=== PATIENT | female | born 1940 | race Caucasian/White ===

== ENCOUNTER 2017-06-27 10:41 | Emergency (ER) | payer MEDICARE, OTHER ==
[~2017-06-27] VITALS: Ht 160 cm; Wt 72.6 kg
[~2017-06-27 10:41] MED LIST: CATAPRES0.1 MG PO; CLONIDINE HCL0.1 MG PO; CLONIDINE HCL0.2 MG PO; HUMALOG100 UNIT/3 SQ; LEVAQUIN500 MG PO; LEVEMIR100 UNIT/1 SQ; LEVOTHYROXINE88 MCG PO; LOSARTAN POTASS25 MG; LOSARTAN-HCTZ1 EAC1 PO; NOVOLOG100 UNITS1 SQ; PANTOPRAZOLE SO40 MG PO; TRAMADOL HCL50 MG PO; Z CALAN PO; Z.0.AMBIEN10 MG PO; Z.0.ATENOLOL50 MG PO; Z.0.GLUCOPHAGE1000 M PO; Z.0.LEVOTHROID50 MCG PO; Z.0.SIMVASTATIN40 MG PO; [UNRECOGNIZED DRUG - OTHER] PO
[2017-06-27] MEDS ORDERED: MECLIZINE HCL 12.5 MG TAB PO ONE (11:45)
[2017-06-27 12:38] LABS: BILIRUBIN,URINE NEGATIVE (NEGATIVE); KETONES,URINE NEGATIVE (NEGATIVE); LEUKOCYTE ESTERASE ,URINE 2+ (NEGATIVE); NITRITE,URINE NEGATIVE (NEGATIVE); URINE UROBILINOGEN 0.2 mg/dL (0.2 - 1)
--- NOTE | 2017-06-27 12:44 | Diagnostic Imaging Report ---
History:Shortness of breath Comparison studies:CT head 07/31/2015 Technique: Axial images were obtained from the skull base to the vertex. Coronal and sagittal images reconstructed from the axial data. Intravenous contrast: None Findings: Scalp/skull: No abnormalities. Extra-axial spaces: No masses. No fluid collections. Brain sulci: Mildly prominent. Ventricles: Mild compensatory dilatation. No hydrocephalus. Parenchyma: Few hypodensities in the supratentorial white matter are small vessel ischemic changes. No masses, hemorrhage, acute or chronic cortical vascular insults. Sellar/suprasellar region: No abnormalities. Craniocervical junction: Patent foramen magnum. No Chiari one malformation. Incidental findings: Atherosclerotic calcifications in the carotid siphons and vertebral arteries . Impression: No acute abnormalities. Stable examination. Chronic findings: 1. Mild generalized volume loss. 2. Mild supratentorial white matter small vessel ischemic changes. Signed by: DR Easton Mcfarland M.D. on 06/27/2017 12:41 PM
[2017-06-27 12:47] LABS: CLARITY,URINE TURBID (CLEAR); COLOR,URINE YELLOW (YELLOW); PROTEIN,URINE DIPSTICK 2+ (NEGATIVE)
--- NOTE | 2017-06-27 13:05 | Diagnostic Imaging Report ---
PROCEDURE: CHEST SINGLE (PORTABLE) COMPARISON: Chest x-ray 07/31/15 . INDICATIONS: SOB, DIZZINESS FINDINGS: Single frontal image obtained at 1018 hrs. LUNGS: Well-inflated. Scarring in the left upper lobe is stable. No mass or infiltrate. PLEURA: No effusions or pneumothorax. Mild eventration of the right diaphragm is stable. HEART \T\ MEDIASTINUM: The heart is normal in size. Aorta is ectatic and stable in morphology. No hilar lymphadenopathy. BONES \T\ SOFT TISSUES: Surgical clips in the left axilla are stable. No focal osseous lesions. CONCLUSION: Stable chest. No active disease. Dictated by: Terry Al M.D. on 06/27/2017 at 13:13 Electronically approved by: Terry Al M.D. on 06/27/2017 at 13:13
[2017-06-27 13:15] LABS: BACTERIA,URINE MODERATE /HPF; EPITHELIAL CELLS,URINE MODERATE /LPF; RENAL EPITHELIAL CELLS,URINE FEW; TRANSITIONAL EPI CELLS,URINE MODERATE
[2017-06-27 13:30] LABS: BASOPHILS % 0.4 % (0.0-1.0); EOSINOPHILS # (AUTO) 0.1 (0.0-0.4); EOSINOPHILS % 0.9 % (0.0-6.0); HEMATOCRIT 41.2 % (34.2-44.1); HEMOGLOBIN 13.9 g/dL (12.0-16.0); LYMPHOCYTES # (AUTO) 1.2 (1.0-3.2); LYMPHOCYTES % 11.4 % (18.0-39.1); MEAN CORPUSCULAR HEMOGLOBIN 29.1 pg (28-32); MEAN CORPUSCULAR HGB CONC 33.7 g/dL (31-35); MEAN CORPUSCULAR VOLUME 86.2 fL (81-99); MONOCYTES # (AUTO) 1.1 (0.2-0.8); MONOCYTES % 10.4 % (4.4-11.3); NEUTROPHILS % 76.5 % (38.7-80.0); PLATELET COUNT 274 x10e3/uL (140-360); RED BLOOD COUNT 4.78 x10e6/uL (3.6-5.1); RED CELL DISTRIBUTION WIDTH 13.6 % (11.7-14.4)
[2017-06-27 13:50] LABS: ALBUMIN 3.7 g/dL (3.5-5.0); ANION GAP 16.3 mmol/L (8-16); CALCIUM 9.8 mg/dL (8.4-10.2); CREATININE, SERUM 1.43 mg/dL (0.57-1.11); POTASSIUM 4.3 mmol/L (3.5-5.1)
[2017-06-27 13:57] LABS: CREATINE KINASE MB 3.7 ng/mL (0.00-5.00); TROPONIN I 0.02 ng/mL (0-0.300)
[2017-06-27 15:52] VITALS: BP 166/88
== END 2017-06-27 16:15 | disposition home or self-care (01) ==
LOC: ER 10:41
DX: R42 Dizziness and giddiness (principal); N39.0 Urinary tract infection, site not specified; I10 Essential (primary) hypertension; E11.9 Type 2 diabetes mellitus without complications
CPT/HCPCS: 36415; 70450; 71010; 80053; 81001; 82550; 82553; 84484; 85025; 87086; 93005; 99284

== ENCOUNTER → 2017-08-28 | Outpatient (CLI) | payer MEDICARE, OTHER ==
--- NOTE | 2017-08-30 13:24 | Diagnostic Imaging Report ---
History: Back pain and bilateral leg pain Comparison studies: MRI of the lumbar spine 05/01/2015 Technique: Sagittal, coronal and axial T2 , sagittal T1 and IR, axial spin density oblique. Intravenous contrast: None Findings: Number of lumbar vertebral bodies:5 Alignment: Grade 2 anterolisthesis of L4 over L5 of approximately 0.9 cm. Pars defect at L4 is suspected.No scoliosis. Soft tissues: No T2 hyperintense inflammatory changes. Paraspinal muscles: Fatty infiltration of the paraspinal musculature more significant at the lower lumbar spine and sacrum were severe atrophy is noted. Lower thoracic cord:Normal in signal and morphology. The tip of the conus is at L1-L2. Cauda equina: No masses. No arachnoiditis. Surgical changes: posterior fusion with transpedicular screws and interlocking rods at L5-S1. Vertebrae: Normal in height and signal intensity. No compression fractures, infection or neoplasm. Degenerative changes: L1-L2: Disc degeneration with loss of T2 signal. Patent canal and foramina. L2-L3: Disc degeneration with loss of T2 signal. Mild facet hypertrophy with patent canal and foramina. L3-L4: Disc degeneration with loss of T2 signal. Asymmetric right disc bulge, mild right and moderate left facet hypertrophy results in mild canal stenosis and mild right foraminal narrowing. L4-L5: Disc degeneration with obliterated intervertebral space, endplate irregularities and Modic type I changes. Uncoverage of the superior disc, mild disc bulge and severe bilateral facet hypertrophy results in severe canal stenosis and severe bilateral foraminal narrowing. Grade 2 anterolisthesis contributes to stenosis. L5-S1: Disc degeneration with loss of T2 signal and Modic type II changes. Moderate bilateral facet hypertrophy with patent canal, mild right and moderate left foraminal narrowing. Stable. Additional findings: Mild degenerative changes of the SI joints. No kidney is seen at the right renal fossa. IMPRESSION: Severe canal stenosis and severe bilateral foraminal narrowing at L4-L5 secondary to grade 2 anterolisthesis, diffuse disc bulge and severe posterior element hypertrophy. These changes has progressed since previous examination. Disc degeneration more significant at the lower lumbar spine with Modic type I changes and endplate irregularities at L4-L5. Other degenerative changes as described above Signed by: DR Easton Mcfarland M.D. on 08/30/2017 1:21 PM
== END ==
LOC: MRI 09:49
PROVIDERS: ATTEND Student in an Organized Health Care Education/Training Program
DX: M48.061 Spinal stenosis, lumbar region without neurogenic claudication (principal); M51.36 Other intervertebral disc degeneration, lumbar region
CPT/HCPCS: 72148

== ENCOUNTER → 2017-09-16 | Day surgery (SDC) | payer MEDICARE, OTHER ==
[2017-09-10 13:41] LABS: BASOPHILS # (AUTO) 0.1 (0.0-0.1); BASOPHILS % 0.5 % (0.0-1.0); EOSINOPHILS # (AUTO) 0.2 (0.0-0.4); EOSINOPHILS % 1.5 % (0.0-6.0); LYMPHOCYTES # (AUTO) 1.6 (1.0-3.2); LYMPHOCYTES % 16.2 % (18.0-39.1); MEAN CORPUSCULAR HGB CONC 33.3 g/dL (31-35); MEAN CORPUSCULAR VOLUME 87.1 fL (81-99); MONOCYTES # (AUTO) 1.5 (0.2-0.8); MONOCYTES % 14.6 % (4.4-11.3); NEUTROPHILS # (AUTO) 6.7 (2.1-6.9); NEUTROPHILS % 66.6 % (38.7-80.0); PLATELET COUNT 284 x10e3/uL (140-360); RED BLOOD COUNT 4.82 x10e6/uL (3.6-5.1); RED CELL DISTRIBUTION WIDTH 13.3 % (11.7-14.4)
[~2017-09-16] MED LIST changes: +BUPIVACAINE HCL 0.5% INJ 30 ML VIAL INJ ONE; +CEFAZOLIN SOD 1 GM VIAL ONE; +DEXAMETHASONE SOD PHOS INJ 4 MG/ML VIAL ONE; +FENTANYL CITRATE/PF 100MCG/2 ML INJ ONE; +LIDOCAINE HCL 2% LOCAL INJ 5 ML SDV VIAL INJ ONE; +MELOXICAM7.5 MG PO; +MIDAZOLAM HCL 2 MG/2 ML VIAL ONE; +MUPIROCIN 2% OINT 22 GM TUBE ONE; +ONDANSETRON HCL INJ 2 MG/ML VIAL ONE; +PROPOFOL IV EMULSION 10 MG/ML 20 ML VIAL ONE; +SEVOFLURANE INHAL SOLN 250 ML PEN BTL ONE
--- OUTSIDE RECORDS SUMMARY | 2017-09-16 06:23 | XMS REPORT ---
Author Author [facility] Address Unknown Phone Unavailable Care Team Providers Care Applications Engineer Name Role Phone BA RICKS Unavailable Unavailable MIKE JUAREZ Unavailable Unavailable Problems This patient has no known problems. Allergies, Adverse Reactions, Alerts This patient has no known allergies or adverse reactions. Medications This patient has no known medications. Results Test Description Test Time Test Comments Text Results Atomic Results Result Comments MRI SPINE LUMBAR WO [place] [address] Patient Name: REESE BEVERLY MR #: [id number] : 1940 Age/Sex: 76/F Req #: [id number] Adm Physician: Ordered by: BA RICKS M.D. Report #: [id number] Location: MRI Room/Bed: ____ Procedure: [id number] MRI/MRI SPINE LUMBAR WO Exam Date: Exam Time: REPORT STATUS: Signed History: Back pain and bilateral leg pain Comparison studies: MRI of the lumbar spine 05/01/2015 Technique: Sagittal, coronal and axial T2 , sagittal T1 and IR, axial spin density oblique. Intravenous contrast: None Findings: Number of lumbar vertebral bodies:5 Alignment: Grade 2 anterolisthesis of L4 over L5 of approximately 0.9 cm. Pars defect at L4 is suspected.No scoliosis. Soft tissues: No T2 hyperintense inflammatory changes. Paraspinal muscles: Fatty infiltration of the paraspinal musculature more significant at the lower lumbar spine and sacrum were severe atrophy is noted. Lower thoracic cord: Normal in signal and morphology. The tip of the conus is at L1-L2. Cauda equina: No masses. No arachnoiditis. Surgical changes: posterior fusion with transpedicular screws and interlocking rods at L5-S1. Vertebrae: Normal in height and signal intensity. No compression fractures, infection or neoplasm. Degenerative changes: L1-L2: Disc degeneration with loss of T2 signal. Patent canal and foramina. L2-L3: Disc degeneration with loss of T2 signal. Mild facet hypertrophy with patent canal and foramina. L3-L4: Disc degeneration with loss of T2 signal. Asymmetric right disc bulge , mild right and moderate left facet hypertrophy results in mild canal stenosis and mild right foraminal narrowing. L4-L5: Disc degeneration with obliterated intervertebral space, endplate irregularities and Modic type I changes. Uncoverage of the superior disc, mild disc bulge and severe bilateral facet hypertrophy results in severe canal stenosis and severe bilateral foraminal narrowing. Grade 2 anterolisthesis contributes to stenosis. L5-S1: Disc degeneration with loss of T2 signal and Modic type II changes. Moderate bilateral facet hypertrophy with patent canal, mild right and moderate left foraminal narrowing. Stable. Additional findings : Mild degenerative changes of the SI joints. No kidney is seen at the right renal fossa. IMPRESSION: Severe canal stenosis and severe bilateral foraminal narrowing at L4-L5 secondary to grade 2 anterolisthesis, diffuse disc bulge and severe posterior element hypertrophy. These changes has progressed since previous examination. Disc degeneration more significant at the lower lumbar spine with Modic type I changes and endplate irregularities at L4-L5. Other degenerative changes as described above Signed by: DR Easton Mcfarland M.D. on 08/30/2017 1:21 PM Dictated By : EASTON FOFANA MD 1321 COPY TO: BA RICKS M.D. CT BRAIN [place] [address] Patient Name: REESE BEVERLY MR #: [id number] : 1940 Age/Sex: 76/F Req #: [id number] Adm Physician: Ordered by: MIKE JUAREZ MD Report #: [id number] Location: ER Room/Bed: Procedure: [id number] CT/CT BRAIN WO Exam Date: 06/27/17 Exam Time: 1220 REPORT STATUS: Signed History:Shortness of breath Comparison studies:CT head 07/31/2015 Technique: Axial images were obtained from the skull base to the vertex. Coronal and sagittal images reconstructed from the axial data. Intravenous contrast: None Findings: Scalp/skull: No abnormalities. Extra-axial spaces: No masses. No fluid collections. Brain sulci: Mildly prominent. Ventricles: Mild compensatory dilatation. No hydrocephalus. Parenchyma: Few hypodensities in the supratentorial white matter are small vessel ischemic changes. No masses, hemorrhage, acute or chronic cortical vascular insults. Sellar/suprasellar region: No abnormalities. Craniocervical junction: Patent foramen magnum. No Chiari one malformation. Incidental findings: Atherosclerotic calcifications in the carotid siphons and vertebral arteries . Impression: No acute abnormalities. Stable examination. Chronic findings: 1. Mild generalized volume loss. 2. Mild supratentorial white matter small vessel ischemic changes. Signed by: DR Easton Mcfarland M.D. on 06/27/2017 12:41 PM Dictated By: EASTON FOFANA MD 1241 Transcribed By : SHABBIR on 06/27/17 1241 COPY TO: MIKE JUAREZ MD [facility] ([facility]) [address], [place] [address] Patient Name: REESE BEVERLY MR #: [id number] : 1940 Age/Sex: 76/F Req #: [id number] [facility] Physician: Ordered by: MIKE JUAREZ MD Report #: [id number] Location: ER Room/Bed: Procedure: [id number] DX/CHEST SINGLE (PORTABLE) Exam Date: 06/27/17 Exam Time: 1225 REPORT STATUS: Signed PROCEDURE: CHEST SINGLE (PORTABLE) COMPARISON: Chest x-ray 07/31/15 . INDICATIONS: SOB , DIZZINESS FINDINGS: Single frontal image obtained at 1018 hrs. LUNGS: Well-inflated. Scarring in the left upper lobe is stable. No mass or infiltrate. PLEURA: No effusions or pneumothorax. Mild eventration of the right diaphragm is stable. HEART T MEDIASTINUM: The heart is normal in size. Aorta is ectatic and stable in morphology. No hilar lymphadenopathy. BONES T SOFT TISSUES: Surgical clips in the left axilla are stable. No focal osseous lesions. CONCLUSION: Stable chest. No active disease. Dictated by: Marly Al M.D. on 06/27/2017 at 13:13 Electronically approved by: Marly Al M.D. on 06/27/2017 at 13:13 Dictated By: MARLY AL MD 1313 Transcribed By : ELIZABETH on 06/27/17 1313 COPY TO: MIKE JUAREZ MD
[2017-09-16 07:39] LABS: CALCIUM 9.8 mg/dL (8.4-10.2); CREATININE, SERUM 1.12 mg/dL (0.57-1.11)
--- NOTE | 2017-09-16 14:05 | Operative Report ---
DATE OF PROCEDURE: September 16, 2017 PREOPERATIVE DIAGNOSIS: Right carpal tunnel syndrome. POSTOPERATIVE DIAGNOSES 1. Right carpal tunnel syndrome. 2. Flexor tenosynovitis, right wrist. PROCEDURES 1. Right open carpal tunnel release. 2. Flexor tenosynovectomy, right wrist. ANESTHESIA: General. HISTORY: The patient is a 76-year-old female with EMG-proven right carpal tunnel syndrome. Risks, benefits and alternatives of treatment were discussed with the patient. The patient is prepared to undergo the procedure as outlined. PROCEDURE: The patient was brought to the operating theater. After the induction of adequate general inhalation anesthesia, the patient was prepped and draped in the supine position. A time out was performed by the entire operating room team. A 2.5-cm incision was marked out in the intrathenar space. The right upper extremity was exsanguinated and a tourniquet was inflated to a pressure of 250 mmHg. The incision was made through the skin and subcutaneous tissues and all venous tributaries were controlled with bipolar cautery. The incision was deepened through the palmar fascia until the transverse carpal ligament was identified. The ligament was sharply sectioned, taking care to protect and preserve the median nerve underlying it. After the complete width of the ligament had been transected, the distal volar forearm fascia was divided under direct view. Proliferative flexor tenosynovium was noticed to encompass the median nerve and this was radically excised. After performing this maneuver, the nerve was noted to lie adequately decompressed. The wound was copiously irrigated with bacteriostatic saline, closed with 5-0 nylon in an interrupted horizontal mattress fashion. A Marcaine field block was performed at the operative site. Tourniquet was deflated. All of the fingers pinked up nicely and a sterile bulking conforming bandage was applied to the hand and the wrist. A fiberglass splint was fashioned to maintain the wrist in a modest amount of extension. This was held in place with a loosely wrapped Davonte wrap. The patient tolerated the procedure well and was brought to the recovery room in satisfactory condition and discharged with a postoperative instruction sheet as well as a followup appointment. Job#: [id number]
== END | disposition home or self-care (01) ==
LOC: OR 06:21
PROVIDERS: ATTEND Plastic Surgery
DX: G56.01 Carpal tunnel syndrome, right upper limb (principal); M65.841 Other synovitis and tenosynovitis, right hand; E03.9 Hypothyroidism, unspecified; E11.22 Type 2 diabetes mellitus with diabetic chronic kidney disease; I12.9 Hypertensive chronic kidney disease with stage 1 through stage 4 chronic kidney disease, or unspecified chronic kidney disease; N18.9 Chronic kidney disease, unspecified; Z01.810 Encounter for preprocedural cardiovascular examination; Z01.812 Encounter for preprocedural laboratory examination; Z79.4 Long term (current) use of insulin
CPT/HCPCS: 25115; 36415 ×2; 80048; 82948; 85025; 93005; J0690; J1100; J2001; J2250; J2405

== ENCOUNTER → 2017-10-09 | Outpatient (CLI) | payer MEDICARE, OTHER ==
[~2017-10-09] MED LIST changes: -BUPIVACAINE HCL 0.5% INJ 30 ML VIAL INJ ONE; -CEFAZOLIN SOD 1 GM VIAL ONE; -DEXAMETHASONE SOD PHOS INJ 4 MG/ML VIAL ONE; -FENTANYL CITRATE/PF 100MCG/2 ML INJ ONE; -LIDOCAINE HCL 2% LOCAL INJ 5 ML SDV VIAL INJ ONE; -MIDAZOLAM HCL 2 MG/2 ML VIAL ONE; -MUPIROCIN 2% OINT 22 GM TUBE ONE; -ONDANSETRON HCL INJ 2 MG/ML VIAL ONE; -PROPOFOL IV EMULSION 10 MG/ML 20 ML VIAL ONE; -SEVOFLURANE INHAL SOLN 250 ML PEN BTL ONE
--- NOTE | 2017-10-09 15:18 | Diagnostic Imaging Report ---
EXAM: DXA BONE DENSITY INDICATIONS: Osteoporsis COMPARISON: None. FINDINGS: Left femur neck bone mineral density (BMD) (g/cm2):1.019 Femur T-score (standard deviation relative to young adult mean BMD): 1.5 Femur Z-score (standard deviation relative to age-matched control group):3.4 Proximal left femur total bone mineral density (BMD) (g/cm2):1.027 Femur T-score (standard deviation relative to young adult mean BMD): 0.7 Femur Z-score (standard deviation relative to age-matched control group):2.2 Lumbar bone mineral density (BMD) (g/cm2):1.106 Lumbar T-score (standard deviation relative to young adult mean BMD): 0.8 Lumbar Z-score (standard deviation relative to age-matched control group):2.9 Change since prior exam (%): Femur:Not applicable. Spine:Not applicable. Change since oldest prior exam (%): Femur:Not applicable. Spine:Not applicable. Posterior fusion of L4-L5. CONCLUSION: 1. Bone mineral density in the left femur is classified as normal. Fracture risk is low. 2. Bone mineral density in the spine is classified as normal. Fracture risk is low. World Health Organization Classification: *The Z-score is provided for informational purposes. The T-score is preferable for clinical decisions. When comparing exams, a change of >4% is considered statistically significant. SUGGESTED RECOMMENDATIONS: Normal \T\ Osteopenia:Consideration should be given to use of calcium supplementation, daily multiple vitamins and adequate exercise, as preventive measures against osteoporosis, if clinically indicated. Osteoporosis \T\ Severe Osteoporosis:In addition to the above, consideration should be given to medical therapy against osteoporosis, if clinically indicated. Dictated by: Dick Li M.D. on 10/09/2017 at 15:18 Electronically approved by: Dick Li M.D. on 10/09/2017 at 15:18
--- NOTE | 2017-10-10 07:29 | Diagnostic Imaging Report ---
Exam: Lumbar spine CT without IV contrast History: Osteoporosis, back pain, previous lumbar fusion, radiculopathy. Comparison studies: Lumbar spine MRI 08/28/2017 and 06/17/2011. Technique: Axial images were obtained through the lumbar spine. Coronal and sagittal images reconstructed from the axial data. Intravenous contrast: None Findings: Number of non-rib bearing vertebral bodies: 5 Alignment: Unchanged grade 2 (9 mm) anterolisthesis of L4 on L5 due to chronic defects of the bilateral L4 pars interarticularis. Unchanged 2 mm Grade 1 anterolisthesis of L5 on S1 and minimal retrolisthesis of L1 on L2, L2 on L3 and L3 on L4. Soft tissues: Postsurgical changes in the dorsal lumbosacral soft tissues from L4 to S1. Surgical changes of right nephrectomy with metallic clips in the right abdomen. Moderate scattered calcified atherosclerosis throughout the abdominal aorta and iliac vessels. Paraspinal muscles: Mild symmetric atrophy from L1 to L4 with severe atrophy from L5 to the sacrum. Sacroiliac joints: Mild degenerative changes bilaterally with periarticular sclerosis. Vertebrae: No fractures, infection or neoplasm. Surgical changes: L5-S1 discectomy and posterior instrumented fusion with rods fixated via transpedicular screws at L5 and transsacral screws at S1 without evidence of hardware failure or hardware loosening. Disc spacer in place at L5-S1 without significant interbody osseous fusion at this level. Surgical changes of bilateral laminotomies and left facetectomy. Degenerative changes: L1-L2: Mildly degenerated disc. Mild facet arthrosis. Patent canal and foramina. L2-L3: Disc bulge and bilateral facet arthrosis do not result in significant canal or foraminal stenosis. L3-L4: Disc bulge, mildly thickened ligamentum flavum, moderate left and mild right facet arthrosis with mild right foraminal stenosis. No significant canal or left foraminal stenosis. L4-L5: Severely degenerated disc with mixed cystic and sclerotic endplate changes. Grade 2 anterolisthesis of L4 and L5 with associated uncovered disc/disc bulge and hypertrophic changes at the facets with severe canal stenosis and severe bilateral foraminal stenosis. L5-S1: Surgical changes of discectomy, fusion, decompressive laminotomies and left facetectomy. Minimal anterolisthesis of L5 on S1 with bilateral foraminal disc osteophyte complexes and severe right facet arthrosis with mild right foraminal stenosis. There is at least mild narrowing of the left foramen which which is partially decompressed by left facetectomy. IMPRESSION: No changes from the previous lumbar spine MRI 08/28/2017. 1. Grade 2 L4 isthmic spondylolisthesis with severe disc degeneration, severe canal stenosis and severe bilateral foraminal stenosis at L4-L5. 2. Surgical changes of L5-S1 discectomy, posterior fusion, laminotomy and left facetectomy at L5-S1 with mild bilateral foraminal narrowing and without significant canal stenosis. 3. Changes of right nephrectomy. Signed by: Dr. Jorge Gaston M.D. on 10/10/2017 7:26 AM
== END ==
LOC: DX 09:57
PROVIDERS: ATTEND Neurological Surgery
DX: M81.0 Age-related osteoporosis without current pathological fracture (principal); M54.16 Radiculopathy, lumbar region; M47.896 Other spondylosis, lumbar region
CPT/HCPCS: 72131; 77080

== ENCOUNTER 2018-07-10 00:35 | Inpatient (IN) | payer MEDICARE, OTHER ==
[2018-07-10] VITALS (56 sets, daily range): BP systolic 103–208; BP diastolic 47–158
[~2018-07-10] VITALS: Ht 160 cm; Wt 71.8 kg
--- OUTSIDE RECORDS SUMMARY | 2018-07-10 00:40 | XMS REPORT | Summary of Care ---
Author Author [facility] Organization [facility] Address Unknown Phone Unavailable Encounter HQ Anicetontr_julisa(FIN) [id number] Date(s): 10/27/17 - 10/28/17 [facility] Neuro[facility] [address] [facility], [address] [phone] Vital Signs No data available for this section Problem List No data available for this section Allergies, Adverse Reactions, Alerts Substance Reaction Severity Status codeine Active Tylox Active Medications No data available for this section Results No data available for this section Immunizations Given and Recorded Vaccine Date Status Refusal Reason pneumococcal 23-valent vaccine 05/11/09 Given Not Given Vaccine Date Status Refusal Reason pneumococcal 13-valent vaccine 11/03/17 Not Given Patient Refuses Procedures Procedure Date Related Diagnosis Body Site Status Appendectomy Completed Bladder operation Completed Carpal tunnel release Completed Knee replacement Completed Nephrectomy Completed Spinal fusion Completed Social History Social History Type Response Alcohol Never Smoking Status Never smoker; Exposure to Tobacco Smoke None; Cigarette Smoking Last 365 Days No; Reg Smoking Cessation Counseling No entered on: 10/31/17 Assessment and Plan No data available for this section
--- OUTSIDE RECORDS SUMMARY | 2018-07-10 00:40 | XMS REPORT | Summary of Care ---
Author Author [facility] Neurosurgery [facility] Organization [facility] Address Unknown Phone Unavailable Encounter HQ Encntr_alialex(FIN) [id number] Date(s): 11/18/17 - 11/18/17 [facility] Neurosurgery [facility] [address] [facility], [address] [phone] Discharge Disposition: Home or Self Care Attending Physician: Corby Phelps MD Referring Physician: Margarita Macario MD Vital Signs Most recent to 1 oldest [Reference Range]: Height 160.02 cm (11/18/17 11:11 AM) Blood Pressure 166/72 mmHg [90-140/60-90 mmHg] *HI* (11/18/17 11:11 AM) Peripheral Pulse 68 bpm Rate [60-100 bpm] (11/18/17 11:11 AM) Weight 72.727 kg (11/18/17 11:11 AM) Body Mass Index 28.4 m2 (11/18/17 11:11 AM) Problem List No data available for this [...] Reg Smoking Cessation Counseling No entered on: 11/19/17 Assessment and Plan No data available for this section
--- OUTSIDE RECORDS SUMMARY | 2018-07-10 00:40 | XMS REPORT | Summary of Care ---
Author Author [facility] Organization [facility] Address Unknown Phone Unavailable Encounter HQ Anicetontr_julisa(FIN) [id number] Date(s): 11/05/17 - 11/06/17 [facility] [address] [facility], [address] [phone] Vital Signs No data available for this [...]
--- OUTSIDE RECORDS SUMMARY | 2018-07-10 00:40 | XMS REPORT | Summary of Care ---
Author Author [facility]surgery [facility] Organization [facility] Address Unknown Phone Unavailable Encounter HQ Encntr_alias(FIN) [id number] Date(s): 10/21/17 - 10/21/17 [facility] [address] [facility], [address] [phone] Discharge Disposition: Home or Self Care Attending Physician: Corby Phelps MD Referring Physician: Margarita Macario MD Vital Signs No data available for this section Problem List No data available for this section Allergies, Adverse Reactions, Alerts Substance Reaction Severity Status codeine Active Medications No data available for this section Results No data available for this section Immunizations Given and Recorded Vaccine Date Status Refusal Reason pneumococcal 23-valent vaccine 05/11/09 Given Procedures Procedure Date Related Diagnosis Body Site Status Knee replacement Completed Nephrectomy Completed Spinal fusion Completed Social History Social History Type Response Smoking Status Never smoker; Exposure to Tobacco Smoke None; Cigarette Smoking Last 365 Days No; Reg Smoking Cessation Counseling No entered on: 10/21/17 Assessment and Plan No data available for this section
--- OUTSIDE RECORDS SUMMARY | 2018-07-10 00:40 | XMS REPORT | Summary of Care ---
Author Author [facility] Neurosurgery [facility] Organization [facility] Neurosurgery [facility] Address Unknown Phone Unavailable Encounter HQ Anicetontr_julisa(FIN) [id number] Date(s): 11/05/17 - 11/06/17 [facility] Neurosurgery [facility] [address] [facility], [address] [phone] Vital Signs No data available for this [...]
--- OUTSIDE RECORDS SUMMARY | 2018-07-10 00:40 | XMS REPORT | Summary of Care ---
Author Author [facility] Organization [facility] Address Unknown Phone Unavailable Encounter HQ Mireille_julisa(FIN) [phone] Date(s): 12/16/17 - 12/16/17 [facility] [address], [address] [place] [phone] Discharge Disposition: Home or Self Care Attending Physician: Corby Phelps MD Referring Physician: Margarita Macario MD Vital Signs Most recent to 1 oldest [Reference Range]: Height 160.02 cm (12/16/17 1:30 PM) Weight 71.847 kg (12/16/17 1:30 PM) Body Mass Index 28.06 m2 (12/16/17 1:30 PM) Problem List Condition Effective Dates Status Health Status Informant DM (diabetes Active mellitus)(Confirmed) SOB (shortness of Active breath) on exertion(Confirmed) Acid Active reflux(Confirmed) HTN Active (hypertension)(Confi rmed) Hypothyroidism(Confi Active rmed) History of breast Active cancer in female(Confirmed) Allergies, Adverse Reactions, Alerts Substance Reaction Severity [...] Reg Smoking Cessation Counseling No entered on: 12/16/17 Assessment and Plan No data available for this section
--- OUTSIDE RECORDS SUMMARY | 2018-07-10 00:40 | XMS REPORT | Summary of Care ---
Author Author [facility] Organization [facility] Address Unknown Phone Unavailable Encounter SCOTT Mace(SUNSHINE) [id number] Date(s): 10/31/17 - 11/03/17 [facility] [address] [employer] provided by [facility] [place] [address]- Discharge Disposition: Home or Self Care Attending Physician: Corby Phelps MD Admitting Physician: Corby Phelps MD Referring Physician: Corby Phelps MD Vital Signs 1 2 3 Most recent to oldest [Reference Range]: 160.02 cm (10/31/17 11:12 PM) 160.02 cm (10/31/17 7:57 AM) 160.02 cm (10/28/17 1:22 PM) Height 99.5 DegF *HI* (11/03/17 8:15 AM) 98.5 DegF (11/03/17 4:50 AM) 100.0 DegF *HI* (11/03/17 12:10 AM) Temperature Oral [96.4-99.1 DegF] 168/72 mmHg *HI* (11/03/17 8:15 AM) 143/73 mmHg *HI* (11/03/17 4:50 AM) 156/63 mmHg *HI* (11/03/17 12:10 AM) Blood Pressure [90-140/60-90 mmHg] 18 BRMIN (11/03/17 8:15 AM) 20 BRMIN (11/03/17 4:50 AM) 20 BRMIN (11/03/17 12:10 AM) Respiratory Rate [14-20 BRMIN] 74 bpm (11/03/17 8:15 AM) 63 bpm (11/03/17 4:50 AM) 67 bpm (11/03/17 12:10 AM) Peripheral Pulse Rate [60-100 bpm] 71.818 kg (10/31/17 11:12 PM) 71.818 kg (10/31/17 7:57 AM) 71.818 kg (10/28/17 1:22 PM) Weight 28.05 m2 (10/31/17 11:12 PM) 28.05 m2 (10/31/17 7:57 AM) 28.05 m2 (10/28/17 1:22 PM) Body Mass Index Problem List No data available for this section Allergies, Adverse Reactions, Alerts Substance Reaction Severity Status codeine Active Tylox Active Medications ANES fentaNYL 25 microgram, 0.5 mL, Route: IVP, Drug form: INJ, Q5Min, Dosing Weight 71.818, k g, PRN Pain Score 4-6, Priority: Routine, Start date: 10/31/17 15:00:00 CDT, Dur ation: 4 doses or times, Stop date: 11/01/17 0:00:00 CDT Notes: (Same as: Sublimaze) Preservative free. Start Date: 10/31/17 Stop Date: 10/31/17 Status: Discontinued ANES flumazenil 0.2 mg, 2 mL, Route: IVP, Drug form: INJ, PRN, Dosing Weight 71.818, kg, PRN Ziggy zodiazepine Reversal, Initial dose, Start date: 10/31/17 15:00:00 CDT, Duration: 30 day, Stop date: 11/30/17 14:59:00 CDT Notes: (Same as: Romazicon) Start Date: 10/31/17 Stop Date: 10/31/17 Status: Discontinued ANES HYDROmorphone 0.5 mg, 0.25 mL, Route: IVP, Drug form: INJ, Q5Min, Dosing Weight 71.818, kg, OR N Pain Score 7-10, Start date: 10/31/17 15:00:00 CDT, Duration: 4 doses or times , Stop date: 11/01/17 0:00:00 CDT Notes: Same as: Dilaudid Start Date: 10/31/17 Stop Date: 10/31/17 Status: Discontinued ANES naloxone 0.4 mg, 1 mL, Route: IVP, Drug form: INJ, Q2MIN, Dosing Weight 71.818, kg, PRN N arcotic Reversal, Start date: 10/31/17 15:00:00 CDT, Duration: 8 doses or times, Stop date: 11/01/17 0:00:00 CDT Notes: Same as Narcan Start Date: 10/31/17 Stop Date: 10/31/17 Status: Discontinued ANES ondansetron 4 mg, 2 mL, Route: IVP, Drug form: INJ, ONCE, Dosing Weight 71.818, kg, PRN Naus ea & Vomiting, Start date: 10/31/17 15:00:00 CDT Notes: (Same as: Karina) MEDICATION WASTE Product Size: 4 mgProduct Was rosamaria: ___ mg Start Date: 10/31/17 Stop Date: 10/31/17 Status: Discontinued atenolol 50 mg oral tablet 50 mg=1 tab, PO, Daily, 0 Refill(s) Start Date: 10/28/17 Status: Ordered atenolol 50 mg oral tablet 50 mg, 1 tab, Route: PO, Drug form: TAB, Daily, Dosing Weight 71.818, kg, Start date: 11/01/17 9:00:00 CDT, Duration: 30 day, Stop date: 11/30/17 9:00:00 CDT Notes: (Same As:Tenormin) Start Date: 11/01/17 Stop Date: 11/03/17 Status: Discontinued Benadryl 25 mg, 1 cap, Route: PO, Drug form: CAP, TID, Dosing Weight 71.818, kg, PRN Itch ing, Start date: 10/31/17 17:11:00 CDT, Duration: 30 day, Stop date: 11/30/17 17 :10:00 CDT Notes: (Same as: Benadryl) Start Date: 10/31/17 Stop Date: 11/03/17 Status: Discontinued bisacodyl 10 mg, 1 supp, Route: OR, Drug form: SUPP, Daily, Dosing Weight 71.818, kg, PRN Constipation, Start date: 10/31/17 17:11:00 CDT, Duration: 30 day, Stop date: 17:10:00 CDT Notes: (Same As: Dulcolax, Bisco-Lax) Start Date: 10/31/17 Stop Date: 11/03/17 Status: Discontinued calcium chloride + Sodium Chloride 0.9% IV 50 mL 1,000 mg, 10 mL, Route: IVPB, ONCE, Dosing Weight 71.818, kg, Start date: 4:29:00 CDT, Stop date: 11/01/17 4:29:00 CDT Notes: WASTE: F/P - Sink; E - Municipal Trash Bin Start Date: 11/01/17 Stop Date: 11/01/17 Status: Completed ceFAZolin (ANES) Route: IV, Drug form: INJ, ONCE, Stop date: 10/31/17 11:41:00 CDT Start Date: 10/31/17 Stop Date: 10/31/17 Status: Completed ceFAZolin (SCIP) 2 gm, 20 mL, Route: IV, Drug form: SOLN, Q8H, Dosing Weight 71.818, kg, Start da te: 10/31/17 22:00:00 CDT, Stop date: 11/01/17 14:00:00 CDT, ABX Indication: Cy gical Prophylaxis Notes: (Same as Ancef) Start Date: 10/31/17 Stop Date: 11/01/17 Status: Completed ceFAZolin + sterile water 20 mL 2 gm, Route: IV, PRE OP, Start date: 10/30/17 23:00:00 CDT, Duration: 1 day, Sto p date: 10/31/17 22:59:00 CDT, ABX Indication: Surgical Prophylaxis Notes: (Same As: Saeed Martinezzojasbir) MEDICATION WASTE Product Size: 1000 mgP roduct Wasted: ___ mg Start Date: 10/30/17 Stop Date: 11/03/17 Status: Discontinued Chloraseptic 1.4% spray 1 spray, Route: MUCOUS MEM, Daily, Drug form: SPRY, PRN Sore Throat, Start date: 10/31/17 17:11:00 CDT, Duration: 30 day, Stop date: 11/30/17 17:10:00 CDT Notes: Chloraseptic Bliss(Same as: Chloraseptic, Sore Throat Bliss)WASTE: F/P - Black; E - Municipal Trash Bin Start Date: 10/31/17 Stop Date: 11/03/17 Status: Discontinued cloNIDine 0 Refill(s) Start Date: 10/28/17 Stop Date: 11/01/17 Status: Discontinued cloNIDine 0.1 mg oral tablet 0.1 mg, 1 tab, Route: PO, Drug form: TAB, BID, Start date: 11/01/17 12:00:00 CDT , Duration: 30 day, Stop date: 11/30/17 21:00:00 CDT Notes: (Same As: Aryaprkiana) Start Date: 11/01/17 Stop Date: 11/03/17 Status: Discontinued cloNIDine 0.1 mg oral tablet See Instructions, 2 tabs in the morning 1 tab at noon 1 tab at bedtime [facility] [id number], 0 Refill(s) Start Date: 11/01/17 Status: Ordered cloNIDine 0.2 mg oral tablet 0.2 mg, 1 tab, Route: PO, Drug form: TAB, QAM, Start date: 11/02/17 9:00:00 CDT, Duration: 30 day, Stop date: 12/01/17 9:00:00 CDT Notes: (Same As: Monty) Start Date: 11/02/17 Stop Date: 11/03/17 Status: Discontinued Cozaar 100 mg, 2 tab, Route: PO, Drug form: TAB, Daily, Start date: 11/01/17 10:58:00 C DT, Duration: 30 day, Stop date: 12/01/17 9:00:00 CDT Notes: (Same as: Cozaar) Start Date: 11/01/17 Stop Date: 11/03/17 Status: Discontinued dexmedetomidine (ANES) 200 microgram Route: IV, Drug form: INJ, Start date: 10/31/17 12:54:00 CDT, Stop date: 8 13:54:00 CDT Start Date: 10/31/17 Stop Date: 10/31/17 Status: Completed Dextrose 50% Syringe 12.5 gm, 25 mL, Route: IVP, Drug Form: INJ, Dosing Weight 71.818, kg, PRN, PRN B lood Glucose Results, Start date: 10/31/17 23:01:00 CDT, Duration: 30 day, Stop date: 11/30/17 23:00:00 CDT Start Date: 10/31/17 Stop Date: 11/03/17 Status: Discontinued Dextrose 50% Syringe 25 gm, 50 mL, Route: IVP, Drug Form: INJ, Dosing Weight 71.818, kg, PRN, PRN Blo od Glucose Results, Start date: 10/31/17 23:01:00 CDT, Duration: 30 day, Stop da te: 11/30/17 23:00:00 CDT Start Date: 10/31/17 Stop Date: 11/03/17 Status: Discontinued Dilaudid 0.5 mg, 0.25 mL, Route: IVP, Drug form: INJ, Q3H, Dosing Weight 71.818, kg, PRN Pain Score 7-10, Start date: 10/31/17 17:11:00 CDT, Duration: 30 day, Stop date: 11/30/17 17:10:00 CDT Notes: Same as Dilaudid Start Date: 10/31/17 Stop Date: 11/03/17 Status: Discontinued docusate 50 mg, 1 cap, Route: PO, Drug form: CAP, BID, Dosing Weight 71.818, kg, Start da te: 11/01/17 9:00:00 CDT, Duration: 30 day, Stop date: 11/30/17 17:00:00 CDT, Pe diatric Dosing Notes: (Same as: Colace) (Do Not Crush) Start Date: 11/01/17 Stop Date: 11/03/17 Status: Discontinued docusate sodium 50 mg oral capsule 50 mg=1 cap, PO, BID, PRN as needed for constipation, Pediatric Dosing, # 90 cap , 0 Refill(s) Start Date: 11/03/17 Status: Ordered ePHEDrine (ANES) Route: IV, Drug form: INJ, ONCE, Stop date: 10/31/17 12:26:00 CDT Start Date: 10/31/17 Stop Date: 10/31/17 Status: Completed famotidine 20 mg oral tablet 20 mg, 1 tab, Route: PO, Drug form: TAB, BID, Dosing Weight 71.818, kg, Start da te: 11/01/17 9:00:00 CDT, Duration: 30 day, Stop date: 11/30/17 17:00:00 CDT Notes: (Same as: Pepcid) Start Date: 11/01/17 Stop Date: 11/03/17 Status: Discontinued fentaNYL (ANES) Route: IV, Drug form: INJ, ONCE, Stop date: 10/31/17 11:41:00 CDT Start Date: 10/31/17 Stop Date: 10/31/17 Status: Completed glucagon 1 mg, Route: IM, Drug form: PDR/INJ, PRN, Dosing Weight 71.818, kg, PRN Blood Gl ucose Results, Start date: 10/31/17 23:01:00 CDT, Duration: 30 day, Stop date: 0 11/30/17 23:00:00 CDT Start Date: 10/31/17 Stop Date: 11/03/17 Status: Discontinued hydrALAZINE 20 mg, 1 mL, Route: IVP, Drug form: INJ, Q4H, Dosing Weight 71.818, kg, PRN Hype rtension, Start date: 10/31/17 17:11:00 CDT, Duration: 30 day, Stop date: 17:10:00 CDT Notes: (Same as: Apresoline)Push over 5 minutes Start Date: 10/31/17 Stop Date: 11/03/17 Status: Discontinued hydrochlorothiazide-losartan 25 mg-100 mg oral tablet 1 tab, PO, Daily, [facility] [id number], # 30 tab, 0 Refill(s) Start Date: 11/01/17 Status: Ordered hydromorphone (ANES) Route: IV, Drug form: INJ, ONCE, Stop date: 10/31/17 17:11:00 CDT Start Date: 10/31/17 Stop Date: 10/31/17 Status: Completed insulin detemir 15 unit, 0.15 mL, Route: SUB-Q, Drug form: SOLN, BID, Start date: 11/01/17 17:00 :00 CDT, Duration: 30 day, Stop date: 12/01/17 9:00:00 CDT Notes: Non-Formulary Drug(Same as Levemir)Do not hold insulin without contacting prescriberWASTE: F/P - Black; E - Municipal Trash Bin "single patient use only" Start Date: 11/01/17 Stop Date: 11/03/17 Status: Discontinued Insulin regular 3 unit, 0.03 mL, Route: SUB-Q, Drug form: SOLN, Sliding Scale, Dosing Weight 71. 818, kg, PRN Blood Glucose Results, Start date: 10/31/17 23:01:00 CDT, Duration: 30 day, Stop date: 11/30/17 23:00:00 CDT Notes: (Same as: Humulin R) Roll in palms of hands gently; Do not shake vigorou sly. "single patient use only"(Restricted to patients requiring a dose > 60 units)WASTE: F/P - Black; E - Municipal Trash Bin Stable for 28 days at room temperatureExpires in days from Date Start Date: 10/31/17 Stop Date: 11/03/17 Status: Discontinued Insulin regular 6 unit, 0.06 mL, Route: SUB-Q, Drug form: SOLN, Sliding Scale, Dosing Weight 71. 818, kg, PRN Blood Glucose Results, Start date: 10/31/17 23:01:00 CDT, Duration: 30 day, Stop date: 11/30/17 23:00:00 CDT Notes: (Same as: Humulin R) Roll in palms of hands gently; Do not shake vigorou sly. "single patient use only"(Restricted to patients requiring a dose > 60 units)WASTE: F/P - Black; E - Municipal Trash Bin Stable for 28 days at room temperatureExpires in days from Date Start Date: 10/31/17 Stop Date: 11/03/17 Status: Discontinued Insulin regular 9 unit, 0.09 mL, Route: SUB-Q, Drug form: SOLN, Sliding Scale, Dosing Weight 71. 818, kg, PRN Blood Glucose Results, Start date: 10/31/17 23:01:00 CDT, Duration: 30 day, Stop date: 11/30/17 23:00:00 CDT Notes: (Same as: Humulin R) Roll in palms of hands gently; Do not shake vigorou sly. "single patient use only"(Restricted to patients requiring a dose > 60 units)WASTE: F/P - Black; E - Municipal Trash Bin Stable for 28 days at room temperatureExpires in days from Date Start Date: 10/31/17 Stop Date: 11/03/17 Status: Discontinued Insulin regular 12 unit, 0.12 mL, Route: SUB-Q, Drug form: SOLN, Sliding Scale, Dosing Weight 71 .818, kg, PRN Blood Glucose Results, Start date: 10/31/17 23:01:00 CDT, Duration : 30 day, Stop date: 11/30/17 23:00:00 CDT Notes: (Same as: Humulin R) Roll in palms of hands gently; Do not shake vigorou sly. "single patient use only"(Restricted to patients requiring a dose > 60 units)WASTE: F/P - Black; E - Municipal Trash Bin Stable for 28 days at room temperatureExpires in days from Date Start Date: 10/31/17 Stop Date: 11/03/17 Status: Discontinued Insulin regular 15 unit, 0.15 mL, Route: SUB-Q, Drug form: SOLN, Sliding Scale, Dosing Weight 71 .818, kg, PRN Blood Glucose Results, Start date: 10/31/17 23:01:00 CDT, Duration : 30 day, Stop date: 11/30/17 23:00:00 CDT Notes: (Same as: Humulin R) Roll in palms of hands gently; Do not shake vigorou sly. "single patient use only"(Restricted to patients requiring a dose > 60 units)WASTE: F/P - Black; E - Municipal Trash Bin Stable for 28 days at room temperatureExpires in days from Date Start Date: 10/31/17 Stop Date: 11/03/17 Status: Discontinued Insulin regular (ANES) Route: IV, Drug form: INJ, ONCE, Stop date: 10/31/17 13:51:00 CDT Start Date: 10/31/17 Stop Date: 10/31/17 Status: Completed ketAMINE (ANES) Route: IV, Drug form: INJ, ONCE, Stop date: 10/31/17 13:16:00 CDT Start Date: 10/31/17 Stop Date: 10/31/17 Status: Completed labetalol 10 mg, 2 mL, Route: IVP, Drug form: INJ, Q15Min, Dosing Weight 71.818, kg, PRN H ypertension, Start date: 10/31/17 17:11:00 CDT, Duration: 30 day, Stop date: 09/14 17:10:00 CDT Start Date: 10/31/17 Stop Date: 11/03/17 Status: Discontinued Lactated Ringers Injection IV (ANES) 1000 mL Route: IV, Total Volume: 1,000, Start date: 10/31/17 10:04:00 CDT, Stop date: 11:04:00 CDT Start Date: 10/31/17 Stop Date: 10/31/17 Status: Completed Levemir SUB-Q, 0 Refill(s) Start Date: 10/28/17 Stop Date: 11/01/17 Status: Discontinued Levemir 100 units/mL 30 unit, SUB-Q, Bedtime, 0 Refill(s) Start Date: 11/01/17 Status: Ordered lidocaine (ANES) Route: IV, Drug form: INJ, ONCE, Stop date: 10/31/17 11:41:00 CDT Start Date: 10/31/17 Stop Date: 10/31/17 Status: Completed Lovenox 30 mg, 0.3 mL, Route: SUB-Q, Drug form: INJ, [id number], Dosing Weight 71.818, kg, Start date: 11/01/17 8:00:00 CDT, Duration: 30 day, Stop date: 11/30/17 20:00:00 CDT Notes: (Same as: Lovenox) Start Date: 11/01/17 Stop Date: 11/03/17 Status: Discontinued magnesium sulfate 2 gm, 50 mL, Route: IVPB, Drug form: INJ, Q2H, Dosing Weight 71.818, kg, Total d ose=4 gm, Start date: 11/01/17 6:00:00 CDT, Duration: 3 doses or times, Stop joyce e: 11/01/17 10:00:00 CDT Notes: WASTE: F/P - Sink; E - Municipal Trash Bin Start Date: 11/01/17 Stop Date: 11/01/17 Status: Completed melatonin 3 mg oral tablet 3 mg, 1 tab, Route: PO, Drug Form: TAB, Dosing Weight 71.818, kg, Bedtime, PRN a s needed for insomnia, Start date: 10/31/17 17:11:00 CDT, Duration: 30 day, Stop date: 11/30/17 17:10:00 CDT Notes: (Same as: Melatonin) Start Date: 10/31/17 Stop Date: 11/03/17 Status: Discontinued Raleigh 10/325 oral tablet 2 tab, Route: PO, Drug Form: TAB, Dosing Weight 71.818, kg, Q4H, PRN Pain Score 4-6, Start date: 10/31/17 17:11:00 CDT, Duration: 30 day, Stop date: 11/30/17 17 :10:00 CDT Notes: Do not exceed 4gm/day of acetaminophen. (Same as: [place] 325/10) Start Date: 10/31/17 Stop Date: 11/03/17 Status: Discontinued Raleigh 10/325 oral tablet 1 tab, Route: PO, Drug Form: TAB, Dosing Weight 71.818, kg, Q4H, PRN Pain Score 1-3, Start date: 10/31/17 17:11:00 CDT, Duration: 30 day, Stop date: 11/30/17 17 :10:00 CDT Notes: Do not exceed 4gm/day of acetaminophen. (Same as: [place] 325/10) Start Date: 10/31/17 Stop Date: 11/03/17 Status: Discontinued NovoLOG SUB-Q, TID-Before Meals, 0 Refill(s) Start Date: 10/28/17 Stop Date: 11/01/17 Status: Discontinued NovoLOG 100 units/mL 20 unit, SUB-Q, TID-Before Meals, # 10 mL, 0 Refill(s) Start Date: 11/01/17 Status: Ordered ondansetron 4 mg, 2 mL, Route: IVP, Drug form: INJ, Q6H, Dosing Weight 71.818, kg, PRN Nause a & Vomiting, Start date: 10/31/17 17:11:00 CDT, Duration: 30 day, Stop date: 11/30/17 17:10:00 CDT, >/=4 years, Pediatric Dosing Notes: (Same as: Zoan) MEDICATION WASTE Product Size: 4 mgProduct Was rosamaria: ___ mg Start Date: 10/31/17 Stop Date: 11/03/17 Status: Discontinued ondansetron (ANES) Route: IV, Drug form: INJ, ONCE, Stop date: 10/31/17 17:12:00 CDT Start Date: 10/31/17 Stop Date: 10/31/17 Status: Completed pantoprazole 40 mg oral enteric coated tablet 40 mg=1 tab, PO, Daily, # 30 tab, 0 Refill(s) Start Date: 11/01/17 Status: Ordered PlasmaLyte A PH-7.4 (ANES) 1000 mL Route: IV, Total Volume: 1,000, Start date: 10/31/17 10:22:00 CDT, Stop date: 11:22:00 CDT Start Date: 10/31/17 Stop Date: 10/31/17 Status: Completed propofol (ANES) Route: IV, Drug form: INJ, ONCE, Stop date: 10/31/17 11:41:00 CDT Start Date: 10/31/17 Stop Date: 10/31/17 Status: Completed Robaxin 500 mg oral tablet 1,000 mg=2 tab, PO, QID, PRN Muscle Spasms, # 90 tab, 0 Refill(s), Pharmacy: [facility] [id number] Start Date: 11/03/17 Stop Date: 12/04/17 Status: Ordered rocuronium (ANES) Route: IV, Drug form: INJ, ONCE, Stop date: 10/31/17 11:41:00 CDT Start Date: 10/31/17 Stop Date: 10/31/17 Status: Completed Saline Flush 0.9% 10 ml, Route: IVP, Drug Form: INJ, Dosing Weight 71.818, kg, PRN, PRN Line Flush , Start date: 10/31/17 17:11:00 CDT, Duration: 30 day, Stop date: 11/30/17 17:10 :00 CDT Notes: (Same as: BD Posiflush) Start Date: 10/31/17 Stop Date: 11/03/17 Status: Discontinued Saline Flush 0.9% 10 ml, Route: IVP, Drug Form: INJ, Dosing Weight 71.818, kg, Q12H, Start date: 0 10/31/17 21:00:00 CDT, Duration: 30 day, Stop date: 11/30/17 9:00:00 CDT Notes: (Same as: BD Posiflush) Start Date: 10/31/17 Stop Date: 11/03/17 Status: Discontinued scopolamine (ANES) Route: IV, Drug form: ERFILM, ONCE, Stop date: 10/31/17 11:46:00 CDT Start Date: 10/31/17 Stop Date: 10/31/17 Status: Completed senna 8.6 mg, 1 tab, Route: PO, Drug Form: TAB, Dosing Weight 71.818, kg, BID, Start d ate: 11/01/17 9:00:00 CDT, Duration: 30 day, Stop date: 11/30/17 17:00:00 CDT Notes: (Same as: Senokot) Start Date: 11/01/17 Stop Date: 11/03/17 Status: Discontinued sugammadex 200 mg, 2 mL, Route: IVP, Drug form: SOLN, ONCALL, Start date: 10/31/17 18:00:00 CDT, Stop date: 10/31/17 18:15:00 CDT Notes: (Same as: Bridion) Start Date: 10/31/17 Stop Date: 11/03/17 Status: Discontinued sugammadex (ANES) Route: IV, Drug form: SOLN, ONCE, Stop date: 10/31/17 17:12:00 CDT Start Date: 10/31/17 Stop Date: 10/31/17 Status: Completed tramadol 50 mg oral tablet 50 mg=1 tab, PO, Q4H, 0 Refill(s) Start Date: 10/28/17 Stop Date: 11/03/17 Status: Discontinued Tylenol 650 mg, 2 tab, Route: PO, Drug form: TAB, Q6H, Dosing Weight 71.818, kg, PRN Rony n 1-3/Temp > 100.4 F, Start date: 11/01/17 22:45:00 CDT, Duration: 30 day, Stop date: 12/01/17 22:44:00 CDT Notes: Do not exceed 4 gm/day. (Same as: Tylenol) Start Date: 11/01/17 Stop Date: 11/03/17 Status: Discontinued zolpidem 10 mg, 2 tab, Route: PO, Drug form: TAB, Bedtime, Dosing Weight 71.818, kg, Star t date: 10/31/17 21:00:00 CDT, Duration: 30 day, Stop date: 11/29/17 21:00:00 CD T Notes: (Same As: Ambien) Start Date: 10/31/17 Stop Date: 11/03/17 Status: Discontinued zolpidem 10 mg oral tablet 10 mg=1 tab, PO, Bedtime, 0 Refill(s) Start Date: 10/28/17 Status: Ordered Results BLOOD BANK RESULTS Most recent to 1 oldest [Reference Range]: ABO/Rh O POS *Unknown* (10/31/17 7:40 AM) Antibody Scrn Negative (10/31/17 7:40 AM) ELECTROLYTES Most recent to 1 2 oldest [Reference Range]: Sodium Lvl [135-145 137 mEq/L 134 mEq/L mEq/L] (11/02/17 3:14 AM) *LOW* (11/01/17 12:28 AM) Potassium Lvl 3.7 mEq/L 4.0 mEq/L [3.5-5.1 mEq/L] (11/02/17 3:14 AM) (11/01/17 12:28 AM) Chloride Lvl [95-109 103 mEq/L 101 mEq/L mEq/L] (11/02/17 3:14 AM) (11/01/17 12:28 AM) CO2 [24-32 mEq/L] 22 mEq/L 21 mEq/L *LOW* *LOW* (11/02/17 3:14 AM) (11/01/17 12:28 AM) AGAP [10.0-20.0 15.7 mEq/L 16.0 mEq/L mEq/L] (11/02/17 3:14 AM) (11/01/17 12:28 AM) CHEM PANEL Most recent to 1 2 oldest [Reference Range]: Creatinine Lvl 1.08 mg/dL 1.17 mg/dL [0.50-1.40 mg/dL] (11/02/17 3:14 AM) (11/01/17 12:28 AM) eGFR 50 mL/min/1.73m2 1 45 mL/min/1.73m2 2 *NA* *NA* (11/02/17 3:14 AM) (11/01/17 12:28 AM) BUN [7-22 mg/dL] 15 mg/dL 22 mg/dL (11/02/17 3:14 AM) (11/01/17 12:28 AM) Glucose Lvl [70-99 111 mg/dL 261 mg/dL mg/dL] *HI* *HI* (11/02/17 3:14 AM) (11/01/17 12:28 AM) Calcium Lvl 8.9 mg/dL 8.2 mg/dL [8.5-10.5 mg/dL] (11/02/17 3:14 AM) *LOW* (11/01/17 12:28 AM) Phosphorus [2.5-4.5 2.6 mg/dL mg/dL] (11/01/17 12:28 AM) Magnesium Lvl 1.5 mg/dL [1.8-2.4 mg/dL] *LOW* (11/01/17 12:28 AM) 1Result Comment: The eGFR is calculated using the CKD-EPI formula. In most young, healthy individuals the eGFR will be >90 mL/min/1.73m2. The eGFR declines with age. An eGFR of 60-89 may be normal in some populations, particularly the elderly, for whom the CKD-EPI formula has not been extensively validated. Use of the eGFR is not recommended in the following populations: Individuals with unstable creatinine concentrations, including patients and those with serious co-morbid conditions. Patients with extremes in muscle mass or diet. The data above are obtained from the National Kidney Disease Education Program ( NK[employer]) which additionally recommends that when the eGFR is used in patients with extremes of body mass index for purposes of drug dosing, the eGFR should be mul tiplied by the estimated BMI. 2Result Comment: The eGFR is calculated using the CKD-EPI formula. In most young, healthy individuals the eGFR will be >90 mL/min/1.73m2. The eGFR declines with age. An eGFR of 60-89 may be normal in some populations, particularly the elderly, for whom the CKD-EPI formula has not been extensively validated. Use of the eGFR is not recommended in the following populations: Individuals with unstable creatinine concentrations, including patients and those with serious co-morbid conditions. Patients with extremes in muscle mass or diet. The data above are obtained from the National Kidney Disease Education Program ( NKDEP) which additionally recommends that when the eGFR is used in patients with extremes of body mass index for purposes of drug dosing, the eGFR should be mul tiplied by the estimated BMI. PARATHYROID PROFILE Most recent to 1 2 oldest [Reference Range]: Ca Ion WB [1.05-1.25 1.10 mMol/L 1.04 mMol/L mMol/L] (11/02/17 3:14 AM) *LOW* (11/01/17 12:28 AM) Ca Norm WB 1.11 mMol/L 1.04 mMol/L [1.05-1.25 mMol/L] (11/02/17 3:14 AM) *LOW* (11/01/17 12:28 AM) HEMATOLOGY Most recent to 1 2 oldest [Reference Range]: WBC [3.7-10.4 K/CMM] 13.0 K/CMM 14.1 K/CMM *HI* *HI* (11/02/17 3:14 AM) (11/01/17 12:28 AM) RBC [4.20-5.40 3.94 M/CMM 4.05 M/CMM M/CMM] *LOW* *LOW* (11/02/17 3:14 AM) (11/01/17 12:28 AM) Hgb [12.0-16.0 g/dL] 11.4 g/dL 11.9 g/dL *LOW* *LOW* (11/02/17 3:14 AM) (11/01/17 12:28 AM) Hct [36.0-48.0 %] 34.2 % 35.9 % *LOW* *LOW* (11/02/17 3:14 AM) (11/01/17 12:28 AM) MCV [80.0-98.0 fL] 86.7 fL 88.6 fL (11/02/17 3:14 AM) (11/01/17 12:28 AM) MCH [27.0-31.0 pg] 28.8 pg 29.4 pg (11/02/17 3:14 AM) (11/01/17 12:28 AM) MCHC [32.0-36.0 33.2 g/dL 33.2 g/dL g/dL] (11/02/17 3:14 AM) (11/01/17 12:28 AM) RDW [11.5-14.5 %] 13.9 % 13.9 % (11/02/17 3:14 AM) (11/01/17 12:28 AM) MPV [7.4-10.4 fL] 10.3 fL 9.7 fL (11/02/17 3:14 AM) (11/01/17 12:28 AM) Platelet [133-450 230 K/CMM 215 K/CMM K/CMM] (11/02/17 3:14 AM) (11/01/17 12:28 AM) Segs [45.0-75.0 %] 74.0 % 86.6 % (11/02/17 3:14 AM) *HI* (11/01/17 12:28 AM) Lymphocytes 9.7 % 4.1 % [20.0-40.0 %] *LOW* *LOW* (11/02/17 3:14 AM) (11/01/17 12:28 AM) Monocytes [2.0-12.0 15.1 % 9.1 % %] *HI* (11/01/17 12:28 AM) (11/02/17 3:14 AM) Eosinophils [0.0-4.0 0.5 % %] (11/02/17 3:14 AM) Basophils [0.0-1.0 0.7 % 0.2 % %] (11/02/17 3:14 AM) (11/01/17 12:28 AM) Segs-Bands # 9.6 K/CMM 12.2 K/CMM [1.5-8.1 K/CMM] *HI* *HI* (11/02/17 3:14 AM) (11/01/17 12:28 AM) Lymphocytes # 1.3 K/CMM 0.6 K/CMM [1.0-5.5 K/CMM] (11/02/17 3:14 AM) *LOW* (11/01/17 12:28 AM) Monocytes # [0.0-0.8 2.0 K/CMM 1.3 K/CMM K/CMM] *HI* *HI* (11/02/17 3:14 AM) (11/01/17 12:28 AM) Eosinophils # 0.1 K/CMM [0.0-0.5 K/CMM] (11/02/17 3:14 AM) Basophils # [0.0-0.2 0.1 K/CMM K/CMM] (11/02/17 3:14 AM) PT [12.0-14.7 14.5 seconds seconds] (11/01/17 12:28 AM) INR [0.85-1.17] 1.13 (11/01/17 12:28 AM) PTT [22.9-35.8 31.4 seconds seconds] (11/01/17 12:28 AM) Immunizations Given and Recorded Vaccine Date Status [...]
--- OUTSIDE RECORDS SUMMARY | 2018-07-10 00:40 | XMS REPORT | Continuity of Care Document ---
Author Author E[facility] [address] Interface Address Unknown Phone Unavailable Problems Problem Status Onset Date Classification Date Reported Comments Source LEFT HIP Active 12/23/2017 [facility] PAIN IN LEFT HIP Active 12/02/2017 [facility] UNK Active 12/02/2017 [facility] SONDYLOSIS Active 11/20/2017 [facility] LUMBAR SPONYLOSIS, LUMBAR RADICULOPATHY Active 10/23/2017 [facility] DM (<span ID="[id number]">Confirmed</span>) Active Problem 01/16/2018 [facility] SOB on exertion(<span ID="[id number]">Confirmed</span>) Active Problem 01/16/2018 [facility] Acid reflux Active Problem 01/16/2018 [facility] HTN (<span ID="[id number]">Confirmed</span>) Active Problem 01/16/2018 [facility] Hypothyroidism Active Problem 01/16/2018 [facility] History of breast cancer in female Active Problem 01/16/2018 [facility] Unsteadiness on feet 12/29/2017 [facility] Muscle weakness 12/29/2017 [facility] 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 [facility] DIFFICULTY IN WALKING, NOT ELSEWHERE CLA Active [facility] OTHER ABNORMALITIES OF GAIT AND MOBILITY Active [facility] UNSTEADINESS ON FEET Active [facility] MUSCLE WEAKNESS (GENERALIZED) Active [facility] 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 [facility] UNILATERAL PRIMARY OSTEOARTHRITIS, LEFT Active [facility] OTHER MUSCLE SPASM Active [facility] Medications Medication Details Route Status Patient Instructions Ordering Provider Order Date Source Amlodipine 10 MG / valsartan 320 MG Oral Tablet 1 tab, PO, Daily, # 30 tab, 0 Refill(s), Pharmacy: [facility] [id number] Active 12/26/2017 [facility] Acetaminophen 325 MG / Hydrocodone Bitartrate 7.5 MG Oral Tablet [[place] 7.5/325] 1-2 tab, PO, Q8H, PRN Pain Score 7-10, X 7 day, # 60 tab, 0 Refill(s), given to patient Active 12/26/2017 [facility] NS 1,000 mL 1,000 mL, Rate: 100 ml/hr, Infuse over: 10 hr, Route: IV, Dosing Weight 72.017 kg, Total Volume: 1,000, Start date: 12/26/17 8:38:00 CDT, Duration: 30 day, Stop date: 01/25/18 8:37:00 CDT, 1.81, m2 Inactive 12/26/2017 [facility] insulin glargine 10 unit, 0.1 mL, Route: SUB-Q, Drug form: SOLN, Daily, Priority: NOW, Start date: 12/25/17 12:06:00 CDT, Duration: 30 day, Stop date: 01/24/18 9:00:00 CDTNotes: (Same as: Lantus) Do not hold insulin without contacting prescriber WASTE: F/P - Black; E - Municipal Trash Bin "single patient use only" Inactive 12/25/2017 [facility] Insulin Lispro 3 unit, 0.03 mL, Route: SUB-Q, Drug form: SOLN, TID-Before Meals, Dosing Weight 72.017, kg, PRN Blood Glucose Results, Start date: 12/25/17 9:13:00 CDT, Duration: 30 day, Stop date: 01/24/18 9:12:00 CDTNotes: (Same as: Humalog ) Roll in palms of hands gently; Do not shake `vigorously. "Single Patient Use Only " WASTE: F/P - Black; E - Municipal Trash Bin Stable for 28 days at room temperature. Expires in days from Date No Longer Active 12/25/2017 [facility] Levemir 10 unit, 0.1 mL, Route: SUB-Q, Drug form: SOLN, ONCE, Dosing Weight 72.017, kg, Start date: 12/25/17 9:07:00 CDT, Stop date: 12/25/17 9:07:00 CDTNotes: Non-Formulary Drug (Same as Levemir) Do not hold i nsulin without contacting prescriber WASTE: F/P - Black; E - Municipal Trash Bin "single patient use only" Inactive 12/25/2017 [facility] Levemir 20 unit, Route: SUB-Q, Bedtime, Dosing Weight 72.017, kg, Start date: 12/24/17 21:00:00 CDT, Duration: 30 day, Stop date: 01/22/18 21:00:00 CDT No Longer Active 12/25/2017 [facility] Insulin Lispro 2 unit, 0.02 mL, Route: SUB-Q, Drug form: SOLN, TID-Before Meals, Dosing Weight 72.017, kg, PRN Blood Glucose Results, Start date: 12/24/17 9:16:00 CDT, Duration: 30 day, Stop date: 01/23/18 9:15:00 CDTNotes: (Same as: Humalog ) Roll in palms of hands gently; Do not shake `vigorously. "Single Patient Use Only " WASTE: F/P - Black; E - Municipal Trash Bin Stable for 28 days at room temperature. Expires in days from Date No Longer Active 12/24/2017 [facility] Glucagon 1 mg, Route: IM, Drug form: PDR/INJ, PRN, Dosing Weight 72.017, kg, PRN Blood Glucose Results, Start date: 12/24/17 9:16:00 CDT, Duration: 30 day, Stop date: 01/23/18 9:15:00 CDT No Longer Active 12/24/2017 [facility] Dextrose 50% Syringe 25 gm, 50 mL, Route: IVP, Drug Form: INJ, Dosing Weight 72.017, kg, PRN, PRN Blood Glucose Results, Start date: 12/24/17 9:16:00 CDT, Duration: 30 day, Stop date: 01/23/18 9:15:00 CDT No Longer Active 12/24/2017 [facility] Atenolol 50 MG Oral Tablet 50 mg, 1 tab, Route: PO, Drug form: TAB, Daily, Dosing Weight 72.017, kg, Start date: 12/24/17 9:00:00 CDT, Duration: 30 day, Stop date: 01/22/18 9:00:00 CDTNotes: (Same As:Tenormin) No Longer Active 12/24/2017 [facility] pantoprazole 40 mg, 1 tab, Route: PO, Drug form: ECTAB, Daily, Dosing Weight 72.017, kg, Start date: 12/24/17 9:00:00 CDT, Duration: 30 day, Stop date: 01/22/18 9:00:00 CDTNotes: Tablet should not be chewed or cr ushed. (Same as: Protonix) No Longer Active 12/24/2017 [facility] Cozaar 100 mg, 2 tab, Route: PO, Drug form: TAB, Daily, Start date: 12/24/17 9:00:00 CDT, Duration: 30 day, Stop date: 01/22/18 9:00:00 CDTNotes: (Same as: Cozaar) No Longer Active 12/24/2017 [facility] hydrochlorothiazide 25 mg oral tablet 25 mg, 1 tab, Route: PO, Daily, Start date: 12/24/17 9:00:00 CDT, Duration: 30 day, Stop date: 01/22/18 9:00:00 CDTNotes: (Same as: Hydrodiuril) With food. No Longer Active 12/24/2017 [facility] Hydrochlorothiazide 25 MG / Losartan Potassium 100 MG Oral Tablet 1 tab, Route: PO, Drug Form: TAB, Dosing Weight 72.017, kg, Daily, Start date: 12/24/17 9:00:00 CDT, Duration: 30 day, Stop date: 01/22/18 9:00:00 CDT No Longer Active 12/24/2017 [facility] Thyroxine 100 microgram, 1 tab, Route: PO, Drug form: TAB, [id number], Dosing Weight 72.017, kg, Start date: 12/24/17 6:30:00 CDT, Duration: 30 day, Stop date: 01/22/18 6:30:00 CDTNotes: Take 1 hour before or 2 hours after meal; Enteral feeds may interefere with the absorption of this medication. (Same as:Levothroid, Synthroid) No Longer Active 12/24/2017 [facility] Clonidine Hydrochloride 0.1 MG Oral Tablet 0.2 mg, 2 tab, Route: PO, Drug form: TAB, QAM, Dosing Weight 72.017, kg, Start date: 12/24/17 6:00:00 CDT, Duration: 30 day, Stop date: 01/22/18 6:00:00 CDTNotes: (Same As: Catapres) No Longer Active 12/24/2017 [facility] Ancef + sterile water 20 mL 2 gm, Route: IVP, [id number], Dosing Weight 72.017, kg, Start date: 12/24/17 0:00:00 CDT, Stop date: 12/24/17 9:00:00 CDT, ABX Indication: Surgical ProphylaxisNotes: (Same As: Ancef, Kefzol) MEDICATION WASTE Product Size: 1000 mg Product Wasted: ___ mg Inactive 12/24/2017 [facility] cloNIDine 0.1 mg oral tablet 0.1 mg, 1 tab, Route: PO, Drug form: TAB, BID, Start date: 12/23/17 22:30:00 CDT, Duration: 30 day, Stop date: 01/22/18 22:00:00 CDTNotes: (Same As: Catapres) No Longer Active 12/24/2017 [facility] insulin glargine 20 unit, 0.2 mL, Route: SUB-Q, Drug form: SOLN, Bedtime, Start date: 12/23/17 21:45:00 CDT, Duration: 30 day, Stop date: 01/22/18 21:00:00 CDTNotes: (Same as: Lantus) Do not hold insulin without cont acting prescriber WASTE: F/P - Black; E - Municipal Trash Bin "single patient use only" No Longer Active 12/24/2017 [facility] Zofran 4 mg, 2 mL, Route: IV, Drug form: INJ, Q4H, Dosing Weight 72.017, kg, PRN as needed for nausea/vomiting, Start date: 12/23/17 21:20:00 CDT, Duration: 30 day, Stop date: 01/22/18 21:19:00 CDTNotes: (Same as: Zofran) MEDICATION WASTE Product Size: 4 mg Product Wasted: ___ mg No Longer Active 12/24/2017 [facility] Lunesta 3 mg, Route: PO, Bedtime, Dosing Weight 72.017, kg, Start date: 12/23/17 21:00:00 CDT, Duration: 30 day, Stop date: 01/21/18 21:00:00 CDT Inactive 12/24/2017 [facility] zolpidem 5 mg, 1 tab, Route: PO, Drug form: TAB, Bedtime, Start date: 12/23/17 21:00:00 CDT, Duration: 30 day, Stop date: 01/21/18 21:00:00 CDTNotes: (Same As: Ambien) No Longer Active 12/24/2017 [facility] Enoxaparin 40 mg, 0.4 mL, Route: SUB-Q, Drug form: INJ, [id number], Dosing Weight 72.017, kg, Start date: 12/23/17 21:00:00 CDT, Stop date: 01/21/18 21:00:00 CDTNotes: (Same as: Lovenox) No Longer Active 12/24/2017 [facility] Cefazolin 1 gm, Route: IVPB, Drug form: INJ, Q6H, Dosing Weight 72.017, kg, Start date: 12/23/17 12:00:00 CDT, Duration: 3 doses or times, Stop date: 12/24/17 0:00:00 CDT, ABX Indication: Surgical Prophylaxis Inactive 12/23/2017 [facility] Ancef + sterile water 20 mL 2 gm, Route: IVP, [id number], Dosing Weight 72.017, kg, Start date: 12/23/17 11:00:00 CDT, Duration: 1 day, Stop date: 12/25/17 0:00:00 CDT, ABX Indication: Surgical ProphylaxisNotes: (Same As: Ancef, Kefzol) MEDICATION WASTE Product Size: 1000 mg Product Wasted: ___ mg Inactive 12/23/2017 [facility] Ondansetron 4 mg, Route: IVP, ONCE, Dosing Weight 72.017, kg, PRN Nausea & Vomiting, Start date: 12/23/17 9:39:00 CDT Inactive 12/23/2017 [facility] Promethazine 6.25 mg, Route: IVPB, ONCE, Dosing Weight 72.017, kg, PRN Nausea & Vomiting, Start date: 12/23/17 9:39:00 CDT Inactive 12/23/2017 [facility] Meperidine 12.5 mg, Route: IVP, Q30Min, Dosing Weight 72.017, kg, PRN Other -See Comment, For shivering, Start date: 12/23/17 9:39:00 CDT, Duration: 2 doses or times, Stop date: Limited # of times Inactive 12/23/2017 [facility] Naloxone 0.4 mg, Route: IVP, Q2MIN, Dosing Weight 72.017, kg, PRN Narcotic Reversal, Start date: 12/23/17 9:39:00 CDT, Duration: 8 doses or times, Stop date: Limited # of times Inactive 12/23/2017 [facility] Diphenhydramine 12.5 mg, Route: IVP, Drug form: INJ, Q6H, Dosing Weight 72.017, kg, PRN Itching, Start date: 12/23/17 9:39:00 CDT, Duration: 30 day, Stop date: 01/22/18 9:38:00 CDT Inactive 12/23/2017 [facility] Albuterol 0.83 MG/ML Inhalant Solution 2.49 mg, Route: NEB, Q20Min, Dosing Weight 72.017, kg, PRN Wheezing, Priority: STAT, Start date: 12/23/17 9:39:00 CDT, Duration: 30 day, Stop date: 01/22/18 9:38:00 CDT Inactive 12/23/2017 [facility] Flumazenil 0.2 mg, Route: IVP, PRN, Dosing Weight 72.017, kg, PRN Benzodiazepine Reversal, Initial dose, Start date: 12/23/17 9:39:00 CDT, Duration: 30 day, Stop date: 01/22/18 9:38:00 CDT Inactive 12/23/2017 [facility] Fentanyl 50 microgram, Route: IVP, Q5Min, Dosing Weight 72.017, kg, PRN Pain Score 7-10, Priority: Routine, Start date: 12/23/17 9:39:00 CDT, Duration: 2 doses or times, Stop date: Limited # of times Inactive 12/23/2017 [facility] Labetalol 10 mg, Route: IVP, Q5Min, Dosing Weight 72.017, kg, PRN Elevated BP, Start date: 12/23/17 9:39:00 CDT, Duration: 5 doses or times, Stop date: Limited # of times Inactive 12/23/2017 [facility] esmolol 10 mg, Route: IVP, Q5Min, Dosing Weight 72.017, kg, PRN Other -See Comment, Start date: 12/23/17 9:39:00 CDT, Duration: 5 doses or times, Stop date: Limited # of times Inactive 12/23/2017 [facility] Hydralazine 10 mg, Route: IVP, Q20Min, Dosing Weight 72.017, kg, PRN Elevated BP, Start date: 12/23/17 9:39:00 CDT, Duration: 2 doses or times, Stop date: Limited # of times Inactive 12/23/2017 [facility] Calcium Chloride 0.0014 MEQ/ML / Potassium Chloride 0.004 MEQ/ML / Sodium Chloride 0.103 MEQ/ML / Sodium Lactate 0.028 MEQ/ML Injectable Solution 1,000 mL, Rate: 125 ml/hr, Infuse over: 8 hr, Route: IV, Dosing Weight 72.017 kg, Total Volume: 1,000, Start date: 12/23/17 9:39:00 CDT, Duration: 30 day, Stop date: 01/22/18 9:38:00 CDT, 1.81, m2 Inactive 12/23/2017 [facility] glycopyrrolate (ANES) Route: IV, Drug form: INJ, ONCE, Stop date: 12/23/17 9:11:00 CDT Inactive 12/23/2017 [facility] neostigmine (ANES) Route: IV, Drug form: INJ, ONCE, Stop date: 12/23/17 9:11:00 CDT Inactive 12/23/2017 [facility] Enoxaparin 40 mg, Route: SUB-Q, Drug form: INJ, Daily, Dosing Weight 72.017, kg, Start date: 12/23/17 9:00:00 CDT, Duration: 30 day, Stop date: 01/21/18 9:00:00 CDT Inactive 12/23/2017 [facility] Naloxone 0.04 mg, Route: IVP, Q2MIN, Dosing Weight 72.017, kg, PRN Narcotic Reversal, Start date: 12/23/17 8:51:00 CDT, Duration: 30 day, Stop date: 01/22/18 8:50:00 CDT Inactive 12/23/2017 [facility] Hydromorphone 15 mg, 30 mL, Route: IV, GRADES 9 THROUGH 12 TEACHER Dose: 0.2 mg, GRADES 9 THROUGH 12 TEACHER Lockout: 8 minutes, Continuous Basal Rate: 0 mg, 4 Hour Limit (In MG): 6, Continuous, Start date: 12/23/17 8:51:00 CDT, Duration: 30 day, Stop date: 8:50:00 CDT Inactive 12/23/2017 [facility] Acetaminophen 325 MG / Hydrocodone Bitartrate 7.5 MG Oral Tablet [[place] 7.5/325] 2 tab, Route: PO, Drug Form: TAB, Dosing Weight 72.017, kg, Q4H, PRN Pain Score 7-10, Start date: 12/23/17 8:51:00 CDT, Duration: 30 day, Stop date: 01/22/18 8:50:00 CDTNotes: Same as [place] 325-7.5mg Do not exceed 4gm/day of acetaminophen. No Longer Active 12/23/2017 [facility] Tylenol 650 mg, 2 tab, Route: PO, Drug form: TAB, Q6H, Dosing Weight 72.017, kg, PRN For Temp > 100.4 F, Start date: 12/23/17 8:51:00 CDT, Duration: 30 day, Stop date: 01/22/18 8:50:00 CDTNotes: Do not exceed 4 gm/day. (Same as: Tylenol) No Longer Active 12/23/2017 [facility] Lactated Ringers IV 1000 mL 1,000 mL, Rate: 75 ml/hr, Infuse over: 13.3 hr, Route: IV, Dosing Weight 72.017 kg, Total Volume: 1,000, Start date: 12/23/17 8:51:00 CDT, Duration: 30 day, Stop date: 01/22/18 8:50:00 CDT, 1.81, m2 Inactive 12/23/2017 [facility] Melatonin 3 mg, 1 tab, Route: PO, Drug form: TAB, Bedtime, Dosing Weight 72.017, kg, PRN Sleep, Start date: 12/23/17 8:51:00 CDT, Duration: 30 day, Stop date: 01/22/18 8:50:00 CDT, ..Notes: (Same as: Melatonin) No Longer Active 12/23/2017 [facility] tranexamic acid (ANES) Route: IV, Drug form: INJ, ONCE, Stop date: 12/23/17 8:11:00 CDT Inactive 12/23/2017 [facility] famotidine (ANES) Route: IV, Drug form: INJ, ONCE, Stop date: 12/23/17 8:11:00 CDT Inactive 12/23/2017 [facility] ondansetron (ANES) Route: IV, Drug form: INJ, ONCE, Stop date: 12/23/17 8:11:00 CDT Inactive 12/23/2017 [facility] acetaminophen (ANES) Route: IV, Drug form: INJ, ONCE, Stop date: 12/23/17 8:11:00 CDT Inactive 12/23/2017 [facility] ceFAZolin (ANES) Route: IV, Drug form: INJ, ONCE, Stop date: 12/23/17 8:11:00 CDT Inactive 12/23/2017 [facility] rocuronium (ANES) Route: IV, Drug form: INJ, ONCE, Stop date: 12/23/17 8:11:00 CDT Inactive 12/23/2017 [facility] propofol (ANES) Route: IV, Drug form: INJ, ONCE, Stop date: 12/23/17 8:11:00 CDT Inactive 12/23/2017 [facility] fentaNYL (ANES) Route: IV, Drug form: INJ, ONCE, Stop date: 12/23/17 8:06:00 CDT Inactive 12/23/2017 [facility] lidocaine (ANES) Route: IV, Drug form: INJ, ONCE, Stop date: 12/23/17 8:06:00 CDT Inactive 12/23/2017 [facility] ropivacaine 100 mL, Route: InFILtration(local), Drug Form: INJ, Dosing Weight 72.017, kg, ONCALL, Start date: 12/23/17 7:00:00 CDT, Duration: 30 day, Stop date: 01/22/18 6:59:00 CDTNotes: NOT FOR IV use Ropivacaine 5 mg/mL (49.25 mL) Epinephrine 1 mg/mL (0.5 mL) Clonidine 0.1 mg/mL (0.8 mL) Ketorolac 30 mg/mL (1 mL) Normal Saline 48.45 mL No Longer Active 12/23/2017 [facility] celecoxib 400 mg, 2 cap, Route: PO, Drug form: CAP, ONCALL, Dosing Weight 72.017, kg, (for CrCl > 90 mL/min), Start date: 12/23/17 7:00:00 CDT, Duration: 30 day, Stop date: 01/22/18 6:59:00 CDTNotes: NSAID. Please check indication. Not for seizure. (Same As: CeleBREX) Inactive 12/23/2017 [facility] gabapentin 300 mg, 1 cap, Route: PO, Drug form: CAP, ONCALL, Dosing Weight 72.017, kg, Start date: 12/23/17 7:00:00 CDT, Duration: 30 day, Stop date: 01/22/18 6:59:00 CDTNotes: (Same as: Neurontin) Inactive 12/23/2017 [facility] Lactated Ringers Injection IV (ANES) 1000 mL Route: IV, Total Volume: 1,000, Start date: 12/23/17 6:56:00 CDT, Stop date: 12/23/17 7:56:00 CDT Inactive 12/23/2017 [facility] vancomycin (ANES) 1000 mg Route: IV, Drug form: INJ, Start date: 12/23/17 6:51:00 CDT, Stop date: 12/23/17 7:51:00 CDT Inactive 12/23/2017 [facility] Insulin regular 2 unit, 0.02 mL, Route: IVP, Drug form: INJ, ONCE, Dosing Weight 72.017, kg, Start date: 12/23/17 6:31:00 CDT, Stop date: 12/23/17 6:31:00 CDTNotes: (Same as: Humulin R and NovoLIN R) WASTE: F/P - Black; E - Municipal Trash Bin (Do not shake) Inactive 12/23/2017 [facility] Insulin regular 4 unit, Route: IVP, ONCE, Dosing Weight 72.017, kg, Start date: 12/23/17 5:57:00 CDT, Stop date: 12/23/17 5:57:00 CDT Inactive 12/23/2017 [facility] Albuterol 0.833 MG/ML / Ipratropium Vansant 0.167 MG/ML Inhalant Solution 3 mL, Route: NEB, Drug Form: SOLN, Dosing Weight 72.017, kg, ONCE, STAT, Start date: 12/23/17 5:56:00 CDT, Stop date: 12/23/17 5:56:00 CDTNotes: (Same as: Loi) Inactive 12/23/2017 [facility] Calcium Chloride 0.0014 MEQ/ML / Potassium Chloride 0.004 MEQ/ML / Sodium Chloride 0.103 MEQ/ML / Sodium Lactate 0.028 MEQ/ML Injectable Solution 1,000 mL, Rate: 25 ml/hr, Infuse over: 40 hr, Route: IV, Dosing Weight 72.017 kg, Total Volume: 1,000, Start date: 12/23/17 5:56:00 CDT, Duration: 1 day, Stop date: 12/24/17 5:55:00 CDT, 1.81, m2 Inactive 12/23/2017 [facility] 0.4 ML Enoxaparin sodium 100 MG/ML Prefilled Syringe [Lovenox] 40 mg, SUB-Q, Daily, # 14 inj, 0 Refill(s) Active 12/22/2017 [facility] Cephalexin 500 MG Oral Capsule [Keflex] 500 mg=1 cap, PO, QID, X 10 day, # 40 cap, 0 Refill(s) Active 12/22/2017 [facility] tramadol hydrochloride 50 MG Oral Tablet 50 mg=1 tab, PO, BID, # 30 tab, 0 Refill(s) No Longer Active 12/16/2017 [facility] meloxicam 15 mg oral tablet 15 mg=1 tab, PO, Daily, # 30 tab, 0 Refill(s) No Longer Active 12/16/2017 [facility] levothyroxine 100 mcg (0.1 mg) oral tablet 100 microgram=1 tab, PO, Daily, # 30 tab, 0 Refill(s) Active 12/16/2017 [facility] Methocarbamol 500 MG Oral Tablet [Robaxin] 1,000 mg=2 tab, PO, QID, PRN Muscle Spasms, # 90 tab, 0 Refill(s), Pharmacy: [facility] [id number] Active 11/03/2017 [facility] Docusate Sodium 50 MG Oral Capsule 50 mg=1 cap, PO, BID, PRN as needed for constipation, Pediatric Dosing, # 90 cap, 0 Refill(s) Active 11/03/2017 [facility] cloNIDine 0.2 mg oral tablet 0.2 mg, 1 tab, Route: PO, Drug form: TAB, QAM, Start date: 11/02/17 9:00:00 CDT, Duration: 30 day, Stop date: 12/01/17 9:00:00 CDTNotes: (Same As: Catapres) No Longer Active 11/02/2017 [facility] Tylenol 650 mg, 2 tab, Route: PO, Drug form: TAB, Q6H, Dosing Weight 71.818, kg, PRN Pain 1-3/Temp > 100.4 F, Start date: 11/01/17 22:45:00 CDT, Duration: 30 day, Stop date: 12/01/17 22:44:00 CDTNotes: Do not exceed 4 gm/day. (Same as: Tylenol) No Longer Active 11/02/2017 [facility] insulin detemir 15 unit, 0.15 mL, Route: SUB-Q, Drug form: SOLN, BID, Start date: 11/01/17 17:00:00 CDT, Duration: 30 day, Stop date: 12/01/17 9:00:00 CDTNotes: Non-Formulary Drug (Same as Levemir) Do not hold insulin without contacting prescriber WASTE: F/P - Black; E - Municipal Trash Bin "single patient use only" No Longer Active 11/01/2017 [facility] cloNIDine 0.1 mg oral tablet 0.1 mg, 1 tab, Route: PO, Drug form: TAB, BID, Start date: 11/01/17 12:00:00 CDT, Duration: 30 day, Stop date: 11/30/17 21:00:00 CDTNotes: (Same As: Catapres) No Longer Active 11/01/2017 [facility] insulin detemir 100 UNT/ML Injectable Solution [Levemir] 30 unit, SUB-Q, Bedtime, 0 Refill(s) Active 11/01/2017 [facility] Insulin, Aspart, Human 100 UNT/ML Injectable Solution [NovoLog] 20 unit, SUB-Q, TID-Before Meals, # 10 mL, 0 Refill(s) Active 11/01/2017 [facility] Cozaar 100 mg, 2 tab, Route: PO, Drug form: TAB, Daily, Start date: 11/01/17 10:58:00 CDT, Duration: 30 day, Stop date: 12/01/17 9:00:00 CDTNotes: (Same as: Cozaar) No Longer Active 11/01/2017 [facility] pantoprazole 40 mg oral enteric coated tablet 40 mg=1 tab, PO, Daily, # 30 tab, 0 Refill(s) Active 11/01/2017 [facility] Clonidine Hydrochloride 0.1 MG Oral Tablet See Instructions, 2 tabs in the morning 1 tab at noon 1 tab at bedtime [facility] [id number], 0 Refill(s) Active 11/01/2017 [facility] Hydrochlorothiazide 25 MG / Losartan Potassium 100 MG Oral Tablet 1 tab, PO, Daily, [facility] [id number], # 30 tab, 0 Refill(s) Active 11/01/2017 [facility] Atenolol 50 MG Oral Tablet 50 mg, 1 tab, Route: PO, Drug form: TAB, Daily, Dosing Weight 71.818, kg, Start date: 11/01/17 9:00:00 CDT, Duration: 30 day, Stop date: 11/30/17 9:00:00 CDTNotes: (Same As:Tenormin) No Longer Active 11/01/2017 [facility] Famotidine 20 MG Oral Tablet 20 mg, 1 tab, Route: PO, Drug form: TAB, BID, Dosing Weight 71.818, kg, Start date: 11/01/17 9:00:00 CDT, Duration: 30 day, Stop date: 11/30/17 17:00:00 CDTNotes: (Same as: Pepcid) No Longer Active 11/01/2017 [facility] sennosides, [facility] HOME 8.6 mg, 1 tab, Route: PO, Drug Form: TAB, Dosing Weight 71.818, kg, BID, Start date: 11/01/17 9:00:00 CDT, Duration: 30 day, Stop date: 11/30/17 17:00:00 CDTNotes: (Same as: Senokot) No Longer Active 11/01/2017 [facility] Docusate 50 mg, 1 cap, Route: PO, Drug form: CAP, BID, Dosing Weight 71.818, kg, Start date: 11/01/17 9:00:00 CDT, Duration: 30 day, Stop date: 11/30/17 17:00:00 CDT, Pediatric DosingNotes: (Same as: Colace) (Do Not Crush) No Longer Active 11/01/2017 [facility] Lovenox 30 mg, 0.3 mL, Route: SUB-Q, Drug form: INJ, [id number], Dosing Weight 71.818, kg, Start date: 11/01/17 8:00:00 CDT, Duration: 30 day, Stop date: 11/30/17 20:00:00 CDTNotes: (Same as: Lovenox) No Longer Active 11/01/2017 [facility] Magnesium Sulfate 2 gm, 50 mL, Route: IVPB, Drug form: INJ, Q2H, Dosing Weight 71.818, kg, Total dose=4 gm, Start date: 11/01/17 6:00:00 CDT, Duration: 3 doses or times, Stop date: 11/01/17 10:00:00 CDTNotes: WASTE: F/P - Sink; E - [facility] Trash [facility] Inactive 11/01/2017 [facility] Calcium Chloride 1,000 mg, 10 mL, Route: IVPB, ONCE, Dosing Weight 71.818, kg, Start date: 11/01/17 4:29:00 CDT, Stop date: 11/01/17 4:29:00 CDTNotes: WASTE: F/P - Sink; E - [facility] Trash [facility] Inactive 11/01/2017 [facility] Dextrose 50% Syringe 12.5 gm, 25 mL, Route: IVP, Drug Form: INJ, Dosing Weight 71.818, kg, PRN, PRN Blood Glucose Results, Start date: 10/31/17 23:01:00 CDT, Duration: 30 day, Stop date: 11/30/17 23:00:00 CDT No Longer Active 11/01/2017 [facility] Glucagon 1 mg, Route: IM, Drug form: PDR/INJ, PRN, Dosing Weight 71.818, kg, PRN Blood Glucose Results, Start date: 10/31/17 23:01:00 CDT, Duration: 30 day, Stop date: 11/30/17 23:00:00 CDT No Longer Active 11/01/2017 [facility] Insulin regular 3 unit, 0.03 mL, Route: SUB-Q, Drug form: SOLN, Sliding Scale, Dosing Weight 71.818, kg, PRN Blood Glucose Results, Start date: 10/31/17 23:01:00 CDT, Duration: 30 day, Stop date: 11/30/17 23:00:00 C DTNotes: (Same as: Humulin R) Roll in palms of hands gently; Do not shake vigorously. "single patient use only" (Restricted to patients requiring a dose > 60 units) WASTE: F/P - Black; E - [facility] Trash Bin Stable for 28 days at room temperature Expires in days from Date No Longer Active 11/01/2017 [facility] Cefazolin 2 gm, 20 mL, Route: IV, Drug form: SOLN, Q8H, Dosing Weight 71.818, kg, Start date: 10/31/17 22:00:00 CDT, Stop date: 11/01/17 14:00:00 CDT, ABX Indication: Surgical ProphylaxisNotes: (Same as Ancef) No Longer Active 11/01/2017 [facility] Saline Flush 0.9% 10 ml, Route: IVP, Drug Form: INJ, Dosing Weight 71.818, kg, Q12H, Start date: 10/31/17 21:00:00 CDT, Duration: 30 day, Stop date: 11/30/17 9:00:00 CDTNotes: (Same as: BD Posiflush) No Longer Active 11/01/2017 [facility] zolpidem 10 mg, 2 tab, Route: PO, Drug form: TAB, Bedtime, Dosing Weight 71.818, kg, Start date: 10/31/17 21:00:00 CDT, Duration: 30 day, Stop date: 11/29/17 21:00:00 CDTNotes: (Same As: Ambien) No Longer Active 11/01/2017 [facility] sugammadex 200 mg, 2 mL, Route: IVP, Drug form: SOLN, ONCALL, Start date: 10/31/17 18:00:00 CDT, Stop date: 10/31/17 18:15:00 CDTNotes: (Same as: Bridion) No Longer Active 10/31/2017 [facility] sugammadex (ANES) Route: IV, Drug form: SOLN, ONCE, Stop date: 10/31/17 17:12:00 CDT Inactive 10/31/2017 [facility] ondansetron (ANES) Route: IV, Drug form: INJ, ONCE, Stop date: 10/31/17 17:12:00 CDT Inactive 10/31/2017 [facility] hydromorphone (ANES) Route: IV, Drug form: INJ, ONCE, Stop date: 10/31/17 17:11:00 CDT Inactive 10/31/2017 [facility] Saline Flush 0.9% 10 ml, Route: IVP, Drug Form: INJ, Dosing Weight 71.818, kg, PRN, PRN Line Flush, Start date: 10/31/17 17:11:00 CDT, Duration: 30 day, Stop date: 11/30/17 17:10:00 CDTNotes: (Same as: BD Posiflush) No Longer Active 10/31/2017 [facility] Melatonin 3 MG Extended Release Tablet 3 mg, 1 tab, Route: PO, Drug Form: TAB, Dosing Weight 71.818, kg, Bedtime, PRN as needed for insomnia, Start date: 10/31/17 17:11:00 CDT, Duration: 30 day, Stop date: 11/30/17 17:10:00 CDTNotes: (Same as: Melatonin) No Longer Active 10/31/2017 [facility] Bisacodyl 10 mg, 1 supp, Route: MA, Drug form: SUPP, Daily, Dosing Weight 71.818, kg, PRN Constipation, Start date: 10/31/17 17:11:00 CDT, Duration: 30 day, Stop date: 11/30/17 17:10:00 CDTNotes: (Same As: Dulcolax, Bisco-Lax) No Longer Active 10/31/2017 [facility] Benadryl 25 mg, 1 cap, Route: PO, Drug form: CAP, TID, Dosing Weight 71.818, kg, PRN Itching, Start date: 10/31/17 17:11:00 CDT, Duration: 30 day, Stop date: 11/30/17 17:10:00 CDTNotes: (Same as: Benadryl) No Longer Active 10/31/2017 [facility] Dilaudid 0.5 mg, 0.25 mL, Route: IVP, Drug form: INJ, Q3H, Dosing Weight 71.818, kg, PRN Pain Score 7-10, Start date: 10/31/17 17:11:00 CDT, Duration: 30 day, Stop date: 11/30/17 17:10:00 CDTNotes: Same as Dilaudid No Longer Active 10/31/2017 [facility] phenol 1 spray, Route: MUCOUS MEM, Daily, Drug form: SPRY, PRN Sore Throat, Start date: 10/31/17 17:11:00 CDT, Duration: 30 day, Stop date: 11/30/17 17:10:00 CDTNotes: Chloraseptic [place] (Same as: Chloraseptic, Sore Throat Ringold) WASTE: F/P - Black; E - Municipal Trash Bin No Longer Active 10/31/2017 [facility] Labetalol 10 mg, 2 mL, Route: IVP, Drug form: INJ, Q15Min, Dosing Weight 71.818, kg, PRN Hypertension, Start date: 10/31/17 17:11:00 CDT, Duration: 30 day, Stop date: 11/30/17 17:10:00 CDT No Longer Active 10/31/2017 [facility] Acetaminophen 325 MG / Hydrocodone Bitartrate 10 MG Oral Tablet [[place] 10/325] 2 tab, Route: PO, Drug Form: TAB, Dosing Weight 71.818, kg, Q4H, PRN Pain Score 4-6, Start date: 10/31/17 17:11:00 CDT, Duration: 30 day, Stop date: 11/30/17 17:10:00 CDTNotes: Do not exceed 4gm/day of acetaminophen. (Same as: [place] 325/10) No Longer Active 10/31/2017 [facility] Hydralazine 20 mg, 1 mL, Route: IVP, Drug form: INJ, Q4H, Dosing Weight 71.818, kg, PRN Hypertension, Start date: 10/31/17 17:11:00 CDT, Duration: 30 day, Stop date: 11/30/17 17:10:00 CDTNotes: (Same as: Apresoline) Push over 5 minutes No Longer Active 10/31/2017 [facility] Ondansetron 4 mg, 2 mL, Route: IVP, Drug form: INJ, Q6H, Dosing Weight 71.818, kg, PRN Nausea & Vomiting, Start date: 10/31/17 17:11:00 CDT, Duration: 30 day, Stop date: 11/30/17 17:10:00 CDT, >/=4 years, Pediatric DosingNotes: (Same as: Zofran) MEDICATION WASTE Product Size: 4 mg Product Wasted: ___ mg No Longer Active 10/31/2017 [facility] Naloxone 0.4 mg, 1 mL, Route: IVP, Drug form: INJ, Q2MIN, Dosing Weight 71.818, kg, PRN Narcotic Reversal, Start date: 10/31/17 15:00:00 CDT, Duration: 8 doses or times, Stop date: 11/01/17 0:00:00 CDTNotes: Same as Narcan Inactive 10/31/2017 [facility] Flumazenil 0.2 mg, 2 mL, Route: IVP, Drug form: INJ, PRN, Dosing Weight 71.818, kg, PRN Benzodiazepine Reversal, Initial dose, Start date: 10/31/17 15:00:00 CDT, Duration: 30 day, Stop date: 11/30/17 14:59:00 C DTNotes: (Same as: Romazicon) Inactive 10/31/2017 [facility] Ondansetron 4 mg, 2 mL, Route: IVP, Drug form: INJ, ONCE, Dosing Weight 71.818, kg, PRN Nausea & Vomiting, Start date: 10/31/17 15:00:00 CDTNotes: (Same as: Zofran) MEDICATION WASTE Product Size: 4 mg Product Wasted: ___ mg Inactive 10/31/2017 [facility] Fentanyl 25 microgram, 0.5 mL, Route: IVP, Drug form: INJ, Q5Min, Dosing Weight 71.818, kg, PRN Pain Score 4-6, Priority: Routine, Start date: 10/31/17 15:00:00 CDT, Duration: 4 doses or times, Stop date: 11/01/17 0:00:00 CDTNotes: (Same as: Sublimaze) Preservative free. Inactive 10/31/2017 [facility] Hydromorphone 0.5 mg, 0.25 mL, Route: IVP, Drug form: INJ, Q5Min, Dosing Weight 71.818, kg, PRN Pain Score 7-10, Start date: 10/31/17 15:00:00 CDT, Duration: 4 doses or times, Stop date: 11/01/17 0:00:00 CDTNotes: Same as: Dilaudid Inactive 10/31/2017 [facility] Insulin regular (ANES) Route: IV, Drug form: INJ, ONCE, Stop date: 10/31/17 13:51:00 CDT Inactive 10/31/2017 [facility] ketAMINE (ANES) Route: IV, Drug form: INJ, ONCE, Stop date: 10/31/17 13:16:00 CDT Inactive 10/31/2017 [facility] dexmedetomidine (ANES) 200 microgram Route: IV, Drug form: INJ, Start date: 10/31/17 12:54:00 CDT, Stop date: 10/31/17 13:54:00 CDT Inactive 10/31/2017 [facility] ePHEDrine (ANES) Route: IV, Drug form: INJ, ONCE, Stop date: 10/31/17 12:26:00 CDT Inactive 10/31/2017 [facility] scopolamine (ANES) Route: IV, Drug form: ERFILM, ONCE, Stop date: 10/31/17 11:46:00 CDT Inactive 10/31/2017 [facility] ceFAZolin (ANES) Route: IV, Drug form: INJ, ONCE, Stop date: 10/31/17 11:41:00 CDT Inactive 10/31/2017 [facility] fentaNYL (ANES) Route: IV, Drug form: INJ, ONCE, Stop date: 10/31/17 11:41:00 CDT Inactive 10/31/2017 [facility] lidocaine (ANES) Route: IV, Drug form: INJ, ONCE, Stop date: 10/31/17 11:41:00 CDT Inactive 10/31/2017 [facility] rocuronium (ANES) Route: IV, Drug form: INJ, ONCE, Stop date: 10/31/17 11:41:00 CDT Inactive 10/31/2017 [facility] propofol (ANES) Route: IV, Drug form: INJ, ONCE, Stop date: 10/31/17 11:41:00 CDT Inactive 10/31/2017 [facility] PlasmaLyte A PH-7.4 (ANES) 1000 mL Route: IV, Total Volume: 1,000, Start date: 10/31/17 10:22:00 CDT, Stop date: 10/31/17 11:22:00 CDT Inactive 10/31/2017 [facility] Lactated Ringers Injection IV (ANES) 1000 mL Route: IV, Total Volume: 1,000, Start date: 10/31/17 10:04:00 CDT, Stop date: 10/31/17 11:04:00 CDT Inactive 10/31/2017 [facility] ceFAZolin + sterile water 20 mL 2 gm, Route: IV, PRE OP, Start date: 10/30/17 23:00:00 CDT, Duration: 1 day, Stop date: 10/31/17 22:59:00 CDT, ABX Indication: Surgical ProphylaxisNotes: (Same As: Ancef, Kefzol) MEDICATION WASTE Product Size: 1000 mg Product Wasted: ___ mg No Longer Active 10/31/2017 [facility] NovoLog SUB-Q, TID-Before Meals, 0 Refill(s) No Longer Active 10/28/2017 [facility] Clonidine 0 Refill(s) No Longer Active 10/28/2017 [facility] tramadol hydrochloride 50 MG Oral Tablet 50 mg=1 tab, PO, Q4H, 0 Refill(s) No Longer Active 10/28/2017 [facility] zolpidem 10 mg oral tablet 10 mg=1 tab, PO, Bedtime, 0 Refill(s) Active 10/28/2017 [facility] Levemir SUB-Q, 0 Refill(s) No Longer Active 10/28/2017 [facility] Atenolol 50 MG Oral Tablet 50 mg=1 tab, PO, Daily, 0 Refill(s) Active 10/28/2017 [facility] Allergies, Adverse Reactions, Alerts Substance Category Reaction Severity Reaction type Status Date Reported Comments Source codeine Assertion Drug allergy Active [facility] Tylox Assertion Drug allergy Active [facility] Immunizations Immunization Date Given Site Status Last Updated Comments Source pneumococcal 13-valent vaccine 11/03/2017 Not Given [facility] pneumococcal 23-valent vaccine 05/12/2009 Left Arm completed Bimal [facility] Results Order Name Results Value Reference Range Date Interpretation Comments Source CHEM PANEL Glucose Lvl 204 mg/dL 70 - 99 12/25/2017 [facility] CHEM PANEL Sodium Lvl 127 meq/L 135 - 145 12/25/2017 [facility] CHEM PANEL BUN 28 mg/dL 7 - 22 12/25/2017 [facility] CHEM PANEL Chloride Lvl 93 meq/L 95 - 109 12/25/2017 [facility] CHEM PANEL Potassium Lvl 4.1 meq/L 3.5 - 5.1 12/25/2017 [facility] CHEM PANEL eGFR 40 mL/min/1.73m2 12/25/2017 Result Comment: The eGFR is calculated using the [...] from the National Kidney Disease Education Program (NKDEP) which additionally recommends that when the eGFR is used in patients with extremes of body mass index for purposes of drug dosing, the eGFR should be multiplied by the estimated BMI. [facility] CHEM PANEL Creatinine Lvl 1.29 mg/dL 0.50 - 1.40 12/25/2017 [facility] CHEM PANEL AGAP 18.1 meq/L 10.0 - 20.0 12/25/2017 [facility] CHEM PANEL CO2 20 meq/L 24 - 32 12/25/2017 [facility] CHEM PANEL Calcium Lvl 8.2 mg/dL 8.5 - 10.5 12/25/2017 [facility] MCV 85.6 fL 80.0 - 98.0 12/25/2017 [facility] Hgb 8.9 g/dL 12.0 - 16.0 12/25/2017 [facility] Hct 26.1 % 36.0 - 48.0 12/25/2017 [facility] RBC 3.05 M/CMM 4.20 - 5.40 12/25/2017 [facility] WBC 10.7 K/CMM 3.7 - 10.4 12/25/2017 [facility] MPV 9.3 fL 7.4 - 10.4 12/25/2017 [facility] Platelet 202 K/CMM 133 - 450 12/25/2017 [facility] MCHC 34.0 g/dL 32.0 - 36.0 12/25/2017 [facility] RDW 14.1 % 11.5 - 14.5 12/25/2017 [facility] MCH 29.1 pg 27.0 - 31.0 12/25/2017 [facility] Plt Morph Normal (12/25/17 3:19 AM) 12/25/2017 [facility] Segs 72.3 % 45.0 - 75.0 12/25/2017 [facility] Monocytes 17.0 % 2.0 - 12.0 12/25/2017 [facility] Eosinophils 1.8 % 0.0 - 4.0 12/25/2017 [facility] RBC Morph Normal (12/25/17 3:19 AM) 12/25/2017 [facility] Lymphocytes 8.5 % 20.0 - 40.0 12/25/2017 [facility] HEMATOLOGY Basophils 0.4 % 0.0 - 1.0 12/25/2017 [facility] HEMATOLOGY Monocytes # 1.8 K/CMM 0.0 - 0.8 12/25/2017 [facility] HEMATOLOGY Eosinophils # 0.2 K/CMM 0.0 - 0.5 12/25/2017 [facility] HEMATOLOGY Segs-Bands # 7.7 K/CMM 1.5 - 8.1 12/25/2017 [facility] Lymphocytes # 0.9 K/CMM 1.0 - 5.5 12/25/2017 [facility] ELECTROLYTES AGAP 15.3 meq/L 10.0 - 20.0 12/24/2017 [facility] ELECTROLYTES Potassium Lvl 4.3 meq/L 3.5 - 5.1 12/24/2017 [facility] ELECTROLYTES BUN 34 mg/dL 7 - 22 12/24/2017 [facility] ELECTROLYTES Glucose Lvl 264 mg/dL 70 - 99 12/24/2017 [facility] ELECTROLYTES Creatinine Lvl 1.69 mg/dL 0.50 - 1.40 12/24/2017 [facility] ELECTROLYTES Sodium Lvl 126 meq/L 135 - 145 12/24/2017 [facility] ELECTROLYTES CO2 23 meq/L 24 - 32 12/24/2017 [facility] ELECTROLYTES Chloride Lvl 92 meq/L 95 - 109 12/24/2017 [facility] ELECTROLYTES Calcium Lvl 7.6 mg/dL 8.5 - 10.5 12/24/2017 [facility] ELECTROLYTES eGFR 29 mL/min/1.73m2 12/24/2017 Result Comment: The eGFR is calculated using the [...] from the National Kidney Disease Education Program (NKDEP) which additionally recommends that when the eGFR is used in patients with extremes of body mass index for purposes of drug dosing, the eGFR should be multiplied by the estimated BMI. [facility] HEMATOLOGY PTT 45.8 s 22.9 - 35.8 12/24/2017 [facility] INR 1.13 0.85 - 1.17 12/24/2017 [facility] PT 14.5 s 12.0 - 14.7 12/24/2017 [facility] Monocytes 16.0 % 2.0 - 12.0 12/24/2017 [facility] Lymphocytes # 0.8 K/CMM 1.0 - 5.5 12/24/2017 [facility] Monocytes # 1.8 K/CMM 0.0 - 0.8 12/24/2017 [facility] Eosinophils 0.1 % 0.0 - 4.0 12/24/2017 [facility] Basophils 0.2 % 0.0 - 1.0 12/24/2017 [facility] Segs 77.1 % 45.0 - 75.0 12/24/2017 [facility] Lymphocytes 6.6 % 20.0 - 40.0 12/24/2017 [facility] Segs-Bands # 8.9 K/CMM 1.5 - 8.1 12/24/2017 [facility] MPV 10.1 fL 7.4 - 10.4 12/24/2017 [facility] WBC 11.6 K/CMM 3.7 - 10.4 12/24/2017 [facility] RBC 3.29 M/CMM 4.20 - 5.40 12/24/2017 [facility] MCH 27.6 pg 27.0 - 31.0 12/24/2017 [facility] Hgb 9.1 g/dL 12.0 - 16.0 12/24/2017 [facility] Hct 27.7 % 36.0 - 48.0 12/24/2017 [facility] MCV 84.3 fL 80.0 - 98.0 12/24/2017 [facility] MCHC 32.7 g/dL 32.0 - 36.0 12/24/2017 [facility] RDW 14.5 % 11.5 - 14.5 12/24/2017 [facility] Platelet 219 K/CMM 133 - 450 12/24/2017 [facility] SPECIAL CHEMISTRY Hgb A1C 7.2 % <=5.6 % 12/24/2017 [facility] Hip 1 view DX Hip 1 view DX Patient Name: REESE BEVERLY : 1940; Age: 77 years y/o Female MR: [id number] LEFT HIP, 1 view, portable, postoperative HISTORY: Postoperative study, following left hip arthroplasty. TECHNIQUE: A single portable postoperative frontal view of the left hip was obtained. IMPRESSION: The left total hip prosthesis is in good position. There is no evidence of unexpected fracture or other complication. There is postoperative soft tissue gas. There are lateral surgical skin rosalia. SL: [id number] 12/23/2017 - - Read by: Thomas Bentley MD Dictated Date/time: 12/23/17 11:53 Electronically Signed by: Thomas Bentley MD 12/23/17 11:54 FINAL REPORT [facility] Hip 1 view DX Hip 1 view DX Patient Name: REESE BEVERLY : 1940; Age: 77 years y/o Female MR: [id number] * LEFT HIP, intraoperative, History: Left hip osteoarthritis. Intraoperative radiographs obtained during hip arthroplasty Technique: Multiple intraoperative digital C-arm images of the left hip were obtained utilizing during left hip arthroplasty. Frontal neutral, external rotation, internal rotation, abduction, abduction, extension, and flexion views were obtained. It is indicated the fluoroscopy time was 35 seconds. Radiation dose: 3.87 mGy. FINDINGS: The left total hip prosthesis appears to be in good position. There is no evidence of unexpected fracture. No instability is seen with the various positional maneuvers. SL: [id number] 12/23/2017 - - Read by: Thomas Bentley MD Dictated Date/time: 12/23/17 11:47 Electronically Signed by: Thomas Bentley MD 12/23/17 11:50 FINAL REPORT [facility] BLOOD BANK RESULTS ABO/Rh O POS 12/16/2017 [facility] BLOOD BANK RESULTS Antibody Scrn Negative (12/16/17 3:00 PM) 12/16/2017 [facility] CHEM PANEL eGFR 34 mL/min/1.73m2 12/16/2017 Result Comment: The eGFR is calculated using the [...] from the National Kidney Disease Education Program (NKDEP) which additionally recommends that when the eGFR is used in patients with extremes of body mass index for purposes of drug dosing, the eGFR should be multiplied by the estimated BMI. [facility] CHEM PANEL Potassium Lvl 4.6 meq/L 3.5 - 5.1 12/16/2017 [facility] CHEM PANEL Creatinine Lvl 1.47 mg/dL 0.50 - 1.40 12/16/2017 [facility] CHEM PANEL Sodium Lvl 134 meq/L 135 - 145 12/16/2017 [facility] CHEM PANEL Chloride Lvl 101 meq/L 95 - 109 12/16/2017 [facility] CHEM PANEL Calcium Lvl 9.0 mg/dL 8.5 - 10.5 12/16/2017 [facility] CHEM PANEL CO2 20 meq/L 24 - 32 12/16/2017 [facility] CHEM PANEL Glucose Lvl 119 mg/dL 70 - 99 12/16/2017 [facility] CHEM PANEL BUN 29 mg/dL 7 - 22 12/16/2017 [facility] CHEM PANEL AGAP 17.6 meq/L 10.0 - 20.0 12/16/2017 [facility] INR 1.03 0.85 - 1.17 12/16/2017 [facility] PT 13.5 s 12.0 - 14.7 12/16/2017 [facility] PTT 35.6 s 22.9 - 35.8 12/16/2017 [facility] MCHC 33.0 g/dL 32.0 - 36.0 12/16/2017 [facility] MCV 86.5 fL 80.0 - 98.0 12/16/2017 [facility] MCH 28.5 pg 27.0 - 31.0 12/16/2017 [facility] RDW 14.2 % 11.5 - 14.5 12/16/2017 [facility] Platelet 285 K/CMM 133 - 450 12/16/2017 [facility] MPV 9.5 fL 7.4 - 10.4 12/16/2017 [facility] Hgb 13.0 g/dL 12.0 - 16.0 12/16/2017 [facility] Hct 39.6 % 36.0 - 48.0 12/16/2017 [facility] RBC 4.57 M/CMM 4.20 - 5.40 12/16/2017 [facility] HEMATOLOGY WBC 10.6 K/CMM 3.7 - 10.4 12/16/2017 [facility] HEMATOLOGY Eosinophils 1.5 % 0.0 - 4.0 12/16/2017 [facility] HEMATOLOGY Segs-Bands # 6.9 K/CMM 1.5 - 8.1 12/16/2017 [facility] HEMATOLOGY Monocytes 13.9 % 2.0 - 12.0 12/16/2017 [facility] HEMATOLOGY Basophils 0.4 % 0.0 - 1.0 12/16/2017 [facility] Eosinophils # 0.2 K/CMM 0.0 - 0.5 12/16/2017 [facility] HEMATOLOGY Lymphocytes # 2.0 K/CMM 1.0 - 5.5 12/16/2017 [facility] Monocytes # 1.5 K/CMM 0.0 - 0.8 12/16/2017 [facility] Segs 65.4 % 45.0 - 75.0 12/16/2017 [facility] Lymphocytes 18.8 % 20.0 - 40.0 12/16/2017 [facility] SPECIAL CHEMISTRY Hgb A1C 7.3 % <=5.6 % 12/16/2017 [facility] BLOOD BANK RESULTS RBC product Product available (12/16/17 2:58 PM) 12/16/2017 [facility] Chest 2 views DX Chest 2 views DX Clinical Indication: Coughing - pre-op Comparison: 11/08/2008 FINDINGS: The PA and lateral chest radiographs shows normal lung volumes without interstitial or airspace opacities, pleural effusions or pneumothorax. The heart size and pulmonary vasculature are normal. The trachea is midline. There are no clinically significant osseous abnormalities noted. IMPRESSION: No chest radiographic evidence of acute cardiopulmonary disease. SL: [id number] 12/16/2017 - - Read by: Bruno Humphreys MD Dictated Date/time: 12/16/17 15:51 Electronically Signed by: Bruno Humphreys MD 12/16/17 15:51 FINAL REPORT [facility] CHEM PANEL eGFR 50 mL/min/1.73m2 11/02/2017 Result Comment: The eGFR is calculated using the [...] from the National Kidney Disease Education Program (NKDEP) which additionally recommends that when the eGFR is used in patients with extremes of body mass index for purposes of drug dosing, the eGFR should be multiplied by the estimated BMI. [facility] CHEM PANEL BUN 15 mg/dL 7 - 22 11/02/2017 [facility] CHEM PANEL Creatinine Lvl 1.08 mg/dL 0.50 - 1.40 11/02/2017 [facility] CHEM PANEL Sodium Lvl 137 meq/L 135 - 145 11/02/2017 [facility] CHEM PANEL Potassium Lvl 3.7 meq/L 3.5 - 5.1 11/02/2017 [facility] CHEM PANEL Chloride Lvl 103 meq/L 95 - 109 11/02/2017 [facility] CHEM PANEL CO2 22 meq/L 24 - 32 11/02/2017 [facility] CHEM PANEL Calcium Lvl 8.9 mg/dL 8.5 - 10.5 11/02/2017 [facility] CHEM PANEL Glucose Lvl 111 mg/dL 70 - 99 11/02/2017 [facility] CHEM PANEL AGAP 15.7 meq/L 10.0 - 20.0 11/02/2017 [facility] HEMATOLOGY Segs-Bands # 9.6 K/CMM 1.5 - 8.1 11/02/2017 [facility] HEMATOLOGY Lymphocytes # 1.3 K/CMM 1.0 - 5.5 11/02/2017 [facility] HEMATOLOGY Monocytes 15.1 % 2.0 - 12.0 11/02/2017 [facility] HEMATOLOGY Lymphocytes 9.7 % 20.0 - 40.0 11/02/2017 [facility] HEMATOLOGY Segs 74.0 % 45.0 - 75.0 11/02/2017 [facility] HEMATOLOGY Monocytes # 2.0 K/CMM 0.0 - 0.8 11/02/2017 [facility] HEMATOLOGY Basophils 0.7 % 0.0 - 1.0 11/02/2017 [facility] HEMATOLOGY Eosinophils 0.5 % 0.0 - 4.0 11/02/2017 [facility] HEMATOLOGY Eosinophils # 0.1 K/CMM 0.0 - 0.5 11/02/2017 [facility] HEMATOLOGY Basophils # 0.1 K/CMM 0.0 - 0.2 11/02/2017 [facility] HEMATOLOGY Platelet 230 K/CMM 133 - 450 11/02/2017 [facility] HEMATOLOGY MPV 10.3 fL 7.4 - 10.4 11/02/2017 [facility] HEMATOLOGY RDW 13.9 % 11.5 - 14.5 11/02/2017 [facility] HEMATOLOGY MCHC 33.2 g/dL 32.0 - 36.0 11/02/2017 [facility] HEMATOLOGY MCH 28.8 pg 27.0 - 31.0 11/02/2017 [facility] HEMATOLOGY MCV 86.7 fL 80.0 - 98.0 11/02/2017 [facility] HEMATOLOGY Hct 34.2 % 36.0 - 48.0 11/02/2017 [facility] HEMATOLOGY Hgb 11.4 g/dL 12.0 - 16.0 11/02/2017 [facility] HEMATOLOGY RBC 3.94 M/CMM 4.20 - 5.40 11/02/2017 [facility] HEMATOLOGY WBC 13.0 K/CMM 3.7 - 10.4 11/02/2017 [facility] PARATHYROID PROFILE Ca Ion WB 1.10 mMol/L 1.05 - 1.25 11/02/2017 [facility] PARATHYROID PROFILE Ca Norm WB 1.11 mMol/L 1.05 - 1.25 11/02/2017 [facility] CHEM PANEL Phosphorus 2.6 mg/dL 2.5 - 4.5 11/01/2017 [facility] CHEM PANEL eGFR 45 mL/min/1.73m2 11/01/2017 Result Comment: The eGFR is calculated using the [...] from the [employer] Program (NKDEP) which additionally recommends that when the eGFR is used in patients with extremes of body mass index for purposes of drug dosing, the eGFR should be multiplied by the estimated BMI. [facility] CHEM PANEL CO2 21 meq/L 24 - 32 11/01/2017 [facility] CHEM PANEL Calcium Lvl 8.2 mg/dL 8.5 - 10.5 11/01/2017 [facility] CHEM PANEL Sodium Lvl 134 meq/L 135 - 145 11/01/2017 [facility] CHEM PANEL Creatinine Lvl 1.17 mg/dL 0.50 - 1.40 11/01/2017 [facility] CHEM PANEL Potassium Lvl 4.0 meq/L 3.5 - 5.1 11/01/2017 [facility] CHEM PANEL Chloride Lvl 101 meq/L 95 - 109 11/01/2017 [facility] CHEM PANEL Glucose Lvl 261 mg/dL 70 - 99 11/01/2017 [facility] CHEM PANEL BUN 22 mg/dL 7 - 22 11/01/2017 [facility] CHEM PANEL AGAP 16.0 meq/L 10.0 - 20.0 11/01/2017 [facility] CHEM PANEL Magnesium Lvl 1.5 mg/dL 1.8 - 2.4 11/01/2017 [facility] HEMATOLOGY PT 14.5 s 12.0 - 14.7 11/01/2017 [facility] HEMATOLOGY PTT 31.4 s 22.9 - 35.8 11/01/2017 [facility] HEMATOLOGY INR 1.13 0.85 - 1.17 11/01/2017 [facility] HEMATOLOGY MCV 88.6 fL 80.0 - 98.0 11/01/2017 [facility] HEMATOLOGY WBC 14.1 K/CMM 3.7 - 10.4 11/01/2017 [facility] HEMATOLOGY Hct 35.9 % 36.0 - 48.0 11/01/2017 [facility] HEMATOLOGY Hgb 11.9 g/dL 12.0 - 16.0 11/01/2017 [facility] HEMATOLOGY RBC 4.05 M/CMM 4.20 - 5.40 11/01/2017 [facility] HEMATOLOGY Platelet 215 K/CMM 133 - 450 11/01/2017 [facility] HEMATOLOGY RDW 13.9 % 11.5 - 14.5 11/01/2017 [facility] HEMATOLOGY MPV 9.7 fL 7.4 - 10.4 11/01/2017 [facility] HEMATOLOGY MCHC 33.2 g/dL 32.0 - 36.0 11/01/2017 [facility] HEMATOLOGY MCH 29.4 pg 27.0 - 31.0 11/01/2017 [facility] HEMATOLOGY Lymphocytes 4.1 % 20.0 - 40.0 11/01/2017 [facility] HEMATOLOGY Segs 86.6 % 45.0 - 75.0 11/01/2017 [facility] HEMATOLOGY Segs-Bands # 12.2 K/CMM 1.5 - 8.1 11/01/2017 [facility] HEMATOLOGY Basophils 0.2 % 0.0 - 1.0 11/01/2017 [facility] HEMATOLOGY Monocytes # 1.3 K/CMM 0.0 - 0.8 11/01/2017 [facility] HEMATOLOGY Lymphocytes # 0.6 K/CMM 1.0 - 5.5 11/01/2017 [facility] HEMATOLOGY Monocytes 9.1 % 2.0 - 12.0 11/01/2017 [facility] PARATHYROID PROFILE Ca Norm WB 1.04 mMol/L 1.05 - 1.25 11/01/2017 [facility] PARATHYROID PROFILE Ca Ion WB 1.04 mMol/L 1.05 - 1.25 11/01/2017 [facility] BLOOD BANK RESULTS Antibody Scrn Negative (10/31/17 7:40 AM) 10/31/2017 [facility] BLOOD BANK RESULTS ABO/Rh O POS 10/31/2017 [facility] Vital Signs Vital Sign Value Date Comments Source Heart Rate 58 12/26/2017 [facility] Temperature Oral (F) 97.8 F 12/26/2017 [facility] Systolic (mm Hg) 177 12/26/2017 [facility] Diastolic (mm Hg) 64 12/26/2017 [facility] Respitory Rate 18 12/26/2017 [facility] Respitory Rate 18 12/26/2017 [facility] Systolic (mm Hg) 132 12/26/2017 [facility] Diastolic (mm Hg) 74 12/26/2017 [facility] Temperature Oral (F) 97.9 F 12/26/2017 [facility] Heart Rate 57 12/26/2017 [facility] Systolic (mm Hg) 148 12/26/2017 [facility] Diastolic (mm Hg) 66 12/26/2017 [facility] Respitory Rate 18 12/26/2017 [facility] Heart Rate 66 12/26/2017 [facility] Temperature Oral (F) 99.1 F 12/26/2017 [facility] BMI Calculated 28.12 12/16/2017 [facility] Weight 72.017 12/16/2017 [facility] Height 160.02 cm 12/16/2017 [facility] BMI Calculated 28.06 12/16/2017 [facility] Weight 71.847 12/16/2017 [facility] Height 160.02 cm 12/16/2017 [facility] BMI Calculated 28.4 11/18/2017 [facility] Height 160.02 cm 11/18/2017 [facility] Weight 72.727 11[facility]18/2017 [facility] Systolic (mm Hg) 166 11/18/2017 [facility] Diastolic (mm Hg) 72 11/18/2017 [facility] Heart Rate 68 11/18/2017 [facility] Temperature Oral (F) 99.5 F 11/03/2017 [facility] Heart Rate 74 11/03/2017 [facility] Systolic (mm Hg) 168 11/03/2017 [facility] Diastolic (mm Hg) 72 11/03/2017 [facility] Respitory Rate 18 11/03/2017 [facility] Systolic (mm Hg) 143 11/03/2017 [facility] Diastolic (mm Hg) 73 11/03/2017 [facility] Temperature Oral (F) 98.5 F 11/03/2017 [facility] Respitory Rate 20 11/03/2017 [facility] Heart Rate 63 11/03/2017 [facility] Temperature Oral (F) 100.0 F 11/03/2017 [facility] Respitory Rate 20 11/03/2017 [facility] Heart Rate 67 11/03/2017 [facility] Systolic (mm Hg) 156 11/03/2017 [facility] Diastolic (mm Hg) 63 11/03/2017 [facility] Height 160.02 cm 11/01/2017 [facility] Weight 71.818 11/01/2017 [facility] BMI Calculated 28.05 11/01/2017 [facility] Weight 71.818 10/31/2017 [facility] BMI Calculated 28.05 10/31/2017 [facility] Height 160.02 cm 10/31/2017 [facility] Weight 71.818 10/28/2017 [facility] BMI Calculated 28.05 10/28/2017 [facility] Height 160.02 cm 10/28/2017 [facility] Height 160.02 cm 09/23/2017 [facility] Weight 75.455 09/23/2017 [facility] BMI Calculated 29.47 09/23/2017 [facility] Heart Rate 62 09/23/2017 [facility] Systolic (mm Hg) 192 09/23/2017 [facility] Diastolic (mm Hg) 73 09/23/2017 [facility] Encounters Location Location Details Encounter Type Encounter Number Reason For Visit Attending Provider ADM Date DC Date Status Source Outpatient [id number] [facility] 09[facility]23/2017 [id number] 09/23/2017 09/24/2017 [facility] Phone Message [id number] 09/24/2017 09/26/2017 [facility] Phone Message [id number] 09/30/2017 10/02/2017 [facility] Phone Message [id number] 10/03/2017 10/05/2017 [facility] Phone Message [id number] 10/08/2017 10/10/2017 [facility] Phone Message [id number] 10/09/2017 10/11/2017 [facility] Outpatient [id number] [facility] 10/21/2017 Active [facility] Outpatient [id number] [facility] 10/21/2017 10/22/2017 [facility] Phone Message [id number] 10/27/2017 10/29/2017 [facility] Outpatient [id number] [facility] 10/31/[address] [facility] Inpatient [id number] [facility] 10/31/2017 11/03/2017 [facility] Phone Message [id number] 11/05/2017 11/07/2017 [facility] Outpatient [id number] [facility] 11/18/2017 [facility] [id number] [facility] 11/18/2017 11/19/2017 [facility] Phone Message [id number] 11/25/2017 2017 [facility] [id number] [facility] 2017 12/27/2017 [facility] [id number] [facility] 12[facility]16/2017 Active [facility] Out[facility] [id number] [facility] 12[facility]16/2017 12/17/2017 [facility] Inpatient [id number] Bhaskar Barraza 12/23/2017 12/26/2017 [facility] [id number] [facility] 01/27/2018 Active [facility] Procedures Procedure Code Date Perfomer Comments Source Knee replacement 81977781 [facility] Nephrectomy [id number] [facility] Spinal fusion 81883484 [facility] Appendectomy 53714515 [facility] Bladder operation 89483162 [facility] Carpal tunnel release 11570679 [facility] Mastectomy with excision of regional lymph nodes<sup>1</sup> 50463723 date unknown [facility] Appendectomy 40591720 [facility] Bladder operation 53124676 [facility] Carpal tunnel release 91043352 [facility] Knee replacement 17365982 [facility] Mastectomy with excision of regional lymph nodes<sup>1</sup> 65869288 date unknown [facility] Nephrectomy 666662958 [facility] Spinal fusion 83839672 [facility] Appendectomy 24806330 [facility] Bladder operation 67708528 [facility] Carpal tunnel release 88789337 [facility] Knee replacement 23508636 [facility] Nephrectomy 522994854 [facility] Spinal fusion 07118564 [facility] Appendectomy 15022932 [facility] Bladder operation 65013458 [facility] Carpal tunnel release 72097535 [facility] Knee replacement 67511267 [facility] Mastectomy with excision of regional lymph nodes<sup>1</sup> 07746250 date unknown [facility] Nephrectomy 505633137 [facility] Spinal fusion [id number] [facility]
--- OUTSIDE RECORDS SUMMARY | 2018-07-10 00:40 | XMS REPORT | Summary of Care ---
Author Author [facility] Organization [facility] Address Unknown Phone Unavailable Encounter HQ [email or web address](FIN) [id number] Date(s): 10/09/17 - 10/10/17 [facility] [address] [facility], [address] [phone] Vital Signs No data available for this [...] Reg Smoking Cessation Counseling No entered on: 09/23/17 Assessment and Plan No data available for this section
--- OUTSIDE RECORDS SUMMARY | 2018-07-10 00:40 | XMS REPORT | Summary of Care ---
Author Author [facility] Organization [facility] Address Unknown Phone Unavailable Encounter HQ Encntr_alialex(FIN) [id number] Date(s): 10/08/17 - 10/09/17 [facility] [address] [facility], [address] [phone] Vital Signs No data available for this [...]
--- OUTSIDE RECORDS SUMMARY | 2018-07-10 00:40 | XMS REPORT | Summary of Care ---
Author Author [facility] Organization [facility] Address Unknown Phone Unavailable Encounter HQ Anicetontr_julisa(FIN) [id number] Date(s): 10/27/17 - 10/28/17 [facility] [address] [address], [address] [place] [phone] Vital Signs No data available for this [...] Reg Smoking Cessation Counseling No entered on: 10/28/17 Assessment and Plan No data available for this section
--- OUTSIDE RECORDS SUMMARY | 2018-07-10 00:40 | XMS REPORT | Summary of Care ---
Author Author [facility] Organization [facility] Neurosurgery [facility] Address Unknown Phone Unavailable Encounter HQ Anicetontr_julisa(FIN) [id number] Date(s): 11/25/17 - 11/26/17 [facility] Neuro[facility] [address] [address] [facility] [address], [address] [place] [phone] Vital Signs No data available for this [...]
--- OUTSIDE RECORDS SUMMARY | 2018-07-10 00:41 | XMS REPORT | Summary of Care ---
Author Author [facility] Organization [facility] Address Unknown Phone Unavailable Encounter [facility](SUNSHINE) [id number] Date(s): 12/23/17 - 12/26/17 [facility] [address] [place] [address]- Discharge Disposition: Correction Facility Attending Physician: Bhaskar Barraza Admitting Physician: Bhaskar Barraza Referring Physician: Bhaskar Barraza Vital Signs 1 2 3 Most recent to oldest [Reference Range]: 160.02 cm (12/16/17 2:29 PM) Height 97.8 DegF (12/26/17 4:00 PM) 97.9 DegF (12/26/17 12:00 PM) 99.1 DegF (12/26/17 7:44 AM) Temperature Oral [96.4-99.1 DegF] 177/64 mmHg *HI* (12/26/17 4:00 PM) 132/74 mmHg (12/26/17 12:00 PM) 148/66 mmHg *HI* (12/26/17 7:44 AM) Blood Pressure [90-140/60-90 mmHg] 18 BRMIN (12/26/17 4:00 PM) 18 BRMIN (12/26/17 12:00 PM) 18 BRMIN (12/26/17 7:44 AM) Respiratory Rate [14-20 BRMIN] 58 bpm *LOW* (12/26/17 4:00 PM) 57 bpm *LOW* (12/26/17 12:00 PM) 66 bpm (12/26/17 7:44 AM) Peripheral Pulse Rate [60-100 bpm] 72.017 kg (12/16/17 2:29 PM) Weight 28.12 m2 (12/16/17 2:29 PM) Body Mass Index Problem List Condition Effective Dates Status Health Status Informant DM (diabetes Active mellitus)(Confirmed) SOB (shortness of Active breath) on exertion(Confirmed) Acid Active reflux(Confirmed) HTN Active (hypertension)(Confi rmed) Hypothyroidism(Confi Active rmed) History of breast Active cancer in female(Confirmed) Allergies, Adverse Reactions, Alerts Substance Reaction Severity Status codeine Active Tylox Active Medications acetaminophen (ANES) Route: IV, Drug form: INJ, ONCE, Stop date: 12/23/17 8:11:00 CDT Start Date: 12/23/17 Stop Date: 12/23/17 Status: Completed albuterol-ipratropium 2.5-0.5 mg inhalation solution 3 mL, Route: NEB, Drug Form: SOLN, Dosing Weight 72.017, kg, ONCE, STAT, Start d ate: 12/23/17 5:56:00 CDT, Stop date: 12/23/17 5:56:00 CDT Notes: (Same as: Loi) Start Date: 12/23/17 Stop Date: 12/23/17 Status: Discontinued amLODIPine-valsartan 10 mg-320 mg oral tablet 1 tab, PO, Daily, # 30 tab, 0 Refill(s), Pharmacy: [facility] [id number] Start Date: 12/26/17 Status: Ordered Ancef + sterile water 20 mL 2 gm, Route: IVP, ABXQ8H, Dosing Weight 72.017, kg, Start date: 12/24/17 0:00:00 CDT, Stop date: 12/24/17 9:00:00 CDT, ABX Indication: Surgical Prophylaxis Notes: (Same As: Saeed Martinezzojasbir) MEDICATION WASTE Product Size: 1000 mgP roduct Wasted: ___ mg Start Date: 12/24/17 Stop Date: 12/24/17 Status: Completed Ancef + sterile water 20 mL 2 gm, Route: IVP, ABXQ8H, Dosing Weight 72.017, kg, Start date: 12/23/17 11:00:0 0 CDT, Duration: 1 day, Stop date: 12/25/17 0:00:00 CDT, ABX Indication: Surgica l Prophylaxis Notes: (Same As: AncefCarlos Afzol) MEDICATION WASTE Product Size: 1000 mgP roduct Wasted: ___ mg Start Date: 12/23/17 Stop Date: 12/23/17 Status: Discontinued ANES albuterol 0.083% inhalation solution 2.49 mg, Route: NEB, Q20Min, Dosing Weight 72.017, kg, PRN Wheezing, Priority: S TAT, Start date: 12/23/17 9:39:00 CDT, Duration: 30 day, Stop date: 01/22/18 9:3 8:00 CDT Start Date: 12/23/17 Stop Date: 12/23/17 Status: Discontinued ANES diphenhydrAMINE 12.5 mg, Route: IVP, Drug form: INJ, Q6H, Dosing Weight 72.017, kg, PRN Itching, Start date: 12/23/17 9:39:00 CDT, Duration: 30 day, Stop date: 01/22/18 9:38:00 CDT Start Date: 12/23/17 Stop Date: 12/23/17 Status: Discontinued ANES esmolol 10 mg, Route: IVP, Q5Min, Dosing Weight 72.017, kg, PRN Other -See Comment, Star t date: 12/23/17 9:39:00 CDT, Duration: 5 doses or times, Stop date: Limited # o f times Start Date: 12/23/17 Stop Date: 12/23/17 Status: Discontinued ANES fentaNYL 50 microgram, Route: IVP, Q5Min, Dosing Weight 72.017, kg, PRN Pain Score 7-10, Priority: Routine, Start date: 12/23/17 9:39:00 CDT, Duration: 2 doses or times, Stop date: Limited # of times Start Date: 12/23/17 Stop Date: 12/23/17 Status: Completed ANES fentaNYL 25 microgram, Route: IVP, Q5Min, Dosing Weight 72.017, kg, PRN Pain Score 4-6, P riority: Routine, Start date: 12/23/17 9:39:00 CDT, Duration: 4 doses or times, Stop date: Limited # of times Start Date: 12/23/17 Stop Date: 12/23/17 Status: Discontinued ANES flumazenil 0.2 mg, Route: IVP, PRN, Dosing Weight 72.017, kg, PRN Benzodiazepine Reversal, Initial dose, Start date: 12/23/17 9:39:00 CDT, Duration: 30 day, Stop date: 9:38:00 CDT Start Date: 12/23/17 Stop Date: 12/23/17 Status: Discontinued ANES hydrALAZINE 10 mg, Route: IVP, Q20Min, Dosing Weight 72.017, kg, PRN Elevated BP, Start date : 12/23/17 9:39:00 CDT, Duration: 2 doses or times, Stop date: Limited # of time s Start Date: 12/23/17 Stop Date: 12/23/17 Status: Discontinued ANES labetalol 10 mg, Route: IVP, Q5Min, Dosing Weight 72.017, kg, PRN Elevated BP, Start date: 12/23/17 9:39:00 CDT, Duration: 5 doses or times, Stop date: Limited # of times Start Date: 12/23/17 Stop Date: 12/23/17 Status: Discontinued ANES meperidine 12.5 mg, Route: IVP, Q30Min, Dosing Weight 72.017, kg, PRN Other -See Comment, F or shivering, Start date: 12/23/17 9:39:00 CDT, Duration: 2 doses or times, Stop date: Limited # of times Start Date: 12/23/17 Stop Date: 12/23/17 Status: Discontinued ANES naloxone 0.4 mg, Route: IVP, Q2MIN, Dosing Weight 72.017, kg, PRN Narcotic Reversal, Star t date: 12/23/17 9:39:00 CDT, Duration: 8 doses or times, Stop date: Limited # o f times Start Date: 12/23/17 Stop Date: 12/23/17 Status: Discontinued ANES ondansetron 4 mg, Route: IVP, ONCE, Dosing Weight 72.017, kg, PRN Nausea & Vomiting, Start date: 12/23/17 9:39:00 CDT Start Date: 12/23/17 Stop Date: 12/23/17 Status: Discontinued ANES promethazine 6.25 mg, Route: IVPB, ONCE, Dosing Weight 72.017, kg, PRN Nausea & Vomiting, Start date: 12/23/17 9:39:00 CDT Start Date: 12/23/17 Stop Date: 12/23/17 Status: Discontinued atenolol 50 mg oral tablet 50 mg, 1 tab, Route: PO, Drug form: TAB, Daily, Dosing Weight 72.017, kg, Start date: 12/24/17 9:00:00 CDT, Duration: 30 day, Stop date: 01/22/18 9:00:00 CDT Notes: (Same As:Tenormin) Start Date: 12/24/17 Stop Date: 12/26/17 Status: Discontinued ceFAZolin (ANES) Route: IV, Drug form: INJ, ONCE, Stop date: 12/23/17 8:11:00 CDT Start Date: 12/23/17 Stop Date: 12/23/17 Status: Completed ceFAZolin (SCIP) 1 gm, Route: IVPB, Drug form: INJ, Q6H, Dosing Weight 72.017, kg, Start date: 12:00:00 CDT, Duration: 3 doses or times, Stop date: 12/24/17 0:00:00 CDT , ABX Indication: Surgical Prophylaxis Start Date: 12/23/17 Stop Date: 12/23/17 Status: Canceled celecoxib 400 mg, 2 cap, Route: PO, Drug form: CAP, ONCALL, Dosing Weight 72.017, kg, (for CrCl > 90 mL/min), Start date: 12/23/17 7:00:00 CDT, Duration: 30 day, Stop date: 01/22/18 6:59:00 CDT Notes: NSAID. Please check indication. Not for seizure. (Same As: CeleBREX) Start Date: 12/23/17 Stop Date: 12/23/17 Status: Completed cloNIDine 0.1 mg oral tablet 0.2 mg, 2 tab, Route: PO, Drug form: TAB, QAM, Dosing Weight 72.017, kg, Start d ate: 12/24/17 6:00:00 CDT, Duration: 30 day, Stop date: 01/22/18 6:00:00 CDT Notes: (Same As: Catapres) Start Date: 12/24/17 Stop Date: 12/26/17 Status: Discontinued cloNIDine 0.1 mg oral tablet 0.1 mg, 1 tab, Route: PO, Drug form: TAB, BID, Start date: 12/23/17 22:30:00 CDT , Duration: 30 day, Stop date: 01/22/18 22:00:00 CDT Notes: (Same As: Catapres) Start Date: 12/23/17 Stop Date: 12/26/17 Status: Discontinued Cozaar 100 mg, 2 tab, Route: PO, Drug form: TAB, Daily, Start date: 12/24/17 9:00:00 CD T, Duration: 30 day, Stop date: 01/22/18 9:00:00 CDT Notes: (Same as: Cozaar) Start Date: 12/24/17 Stop Date: 12/26/17 Status: Discontinued Dextrose 50% Syringe 25 gm, 50 mL, Route: IVP, Drug Form: INJ, Dosing Weight 72.017, kg, PRN, PRN Blo od Glucose Results, Start date: 12/24/17 9:16:00 CDT, Duration: 30 day, Stop joyce e: 01/23/18 9:15:00 CDT Start Date: 12/24/17 Stop Date: 12/26/17 Status: Discontinued Dextrose 50% Syringe 12.5 gm, 25 mL, Route: IVP, Drug Form: INJ, Dosing Weight 72.017, kg, PRN, PRN B lood Glucose Results, Start date: 12/24/17 9:16:00 CDT, Duration: 30 day, Stop d ate: 01/23/18 9:15:00 CDT Start Date: 12/24/17 Stop Date: 12/26/17 Status: Discontinued enoxaparin 40 mg, Route: SUB-Q, Drug form: INJ, Daily, Dosing Weight 72.017, kg, Start date : 12/23/17 9:00:00 CDT, Duration: 30 day, Stop date: 01/21/18 9:00:00 CDT Start Date: 12/23/17 Stop Date: 12/23/17 Status: Deleted enoxaparin 40 mg, 0.4 mL, Route: SUB-Q, Drug form: INJ, [id number], Dosing Weight 72.017, kg, Start date: 12/23/17 21:00:00 CDT, Stop date: 01/21/18 21:00:00 CDT Notes: (Same as: Lovenox) Start Date: 12/23/17 Stop Date: 12/26/17 Status: Discontinued famotidine (ANES) Route: IV, Drug form: INJ, ONCE, Stop date: 12/23/17 8:11:00 CDT Start Date: 12/23/17 Stop Date: 12/23/17 Status: Completed fentaNYL (ANES) Route: IV, Drug form: INJ, ONCE, Stop date: 12/23/17 8:06:00 CDT Start Date: 12/23/17 Stop Date: 12/23/17 Status: Completed gabapentin 300 mg, 1 cap, Route: PO, Drug form: CAP, ONCALL, Dosing Weight 72.017, kg, Star t date: 12/23/17 7:00:00 CDT, Duration: 30 day, Stop date: 01/22/18 6:59:00 CDT Notes: (Same as: Neurontin) Start Date: 12/23/17 Stop Date: 12/23/17 Status: Completed glucagon 1 mg, Route: IM, Drug form: PDR/INJ, PRN, Dosing Weight 72.017, kg, PRN Blood Gl ucose Results, Start date: 12/24/17 9:16:00 CDT, Duration: 30 day, Stop date: 9:15:00 CDT Start Date: 12/24/17 Stop Date: 12/26/17 Status: Discontinued glycopyrrolate (ANES) Route: IV, Drug form: INJ, ONCE, Stop date: 12/23/17 9:11:00 CDT Start Date: 12/23/17 Stop Date: 12/23/17 Status: Completed hydrochlorothiazide 25 mg oral tablet 25 mg, 1 tab, Route: PO, Daily, Start date: 12/24/17 9:00:00 CDT, Duration: 30 d ay, Stop date: 01/22/18 9:00:00 CDT Notes: (Same as: Hydrodiuril) With food. Start Date: 12/24/17 Stop Date: 12/25/17 Status: Discontinued hydrochlorothiazide-losartan 25 mg-100 mg oral tablet 1 tab, Route: PO, Drug Form: TAB, Dosing Weight 72.017, kg, Daily, Start date: 0 12/24/17 9:00:00 CDT, Duration: 30 day, Stop date: 01/22/18 9:00:00 CDT Start Date: 12/24/17 Stop Date: 12/23/17 Status: Deleted HYDROmorphone 0.5mg/mL [employer]ODUCT SAF[employer]Y TEST [employer]INEER (15mg/30 mL) 15 mg 15 mg, 30 mL, Route: IV, PR[employer]Y [employer]ER Dose: 0.2 mg, PRODUCT S[employer]Y TEST [employer]INEER Lockout: 8 minutes, Continuous Ba fabiana Rate: 0 mg, 4 Hour Limit (In MG): 6, Continuous, Start date: 12/23/17 8:51:0 0 CDT, Duration: 30 day, Stop date: 01/22/18 8:50:00 CDT Start Date: 12/23/17 Stop Date: 12/23/17 Status: Discontinued insulin glargine 10 unit, 0.1 mL, Route: SUB-Q, Drug form: SOLN, Daily, Priority: NOW, Start date : 12/25/17 12:06:00 CDT, Duration: 30 day, Stop date: 01/24/18 9:00:00 CDT Notes: (Same as: Lantus)Do not hold insulin without contacting prescriberWASTE: F/P - Black; E - [facility] Trash [facility] "single patient use only" Start Date: 12/25/17 Stop Date: 12/25/17 Status: Discontinued insulin glargine 20 unit, 0.2 mL, Route: SUB-Q, Drug form: SOLN, Bedtime, Start date: 12/23/17 21 :45:00 CDT, Duration: 30 day, Stop date: 01/22/18 21:00:00 CDT Notes: (Same as: Lantus)Do not hold insulin without contacting prescriberWASTE: F/P - Black; E - [facility] Trash [facility] "single patient use only" Start Date: 12/23/17 Stop Date: 12/26/17 Status: Discontinued insulin lispro 2 unit, 0.02 mL, Route: SUB-Q, Drug form: SOLN, TID-Before Meals, Dosing Weight 72.017, kg, PRN Blood Glucose Results, Start date: 12/24/17 9:16:00 CDT, Duratio n: 30 day, Stop date: 01/23/18 9:15:00 CDT Notes: (Same as: Humalog ) Roll in palms of hands gently; Do not shake `vigorou sly. "Single Patient Use Only " WASTE: F/P - Black; E - [facility] [address] able for 28 days at room temperature.Expires in days from Da te Start Date: 12/24/17 Stop Date: 12/25/17 Status: Discontinued insulin lispro 4 unit, 0.04 mL, Route: SUB-Q, Drug form: SOLN, TID-Before Meals, Dosing Weight 72.017, kg, PRN Blood Glucose Results, Start date: 12/24/17 9:16:00 CDT, Duratio n: 30 day, Stop date: 01/23/18 9:15:00 CDT Notes: (Same as: Humalog ) Roll in palms of hands gently; Do not shake `vigorou sly. "Single Patient Use Only " WASTE: F/P - Black; E - [facility] [address] [facility] [address] able for 28 days at room temperature.Expires in days from Da te Start Date: 12/24/17 Stop Date: 12/25/17 Status: Discontinued insulin lispro 6 unit, 0.06 mL, Route: SUB-Q, Drug form: SOLN, TID-Before Meals, Dosing Weight 72.017, kg, PRN Blood Glucose Results, Start date: 12/24/17 9:16:00 CDT, Duratio n: 30 day, Stop date: 01/23/18 9:15:00 CDT Notes: (Same as: Humalog ) Roll in palms of hands gently; Do not shake `vigorou sly. "Single Patient Use Only " WASTE: F/P - Black; E - [facility] [address] [facility] [address] able for 28 days at room temperature.Expires in days from Da te Start Date: 12/24/17 Stop Date: 12/25/17 Status: Discontinued insulin lispro 8 unit, 0.08 mL, Route: SUB-Q, Drug form: SOLN, TID-Before Meals, Dosing Weight 72.017, kg, PRN Blood Glucose Results, Start date: 12/24/17 9:16:00 CDT, Duratio n: 30 day, Stop date: 01/23/18 9:15:00 CDT Notes: (Same as: Humalog ) Roll in palms of hands gently; Do not shake `vigorou sly. "Single Patient Use Only " WASTE: F/P - Black; E - [facility] [address] [facility] [address] able for 28 days at room temperature.Expires in days from Da te Start Date: 12/24/17 Stop Date: 12/25/17 Status: Discontinued insulin lispro 10 unit, 0.1 mL, Route: SUB-Q, Drug form: SOLN, TID-Before Meals, Dosing Weight 72.017, kg, PRN Blood Glucose Results, Start date: 12/24/17 9:16:00 CDT, Duratio n: 30 day, Stop date: 01/23/18 9:15:00 CDT Notes: (Same as: Humalog ) Roll in palms of hands gently; Do not shake `vigorou sly. "Single Patient Use Only " WASTE: F/P - Black; E - [facility] [address] [facility] [address] able for 28 days at room temperature.Expires in days from Da te Start Date: 12/24/17 Stop Date: 12/25/17 Status: Discontinued insulin lispro 2 unit, 0.02 mL, Route: SUB-Q, Drug form: SOLN, Bedtime, Dosing Weight 72.017, k g, PRN Blood Glucose Results, Start date: 12/24/17 9:16:00 CDT, Duration: 30 day , Stop date: 01/23/18 9:15:00 CDT Notes: (Same as: Humalog ) Roll in palms of hands gently; Do not shake `vigorou sly. "Single Patient Use Only " WASTE: F/P - Black; E - [facility] [facility] [address] able for 28 days at room temperature.Expires in days from Da te Start Date: 12/24/17 Stop Date: 12/26/17 Status: Discontinued insulin lispro 1 unit, 0.01 mL, Route: SUB-Q, Drug form: SOLN, Bedtime, Dosing Weight 72.017, k g, PRN Blood Glucose Results, Start date: 12/24/17 9:16:00 CDT, Duration: 30 day , Stop date: 01/23/18 9:15:00 CDT Notes: (Same as: Humalog ) Roll in palms of hands gently; Do not shake `vigorou sly. "Single Patient Use Only " WASTE: F/P - Black; E - [facility] [address] [facility] [address] able for 28 days at room temperature.Expires in days from Da te Start Date: 12/24/17 Stop Date: 12/26/17 Status: Discontinued insulin lispro 3 unit, 0.03 mL, Route: SUB-Q, Drug form: SOLN, Bedtime, Dosing Weight 72.017, k g, PRN Blood Glucose Results, Start date: 12/24/17 9:16:00 CDT, Duration: 30 day , Stop date: 01/23/18 9:15:00 CDT Notes: (Same as: Humalog ) Roll in palms of hands gently; Do not shake `vigorou sly. "Single Patient Use Only " WASTE: F/P - Black; E - [facility] [address] [facility] [address] able for 28 days at room temperature.Expires in days from Da te Start Date: 12/24/17 Stop Date: 12/26/17 Status: Discontinued insulin lispro 4 unit, 0.04 mL, Route: SUB-Q, Drug form: SOLN, Bedtime, Dosing Weight 72.017, k g, PRN Blood Glucose Results, Start date: 12/24/17 9:16:00 CDT, Duration: 30 day , Stop date: 01/23/18 9:15:00 CDT Notes: (Same as: Humalog ) Roll in palms of hands gently; Do not shake `vigorou sly. "Single Patient Use Only " WASTE: F/P - Black; E - [facility] [facility] [address] able for 28 days at room temperature.Expires in days from Da te Start Date: 12/24/17 Stop Date: 12/26/17 Status: Discontinued insulin lispro 3 unit, 0.03 mL, Route: SUB-Q, Drug form: SOLN, TID-Before Meals, Dosing Weight 72.017, kg, PRN Blood Glucose Results, Start date: 12/25/17 9:13:00 CDT, Duratio n: 30 day, Stop date: 01/24/18 9:12:00 CDT Notes: (Same as: Humalog ) Roll in palms of hands gently; Do not shake `vigorou sly. "Single Patient Use Only " WASTE: F/P - Black; E - [facility] [address] [facility] [address] able for 28 days at room temperature.Expires in days from Da te Start Date: 12/25/17 Stop Date: 12/26/17 Status: Discontinued insulin lispro 6 unit, 0.06 mL, Route: SUB-Q, Drug form: SOLN, TID-Before Meals, Dosing Weight 72.017, kg, PRN Blood Glucose Results, Start date: 12/25/17 9:13:00 CDT, Duratio n: 30 day, Stop date: 01/24/18 9:12:00 CDT Notes: (Same as: Humalog ) Roll in palms of hands gently; Do not shake `vigorou sly. "Single Patient Use Only " WASTE: F/P - Black; E - [facility] [address] [facility] [address] able for 28 days at room temperature.Expires in days from Da te Start Date: 12/25/17 Stop Date: 12/26/17 Status: Discontinued insulin lispro 9 unit, 0.09 mL, Route: SUB-Q, Drug form: SOLN, TID-Before Meals, Dosing Weight 72.017, kg, PRN Blood Glucose Results, Start date: 12/25/17 9:13:00 CDT, Duratio n: 30 day, Stop date: 01/24/18 9:12:00 CDT Notes: (Same as: Humalog ) Roll in palms of hands gently; Do not shake `vigorou sly. "Single Patient Use Only " WASTE: F/P - Black; E - [facility] [facility] [address] able for 28 days at room temperature.Expires in days from Da te Start Date: 12/25/17 Stop Date: 12/26/17 Status: Discontinued insulin lispro 12 unit, 0.12 mL, Route: SUB-Q, Drug form: SOLN, TID-Before Meals, Dosing Weight 72.017, kg, PRN Blood Glucose Results, Start date: 12/25/17 9:13:00 CDT, Durati on: 30 day, Stop date: 01/24/18 9:12:00 CDT Notes: (Same as: Humalog ) Roll in palms of hands gently; Do not shake `vigorou sly. "Single Patient Use Only " WASTE: F/P - Black; E - [facility] [address] able for 28 days at room temperature.Expires in days from Da te Start Date: 12/25/17 Stop Date: 12/26/17 Status: Discontinued insulin lispro 15 unit, 0.15 mL, Route: SUB-Q, Drug form: SOLN, TID-Before Meals, Dosing Weight 72.017, kg, PRN Blood Glucose Results, Start date: 12/25/17 9:13:00 CDT, Durati on: 30 day, Stop date: 01/24/18 9:12:00 CDT Notes: (Same as: Humalog ) Roll in palms of hands gently; Do not shake `vigorou sly. "Single Patient Use Only " WASTE: F/P - Black; E - [facility] [facility] [address] able for 28 days at room temperature.Expires in days from Da te Start Date: 12/25/17 Stop Date: 12/26/17 Status: Discontinued Insulin regular 4 unit, Route: IVP, ONCE, Dosing Weight 72.017, kg, Start date: 12/23/17 5:57:00 CDT, Stop date: 12/23/17 5:57:00 CDT Start Date: 12/23/17 Stop Date: 12/23/17 Status: Completed Insulin regular 2 unit, 0.02 mL, Route: IVP, Drug form: INJ, ONCE, Dosing Weight 72.017, kg, Sta rt date: 12/23/17 6:31:00 CDT, Stop date: 12/23/17 6:31:00 CDT Notes: (Same as: Humulin R and NovoLIN R)WASTE: F/P - Black; E - [facility] Trash Bin (Do not shake) Start Date: 12/23/17 Stop Date: 12/23/17 Status: Completed Keflex 500 mg oral capsule 500 mg=1 cap, PO, QID, X 10 day, # 40 cap, 0 Refill(s) Start Date: 12/22/17 Stop Date: 01/01/18 Status: Ordered Lactated Ringers Injection IV (ANES) 1000 mL Route: IV, Total Volume: 1,000, Start date: 12/23/17 6:56:00 CDT, Stop date: 7:56:00 CDT Start Date: 12/23/17 Stop Date: 12/23/17 Status: Completed Lactated Ringers Injection IV 1,000 mL 1,000 mL, Rate: 25 ml/hr, Infuse over: 40 hr, Route: IV, Dosing Weight 72.017 kg , Total Volume: 1,000, Start date: 12/23/17 5:56:00 CDT, Duration: 1 day, Stop d ate: 12/24/17 5:55:00 CDT, 1.81, m2 Start Date: 12/23/17 Stop Date: 12/23/17 Status: Discontinued Lactated Ringers Injection IV 1,000 mL 1,000 mL, Rate: 125 ml/hr, Infuse over: 8 hr, Route: IV, Dosing Weight 72.017 kg , Total Volume: 1,000, Start date: 12/23/17 9:39:00 CDT, Duration: 30 day, Stop date: 01/22/18 9:38:00 CDT, 1.81, m2 Start Date: 12/23/17 Stop Date: 12/23/17 Status: Discontinued Lactated Ringers IV 1000 mL 1,000 mL, Rate: 75 ml/hr, Infuse over: 13.3 hr, Route: IV, Dosing Weight 72.017 kg, Total Volume: 1,000, Start date: 12/23/17 8:51:00 CDT, Duration: 30 day, Sto p date: 01/22/18 8:50:00 CDT, 1.81, m2 Start Date: 12/23/17 Stop Date: 12/23/17 Status: Deleted Levemir 20 unit, Route: SUB-Q, Bedtime, Dosing Weight 72.017, kg, Start date: 12/24/17 2 1:00:00 CDT, Duration: 30 day, Stop date: 01/22/18 21:00:00 CDT Start Date: 12/24/17 Stop Date: 12/23/17 Status: Deleted Levemir 10 unit, 0.1 mL, Route: SUB-Q, Drug form: SOLN, ONCE, Dosing Weight 72.017, kg, Start date: 12/25/17 9:07:00 CDT, Stop date: 12/25/17 9:07:00 CDT Notes: Non-Formulary Drug(Same as Levemir)Do not hold insulin without contacting prescriberWASTE: F/P - Black; E - [employer] "single patient use only" Start Date: 12/25/17 Stop Date: 12/25/17 Status: Completed levothyroxine 100 microgram, 1 tab, Route: PO, Drug form: TAB, [id number], Dosing Weight 72.017, k g, Start date: 12/24/17 6:30:00 CDT, Duration: 30 day, Stop date: 01/22/18 6:30: 00 CDT Notes: Take 1 hour before or 2 hours after meal; Enteral feeds may interefere wi th the absorption of this medication. (Same as:Levothroid, Synthroid) Start Date: 12/24/17 Stop Date: 12/26/17 Status: Discontinued levothyroxine 100 mcg (0.1 mg) oral tablet 100 microgram=1 tab, PO, Daily, # 30 tab, 0 Refill(s) Start Date: 12/16/17 Status: Ordered lidocaine (ANES) Route: IV, Drug form: INJ, ONCE, Stop date: 12/23/17 8:06:00 CDT Start Date: 12/23/17 Stop Date: 12/23/17 Status: Completed Lovenox 40 mg/0.4 mL subcutaneous solution 40 mg, SUB-Q, Daily, # 14 inj, 0 Refill(s) Start Date: 12/22/17 Stop Date: 01/21/18 Status: Ordered Lunesta 3 mg, Route: PO, Bedtime, Dosing Weight 72.017, kg, Start date: 12/23/17 21:00:0 0 CDT, Duration: 30 day, Stop date: 01/21/18 21:00:00 CDT Start Date: 12/23/17 Stop Date: 12/23/17 Status: Deleted Lunesta 3 mg, Route: PO, Bedtime, Dosing Weight 72.017, kg, Start date: 12/23/17 21:00:0 0 CDT, Duration: 30 day, Stop date: 01/21/18 21:00:00 CDT Start Date: 12/23/17 Stop Date: 12/23/17 Status: Deleted Lunesta 3 mg, Route: PO, Bedtime, Dosing Weight 72.017, kg, Start date: 12/23/17 21:00:0 0 CDT, Duration: 30 day, Stop date: 01/21/18 21:00:00 CDT Start Date: 12/23/17 Stop Date: 12/23/17 Status: Deleted melatonin 3 mg, 1 tab, Route: PO, Drug form: TAB, Bedtime, Dosing Weight 72.017, kg, PRN S leep, Start date: 12/23/17 8:51:00 CDT, Duration: 30 day, Stop date: 01/22/18 8: 50:00 CDT, .. Notes: (Same as: Melatonin) Start Date: 12/23/17 Stop Date: 12/26/17 Status: Discontinued melatonin 3 mg, Route: PO, Bedtime, Dosing Weight 72.017, kg, PRN Sleep, Start date: 12/23 8:51:00 CDT, Duration: 30 day, Stop date: 01/22/18 8:50:00 CDT, .. Start Date: 12/23/17 Stop Date: 12/23/17 Status: Deleted meloxicam 15 mg oral tablet 15 mg=1 tab, PO, Daily, # 30 tab, 0 Refill(s) Start Date: 12/16/17 Stop Date: 12/26/17 Status: Discontinued naloxone 0.04 mg, Route: IVP, Q2MIN, Dosing Weight 72.017, kg, PRN Narcotic Reversal, Sta rt date: 12/23/17 8:51:00 CDT, Duration: 30 day, Stop date: 01/22/18 8:50:00 CDT Start Date: 12/23/17 Stop Date: 12/23/17 Status: Discontinued neostigmine (ANES) Route: IV, Drug form: INJ, ONCE, Stop date: 12/23/17 9:11:00 CDT Start Date: 12/23/17 Stop Date: 12/23/17 Status: Completed Brandon 7.5/325 oral tablet 2 tab, Route: PO, Drug Form: TAB, Dosing Weight 72.017, kg, Q4H, PRN Pain Score 7-10, Start date: 12/23/17 8:51:00 CDT, Duration: 30 day, Stop date: 01/22/18 8: 50:00 CDT Notes: Same as Brandon 325-7.5mg Do not exceed 4gm/day of acetaminophen. Start Date: 12/23/17 Stop Date: 12/26/17 Status: Discontinued Brandon 7.5/325 oral tablet 1 tab, Route: PO, Drug Form: TAB, Dosing Weight 72.017, kg, Q4H, PRN Pain Score 4-6, Start date: 12/23/17 8:51:00 CDT, Duration: 30 day, Stop date: 01/22/18 8:5 0:00 CDT Notes: Same as Brandon 325-7.5mg Do not exceed 4gm/day of acetaminophen. Start Date: 12/23/17 Stop Date: 12/26/17 Status: Discontinued Brandon 7.5/325 oral tablet 1-2 tab, PO, Q8H, PRN Pain Score 7-10, X 7 day, # 60 tab, 0 Refill(s), given to patient Start Date: 12/26/17 Stop Date: 01/02/18 Status: Ordered NS 1,000 mL 1,000 mL, Rate: 100 ml/hr, Infuse over: 10 hr, Route: IV, Dosing Weight 72.017 k g, Total Volume: 1,000, Start date: 12/26/17 8:38:00 CDT, Duration: 30 day, Stop date: 01/25/18 8:37:00 CDT, 1.81, m2 Start Date: 12/26/17 Stop Date: 12/26/17 Status: Discontinued ondansetron (ANES) Route: IV, Drug form: INJ, ONCE, Stop date: 12/23/17 8:11:00 CDT Start Date: 12/23/17 Stop Date: 12/23/17 Status: Completed pantoprazole 40 mg, 1 tab, Route: PO, Drug form: ECTAB, Daily, Dosing Weight 72.017, kg, Star t date: 12/24/17 9:00:00 CDT, Duration: 30 day, Stop date: 01/22/18 9:00:00 CDT Notes: Tablet should not be chewed or crushed.(Same as: Protonix) Start Date: 12/24/17 Stop Date: 12/26/17 Status: Discontinued propofol (ANES) Route: IV, Drug form: INJ, ONCE, Stop date: 12/23/17 8:11:00 CDT Start Date: 12/23/17 Stop Date: 12/23/17 Status: Completed BRYSON Pericapsular INJ 100 mL, Route: InFILtration(local), Drug Form: INJ, Dosing Weight 72.017, kg, CHUCK WAGON COOK, Start date: 12/23/17 7:00:00 CDT, Duration: 30 day, Stop date: 01/22/18 6: 59:00 CDT Notes: NOT FOR IV useRopivacaine 5 mg/mL (49.25 mL) Epinephrine 1 mg/mL (0.5 mL) Clonidine 0.1 mg/mL (0.8 mL) Ketorolac 30 mg/mL (1 mL) Normal Saline 48 .45 mL Start Date: 12/23/17 Stop Date: 12/26/17 Status: Discontinued rocuronium (ANES) Route: IV, Drug form: INJ, ONCE, Stop date: 12/23/17 8:11:00 CDT Start Date: 12/23/17 Stop Date: 12/23/17 Status: Completed tramadol 50 mg oral tablet 50 mg=1 tab, PO, BID, # 30 tab, 0 Refill(s) Start Date: 12/16/17 Stop Date: 12/26/17 Status: Discontinued tranexamic acid (ANES) Route: IV, Drug form: INJ, ONCE, Stop date: 12/23/17 8:11:00 CDT Start Date: 12/23/17 Stop Date: 12/23/17 Status: Completed Tylenol 650 mg, 2 tab, Route: PO, Drug form: TAB, Q6H, Dosing Weight 72.017, kg, PRN For Temp > 100.4 F, Start date: 12/23/17 8:51:00 CDT, Duration: 30 day, Stop date: 01/22/18 8:50:00 CDT Notes: Do not exceed 4 gm/day. (Same as: Tylenol) Start Date: 12/23/17 Stop Date: 12/26/17 Status: Discontinued vancomycin (ANES) 1000 mg Route: IV, Drug form: INJ, Start date: 12/23/17 6:51:00 CDT, Stop date: 12/23/17 7:51:00 CDT Start Date: 12/23/17 Stop Date: 12/23/17 Status: Completed Zofran 4 mg, 2 mL, Route: IV, Drug form: INJ, Q4H, Dosing Weight 72.017, kg, PRN as nee ded for nausea/vomiting, Start date: 12/23/17 21:20:00 CDT, Duration: 30 day, St op date: 01/22/18 21:19:00 CDT Notes: (Same as: Zofran) MEDICATION WASTE Product Size: 4 mgProduct Was rosamaria: ___ mg Start Date: 12/23/17 Stop Date: 12/26/17 Status: Discontinued zolpidem 5 mg, 1 tab, Route: PO, Drug form: TAB, Bedtime, Start date: 12/23/17 21:00:00 C DT, Duration: 30 day, Stop date: 01/21/18 21:00:00 CDT Notes: (Same As: Carli) Start Date: 12/23/17 Stop Date: 12/26/17 Status: Discontinued Results BLOOD BANK RESULTS 1 2 3 Most recent to oldest [Reference Range]: O POS *Unknown* (12/16/17 3:00 PM) ABO/Rh Negative (12/16/17 3:00 PM) Antibody Scrn Product available (12/16/17 2:58 PM) RBC product ELECTROLYTES 1 2 3 Most recent to oldest [Reference Range]: 127 mEq/L *LOW* (12/25/17 3:19 AM) 126 mEq/L *LOW* (12/24/17 2:38 AM) 134 mEq/L *LOW* (12/16/17 3:00 PM) Sodium Lvl [135-145 mEq/L] 4.1 mEq/L (12/25/17 3:19 AM) 4.3 mEq/L (12/24/17 2:38 AM) 4.6 mEq/L (12/16/17 3:00 PM) Potassium Lvl [3.5-5.1 mEq/L] 93 mEq/L *LOW* (12/25/17 3:19 AM) 92 mEq/L *LOW* (12/24/17 2:38 AM) 101 mEq/L (12/16/17 3:00 PM) Chloride Lvl [95-109 mEq/L] 20 mEq/L *LOW* (12/25/17 3:19 AM) 23 mEq/L *LOW* (12/24/17 2:38 AM) 20 mEq/L *LOW* (12/16/17 3:00 PM) CO2 [24-32 mEq/L] 18.1 mEq/L (12/25/17 3:19 AM) 15.3 mEq/L (12/24/17 2:38 AM) 17.6 mEq/L (12/16/17 3:00 PM) AGAP [10.0-20.0 mEq/L] CHEM PANEL 1 2 3 Most recent to oldest [Reference Range]: 1.29 mg/dL (12/25/17 3:19 AM) 1.69 mg/dL *HI* (12/24/17 2:38 AM) 1.47 mg/dL *HI* (12/16/17 3:00 PM) Creatinine Lvl [0.50-1.40 mg/dL] 40 mL/min/1.73m2 1 *NA* (12/25/17 3:19 AM) 29 mL/min/1.73m2 2 *NA* (12/24/17 2:38 AM) 34 mL/min/1.73m2 3 *NA* (12/16/17 3:00 PM) eGFR 28 mg/dL *HI* (12/25/17 3:19 AM) 34 mg/dL *HI* (12/24/17 2:38 AM) 29 mg/dL *HI* (12/16/17 3:00 PM) BUN [7-22 mg/dL] 204 mg/dL *HI* (12/25/17 3:19 AM) 264 mg/dL *HI* (12/24/17 2:38 AM) 119 mg/dL *HI* (12/16/17 3:00 PM) Glucose Lvl [70-99 mg/dL] 8.2 mg/dL *LOW* (12/25/17 3:19 AM) 7.6 mg/dL *LOW* (12/24/17 2:38 AM) 9.0 mg/dL (12/16/17 3:00 PM) Calcium Lvl [8.5-10.5 mg/dL] 1Result Comment: The eGFR is calculated using [...] be mul tiplied by the estimated BMI. 3Result Comment: The eGFR is calculated using the [...] be mul tiplied by the estimated BMI. SPECIAL CHEMISTRY 1 2 3 Most recent to oldest [Reference Range]: 7.2 % *HI* (12/24/17 2:38 AM) 7.3 % *HI* (12/16/17 3:00 PM) Hgb A1C [<=5.6 %] HEMATOLOGY 1 2 3 Most recent to oldest [Reference Range]: 10.7 K/CMM *HI* (12/25/17 3:19 AM) 11.6 K/CMM *HI* (12/24/17 2:38 AM) 10.6 K/CMM *HI* (12/16/17 3:00 PM) WBC [3.7-10.4 K/CMM] 3.05 M/CMM *LOW* (12/25/17 3:19 AM) 3.29 M/CMM *LOW* (12/24/17 2:38 AM) 4.57 M/CMM (12/16/17 3:00 PM) RBC [4.20-5.40 M/CMM] 8.9 g/dL *LOW* (12/25/17 3:19 AM) 9.1 g/dL *LOW* (12/24/17 2:38 AM) 13.0 g/dL (12/16/17 3:00 PM) Hgb [12.0-16.0 g/dL] 26.1 % *LOW* (12/25/17:19 AM) 27.7 % *LOW* (12/24/17 2:38 AM) 39.6 % (12/16/17 3:00 PM) Hct [36.0-48.0 %] 85.6 fL (12/25/17:19 AM) 84.3 fL (12/24/17 2:38 AM) 86.5 fL (12/16/17 3:00 PM) MCV [80.0-98.0 fL] 29.1 pg (12/25/17:19 AM) 27.6 pg (12/24/17 2:38 AM) 28.5 pg (12/16/17 3:00 PM) MCH [27.0-31.0 pg] 34.0 g/dL (12/25/17:19 AM) 32.7 g/dL (12/24/17 2:38 AM) 33.0 g/dL (12/16/17 3:00 PM) MCHC [32.0-36.0 g/dL] 14.1 % (12/25/17:19 AM) 14.5 % (12/24/17 2:38 AM) 14.2 % (12/16/17 3:00 PM) RDW [11.5-14.5 %] 9.3 fL (12/25/17:19 AM) 10.1 fL (12/24/17 2:38 AM) 9.5 fL (12/16/17 3:00 PM) MPV [7.4-10.4 fL] 202 K/CMM (12/25/17:19 AM) 219 K/CMM (12/24/17 2:38 AM) 285 K/CMM (12/16/17 3:00 PM) Platelet [133-450 K/CMM] 72.3 % (12/25/17 3:19 AM) 77.1 % *HI* (12/24/17 2:38 AM) 65.4 % (12/16/17 3:00 PM) Segs [45.0-75.0 %] 8.5 % *LOW* (12/25/17 3:19 AM) 6.6 % *LOW* (12/24/17 2:38 AM) 18.8 % *LOW* (12/16/17 3:00 PM) Lymphocytes [20.0-40.0 %] 17.0 % *HI* (12/25/17 3:19 AM) 16.0 % *HI* (12/24/17 2:38 AM) 13.9 % *HI* (12/16/17 3:00 PM) Monocytes [2.0-12.0 %] 1.8 % (12/25/17 3:19 AM) 0.1 % (12/24/17 2:38 AM) 1.5 % (12/16/17 3:00 PM) Eosinophils [0.0-4.0 %] 0.4 % (12/25/17 3:19 AM) 0.2 % (12/24/17 2:38 AM) 0.4 % (12/16/17 3:00 PM) Basophils [0.0-1.0 %] 7.7 K/CMM (12/25/17 3:19 AM) 8.9 K/CMM *HI* (12/24/17 2:38 AM) 6.9 K/CMM (12/16/17 3:00 PM) Segs-Bands # [1.5-8.1 K/CMM] 0.9 K/CMM *LOW* (12/25/17 3:19 AM) 0.8 K/CMM *LOW* (12/24/17 2:38 AM) 2.0 K/CMM (12/16/17 3:00 PM) Lymphocytes # [1.0-5.5 K/CMM] 1.8 K/CMM *HI* (12/25/17 3:19 AM) 1.8 K/CMM *HI* (12/24/17 2:38 AM) 1.5 K/CMM *HI* (12/16/17 3:00 PM) Monocytes # [0.0-0.8 K/CMM] 0.2 K/CMM (12/25/17 3:19 AM) 0.2 K/CMM (12/16/17 3:00 PM) Eosinophils # [0.0-0.5 K/CMM] Normal (12/25/17 3:19 AM) RBC Morph Normal (12/25/17 3:19 AM) Plt Morph 14.5 seconds (12/24/17 2:38 AM) 13.5 seconds (12/16/17 3:00 PM) PT [12.0-14.7 seconds] 1.13 (12/24/17 2:38 AM) 1.03 (12/16/17 3:00 PM) INR [0.85-1.17] 45.8 seconds *HI* (12/24/17 2:38 AM) 35.6 seconds (12/16/17 3:00 PM) PTT [22.9-35.8 seconds] Immunizations Given and Recorded Vaccine Date Status Refusal Reason pneumococcal 23-valent vaccine 05/11/09 Given Not Given Vaccine Date Status Refusal Reason pneumococcal 13-valent vaccine 11/03/17 Not Given Patient Refuses Procedures Procedure Date Related Diagnosis Body Site Status Appendectomy Completed Bladder operation Completed Carpal tunnel release Completed Knee replacement Completed Mastectomy with excision of regional lymph Completed nodes1 Nephrectomy Completed Spinal fusion Completed 1date unknown Social History Social History Type Response Alcohol Never Smoking Status Never smoker; Exposure to Tobacco Smoke None; Cigarette Smoking Last 365 Days No; Reg Smoking Cessation Counseling No entered on: 12/23/17 Assessment and Plan Extracted from: Title: Progress Note Author: Blair Marcos MD Date: 12/26/17 Left total hip arthroplasty diabetes mellitus on insulin Hypertension Insomnia Osteoarthritis Hyponatremia acute Acute kidney injury resolved Continue present care. Okay to discharge to facility. Recommend repeatBMP next week. Acute kidney injury has resolved. Supportive care to continue. [facility]
--- OUTSIDE RECORDS SUMMARY | 2018-07-10 00:41 | XMS REPORT | Summary of Care ---
Author Author [facility] Neurosurgery [facility] Organization [facility] Neurosurgery [facility] Address Unknown Phone Unavailable Encounter HQ Mireille_julisa(FIN) [phone] Date(s): 09/24/17 - 09/25/17 [facility] Neurosurgery [facility] [address] [facility], [address] [place] [phone] Vital Signs No data available for this section Problem List Condition Effective Dates Status Health [...] No entered on: 12/23/17 Assessment and Plan No data available for this section
--- OUTSIDE RECORDS SUMMARY | 2018-07-10 00:41 | XMS REPORT | Summary of Care ---
Author Author [facility] Neurosurgery [facility] Organization [facility] Neurosurgery [facility] Address Unknown Phone Unavailable Encounter HQ Montyr_julisa(FIN) [phone] Date(s): 10/08/17 - 10/09/17 [facility] Neurosurgery [facility] [address] [facility], [address] [place] [phone] Vital Signs No data available for this [...]
--- OUTSIDE RECORDS SUMMARY | 2018-07-10 00:41 | XMS REPORT | Summary of Care ---
Author Author [facility] Neurosurgery [facility] Organization [facility] Neurosurgery [facility] Address Unknown Phone Unavailable Encounter HQ Rodri(FIN) [phone] Date(s): 09/23/17 - 09/23/17 [facility] Neurosurgery [facility] [address] [facility], [address] [place] [phone] Discharge Disposition: Home or Self Care Attending Physician: Corby Phelps MD Referring Physician: Margarita Macario MD Vital Signs Most recent to 1 oldest [Reference Range]: Height 160.02 cm (09/23/17 1:42 PM) Blood Pressure 192/73 mmHg [90-140/60-90 mmHg] *HI* (09/23/17 1:42 PM) Peripheral Pulse 62 bpm Rate [60-100 bpm] (09/23/17 1:42 PM) Weight 75.455 kg (09/23/17 1:42 PM) Body Mass Index 29.47 m2 (09/23/17 1:42 PM) Problem List Condition Effective Dates Status [...]
--- OUTSIDE RECORDS SUMMARY | 2018-07-10 00:41 | XMS REPORT | Summary of Care ---
Author Author [facility] Neurosurgery [facility] Organization [facility] Neurosurgery [facility] Address Unknown Phone Unavailable Encounter HQ Mireille_julisa(FIN) [phone] Date(s): 09/30/17 - 10/01/17 [facility] Neurosurgery [facility] [address] [facility], [address] [place] [phone] Vital Signs No data available for this [...]
--- OUTSIDE RECORDS SUMMARY | 2018-07-10 00:41 | XMS REPORT | Summary of Care ---
Author Author [facility] Neurosurgery [facility] Organization [facility] Address Unknown Phone Unavailable Encounter HQ Mireille_julisa(FIN) [phone] Date(s): 10/03/17 - 10/04/17 [facility] Neurosurgery [facility] [address] [facility] [address], [address] [place] [phone] Vital Signs No data available for this [...]
--- OUTSIDE RECORDS SUMMARY | 2018-07-10 00:41 | XMS REPORT | Summary of Care ---
Author Author [facility] Address Unknown Phone Unavailable Encounter HQ Rodri(FIN) [phone] Date(s): 11/27/17 - 12/26/17 [facility] Encounter Diagnosis Unsteadiness on feet (Final) - Muscle weakness (generalized) (Final) - Discharge Disposition: Home or Self Care Attending Physician: Corby Phelps MD Vital Signs No data available for [...]
[2018-07-10] MEDS ORDERED: NITROGLYCERIN 2% OINT 1 GM PKT TOP ONE (01:00)
[2018-07-10] MEDS ORDERED: CLONIDINE HCL 0.1 MG TAB PO ONE (01:00)
[2018-07-10] MEDS ORDERED: ASPIRIN 81 MG CHEW TAB PO ONE ×2 (01:00→01:30)
--- NOTE | 2018-07-10 01:05 | NUR ---
STEMI ACTIVATED. RAILROAD FIRER ACTIVATED BY DECORATOR LIGHTING FIXTURES. PT IS ATTACHED TO CRASH CART AND LIFEPACK PLACED ON PT.
[2018-07-10 01:21] LABS: BASOPHILS # (AUTO) 0.1 (0.0-0.1); BASOPHILS % 0.9 % (0.0-1.0); EOSINOPHILS # (AUTO) 0.3 (0.0-0.4); EOSINOPHILS % 2.4 % (0.0-6.0); HEMATOCRIT 38.4 % (34.2-44.1); HEMOGLOBIN 12.4 g/dL (12.0-16.0); LYMPHOCYTES # (AUTO) 2.1 (1.0-3.2); LYMPHOCYTES % 20.7 % (18.0-39.1); MEAN CORPUSCULAR HEMOGLOBIN 25.9 pg (28-32); MEAN CORPUSCULAR HGB CONC 32.3 g/dL (31-35); MEAN CORPUSCULAR VOLUME 80.2 fL (81-99); MONOCYTES # (AUTO) 1.6 (0.2-0.8); MONOCYTES % 15.8 % (4.4-11.3); NEUTROPHILS % 58.8 % (38.7-80.0); PLATELET COUNT 412 x10e3/uL (140-360); RED BLOOD COUNT 4.79 x10e6/uL (3.6-5.1); RED CELL DISTRIBUTION WIDTH 15.4 % (11.7-14.4)
[2018-07-10 01:29] LABS: INR 0.86; PROTHROMBIN TIME 12.5 seconds (11.9-14.5)
[2018-07-10 01:30] LABS: PARTIAL THROMBOPLASTIN TIME 35.9 seconds (23.8-35.5)
[2018-07-10] MEDS ORDERED: HEPARIN SOD (PORCINE) 1000 UNIT/ML 30ML ONE (01:30)
[2018-07-10] MEDS ORDERED: HEPARIN SOD/SOD CHLORIDE 2,000 ML ONE (01:31)
[2018-07-10] MEDS ORDERED: SODIUM CHLORIDE 0.9% 1000ML 1,000 ML ONE (01:31)
[2018-07-10] MEDS ORDERED: LIDOCAINE HCL 1% LOCAL INJ 20 ML VIAL ONE (01:31)
[2018-07-10] MEDS ORDERED: FENTANYL CITRATE/PF 100MCG/2 ML INJ ONE (01:31)
[2018-07-10] MEDS ORDERED: MIDAZOLAM HCL 2 MG/2 ML VIAL ONE ×2 (01:31→02:18)
[2018-07-10] MEDS ORDERED: IOPAMIDOL 370 MG/ML 200 ML INFUS..BTL INJ ONE ×2 (01:31→02:19)
[2018-07-10] MEDS ORDERED: VERAPAMIL HCL 2.5 MG/ML 2 ML VIAL ONE (01:31)
[2018-07-10 01:37] LABS: ALBUMIN 3.7 g/dL (3.5-5.0); ANION GAP 17.5 mmol/L (8-16); CALCIUM 10.2 mg/dL (8.4-10.2); CREATININE, SERUM 1.32 mg/dL (0.57-1.11); POTASSIUM 4.5 mmol/L (3.5-5.1)
--- NOTE | 2018-07-10 01:43 | Diagnostic Imaging Report ---
CHEST SINGLE (PORTABLE), 07/10/2018 12:48 AM Technique: CHEST SINGLE (PORTABLE) Comparison: 06/27/2017 Clinical history: Chest pain Findings: Stable portable appearance of the heart, mediastinum, lungs and pleural spaces. Left axillary clips. Impression: 1. Lines/Tubes: None 2. No acute abnormality. Signed by: Dr Anabell Nogueira MD on 07/10/2018 1:40 AM
[2018-07-10] MEDS ORDERED: TICAGRELOR 90 MG TABLET PO ONE (01:45)
--- NOTE | 2018-07-10 01:45 | NUR ---
DR. TAFOYA AT BEDSIDE WITH PT.
--- NOTE | 2018-07-10 03:45 | NUR ---
Received patient hemodynamically stable with a tr band on the right wrist and a full closure done on the right groin. Orders to keep her right legs straight for the next 3 hours, tr band for 2 hours, clear liquid diet for 4 hours then a heart healthy diet. All orders explained to patient who verbalized understanding.
--- NOTE | 2018-07-10 04:26 | Operative Report ---
DATE OF PROCEDURE: July 10, 2018 INDICATION FOR PROCEDURE: ST-elevation TX. PREPROCEDURE ASSESSMENT: Patient's medical history, social history, previous experience with anesthesia, and imaging studies were reviewed prior to the procedure. Patient was deemed to be an appropriate candidate for moderate sedation. The risks, the benefits, and alternatives to the treatment and moderate sedation were explained to the patient and the family and informed consent was obtained as documented in the medical record. PROCEDURES PERFORMED 1. Coronary angiography. 2. Left heart catheterization. 3. Percutaneous coronary intervention to the right coronary artery with drug-eluting stent x1. 4. Femoral angiography. 5. Vascular closure with ProGlide vascular closure device. PROCEDURE DETAILS: Patient was brought to the cardiac catheterization laboratory in an emergent fashion. Initially, access was attempted through the right radial artery using modified Seldinger technique. We were able to pass the wire; however, the radial artery was very tortuous and very small and we were unable to advance sheath. We then proceeded to access the right common femoral artery under fluoroscopic guidance using micropuncture technique. A 6-Andorran sheath was advanced using modified Seldinger technique. Coronary angiography of the left coronary system was performed using XB3.5, 6-Andorran catheter. This showed 100% lesion of the left circumflex. Attempts were made to wire the left circumflex using a 0.014-inch Choice PT guidewire. However, it became clear that occlusion of the circ was chronic upon attempting to wire it. We then proceeded to perform coronary angiography of the right coronary artery using a 6-Andorran JR4 guiding catheter, which showed 90% lesion of the distal RCA with thrombus. The lesion was crossed using the same Choice PT guidewire. Lesion was ballooned using 2.0 x 15-mm balloon. Given tortuosity of the RCA and poor guide support, we had to use a GuideLiner guide extending catheter to deliver 2.75 x 16-mm Synergy drug-eluting stent. The stent was deployed at nominal pressures. This resulted in excellent angiographic results with no thrombus dissection or spasm. Multiple views were taken after stent deployment to ensure there were no complications. All catheters were removed over a wire. The patient tolerated the procedure well. We performed femoral angiography, and arteriotomy site was deemed appropriate for vascular closure. Vascular closure was performed using a 6-Andorran ProGlide vascular closure device. The case ended without any complications. FINDINGS 1. Left main coronary artery: Short, mild plaquing. 2. Left anterior descending artery: Large vessel, wraps around the apex, diffuse plaquing with 70% to 80% lesion in the mid LAD with tortuosity. This appears calcified and chronic. 3. Ramus intermedius: Very tortuous vessel. There is a 60% lesion in the mid ramus intermedius. Ramus is a large vessel. 4. Left circumflex appears to be small in caliber at the ostium and is totally occluded right after the takeoff. There appeared to be late filling collaterals from the diagonal system filling at least one of the OMs. 5. RCA: Large dominant RCA, very tortuous. Distal RCA with 90% hazy-appearing lesion with KURT 2 flow in the distal RCA at the beginning of the case. Post PCI, 0% stenosis with KURT 3 flow. ESTIMATED BLOOD LOSS: 150 mL. GRAFTS AND IMPLANTS: As described above, drug-eluting stent x1 and ProGlide vascular closure device. SPECIMENS REMOVED: None. COMPLICATIONS: None. RECOMMENDATIONS 1. Post-PCI care admit to ICU. 2. Continue aspirin 81 mg and ticagrelor 90 mg b.i.d. for at least 1 year, preferably longer, followed by aspirin 81 mg daily for life. 3. Follow up in clinic 2 weeks post discharge. Thank you for this consult. Job#: [id number]
[2018-07-10] MEDS ORDERED: MORPHINE SULFATE INJ 4 MG/ML INJ 1ML IV PRN (04:45)
[2018-07-10] MEDS ORDERED: HYDROCODONE/APAP 5MG-325MG TAB PO PRN (04:45)
[2018-07-10] MEDS ORDERED: NITROGLYCERIN 0.4 MG SUBL SL PRN (04:45)
[2018-07-10 05:06] LABS: ALBUMIN 3.4 g/dL (3.5-5.0); ALBUMIN/GLOBULIN RATIO 1.1 (0.8-2.0); ANION GAP 16.8 mmol/L (8-16); CALCIUM 9.8 mg/dL (8.4-10.2); CHOL/HDL RATIO 4.1 (3.0-3.6); CREATININE, SERUM 1.18 mg/dL (0.57-1.11); POTASSIUM 4.8 mmol/L (3.5-5.1)
--- NOTE | 2018-07-10 06:00 | NUR ---
Patient allowed to use the bedside commode, no bleeding noted, vitals remain stable
--- NOTE | 2018-07-10 06:05 | NUR ---
Dr Arnold consulted on the patients high systolic blood pressures, ordered for nitro iv. Orders in the MAR
--- NOTE | 2018-07-10 06:20 | NUR ---
Nitro IV started as prescribed
[2018-07-10] MEDS: NITROGLYCERIN/D5W 200 MCG/ML 250 ML IV PRN ×4 (06:30→16:00)
--- NOTE | 2018-07-10 06:45 | NUR ---
TR band removed, no bleeding noted, patient on close monitoring
--- NOTE | 2018-07-10 07:00 | NUR ---
Patient handed over hemodynamically stable
[2018-07-10] MEDS ORDERED: PNEUMOCOCCAL VACCINE POLYVALENT 23 MCG/0.5 ML VIAL IM SCH (09:00)
[2018-07-10] MEDS ORDERED: ASPIRIN 325 MG TAB PO SCH (09:00)
[2018-07-10] MEDS ORDERED: DEXTROSE 50% SYRINGE 50 ML IV PRN (09:30)
[2018-07-10] MEDS ORDERED: TRAMADOL HCL 50 MG TAB PO PRN (09:30)
[2018-07-10] MEDS ORDERED: ATENOLOL 50 MG TAB PO SCH (10:00)
[2018-07-10] MEDS ORDERED: CLONIDINE HCL 0.1 MG TAB PO SCH (10:00)
[2018-07-10] MEDS: TICAGRELOR 90 MG TABLET PO SCH ×2 (10:12→18:44)
[2018-07-10] MEDS: INSULIN DETEMIR 100 UNIT/ML PEN SQ SCH ×2 (10:12→20:45)
[2018-07-10] MEDS: INSULIN REGULAR, HUMAN 100 UNIT/1 ML 3ML VIAL SQ SCH ×4 (10:13→20:43)
[2018-07-10] MEDS: LOSARTAN POTASSIUM 100 MG TAB PO SCH (10:15)
[2018-07-10] MEDS: MELOXICAM 7.5 MG TAB PO SCH (10:17)
[2018-07-10] MEDS: HYDROCHLOROTHIAZIDE 25 MG TAB PO SCH (10:20)
--- NOTE | 2018-07-10 11:26 | Consultation ---
DATE OF CONSULTATION: July 10, 2018 CARDIOLOGY CONSULTATION REQUESTING PHYSICIAN: Erik Juárez MD REASON FOR CONSULTATION: STEMI. HISTORY OF PRESENT ILLNESS: This is a 77-year-old woman with a history of hypertension, diabetes mellitus, chronic kidney disease, and history of breast cancer, who presents with complaint of chest pain. The patient reports she started having chest pain yesterday. However, this worsened last night such that she presented to the ER for further evaluation. The pain was described as a pulling sensation that was 10/10 in severity. There was no shortness of breath, nausea or diaphoresis. She denied edema, orthopnea or PND. On arrival to the ER, the patient was found to have inferior ST elevation on EKG for which she was emergently taken to the cardiac catheterization laboratory for coronary angiogram. She had successful PCI of her distal RCA and was admitted to the ICU for monitoring post procedure. REVIEW OF SYSTEMS: Negative, except as per HPI. PAST MEDICAL HISTORY 1. Diabetes mellitus. 2. Hypertension. 3. Chronic kidney disease. 4. Breast cancer, status post mastectomy. PAST SURGICAL HISTORY 1. Nephrectomy. 2. Mastectomy. 3. Knee replacement x2. 4. Hip surgery. 5. Back surgery. 6. Bladder suspension x3. ALLERGIES: PLEASE SEE EMR. MEDICATIONS: Please see medication list. SOCIAL HISTORY: Denies tobacco, alcohol, or illicit drugs. FAMILY HISTORY: Denies history of heart disease in the immediate family. PHYSICAL EXAMINATION VITALS: Temperature 97.4 degrees, pulse 74, respiratory rate 16, blood pressure 188/76, oxygen saturation 100% on room air. GENERAL: Elderly woman in no acute distress. Awake and alert. HEENT: Normocephalic and atraumatic. Pupils are equal. No scleral icterus. NECK: Supple. No thyromegaly or cervical lymphadenopathy. No carotid bruit. LUNGS: Clear to auscultation bilaterally. No wheezes or crackles. CARDIOVASCULAR: Normal rate, regular rhythm. Normal S1 and S2. No murmur. ABDOMEN: Soft. Nontender. EXTREMITIES: No edema. Right groin without hematoma or bruit. Right wrist with dressing in place. NEURO: Nonfocal exam. LABS: WBC 10.24, hemoglobin 12.4, hematocrit 38.4, platelets 412. Sodium 130, potassium 4.8, chloride 99, CO2 19, BUN 27, creatinine 1.18. Troponin 1.009. Cholesterol 207, triglycerides 120, LDL 133. EKG: Sinus rhythm with inferior ST-elevation myocardial infarction. IMPRESSION 1. Inferior ST-elevation myocardial infarction. 2. Hyperlipidemia. 3. Hypertension. 4. Diabetes mellitus. 5. Chronic kidney disease. RECOMMENDATIONS: The patient was counseled on the importance of dual antiplatelet therapy. Continue aspirin and ticagrelor. The patient was started on atorvastatin; however, the patient reports that she has not been able to tolerate statin therapy in the past due to myalgia. Continue current medications. Discontinue atenolol and start carvedilol. We will wean the patient off nitroglycerin drip. Echocardiogram is pending. Trend cardiac enzymes until they are downtrending. Patient will need to follow up in the office for PCSK9 inhibitor if she is unable to tolerate statin therapy. Thank you for this consult. We will continue to follow. Job#: [id number]
[2018-07-10] MEDS: CLONIDINE HCL 0.1 MG TAB PO SCH ×2 (11:44→20:41)
[2018-07-10 16:51] LABS: CLARITY,URINE HAZY (CLEAR); COLOR,URINE YELLOW (YELLOW); LEUKOCYTE ESTERASE ,URINE TRACE (NEGATIVE); NITRITE,URINE NEGATIVE (NEGATIVE)
[2018-07-10 16:52] LABS: BACTERIA,URINE MANY /HPF; BILIRUBIN,URINE NEGATIVE (NEGATIVE); EPITHELIAL CELLS,URINE FEW /LPF; KETONES,URINE NEGATIVE (NEGATIVE); PROTEIN,URINE DIPSTICK NEGATIVE (NEGATIVE); URINE UROBILINOGEN 0.2 mg/dL (0.2 - 1)
[2018-07-10] MEDS: CARVEDILOL 12.5 MG TAB PO SCH (18:44)
[2018-07-10] MEDS: BENZONATATE 100 MG CAP PO PRN (18:44)
[2018-07-10] MEDS: ZOLPIDEM TARTRATE 10 MG TAB PO PRN (20:30)
[2018-07-10] MEDS: ACETAMINOPHEN 325 MG TAB PO PRN (20:30)
[2018-07-10] MEDS: ATORVASTATIN 20 MG TAB PO SCH (20:43)
[2018-07-11] VITALS (58 sets, daily range): BP systolic 90–214; BP diastolic 48–114
[2018-07-11] MEDS: ACETAMINOPHEN 325 MG TAB PO PRN ×3 (01:34→20:31)
[2018-07-11] MEDS: LEVOTHYROXINE SODIUM 100 MCG TAB PO SCH (05:28)
[2018-07-11] MEDS: INSULIN REGULAR, HUMAN 100 UNIT/1 ML 3ML VIAL SQ SCH ×5 (07:58→20:48)
[2018-07-11] MEDS: INSULIN DETEMIR 100 UNIT/ML PEN SQ SCH ×4 (09:33→20:48)
[2018-07-11] MEDS: ASPIRIN 81 MG ENTERIC COATED PO SCH (09:48)
[2018-07-11] MEDS: CLONIDINE HCL 0.1 MG TAB PO SCH ×2 (09:49→20:30)
[2018-07-11] MEDS: TICAGRELOR 90 MG TABLET PO SCH ×2 (09:49→16:42)
[2018-07-11] MEDS: CARVEDILOL 12.5 MG TAB PO SCH ×2 (09:49→16:42)
[2018-07-11] MEDS: LOSARTAN POTASSIUM 100 MG TAB PO SCH (09:50)
[2018-07-11] MEDS: BENZONATATE 100 MG CAP PO PRN (09:50)
[2018-07-11] MEDS: MELOXICAM 7.5 MG TAB PO SCH (09:50)
[2018-07-11] MEDS: HYDROCHLOROTHIAZIDE 25 MG TAB PO SCH (09:50)
[2018-07-11] MEDS: NITROGLYCERIN/D5W 200 MCG/ML 250 ML IV PRN ×4 (10:28→14:36)
[2018-07-11] MEDS: CEFTRIAXONE SOD 1 GM/NS 50 ML 50 ML IV SCH (13:51)
--- NOTE | 2018-07-11 14:30 | NUR ---
Nutrition Screen Note RD Recommendation for Physician: Continue diet as ordered Plan of Care: RD following, monitoring for adequacy and tolerance Nutrition reason for involvement: MD Consult-Nutrition evaluation Primary Diagnose(s): OH Ht:63 in Wt:164lbs BMI:29.1 kg/m2 IBW:115lbs RD Assessment:(07/11/2018) Initial encounter with patient. Pt denies N,V, D, nor has any difficulty chewing or swallowing. Pt has limited acceptance of cardiac diet. States the food is too bland, but has a good appetite and eats well. Current Diet: Cardiac diet Malnutrition Evaluation (07/11/2018) The patient does not meet criteria for a specified degree of malnutrition at this time. Will re-evaluate at follow-up as appropriate. Diet Education Needs Assessment: Diet education not indicated. Diet Adequacy: Meeting calorie needs, Meeting protein needs, Meeting fluid needs Tolerance: Tolerating PO Nutrition Care Level: Vinod Phillips RD, LD, CNSC
--- NOTE | 2018-07-11 14:43 | NUR ---
both Dr. Silva and cardiology Dr. Georgi Arnold rounded on patient this afternoon. new orders received for patient. notified both MD's of elevated blood glucoses, elevated bp's and results from urine culture. abx started, bp meds and insulin meds changed per MD orders. titrating nitroglycerin gtt per nbp [id number]. okay per MD to maintain sbp <=150.
--- NOTE | 2018-07-11 15:53 | Progress Note ---
DATE: July 11, 2018 CARDIOVASCULAR PROGRESS NOTE SUBJECTIVE: No major events overnight. No chest pain or shortness of breath. OBJECTIVE VITAL SIGNS: Temperature afebrile, pulse 68, respiratory rate 23, blood pressure 152/77, and satting 100% on room air. GENERAL: Elderly white female, no acute distress. CARDIOVASCULAR: Regular rate and rhythm. No murmurs. S4 gallop. Palpable carotid pulses. Palpable radial pulses. EXTREMITIES: Left upper extremity lymphedema, which is chronic. LUNGS: Clear to auscultation bilaterally. ABDOMEN: Soft, nontender, nondistended. NEURO AND PSYCH: Alert and oriented to person, place, and time. Normal affect. CARDIAC MEDICATIONS: Reviewed. LABORATORY DATA: Reviewed. IMAGING DATA: Reviewed. TELEMETRY DATA: Reviewed, shows normal sinus rhythm. ASSESSMENT 1. Inferior ST elevation myocardial infarction, status post percutaneous coronary intervention x1 with drug-eluting stent. 2. Residual coronary artery disease of the left anterior descending and ramus. 3. Hypertension. 4. Hyperlipidemia. 5. Diabetes. 6. Chronic kidney disease. RECOMMENDATIONS: We will up titrate her oral antihypertensives, so the IV nitrates can be discontinued. Continue aspirin and ticagrelor. Patient is on atorvastatin, currently not experiencing any myalgias. We will continue to monitor. Patient will followup with me in clinic in 2 weeks and we will discuss staged revascularization for her remaining coronary arteries. Thank you for this consult. We will continue to follow. Job#: [id number] TOMA
[2018-07-11] MEDS: INSULIN LISPRO 100 UNIT/1 ML 3ML VIAL SQ SCH (16:41)
[2018-07-11] MEDS: ATORVASTATIN 20 MG TAB PO SCH (20:30)
[2018-07-11] MEDS: ZOLPIDEM TARTRATE 10 MG TAB PO PRN (20:31)
[2018-07-12] VITALS (25 sets, daily range): BP systolic 102–197; BP diastolic 46–87
[2018-07-12] MEDS: CEFTRIAXONE SOD 1 GM/NS 50 ML 50 ML IV SCH ×2 (01:30→12:59)
--- NOTE | 2018-07-12 05:46 | Diagnostic Imaging Report ---
CHEST SINGLE (PORTABLE), 07/12/2018 5:00 AM Technique: CHEST SINGLE (PORTABLE) Comparison: 07/10/2015 Clinical history: CHF Findings: Stable portable appearance of the heart, mediastinum, lungs, and pleural spaces. Left axillary clips. Impression: 1. Lines/Tubes: None 2. No acute abnormality. Signed by: Dr Anabell Nogueira MD on 07/12/2018 5:43 AM
[2018-07-12] MEDS: LEVOTHYROXINE SODIUM 100 MCG TAB PO SCH (06:02)
[2018-07-12 06:03] LABS: ALBUMIN 3.1 g/dL (3.5-5.0); ANION GAP 15.5 mmol/L (8-16); CREATININE, SERUM 1.14 mg/dL (0.57-1.11); POTASSIUM 4.5 mmol/L (3.5-5.1)
[2018-07-12 06:37] LABS: BASOPHILS # (AUTO) 0.1 (0.0-0.1); BASOPHILS % 0.4 % (0.0-1.0); EOSINOPHILS # (AUTO) 0.3 (0.0-0.4); EOSINOPHILS % 1.8 % (0.0-6.0); HEMATOCRIT 29.5 % (34.2-44.1); HEMOGLOBIN 9.9 g/dL (12.0-16.0); LYMPHOCYTES # (AUTO) 1.6 (1.0-3.2); LYMPHOCYTES % 11.5 % (18.0-39.1); MEAN CORPUSCULAR HEMOGLOBIN 26.5 pg (28-32); MEAN CORPUSCULAR HGB CONC 33.6 g/dL (31-35); MEAN CORPUSCULAR VOLUME 79.1 fL (81-99); MONOCYTES # (AUTO) 1.7 (0.2-0.8); MONOCYTES % 12.2 % (4.4-11.3); NEUTROPHILS # (AUTO) 10.4 (2.1-6.9); PLATELET COUNT 327 x10e3/uL (140-360); RED BLOOD COUNT 3.73 x10e6/uL (3.6-5.1); RED CELL DISTRIBUTION WIDTH 15.4 % (11.7-14.4)
[2018-07-12] MEDS: ACETAMINOPHEN 325 MG TAB PO PRN (07:20)
[2018-07-12] MEDS: INSULIN REGULAR, HUMAN 100 UNIT/1 ML 3ML VIAL SQ SCH ×3 (07:30→16:17)
[2018-07-12 07:32] LABS: BAND NEUTROPHILS % (MANUAL) 2 %; EOSINOPHILS % (MANUAL) 2 % (0-7); LYMPHOCYTES % (MANUAL) 13 % (19-48); MONOCYTES % (MANUAL) 13 % (3.4-9.0); NEUTROPHILS % (MANUAL) 69 % (40-74)
[2018-07-12 07:33] LABS: PLATELET ESTIMATE ADEQUATE; PLATELET MORPHOLOGY COMMENT NORMAL; RBC MORPHOLOGY COMMENT NORMAL
[2018-07-12] MEDS: INSULIN LISPRO 100 UNIT/1 ML 3ML VIAL SQ SCH ×3 (08:35→16:35)
[2018-07-12] MEDS: ASPIRIN 81 MG ENTERIC COATED PO SCH (08:36)
[2018-07-12] MEDS: TICAGRELOR 90 MG TABLET PO SCH ×2 (08:36→16:07)
[2018-07-12] MEDS: CARVEDILOL 12.5 MG TAB PO SCH ×2 (08:38→16:07)
[2018-07-12] MEDS: CLONIDINE HCL 0.1 MG TAB PO SCH ×2 (08:38→21:37)
[2018-07-12] MEDS: HYDROCHLOROTHIAZIDE 25 MG TAB PO SCH (08:38)
[2018-07-12] MEDS: LOSARTAN POTASSIUM 100 MG TAB PO SCH (08:38)
[2018-07-12] MEDS: INSULIN DETEMIR 100 UNIT/ML PEN SQ SCH ×2 (11:20→21:36)
--- NOTE | 2018-07-12 17:00 | Progress Note ---
DATE: July 12, 2018 CARDIOLOGY PROGRESS NOTE SUBJECTIVE: No major events overnight. No chest pain. OBJECTIVE VITAL SIGNS: Temperature 98.0, pulse 69, respiratory rate 18, blood pressure 116/59, saturating 100% on room air. GENERAL: Elderly woman in no acute distress. CARDIOVASCULAR: Regular rate and rhythm. No murmurs, rubs, or gallops. Palpable carotid pulses. Palpable radial pulses. LUNGS: Clear to auscultation bilaterally. ABDOMEN: Soft, nontender, nondistended. NEURO AND PSYCH: Alert and oriented to person, place, and time. Normal affect. CARDIOVASCULAR MEDICATIONS: Reviewed. LABORATORY DATA: Reviewed. IMAGING DATA: Reviewed. TELEMETRY DATA: Reviewed, shows normal sinus rhythm. ASSESSMENT AND PLAN 1. Inferior ST elevation myocardial infarction, status post percutaneous coronary intervention x1 with drug-eluting stent. 2. Residual coronary artery disease of the left anterior descending and ramus arteries. 3. Hypertension. 4. Hyperlipidemia. 5. Diabetes. 6. Chronic kidney disease. RECOMMENDATIONS: Patient is off IV nitroglycerin at this point. Blood pressure is well controlled. Continue current cardiovascular medications. Patient is being treated for UTI and hyponatremia as well as hyperglycemia. We will defer this to the primary team. Once patient is discharged, she will follow up in clinic 2 weeks post-discharge for further discussion about residual CAD. Thank you for this consult. We will continue to follow. Job#: [id number] [place]
[2018-07-12] MEDS: ZOLPIDEM TARTRATE 10 MG TAB PO PRN (21:37)
[2018-07-12] MEDS: ATORVASTATIN 20 MG TAB PO SCH (21:37)
[2018-07-12] MEDS: BENZONATATE 100 MG CAP PO PRN (21:38)
[2018-07-13] VITALS (15 sets, daily range): BP systolic 129–204; BP diastolic 45–153
[2018-07-13] MEDS: CEFTRIAXONE SOD 1 GM/NS 50 ML 50 ML IV SCH ×2 (01:24→13:23)
[2018-07-13 04:46] LABS: BASOPHILS # (AUTO) 0.1 (0.0-0.1); BASOPHILS % 0.5 % (0.0-1.0); EOSINOPHILS # (AUTO) 0.3 (0.0-0.4); EOSINOPHILS % 1.9 % (0.0-6.0); HEMATOCRIT 30.2 % (34.2-44.1); HEMOGLOBIN 10.1 g/dL (12.0-16.0); LYMPHOCYTES # (AUTO) 1.6 (1.0-3.2); LYMPHOCYTES % 11.2 % (18.0-39.1); MEAN CORPUSCULAR HEMOGLOBIN 26.2 pg (28-32); MEAN CORPUSCULAR HGB CONC 33.4 g/dL (31-35); MEAN CORPUSCULAR VOLUME 78.2 fL (81-99); MONOCYTES # (AUTO) 1.6 (0.2-0.8); MONOCYTES % 11.5 % (4.4-11.3); NEUTROPHILS # (AUTO) 10.3 (2.1-6.9); NEUTROPHILS % 73.9 % (38.7-80.0); PLATELET COUNT 299 x10e3/uL (140-360); RED BLOOD COUNT 3.86 x10e6/uL (3.6-5.1); RED CELL DISTRIBUTION WIDTH 15.9 % (11.7-14.4)
[2018-07-13 05:05] LABS: ALBUMIN 3.2 g/dL (3.5-5.0); ANION GAP 15.4 mmol/L (8-16); CALCIUM 9.2 mg/dL (8.4-10.2); CREATININE, SERUM 0.94 mg/dL (0.57-1.11); POTASSIUM 4.4 mmol/L (3.5-5.1)
[2018-07-13] MEDS: LEVOTHYROXINE SODIUM 100 MCG TAB PO SCH (05:40)
--- NOTE | 2018-07-13 07:18 | NUR ---
Bedside report rec'd from KING Pollock. BP 211/73, patient at bedside sitting up; a.m. medications administered and patient assisted to lie down in bed.
[2018-07-13] MEDS: INSULIN LISPRO 100 UNIT/1 ML 3ML VIAL SQ SCH ×2 (08:05→12:01)
[2018-07-13] MEDS: LOSARTAN POTASSIUM 100 MG TAB PO SCH (08:31)
[2018-07-13] MEDS: CLONIDINE HCL 0.1 MG TAB PO SCH (08:31)
[2018-07-13] MEDS: CARVEDILOL 12.5 MG TAB PO SCH (08:31)
[2018-07-13] MEDS: HYDROCHLOROTHIAZIDE 25 MG TAB PO SCH (08:32)
[2018-07-13] MEDS: TICAGRELOR 90 MG TABLET PO SCH (09:30)
[2018-07-13] MEDS: ASPIRIN 81 MG ENTERIC COATED PO SCH (09:30)
--- NOTE | 2018-07-13 09:38 | NUR ---
Patient ambulated to restroom with steady gait. Sitting on side of bed drinking coffee presently.
--- NOTE | 2018-07-13 11:18 | NUR ---
Patient ambulated to shower, complete shower with standby assist, oral care independently, and gown changed. Linens changed and patient sitting on side of bed awaiting lunch tray.
--- NOTE | 2018-07-13 11:22 | NUR ---
Dr Molly Juárez to bedside; okay for patient to move to Med Surg with telemetry.
--- NOTE | 2018-07-13 13:01 | NUR ---
Telemetry in place, Report called to KING Duong for Room 205.
--- NOTE | 2018-07-13 14:39 | NUR ---
Dr Molly Juárez aware of BP and one time dose of clonidine given. Okay for patient to discharge and take scheduled medications at 1700.
[2018-07-13] MEDS ORDERED: CLONIDINE HCL 0.1 MG TAB PO ONE (14:45)
[2018-07-13] MEDS ORDERED: CLONIDINE HCL 0.1 MG TAB PO SCH (15:00)
[2018-07-13] MEDS ORDERED: CLONIDINE HCL 0.2 MG TAB PO SCH ×2 (15:00→21:00)
--- NOTE | 2018-07-13 16:52 | NUR ---
CASE MANAGEMENT INITIAL ASSESSMENT Needle Grader to bedside to discuss plan of care with patient/family. CM/SW role and care transitions discussed. Anticipated discharge plan discussed along with duration of care. CM/SW discussed patients right to make decisions in care. CM/SW work hours given. Patient lives: WITH [facility] IN HER HOME Admit/Transfer: ER POA/Emergency contact: MELA PATEL DTR [phone] Current/Previous Home Health: NONE PCP/Follow-up Care: DR SCHULTE Current/Previous DME: [facility] [employer] [facility] Other Services: [employer] 1 X MONTH Employment Status: RETIRED Areas of Concerns: NONE Referral Needs: NONE Education Needs: F/U WITH CARDIOLOGY IMM/STONE given and signed (if applicable): IMM ON ADMIT Goal for discharge:HOME SOON POSSIBLE CM/SW left business card at the bedside with contact information. Name and number was also written on the patients whiteboard. Patient verbalized understanding of discussion. CM will follow-up with ongoing discharge and transition of care needs.
--- NOTE | 2018-09-15 13:16 | Discharge Summary ---
CHIEF COMPLAINT: Chest pain radiating to the neck. FINAL DIAGNOSES: Status post ST-elevation myocardial infarction, coronary artery disease, urinary tract infection, and hypertension. DISPOSITION: Home. HOSPITAL COURSE: A 77-year-old female with known history of diabetes type 2, hypertension, coronary artery disease, hyperlipidemia, atrial fib, and chronic pain, presents to the ER with complaint of chest pain radiating to the neck. She was reviewed and evaluated in the emergency room. She was taken to the cardiac cath technologist from the ER with diagnoses of STEMI, diabetes type 2, coronary artery disease, atrial fib, and hypertension. Following her procedure, she was admitted to ICU for recovery care, further monitoring and management of her condition, and we will continue to monitor her BP and blood sugar. Home medications were continued as well. With review in the emergency room, she was found to have STEMI, taken to the cardiac cath technologist where she was found to have 99% blockage of the right coronary artery. She underwent THRILL PERFORMER of that vessel. Postprocedure, she is recovering in ICU. She has been maintained on a cardiac diet. She was having no complaints of any chest pain. No distress. She was continued on her daily medications and also being placed on hydrochlorothiazide. Her routine daily medications were continued. She was also continued to be maintained on her insulin coverage. Blood pressure is being closely watched. She has been slowly weaned off her nitroglycerin. She has been placed on antibiotic coverage, prophylactic Rocephin. UTI studies were showing gram-negative rods. The patient demonstrated that she was eager to go home. Laboratory studies were continued to be watched closely. BUNs and creatinines are being evaluated. She was able to be discharged out of the ICU, discharged to the med floor where she was continued to be uneventful, having no new complaints. No distress. She was cleared for discharge and she was able to be released home on 07/13/2018 in stable condition. Cardiology followup was with Dr. Moore and with evaluation of the patient in the ER, impression was made of inferior ST-elevation DE, hyperlipidemia, hypertension, diabetes mellitus, and chronic kidney disease. She has tried statin therapy, but has not been able to tolerate due to myalgias. Continue on atenolol and carvedilol. The patient will be weaned off the nitroglycerin drip. Continue to monitor the cardiac enzymes. She was taken to the cardiac cath technologist by Dr. Georgi Arnold. Findings are showing the left main coronary artery to be short, mild plaquing. Left anterior descending artery; large vessel, wraps around the apex, diffuse plaquing with 70% to 80% lesion in the mid left anterior descending with tortuosity. Ramus intermedius is a very tortuous vessel, a 60% lesion in the mid ramus intermedius. Left circumflex appears to be small in caliber at the ostium and is totally occluded right after the takeoff. There appeared to be late filling collaterals from the diagonal system filling at least one of the OMs. Right coronary artery; large, dominant, very torturous. Distal right coronary artery with 90% hazy-appearing lesion with a KURT-2 flow in the distal right coronary artery at the beginning of the case. PCI was performed on this vessel. Post PCI, findings were showing 0% stenosis with KURT-3 flow. Estimated blood loss for the procedure was 150 cc. She will be continuing on aspirin, ticagrelor 90 mg b.i.d. for at least one year, preferably longer followed by aspirin for life 81 mg. She will be following up in the office in two weeks post discharge. LABORATORY DATA: Laboratory studies were showing initial white cell count of 10,000, followup studies revealing values as high as 14,000, final study was 13,000. Initial hemoglobin was 12.4, values fell to 9.9, final study was 10.1. Urine studies were performed. Cultures were entertained. Organism was grown, organism identified as E coli and this was reason for the Rocephin that was started as previously mentioned. IMAGING DATA: Chest x-ray, finding shows no acute abnormality. The patient responded quite well postop and would like to be discharged home as mentioned. She will be continuing on her diabetic diet. She will be returning to her PCP within 7 to 10 days, following back up with Dr. Georgi Arnold as mentioned within 2 to 3 weeks post discharge. No equipments or supplies necessary. No drains or Escalera are needed. Activity level as directed by myself as well as by Dr. Arnold. DISCHARGE MEDICATIONS: The patient will continue on atenolol 50 mg one tablet daily, cefuroxime 250 mg tablet one every 12 hours p.o., clonidine 0.2 mg one tablet t.i.d., clopidogrel 75 mg one tablet daily, hydralazine 25 mg p.o. t.i.d., Levemir 30 units at bedtime, insulin lispro 20 units subcu t.i.d. before meals, levothyroxine 88 mcg and will be taking 100 mcg tablet daily, losartan hydrochlorothiazide 100 mg tablet p.o. daily, Protonix 40 mg tablet daily, tramadol 50 mg one tablet q.6 hours p.r.n. for pain, Ambien 10 mg p.o. at bedtime p.r.n. for insomnia. If the patient develops any further chest pains, lightheadedness, dizziness, or shortness of breath, the patient will be reporting back to the emergency room as soon as possible. Dictated by COCO Smith MD YO Truong/KEYA /[id number]
== END 2018-07-13 15:00 | disposition home or self-care (01) | DRG 853 ==
LOC: ER 00:35 → ICU 03:36
PROC: 027034Z Dilation of Coronary Artery, One Artery with Drug-eluting Intraluminal Device, Percutaneous Approach (ICD-10-PCS; principal; 2018-07-10)
PROC: 02703ZZ Dilation of Coronary Artery, One Artery, Percutaneous Approach (ICD-10-PCS; 2018-07-10)
PROC: 4A023N7 Measurement of Cardiac Sampling and Pressure, Left Heart, Percutaneous Approach (ICD-10-PCS; 2018-07-10)
PROC: B2151ZZ Fluoroscopy of Left Heart using Low Osmolar Contrast (ICD-10-PCS; 2018-07-10)
PROC: B2111ZZ Fluoroscopy of Multiple Coronary Arteries using Low Osmolar Contrast (ICD-10-PCS; 2018-07-10)
PROC: B41F1ZZ Fluoroscopy of Right Lower Extremity Arteries using Low Osmolar Contrast (ICD-10-PCS; 2018-07-10)
DX: A41.51 Sepsis due to Escherichia coli [E. coli] (principal); I21.19 ST elevation (STEMI) myocardial infarction involving other coronary artery of inferior wall; I50.31 Acute diastolic (congestive) heart failure; I13.0 Hypertensive heart and chronic kidney disease with heart failure and stage 1 through stage 4 chronic kidney disease, or unspecified chronic kidney disease; N39.0 Urinary tract infection, site not specified; N17.9 Acute kidney failure, unspecified; E87.1 Hypo-osmolality and hyponatremia; E78.5 Hyperlipidemia, unspecified; E11.22 Type 2 diabetes mellitus with diabetic chronic kidney disease; Z79.4 Long term (current) use of insulin; N18.3 Chronic kidney disease, stage 3 (moderate); E11.65 Type 2 diabetes mellitus with hyperglycemia
CPT/HCPCS: 36415; 71045; 80053; 80061; 81001; 82550; 82553; 82948; 84484; 85025; 85610; 85730; 87086; 87186; 92928; 93005; 93306; 93454; 96360; 99284; C1725; C1769; C1874; J0696; J1644; J2001; J2250; J7030; Q9967

== ENCOUNTER 2018-09-04 01:29 | Inpatient (IN) | payer MEDICARE, OTHER ==
[~2018-09-04] VITALS: Ht 160 cm; Wt 76.7 kg
[2018-09-04] MEDS: SODIUM CHLORIDE 0.9% 1000ML 1,000 ML IV SCH ×2 (00:15→08:07)
--- OUTSIDE RECORDS SUMMARY | 2018-09-04 01:33 | XMS REPORT | Summary of Care ---
Author Author [facility] Address Unknown Phone Unavailable Encounter [facility](FIN) [id number] Date(s): 01/14/18 - 02/12/18 [facility] Encounter Diagnosis Muscle weakness (generalized) (Final) - Difficulty in walking, not elsewhere classified (Final) - 02/19/18 Muscle weakness (generalized) (Final) - Other muscle spasm (Final) - Unilateral primary osteoarthritis, left hip (Final) - Discharge Disposition: Home or Self Care Attending Physician: Bhaskar Barraza DO Vital Signs No data available for this [...]
--- OUTSIDE RECORDS SUMMARY | 2018-09-04 01:33 | XMS REPORT | Continuity of Care Document ---
Author Author Efe tami [facility], [place] Interface Address Unknown Phone Unavailable Problems Problem Status Onset Date Classification Date Reported Comments Source Difficulty in walking, not elsewhere classified 02/20/2018 09/01/2018 [facility] LEFT HIP Active 12/23/2017 [facility] PAIN IN LEFT HIP Active 12/02/2017 [facility] UNK Active 12/02/2017 [facility] SONDYLOSIS Active 11/20/2017 [facility] LUMBAR SPONYLOSIS, LUMBAR RADICULOPATHY Active 10/23/2017 [facility] Unsteadiness on feet 12/29/2017 [facility] Muscle weakness 09/01/2018 [facility] DM (<span ID="[id number]</span>) Active Problem 09/01/2018 [facility] SOB on exertion(<span ID="[id number]</span>) Active Problem 09/01/2018 [facility] Acid reflux Active Problem 09/01/2018 [facility] HTN (<span ID="[id number]">Confirmed</span>) Active Problem 09/01/2018 [facility] Hypothyroidism Active Problem 09/01/2018 [facility] History of breast cancer in female Active Problem 09/01/2018 [facility] Other muscle spasm 09/01/2018 [facility] Unilateral primary osteoarthritis, left hip 09/01/2018 [facility] 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 [facility] DIFFICULTY IN WALKING, NOT ELSEWHERE CLA Active [facility] OTHER ABNORMALITIES OF GAIT AND MOBILITY Active [facility] UNSTEADINESS ON FEET Active [facility] MUSCLE WEAKNESS (GENERALIZED) Active [facility] 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 [facility] UNILATERAL PRIMARY OSTEOARTHRITIS, LEFT Active [facility] OTHER MUSCLE SPASM Active [facility] Medications Medication Details Route Status Patient Instructions Ordering Provider Order Date Source Amlodipine 10 MG / valsartan 320 MG Oral Tablet 1 tab, PO, Daily, # 30 tab, 0 Refill(s), Pharmacy: [id number] Active 12/26/2017 [facility] Acetaminophen 325 MG / Hydrocodone Bitartrate 7.5 MG Oral Tablet [[place] 7.5/325] 1-2 tab, PO, Q8H, PRN Pain Score 7-10, X 7 day, # 60 tab, 0 Refill(s), given to patient Active 12/26/2017 [facility] NS 1,000 mL 1,000 mL, Rate: 100 ml/hr, Infuse over: 10 hr, Route: IV, Dosing Weight 72.017 kg, Total Volume: 1,000, Start date: 12/26/17 8:38:00 CDT, Duration: 30 day, Stop date: 01/25/18 8:37:00 CDT, 1.81, m2 Inactive 12/26/2017 [facility] insulin glargine 10 unit, 0.1 mL, Route: SUB-Q, Drug form: SOLN, Daily, Priority: NOW, Start date: 12/25/17 12:06:00 CDT, Duration: 30 day, Stop date: 01/24/18 9:00:00 CDTNotes: (Same as: Lantus) Do not hold insulin without contacting prescriber WASTE: F/P - Black; E - Municipal Trash Bin "single patient use only" Inactive 12/25/2017 [facility] Insulin Lispro 3 unit, 0.03 mL, Route: [...] days from Date No Longer Active 12/25/2017 [facility] Levemir 10 unit, 0.1 mL, Route: SUB-Q, Drug form: SOLN, ONCE, Dosing Weight 72.017, kg, Start date: 12/25/17 9:07:00 CDT, Stop date: 12/25/17 9:07:00 CDTNotes: Non-Formulary Drug (Same as Levemir) Do not hold i nsulin without contacting prescriber WASTE: F/P - Black; E - Municipal Trash Bin "single patient use only" Inactive 12/25/2017 [facility] Levemir 20 unit, Route: SUB-Q, Bedtime, Dosing Weight 72.017, kg, Start date: 12/24/17 21:00:00 CDT, Duration: 30 day, Stop date: 01/22/18 21:00:00 CDT No Longer Active 12/25/2017 [facility] Insulin Lispro 2 unit, 0.02 mL, Route: [...] days from Date No Longer Active 12/24/2017 [facility] Glucagon 1 mg, Route: IM, Drug form: PDR/INJ, PRN, Dosing Weight 72.017, kg, PRN Blood Glucose Results, Start date: 12/24/17 9:16:00 CDT, Duration: 30 day, Stop date: 01/23/18 9:15:00 CDT No Longer Active 12/24/2017 [facility] Dextrose 50% Syringe 25 gm, 50 mL, Route: IVP, Drug Form: INJ, Dosing Weight 72.017, kg, PRN, PRN Blood Glucose Results, Start date: 12/24/17 9:16:00 CDT, Duration: 30 day, Stop date: 01/23/18 9:15:00 CDT No Longer Active 12/24/2017 [facility] Atenolol 50 MG Oral Tablet 50 mg, 1 tab, Route: PO, Drug form: TAB, Daily, Dosing Weight 72.017, kg, Start date: 12/24/17 9:00:00 CDT, Duration: 30 day, Stop date: 01/22/18 9:00:00 CDTNotes: (Same As:Tenormin) No Longer Active 12/24/2017 [facility] pantoprazole 40 mg, 1 tab, Route: PO, Drug form: ECTAB, Daily, Dosing Weight 72.017, kg, Start date: 12/24/17 9:00:00 CDT, Duration: 30 day, Stop date: 01/22/18 9:00:00 CDTNotes: Tablet should not be chewed or cr ushed. (Same as: Protonix) No Longer Active 12/24/2017 [facility] Cozaar 100 mg, 2 tab, Route: PO, Drug form: TAB, Daily, Start date: 12/24/17 9:00:00 CDT, Duration: 30 day, Stop date: 01/22/18 9:00:00 CDTNotes: (Same as: Cozaar) No Longer Active 12/24/2017 [facility] hydrochlorothiazide 25 mg oral tablet 25 mg, 1 tab, Route: PO, Daily, Start date: 12/24/17 9:00:00 CDT, Duration: 30 day, Stop date: 01/22/18 9:00:00 CDTNotes: (Same as: Hydrodiuril) With food. No Longer Active 12/24/2017 [facility] Hydrochlorothiazide 25 MG / Losartan Potassium 100 MG Oral Tablet 1 tab, Route: PO, Drug Form: TAB, Dosing Weight 72.017, kg, Daily, Start date: 12/24/17 9:00:00 CDT, Duration: 30 day, Stop date: 01/22/18 9:00:00 CDT No Longer Active 12/24/2017 [facility] Thyroxine 100 microgram, 1 tab, Route: PO, Drug form: TAB, [id number], Dosing Weight 72.017, kg, Start date: 12/24/17 6:30:00 CDT, Duration: 30 day, Stop date: 01/22/18 6:30:00 CDTNotes: Take 1 hour before or 2 hours after meal; Enteral feeds may interefere with the absorption of this medication. (Same as:Levothroid, Synthroid) No Longer Active 12/24/2017 [facility] Clonidine Hydrochloride 0.1 MG Oral Tablet 0.2 mg, 2 tab, Route: PO, Drug form: TAB, QAM, Dosing Weight 72.017, kg, Start date: 12/24/17 6:00:00 CDT, Duration: 30 day, Stop date: 01/22/18 6:00:00 CDTNotes: (Same As: Catapres) No Longer Active 12/24/2017 [facility] Ancef + sterile water 20 mL 2 gm, Route: IVP, ABXQ8H, Dosing Weight 72.017, kg, Start date: 12/24/17 0:00:00 CDT, Stop date: 12/24/17 9:00:00 CDT, ABX Indication: Surgical ProphylaxisNotes: (Same As: Rebeca Martinez) MEDICATION WASTE Product Size: 1000 mg Product Wasted: ___ mg Inactive 12/24/2017 [facility] cloNIDine 0.1 mg oral tablet 0.1 mg, 1 tab, Route: PO, Drug form: TAB, BID, Start date: 12/23/17 22:30:00 CDT, Duration: 30 day, Stop date: 01/22/18 22:00:00 CDTNotes: (Same As: Catapres) No Longer Active 12/24/2017 [facility] insulin glargine 20 unit, 0.2 mL, Route: SUB-Q, Drug form: SOLN, Bedtime, Start date: 12/23/17 21:45:00 CDT, Duration: 30 day, Stop date: 01/22/18 21:00:00 CDTNotes: (Same as: Lantus) Do not hold insulin without cont acting prescriber WASTE: F/P - Black; E - Municipal Trash Bin "single patient use only" No Longer Active 12/24/2017 [facility] Zofran 4 mg, 2 mL, Route: IV, Drug form: INJ, Q4H, Dosing Weight 72.017, kg, PRN as needed for nausea/vomiting, Start date: 12/23/17 21:20:00 CDT, Duration: 30 day, Stop date: 01/22/18 21:19:00 CDTNotes: (Same as: Zofran) MEDICATION WASTE Product Size: 4 mg Product Wasted: ___ mg No Longer Active 12/24/2017 [facility] Lunesta 3 mg, Route: PO, Bedtime, Dosing Weight 72.017, kg, Start date: 12/23/17 21:00:00 CDT, Duration: 30 day, Stop date: 01/21/18 21:00:00 CDT Inactive 12/24/2017 [facility] zolpidem 5 mg, 1 tab, Route: PO, Drug form: TAB, Bedtime, Start date: 12/23/17 21:00:00 CDT, Duration: 30 day, Stop date: 01/21/18 21:00:00 CDTNotes: (Same As: Ambien) No Longer Active 12/24/2017 [facility] Enoxaparin 40 mg, 0.4 mL, Route: SUB-Q, Drug form: INJ, [id number], Dosing Weight 72.017, kg, Start date: 12/23/17 21:00:00 CDT, Stop date: 01/21/18 21:00:00 CDTNotes: (Same as: Lovenox) No Longer Active 12/24/2017 [facility] Cefazolin 1 gm, Route: IVPB, Drug form: INJ, Q6H, Dosing Weight 72.017, kg, Start date: 12/23/17 12:00:00 CDT, Duration: 3 doses or times, Stop date: 12/24/17 0:00:00 CDT, ABX Indication: Surgical Prophylaxis Inactive 12/23/2017 [facility] Ancef + sterile water 20 mL 2 gm, Route: IVP, [id number], Dosing Weight 72.017, kg, Start date: 12/23/17 11:00:00 CDT, Duration: 1 day, Stop date: 12/25/17 0:00:00 CDT, ABX Indication: Surgical ProphylaxisNotes: (Same As: Ancef, Kefzol) MEDICATION WASTE Product Size: 1000 mg Product Wasted: ___ mg Inactive 12/23/2017 [facility] Ondansetron 4 mg, Route: IVP, ONCE, Dosing Weight 72.017, kg, PRN Nausea & Vomiting, Start date: 12/23/17 9:39:00 CDT Inactive 12/23/2017 [facility] Promethazine 6.25 mg, Route: IVPB, ONCE, Dosing Weight 72.017, kg, PRN Nausea & Vomiting, Start date: 12/23/17 9:39:00 CDT Inactive 12/23/2017 [facility] Meperidine 12.5 mg, Route: IVP, Q30Min, Dosing Weight 72.017, kg, PRN Other -See Comment, For shivering, Start date: 12/23/17 9:39:00 CDT, Duration: 2 doses or times, Stop date: Limited # of times Inactive 12/23/2017 [facility] Naloxone 0.4 mg, Route: IVP, Q2MIN, Dosing Weight 72.017, kg, PRN Narcotic Reversal, Start date: 12/23/17 9:39:00 CDT, Duration: 8 doses or times, Stop date: Limited # of times Inactive 12/23/2017 [facility] Diphenhydramine 12.5 mg, Route: IVP, Drug form: INJ, Q6H, Dosing Weight 72.017, kg, PRN Itching, Start date: 12/23/17 9:39:00 CDT, Duration: 30 day, Stop date: 01/22/18 9:38:00 CDT Inactive 12/23/2017 [facility] Albuterol 0.83 MG/ML Inhalant Solution 2.49 mg, Route: NEB, Q20Min, Dosing Weight 72.017, kg, PRN Wheezing, Priority: STAT, Start date: 12/23/17 9:39:00 CDT, Duration: 30 day, Stop date: 01/22/18 9:38:00 CDT Inactive 12/23/2017 [facility] Flumazenil 0.2 mg, Route: IVP, PRN, Dosing Weight 72.017, kg, PRN Benzodiazepine Reversal, Initial dose, Start date: 12/23/17 9:39:00 CDT, Duration: 30 day, Stop date: 01/22/18 9:38:00 CDT Inactive 12/23/2017 [facility] Fentanyl 50 microgram, Route: IVP, Q5Min, Dosing Weight 72.017, kg, PRN Pain Score 7-10, Priority: Routine, Start date: 12/23/17 9:39:00 CDT, Duration: 2 doses or times, Stop date: Limited # of times Inactive 12/23/2017 [facility] Labetalol 10 mg, Route: IVP, Q5Min, Dosing Weight 72.017, kg, PRN Elevated BP, Start date: 12/23/17 9:39:00 CDT, Duration: 5 doses or times, Stop date: Limited # of times Inactive 12/23/2017 [facility] esmolol 10 mg, Route: IVP, Q5Min, Dosing Weight 72.017, kg, PRN Other -See Comment, Start date: 12/23/17 9:39:00 CDT, Duration: 5 doses or times, Stop date: Limited # of times Inactive 12/23/2017 [facility] Hydralazine 10 mg, Route: IVP, Q20Min, Dosing Weight 72.017, kg, PRN Elevated BP, Start date: 12/23/17 9:39:00 CDT, Duration: 2 doses or times, Stop date: Limited # of times Inactive 12/23/2017 [facility] Calcium Chloride 0.0014 MEQ/ML / Potassium Chloride 0.004 MEQ/ML / Sodium Chloride 0.103 MEQ/ML / Sodium Lactate 0.028 MEQ/ML Injectable Solution 1,000 mL, Rate: 125 ml/hr, Infuse over: 8 hr, Route: IV, Dosing Weight 72.017 kg, Total Volume: 1,000, Start date: 12/23/17 9:39:00 CDT, Duration: 30 day, Stop date: 01/22/18 9:38:00 CDT, 1.81, m2 Inactive 12/23/2017 [facility] glycopyrrolate (ANES) Route: IV, Drug form: INJ, ONCE, Stop date: 12/23/17 9:11:00 CDT Inactive 12/23/2017 [facility] neostigmine (ANES) Route: IV, Drug form: INJ, ONCE, Stop date: 12/23/17 9:11:00 CDT Inactive 12/23/2017 [facility] Enoxaparin 40 mg, Route: SUB-Q, Drug form: INJ, Daily, Dosing Weight 72.017, kg, Start date: 12/23/17 9:00:00 CDT, Duration: 30 day, Stop date: 01/21/18 9:00:00 CDT Inactive 12/23/2017 [facility] Naloxone 0.04 mg, Route: IVP, Q2MIN, Dosing Weight 72.017, kg, PRN Narcotic Reversal, Start date: 12/23/17 8:51:00 CDT, Duration: 30 day, Stop date: 01/22/18 8:50:00 CDT Inactive 12/23/2017 [facility] Hydromorphone 15 mg, 30 mL, Route: IV, [employer]ASS[employer]IVER Dose: 0.2 mg, [employer] Lockout: 8 minutes, Continuous Basal Rate: 0 mg, 4 Hour Limit (In MG): 6, Continuous, Start date: 12/23/17 8:51:00 CDT, Duration: 30 day, Stop date: 8:50:00 CDT Inactive 12/23/2017 [facility] Acetaminophen 325 MG / Hydrocodone Bitartrate 7.5 MG Oral Tablet [[place] 7.5/325] 2 tab, Route: PO, Drug Form: TAB, Dosing Weight 72.017, kg, Q4H, PRN Pain Score 7-10, Start date: 12/23/17 8:51:00 CDT, Duration: 30 day, Stop date: 01/22/18 8:50:00 CDTNotes: Same as [place] 325-7.5mg Do not exceed 4gm/day of acetaminophen. No Longer Active 12/23/2017 [facility] Tylenol 650 mg, 2 tab, Route: PO, Drug form: TAB, Q6H, Dosing Weight 72.017, kg, PRN For Temp > 100.4 F, Start date: 12/23/17 8:51:00 CDT, Duration: 30 day, Stop date: 01/22/18 8:50:00 CDTNotes: Do not exceed 4 gm/day. (Same as: Tylenol) No Longer Active 12/23/2017 [facility] Lactated Ringers IV 1000 mL 1,000 mL, Rate: 75 ml/hr, Infuse over: 13.3 hr, Route: IV, Dosing Weight 72.017 kg, Total Volume: 1,000, Start date: 12/23/17 8:51:00 CDT, Duration: 30 day, Stop date: 01/22/18 8:50:00 CDT, 1.81, m2 Inactive 12/23/2017 [facility] Melatonin 3 mg, 1 tab, Route: PO, Drug form: TAB, Bedtime, Dosing Weight 72.017, kg, PRN Sleep, Start date: 12/23/17 8:51:00 CDT, Duration: 30 day, Stop date: 01/22/18 8:50:00 CDT, ..Notes: (Same as: Melatonin) No Longer Active 12/23/2017 [facility] tranexamic acid (ANES) Route: IV, Drug form: INJ, ONCE, Stop date: 12/23/17 8:11:00 CDT Inactive 12/23/2017 [facility] famotidine (ANES) Route: IV, Drug form: INJ, ONCE, Stop date: 12/23/17 8:11:00 CDT Inactive 12/23/2017 [facility] ondansetron (ANES) Route: IV, Drug form: INJ, ONCE, Stop date: 12/23/17 8:11:00 CDT Inactive 12/23/2017 [facility] acetaminophen (ANES) Route: IV, Drug form: INJ, ONCE, Stop date: 12/23/17 8:11:00 CDT Inactive 12/23/2017 [facility] ceFAZolin (ANES) Route: IV, Drug form: INJ, ONCE, Stop date: 12/23/17 8:11:00 CDT Inactive 12/23/2017 [facility] rocuronium (ANES) Route: IV, Drug form: INJ, ONCE, Stop date: 12/23/17 8:11:00 CDT Inactive 12/23/2017 [facility] propofol (ANES) Route: IV, Drug form: INJ, ONCE, Stop date: 12/23/17 8:11:00 CDT Inactive 12/23/2017 [facility] fentaNYL (ANES) Route: IV, Drug form: INJ, ONCE, Stop date: 12/23/17 8:06:00 CDT Inactive 12/23/2017 [facility] lidocaine (ANES) Route: IV, Drug form: INJ, ONCE, Stop date: 12/23/17 8:06:00 CDT Inactive 12/23/2017 [facility] ropivacaine 100 mL, Route: InFILtration(local), Drug Form: INJ, Dosing Weight 72.017, kg, ONCALL, Start date: 12/23/17 7:00:00 CDT, Duration: 30 day, Stop date: 01/22/18 6:59:00 CDTNotes: NOT FOR IV use Ropivacaine 5 mg/mL (49.25 mL) Epinephrine 1 mg/mL (0.5 mL) Clonidine 0.1 mg/mL (0.8 mL) Ketorolac 30 mg/mL (1 mL) Normal Saline 48.45 mL No Longer Active 12/23/2017 [facility] celecoxib 400 mg, 2 cap, Route: PO, Drug form: CAP, ONCALL, Dosing Weight 72.017, kg, (for CrCl > 90 mL/min), Start date: 12/23/17 7:00:00 CDT, Duration: 30 day, Stop date: 01/22/18 6:59:00 CDTNotes: NSAID. Please check indication. Not for seizure. (Same As: CeleBREX) Inactive 12/23/2017 [facility] gabapentin 300 mg, 1 cap, Route: PO, Drug form: CAP, ONCALL, Dosing Weight 72.017, kg, Start date: 12/23/17 7:00:00 CDT, Duration: 30 day, Stop date: 01/22/18 6:59:00 CDTNotes: (Same as: Neurontin) Inactive 12/23/2017 [facility] Lactated Ringers Injection IV (ANES) 1000 mL Route: IV, Total Volume: 1,000, Start date: 12/23/17 6:56:00 CDT, Stop date: 12/23/17 7:56:00 CDT Inactive 12/23/2017 [facility] vancomycin (ANES) 1000 mg Route: IV, Drug form: INJ, Start date: 12/23/17 6:51:00 CDT, Stop date: 12/23/17 7:51:00 CDT Inactive 12/23/2017 [facility] Insulin regular 2 unit, 0.02 mL, Route: IVP, Drug form: INJ, ONCE, Dosing Weight 72.017, kg, Start date: 12/23/17 6:31:00 CDT, Stop date: 12/23/17 6:31:00 CDTNotes: (Same as: Humulin R and NovoLIN R) WASTE: F/P - Black; E - Municipal Trash Bin (Do not shake) Inactive 12/23/2017 [facility] Insulin regular 4 unit, Route: IVP, ONCE, Dosing Weight 72.017, kg, Start date: 12/23/17 5:57:00 CDT, Stop date: 12/23/17 5:57:00 CDT Inactive 12/23/2017 [facility] Albuterol 0.833 MG/ML / Ipratropium [place] 0.167 MG/ML Inhalant Solution 3 mL, Route: NEB, Drug Form: SOLN, Dosing Weight 72.017, kg, ONCE, STAT, Start date: 12/23/17 5:56:00 CDT, Stop date: 12/23/17 5:56:00 CDTNotes: (Same as: Duoneb) Inactive 12/23/2017 [facility] Calcium Chloride 0.0014 MEQ/ML / Potassium Chloride 0.004 MEQ/ML / Sodium Chloride 0.103 MEQ/ML / Sodium Lactate 0.028 MEQ/ML Injectable Solution 1,000 mL, Rate: 25 ml/hr, Infuse over: 40 hr, Route: IV, Dosing Weight 72.017 kg, Total Volume: 1,000, Start date: 12/23/17 5:56:00 CDT, Duration: 1 day, Stop date: 12/24/17 5:55:00 CDT, 1.81, m2 Inactive 12/23/2017 [facility] 0.4 ML Enoxaparin sodium 100 MG/ML Prefilled Syringe [Lovenox] 40 mg, SUB-Q, Daily, # 14 inj, 0 Refill(s) Active 12/22/2017 [facility] Cephalexin 500 MG Oral Capsule [Keflex] 500 mg=1 cap, PO, QID, X 10 day, # 40 cap, 0 Refill(s) Active 12/22/2017 [facility] tramadol hydrochloride 50 MG Oral Tablet 50 mg=1 tab, PO, BID, # 30 tab, 0 Refill(s) No Longer Active 12/16/2017 [facility] meloxicam 15 mg oral tablet 15 mg=1 tab, PO, Daily, # 30 tab, 0 Refill(s) No Longer Active 12/16/2017 [facility] levothyroxine 100 mcg (0.1 mg) oral tablet 100 microgram=1 tab, PO, Daily, # 30 tab, 0 Refill(s) Active 12/16/2017 [facility] Methocarbamol 500 MG Oral Tablet [Robaxin] 1,000 mg=2 tab, PO, QID, PRN Muscle Spasms, # 90 tab, 0 Refill(s), Pharmacy: [facility] [id number] Active 11/03/2017 [facility] Docusate Sodium 50 MG Oral Capsule 50 mg=1 cap, PO, BID, PRN as needed for constipation, Pediatric Dosing, # 90 cap, 0 Refill(s) Active 11/03/2017 [facility] cloNIDine 0.2 mg oral tablet 0.2 mg, 1 tab, Route: PO, Drug form: TAB, QAM, Start date: 11/02/17 9:00:00 CDT, Duration: 30 day, Stop date: 12/01/17 9:00:00 CDTNotes: (Same As: Catapres) No Longer Active 11/02/2017 [facility] Tylenol 650 mg, 2 tab, Route: PO, Drug form: TAB, Q6H, Dosing Weight 71.818, kg, PRN Pain 1-3/Temp > 100.4 F, Start date: 11/01/17 22:45:00 CDT, Duration: 30 day, Stop date: 12/01/17 22:44:00 CDTNotes: Do not exceed 4 gm/day. (Same as: Tylenol) No Longer Active 11/02/2017 [facility] insulin detemir 15 unit, 0.15 mL, Route: SUB-Q, Drug form: SOLN, BID, Start date: 11/01/17 17:00:00 CDT, Duration: 30 day, Stop date: 12/01/17 9:00:00 CDTNotes: Non-Formulary Drug (Same as Levemir) Do not hold insulin without contacting prescriber WASTE: F/P - Black; E - Municipal Trash Bin "single patient use only" No Longer Active 11/01/2017 [facility] cloNIDine 0.1 mg oral tablet 0.1 mg, 1 tab, Route: PO, Drug form: TAB, BID, Start date: 11/01/17 12:00:00 CDT, Duration: 30 day, Stop date: 11/30/17 21:00:00 CDTNotes: (Same As: Catapres) No Longer Active 11/01/2017 [facility] insulin detemir 100 UNT/ML Injectable Solution [Levemir] 30 unit, SUB-Q, Bedtime, 0 Refill(s) Active 11/01/2017 [facility] Insulin, Aspart, Human 100 UNT/ML Injectable Solution [NovoLog] 20 unit, SUB-Q, TID-Before Meals, # 10 mL, 0 Refill(s) Active 11/01/2017 [facility] Cozaar 100 mg, 2 tab, Route: PO, Drug form: TAB, Daily, Start date: 11/01/17 10:58:00 CDT, Duration: 30 day, Stop date: 12/01/17 9:00:00 CDTNotes: (Same as: Cozaar) No Longer Active 11/01/2017 [facility] pantoprazole 40 mg oral enteric coated tablet 40 mg=1 tab, PO, Daily, # 30 tab, 0 Refill(s) Active 11/01/2017 [facility] Clonidine Hydrochloride 0.1 MG Oral Tablet See Instructions, 2 tabs in the morning 1 tab at noon 1 tab at bedtime [facility] [id number], 0 Refill(s) Active 11/01/2017 [facility] Hydrochlorothiazide 25 MG / Losartan Potassium 100 MG Oral Tablet 1 tab, PO, Daily, [facility] [id number], # 30 tab, 0 Refill(s) Active 11/01/2017 [facility] Atenolol 50 MG Oral Tablet 50 mg, 1 tab, Route: PO, Drug form: TAB, Daily, Dosing Weight 71.818, kg, Start date: 11/01/17 9:00:00 CDT, Duration: 30 day, Stop date: 11/30/17 9:00:00 CDTNotes: (Same As:Tenormin) No Longer Active 11/01/2017 [facility] Famotidine 20 MG Oral Tablet 20 mg, 1 tab, Route: PO, Drug form: TAB, BID, Dosing Weight 71.818, kg, Start date: 11/01/17 9:00:00 CDT, Duration: 30 day, Stop date: 11/30/17 17:00:00 CDTNotes: (Same as: Pepcid) No Longer Active 11/01/2017 [facility] sennosides, [place] 8.6 mg, 1 tab, Route: PO, Drug Form: TAB, Dosing Weight 71.818, kg, BID, Start date: 11/01/17 9:00:00 CDT, Duration: 30 day, Stop date: 11/30/17 17:00:00 CDTNotes: (Same as: Senokot) No Longer Active 11/01/2017 [facility] Docusate 50 mg, 1 cap, Route: PO, Drug form: CAP, BID, Dosing Weight 71.818, kg, Start date: 11/01/17 9:00:00 CDT, Duration: 30 day, Stop date: 11/30/17 17:00:00 CDT, Pediatric DosingNotes: (Same as: Colace) (Do Not Crush) No Longer Active 11/01/2017 [facility] Lovenox 30 mg, 0.3 mL, Route: SUB-Q, Drug form: INJ, [id number], Dosing Weight 71.818, kg, Start date: 11/01/17 8:00:00 CDT, Duration: 30 day, Stop date: 11/30/17 20:00:00 CDTNotes: (Same as: Lovenox) No Longer Active 11/01/2017 [facility] Magnesium Sulfate 2 gm, 50 mL, Route: IVPB, Drug form: INJ, Q2H, Dosing Weight 71.818, kg, Total dose=4 gm, Start date: 11/01/17 6:00:00 CDT, Duration: 3 doses or times, Stop date: 11/01/17 10:00:00 CDTNotes: WASTE: F/P - Sink; E - Municipal Trash Bin Inactive 11/01/2017 [facility] Calcium Chloride 1,000 mg, 10 mL, Route: IVPB, ONCE, Dosing Weight 71.818, kg, Start date: 11/01/17 4:29:00 CDT, Stop date: 11/01/17 4:29:00 CDTNotes: WASTE: F/P - Sink; E - Municipal Trash Bin Inactive 11/01/2017 [facility] Dextrose 50% Syringe 12.5 gm, 25 mL, Route: IVP, Drug Form: INJ, Dosing Weight 71.818, kg, PRN, PRN Blood Glucose Results, Start date: 10/31/17 23:01:00 CDT, Duration: 30 day, Stop date: 11/30/17 23:00:00 CDT No Longer Active 11/01/2017 [facility] Glucagon 1 mg, Route: IM, Drug form: PDR/INJ, PRN, Dosing Weight 71.818, kg, PRN Blood Glucose Results, Start date: 10/31/17 23:01:00 CDT, Duration: 30 day, Stop date: 11/30/17 23:00:00 CDT No Longer Active 11/01/2017 [facility] Insulin regular 3 unit, 0.03 mL, Route: [...] days from Date No Longer Active 11/01/2017 [facility] Cefazolin 2 gm, 20 mL, Route: IV, Drug form: SOLN, Q8H, Dosing Weight 71.818, kg, Start date: 10/31/17 22:00:00 CDT, Stop date: 11/01/17 14:00:00 CDT, ABX Indication: Surgical ProphylaxisNotes: (Same as Ancef) No Longer Active 11/01/2017 [facility] Saline Flush 0.9% 10 ml, Route: IVP, Drug Form: INJ, Dosing Weight 71.818, kg, Q12H, Start date: 10/31/17 21:00:00 CDT, Duration: 30 day, Stop date: 11/30/17 9:00:00 CDTNotes: (Same as: BD Posiflush) No Longer Active 11/01/2017 [facility] zolpidem 10 mg, 2 tab, Route: PO, Drug form: TAB, Bedtime, Dosing Weight 71.818, kg, Start date: 10/31/17 21:00:00 CDT, Duration: 30 day, Stop date: 11/29/17 21:00:00 CDTNotes: (Same As: Ambien) No Longer Active 11/01/2017 [facility] sugammadex 200 mg, 2 mL, Route: IVP, Drug form: SOLN, ONCALL, Start date: 10/31/17 18:00:00 CDT, Stop date: 10/31/17 18:15:00 CDTNotes: (Same as: Bridion) No Longer Active 10/31/2017 [facility] sugammadex (ANES) Route: IV, Drug form: SOLN, ONCE, Stop date: 10/31/17 17:12:00 CDT Inactive 10/31/2017 [facility] ondansetron (ANES) Route: IV, Drug form: INJ, ONCE, Stop date: 10/31/17 17:12:00 CDT Inactive 10/31/2017 [facility] hydromorphone (ANES) Route: IV, Drug form: INJ, ONCE, Stop date: 10/31/17 17:11:00 CDT Inactive 10/31/2017 [facility] Saline Flush 0.9% 10 ml, Route: IVP, Drug Form: INJ, Dosing Weight 71.818, kg, PRN, PRN Line Flush, Start date: 10/31/17 17:11:00 CDT, Duration: 30 day, Stop date: 11/30/17 17:10:00 CDTNotes: (Same as: BD Posiflush) No Longer Active 10/31/2017 [facility] Melatonin 3 MG Extended Release Tablet 3 mg, 1 tab, Route: PO, Drug Form: TAB, Dosing Weight 71.818, kg, Bedtime, PRN as needed for insomnia, Start date: 10/31/17 17:11:00 CDT, Duration: 30 day, Stop date: 11/30/17 17:10:00 CDTNotes: (Same as: Melatonin) No Longer Active 10/31/2017 [facility] Bisacodyl 10 mg, 1 supp, Route: UT, Drug form: SUPP, Daily, Dosing Weight 71.818, kg, PRN Constipation, Start date: 10/31/17 17:11:00 CDT, Duration: 30 day, Stop date: 11/30/17 17:10:00 CDTNotes: (Same As: Dulcolax, Bisco-Lax) No Longer Active 10/31/2017 [facility] Benadryl 25 mg, 1 cap, Route: PO, Drug form: CAP, TID, Dosing Weight 71.818, kg, PRN Itching, Start date: 10/31/17 17:11:00 CDT, Duration: 30 day, Stop date: 11/30/17 17:10:00 CDTNotes: (Same as: Benadryl) No Longer Active 10/31/2017 [facility] Dilaudid 0.5 mg, 0.25 mL, Route: IVP, Drug form: INJ, Q3H, Dosing Weight 71.818, kg, PRN Pain Score 7-10, Start date: 10/31/17 17:11:00 CDT, Duration: 30 day, Stop date: 11/30/17 17:10:00 CDTNotes: Same as Dilaudid No Longer Active 10/31/2017 [facility] phenol 1 spray, Route: MUCOUS MEM, Daily, Drug form: SPRY, PRN Sore Throat, Start date: 10/31/17 17:11:00 CDT, Duration: 30 day, Stop date: 11/30/17 17:10:00 CDTNotes: Chloraseptic [place] (Same as: Chloraseptic, Sore Throat [place]) WASTE: F/P - Black; E - Municipal Trash Bin No Longer Active 10/31/2017 [facility] Labetalol 10 mg, 2 mL, Route: IVP, Drug form: INJ, Q15Min, Dosing Weight 71.818, kg, PRN Hypertension, Start date: 10/31/17 17:11:00 CDT, Duration: 30 day, Stop date: 11/30/17 17:10:00 CDT No Longer Active 10/31/2017 [facility] Acetaminophen 325 MG / Hydrocodone Bitartrate 10 MG Oral Tablet [[place] 10/325] 2 tab, Route: PO, Drug Form: TAB, Dosing Weight 71.818, kg, Q4H, PRN Pain Score 4-6, Start date: 10/31/17 17:11:00 CDT, Duration: 30 day, Stop date: 11/30/17 17:10:00 CDTNotes: Do not exceed 4gm/day of acetaminophen. (Same as: [place] 325/10) No Longer Active 10/31/2017 [facility] Hydralazine 20 mg, 1 mL, Route: IVP, Drug form: INJ, Q4H, Dosing Weight 71.818, kg, PRN Hypertension, Start date: 10/31/17 17:11:00 CDT, Duration: 30 day, Stop date: 11/30/17 17:10:00 CDTNotes: (Same as: Apresoline) Push over 5 minutes No Longer Active 10/31/2017 [facility] Ondansetron 4 mg, 2 mL, Route: IVP, Drug form: INJ, Q6H, Dosing Weight 71.818, kg, PRN Nausea & Vomiting, Start date: 10/31/17 17:11:00 CDT, Duration: 30 day, Stop date: 11/30/17 17:10:00 CDT, >/=4 years, Pediatric DosingNotes: (Same as: Zofran) MEDICATION WASTE Product Size: 4 mg Product Wasted: ___ mg No Longer Active 10/31/2017 [facility] Naloxone 0.4 mg, 1 mL, Route: IVP, Drug form: INJ, Q2MIN, Dosing Weight 71.818, kg, PRN Narcotic Reversal, Start date: 10/31/17 15:00:00 CDT, Duration: 8 doses or times, Stop date: 11/01/17 0:00:00 CDTNotes: Same as Narcan Inactive 10/31/2017 [facility] Flumazenil 0.2 mg, 2 mL, Route: IVP, Drug form: INJ, PRN, Dosing Weight 71.818, kg, PRN Benzodiazepine Reversal, Initial dose, Start date: 10/31/17 15:00:00 CDT, Duration: 30 day, Stop date: 11/30/17 14:59:00 C DTNotes: (Same as: Romazicon) Inactive 10/31/2017 [facility] Ondansetron 4 mg, 2 mL, Route: IVP, Drug form: INJ, ONCE, Dosing Weight 71.818, kg, PRN Nausea & Vomiting, Start date: 10/31/17 15:00:00 CDTNotes: (Same as: Zofran) MEDICATION WASTE Product Size: 4 mg Product Wasted: ___ mg Inactive 10/31/2017 [facility] Fentanyl 25 microgram, 0.5 mL, Route: IVP, Drug form: INJ, Q5Min, Dosing Weight 71.818, kg, PRN Pain Score 4-6, Priority: Routine, Start date: 10/31/17 15:00:00 CDT, Duration: 4 doses or times, Stop date: 11/01/17 0:00:00 CDTNotes: (Same as: Sublimaze) Preservative free. Inactive 10/31/2017 [facility] Hydromorphone 0.5 mg, 0.25 mL, Route: IVP, Drug form: INJ, Q5Min, Dosing Weight 71.818, kg, PRN Pain Score 7-10, Start date: 10/31/17 15:00:00 CDT, Duration: 4 doses or times, Stop date: 11/01/17 0:00:00 CDTNotes: Same as: Dilaudid Inactive 10/31/2017 [facility] Insulin regular (ANES) Route: IV, Drug form: INJ, ONCE, Stop date: 10/31/17 13:51:00 CDT Inactive 10/31/2017 [facility] ketAMINE (ANES) Route: IV, Drug form: INJ, ONCE, Stop date: 10/31/17 13:16:00 CDT Inactive 10/31/2017 [facility] dexmedetomidine (ANES) 200 microgram Route: IV, Drug form: INJ, Start date: 10/31/17 12:54:00 CDT, Stop date: 10/31/17 13:54:00 CDT Inactive 10/31/2017 [facility] ePHEDrine (ANES) Route: IV, Drug form: INJ, ONCE, Stop date: 10/31/17 12:26:00 CDT Inactive 10/31/2017 [facility] scopolamine (ANES) Route: IV, Drug form: ERFILM, ONCE, Stop date: 10/31/17 11:46:00 CDT Inactive 10/31/2017 [facility] ceFAZolin (ANES) Route: IV, Drug form: INJ, ONCE, Stop date: 10/31/17 11:41:00 CDT Inactive 10/31/2017 [facility] fentaNYL (ANES) Route: IV, Drug form: INJ, ONCE, Stop date: 10/31/17 11:41:00 CDT Inactive 10/31/2017 [facility] lidocaine (ANES) Route: IV, Drug form: INJ, ONCE, Stop date: 10/31/17 11:41:00 CDT Inactive 10/31/2017 [facility] rocuronium (ANES) Route: IV, Drug form: INJ, ONCE, Stop date: 10/31/17 11:41:00 CDT Inactive 10/31/2017 [facility] propofol (ANES) Route: IV, Drug form: INJ, ONCE, Stop date: 10/31/17 11:41:00 CDT Inactive 10/31/2017 [facility] PlasmaLyte A PH-7.4 (ANES) 1000 mL Route: IV, Total Volume: 1,000, Start date: 10/31/17 10:22:00 CDT, Stop date: 10/31/17 11:22:00 CDT Inactive 10/31/2017 [facility] Lactated Ringers Injection IV (ANES) 1000 mL Route: IV, Total Volume: 1,000, Start date: 10/31/17 10:04:00 CDT, Stop date: 10/31/17 11:04:00 CDT Inactive 10/31/2017 [facility] ceFAZolin + sterile water 20 mL 2 gm, Route: IV, PRE OP, Start date: 10/30/17 23:00:00 CDT, Duration: 1 day, Stop date: 10/31/17 22:59:00 CDT, ABX Indication: Surgical ProphylaxisNotes: (Same As: Rebeca Martinez) MEDICATION WASTE Product Size: 1000 mg Product Wasted: ___ mg No Longer Active 10/31/2017 [facility] NovoLog SUB-Q, TID-Before Meals, 0 Refill(s) No Longer Active 10/28/2017 [facility] Clonidine 0 Refill(s) No Longer Active 10/28/2017 [facility] tramadol hydrochloride 50 MG Oral Tablet 50 mg=1 tab, PO, Q4H, 0 Refill(s) No Longer Active 10/28/2017 [facility] zolpidem 10 mg oral tablet 10 mg=1 tab, PO, Bedtime, 0 Refill(s) Active 10/28/2017 [facility] Levemir SUB-Q, 0 Refill(s) No Longer Active 10/28/2017 [facility] Atenolol 50 MG Oral Tablet 50 mg=1 tab, PO, Daily, 0 Refill(s) Active 10/28/2017 [facility] Allergies, Adverse Reactions, Alerts Substance Category Reaction Severity Reaction type Status Date Reported Comments Source codeine Assertion Drug allergy Active [facility] Tylox Assertion Drug allergy Active [facility] Immunizations Immunization Date Given Site Status Last Updated Comments Source pneumococcal 13-valent vaccine 11/03/2017 Not Given [facility] pneumococcal 23-valent vaccine 05/12/2009 Left Arm completed [facility] Results Order Name Results Value Reference Range Date Interpretation Comments Source CHEM PANEL Glucose Lvl 204 mg/dL 70 - 99 12/25/2017 [facility] CHEM PANEL Sodium Lvl 127 meq/L 135 - 145 12/25/2017 [facility] CHEM PANEL BUN 28 mg/dL 7 - 22 12/25/2017 [facility] CHEM PANEL Chloride Lvl 93 meq/L 95 - 109 12/25/2017 [facility] CHEM PANEL Potassium Lvl 4.1 meq/L 3.5 - 5.1 12/25/2017 [facility] CHEM PANEL eGFR 40 mL/min/1.73m2 12/25/2017 Result [...] should be multiplied by the estimated BMI. [facility] CHEM PANEL Creatinine Lvl 1.29 mg/dL 0.50 - 1.40 12/25/2017 [facility] CHEM PANEL AGAP 18.1 meq/L 10.0 - 20.0 12/25/2017 [facility] CHEM PANEL CO2 20 meq/L 24 - 32 12/25/2017 [facility] CHEM PANEL Calcium Lvl 8.2 mg/dL 8.5 - 10.5 12/25/2017 [facility] MCV 85.6 fL 80.0 - 98.0 12/25/2017 [facility] Hgb 8.9 g/dL 12.0 - 16.0 12/25/2017 [facility] Hct 26.1 % 36.0 - 48.0 12/25/2017 [facility] RBC 3.05 M/CMM 4.20 - 5.40 12/25/2017 [facility] WBC 10.7 K/CMM 3.7 - 10.4 12/25/2017 [facility] MPV 9.3 fL 7.4 - 10.4 12/25/2017 [facility] Platelet 202 K/CMM 133 - 450 12/25/2017 [facility] MCHC 34.0 g/dL 32.0 - 36.0 12/25/2017 [facility] RDW 14.1 % 11.5 - 14.5 12/25/2017 [facility] MCH 29.1 pg 27.0 - 31.0 12/25/2017 [facility] Plt Morph Normal (12/25/17 3:19 AM) 12/25/2017 [facility] Segs 72.3 % 45.0 - 75.0 12/25/2017 [facility] Monocytes 17.0 % 2.0 - 12.0 12/25/2017 [facility] Eosinophils 1.8 % 0.0 - 4.0 12/25/2017 [facility] RBC Morph Normal (12/25/17 3:19 AM) 12/25/2017 [facility] HEMATOLOGY Lymphocytes 8.5 % 20.0 - 40.0 12/25/2017 [facility] HEMATOLOGY Basophils 0.4 % 0.0 - 1.0 12/25/2017 [facility] HEMATOLOGY Monocytes # 1.8 K/CMM 0.0 - 0.8 12/25/2017 [facility] HEMATOLOGY Eosinophils # 0.2 K/CMM 0.0 - 0.5 12/25/2017 [facility] HEMATOLOGY Segs-Bands # 7.7 K/CMM 1.5 - 8.1 12/25/2017 [facility] Lymphocytes # 0.9 K/CMM 1.0 - 5.5 12/25/2017 [facility] ELECTROLYTES AGAP 15.3 meq/L 10.0 - 20.0 12/24/2017 [facility] ELECTROLYTES Potassium Lvl 4.3 meq/L 3.5 - 5.1 12/24/2017 [facility] ELECTROLYTES BUN 34 mg/dL 7 - 22 12/24/2017 [facility] ELECTROLYTES Glucose Lvl 264 mg/dL 70 - 99 12/24/2017 [facility] ELECTROLYTES Creatinine Lvl 1.69 mg/dL 0.50 - 1.40 12/24/2017 [facility] ELECTROLYTES Sodium Lvl 126 meq/L 135 - 145 12/24/2017 [facility] ELECTROLYTES CO2 23 meq/L 24 - 32 12/24/2017 [facility] ELECTROLYTES Chloride Lvl 92 meq/L 95 - 109 12/24/2017 [facility] ELECTROLYTES Calcium Lvl 7.6 mg/dL 8.5 - 10.5 12/24/2017 [facility] ELECTROLYTES eGFR 29 mL/min/1.73m2 12/24/2017 Result Comment: [...] should be multiplied by the estimated BMI. [facility] HEMATOLOGY PTT 45.8 s 22.9 - 35.8 12/24/2017 [facility] INR 1.13 0.85 - 1.17 12/24/2017 [facility] PT 14.5 s 12.0 - 14.7 12/24/2017 [facility] Monocytes 16.0 % 2.0 - 12.0 12/24/2017 [facility] Lymphocytes # 0.8 K/CMM 1.0 - 5.5 12/24/2017 [facility] Monocytes # 1.8 K/CMM 0.0 - 0.8 12/24/2017 [facility] Eosinophils 0.1 % 0.0 - 4.0 12/24/2017 [facility] Basophils 0.2 % 0.0 - 1.0 12/24/2017 [facility] Segs 77.1 % 45.0 - 75.0 12/24/2017 [facility] Lymphocytes 6.6 % 20.0 - 40.0 12/24/2017 [facility] Segs-Bands # 8.9 K/CMM 1.5 - 8.1 12/24/2017 [facility] MPV 10.1 fL 7.4 - 10.4 12/24/2017 [facility] WBC 11.6 K/CMM 3.7 - 10.4 12/24/2017 [facility] RBC 3.29 M/CMM 4.20 - 5.40 12/24/2017 [facility] MCH 27.6 pg 27.0 - 31.0 12/24/2017 [facility] Hgb 9.1 g/dL 12.0 - 16.0 12/24/2017 [facility] Hct 27.7 % 36.0 - 48.0 12/24/2017 [facility] MCV 84.3 fL 80.0 - 98.0 12/24/2017 [facility] MCHC 32.7 g/dL 32.0 - 36.0 12/24/2017 [facility] RDW 14.5 % 11.5 - 14.5 12/24/2017 [facility] Platelet 219 K/CMM 133 - 450 12/24/2017 [facility] SPECIAL CHEMISTRY Hgb A1C 7.2 % <=5.6 % 12/24/2017 [facility] Hip 1 view DX Hip 1 view DX Patient Name: REESE BEVERLY : 1940; Age: 77 years y/o Female MR: [id number] LEFT HIP, 1 view, portable, postoperative HISTORY: Postoperative study, following left hip arthroplasty. TECHNIQUE: A single portable postoperative frontal view of the left hip was obtained. IMPRESSION: The left total hip prosthesis is in good position. There is no evidence of unexpected fracture or other complication. There is postoperative soft tissue gas. There are lateral surgical skin rosalia. SL: [id number] 12/23/2017 - - Read by: Thomas Bentley MD Dictated Date/time: 12/23/17 11:53 Electronically Signed by: Thomas Bentley MD 12/23/17 11:54 FINAL REPORT [facility] Hip 1 view DX Hip 1 view DX Patient Name: REESE BEVERLY : 1940; Age: 77 years y/o Female MR: [id number] * LEFT HIP, intraoperative, History: Left hip [...] seen with the various positional maneuvers. SL: [id number] 12/23/2017 - - Read by: Thomas Bentley MD Dictated Date/time: 12/23/17 11:47 Electronically Signed by: Thomas Bentley MD 12/23/17 11:50 FINAL REPORT [facility] BLOOD BANK RESULTS ABO/Rh O POS 12/16/2017 [facility] BLOOD BANK RESULTS Antibody Scrn Negative (12/16/17 3:00 PM) 12/16/2017 [facility] CHEM PANEL eGFR 34 mL/min/1.73m2 12/16/2017 Result [...] should be multiplied by the estimated BMI. [facility] CHEM PANEL Potassium Lvl 4.6 meq/L 3.5 - 5.1 12/16/2017 [facility] CHEM PANEL Creatinine Lvl 1.47 mg/dL 0.50 - 1.40 12/16/2017 [facility] CHEM PANEL Sodium Lvl 134 meq/L 135 - 145 12/16/2017 [facility] CHEM PANEL Chloride Lvl 101 meq/L 95 - 109 12/16/2017 [facility] CHEM PANEL Calcium Lvl 9.0 mg/dL 8.5 - 10.5 12/16/2017 [facility] CHEM PANEL CO2 20 meq/L 24 - 32 12/16/2017 [facility] CHEM PANEL Glucose Lvl 119 mg/dL 70 - 99 12/16/2017 [facility] CHEM PANEL BUN 29 mg/dL 7 - 22 12/16/2017 [facility] CHEM PANEL AGAP 17.6 meq/L 10.0 - 20.0 12/16/2017 [facility] INR 1.03 0.85 - 1.17 12/16/2017 [facility] PT 13.5 s 12.0 - 14.7 12/16/2017 [facility] PTT 35.6 s 22.9 - 35.8 12/16/2017 [facility] MCHC 33.0 g/dL 32.0 - 36.0 12/16/2017 [facility] MCV 86.5 fL 80.0 - 98.0 12/16/2017 [facility] MCH 28.5 pg 27.0 - 31.0 12/16/2017 [facility] RDW 14.2 % 11.5 - 14.5 12/16/2017 [facility] Platelet 285 K/CMM 133 - 450 12/16/2017 [facility] MPV 9.5 fL 7.4 - 10.4 12/16/2017 [facility] Hgb 13.0 g/dL 12.0 - 16.0 12/16/2017 [facility] Hct 39.6 % 36.0 - 48.0 12/16/2017 [facility] RBC 4.57 M/CMM 4.20 - 5.40 12/16/2017 [facility] HEMATOLOGY WBC 10.6 K/CMM 3.7 - 10.4 12/16/2017 [facility] HEMATOLOGY Eosinophils 1.5 % 0.0 - 4.0 12/16/2017 [facility] Segs-Bands # 6.9 K/CMM 1.5 - 8.1 12/16/2017 [facility] Monocytes 13.9 % 2.0 - 12.0 12/16/2017 [facility] Basophils 0.4 % 0.0 - 1.0 12/16/2017 [facility] Eosinophils # 0.2 K/CMM 0.0 - 0.5 12/16/2017 [facility] Lymphocytes # 2.0 K/CMM 1.0 - 5.5 12/16/2017 [facility] Monocytes # 1.5 K/CMM 0.0 - 0.8 12/16/2017 [facility] Segs 65.4 % 45.0 - 75.0 12/16/2017 [facility] Lymphocytes 18.8 % 20.0 - 40.0 12/16/2017 [facility] SPECIAL CHEMISTRY Hgb A1C 7.3 % <=5.6 % 12/16/2017 [facility] BLOOD BANK RESULTS RBC product Product available (12/16/17 2:58 PM) 12/16/2017 [facility] Chest 2 views DX Chest 2 views [...] Bruno Humphreys MD 12/16/17 15:51 FINAL REPORT [facility] CHEM PANEL eGFR 50 mL/min/1.73m2 11/02/2017 Result [...] should be multiplied by the estimated BMI. [facility] CHEM PANEL BUN 15 mg/dL 7 - 22 11/02/2017 [facility] CHEM PANEL Creatinine Lvl 1.08 mg/dL 0.50 - 1.40 11/02/2017 [facility] CHEM PANEL Sodium Lvl 137 meq/L 135 - 145 11/02/2017 [facility] CHEM PANEL Potassium Lvl 3.7 meq/L 3.5 - 5.1 11/02/2017 [facility] CHEM PANEL Chloride Lvl 103 meq/L 95 - 109 11/02/2017 [facility] CHEM PANEL CO2 22 meq/L 24 - 32 11/02/2017 [facility] CHEM PANEL Calcium Lvl 8.9 mg/dL 8.5 - 10.5 11/02/2017 [facility] CHEM PANEL Glucose Lvl 111 mg/dL 70 - 99 11/02/2017 [facility] CHEM PANEL AGAP 15.7 meq/L 10.0 - 20.0 11/02/2017 [facility] HEMATOLOGY Segs-Bands # 9.6 K/CMM 1.5 - 8.1 11/02/2017 [facility] HEMATOLOGY Lymphocytes # 1.3 K/CMM 1.0 - 5.5 11/02/2017 [facility] HEMATOLOGY Monocytes 15.1 % 2.0 - 12.0 11/02/2017 [facility] HEMATOLOGY Lymphocytes 9.7 % 20.0 - 40.0 11/02/2017 [facility] HEMATOLOGY Segs 74.0 % 45.0 - 75.0 11/02/2017 [facility] HEMATOLOGY Monocytes # 2.0 K/CMM 0.0 - 0.8 11/02/2017 [facility] HEMATOLOGY Basophils 0.7 % 0.0 - 1.0 11/02/2017 [facility] HEMATOLOGY Eosinophils 0.5 % 0.0 - 4.0 11/02/2017 [facility] HEMATOLOGY Eosinophils # 0.1 K/CMM 0.0 - 0.5 11/02/2017 [facility] HEMATOLOGY Basophils # 0.1 K/CMM 0.0 - 0.2 11/02/2017 [facility] HEMATOLOGY Platelet 230 K/CMM 133 - 450 11/02/2017 [facility] HEMATOLOGY MPV 10.3 fL 7.4 - 10.4 11/02/2017 [facility] HEMATOLOGY RDW 13.9 % 11.5 - 14.5 11/02/2017 [facility] HEMATOLOGY MCHC 33.2 g/dL 32.0 - 36.0 11/02/2017 [facility] HEMATOLOGY MCH 28.8 pg 27.0 - 31.0 11/02/2017 [facility] HEMATOLOGY MCV 86.7 fL 80.0 - 98.0 11/02/2017 [facility] HEMATOLOGY Hct 34.2 % 36.0 - 48.0 11/02/2017 [facility] HEMATOLOGY Hgb 11.4 g/dL 12.0 - 16.0 11/02/2017 [facility] HEMATOLOGY RBC 3.94 M/CMM 4.20 - 5.40 11/02/2017 [facility] HEMATOLOGY WBC 13.0 K/CMM 3.7 - 10.4 11/02/2017 [facility] PARATHYROID PROFILE Ca Ion WB 1.10 mMol/L 1.05 - 1.25 11/02/2017 [facility] PARATHYROID PROFILE Ca Norm WB 1.11 mMol/L 1.05 - 1.25 11/02/2017 [facility] CHEM PANEL Phosphorus 2.6 mg/dL 2.5 - 4.5 11/01/2017 [facility] CHEM PANEL eGFR 45 mL/min/1.73m2 11/01/2017 Result [...] should be multiplied by the estimated BMI. [facility] CHEM PANEL CO2 21 meq/L 24 - 32 11/01/2017 [facility] CHEM PANEL Calcium Lvl 8.2 mg/dL 8.5 - 10.5 11/01/2017 [facility] CHEM PANEL Sodium Lvl 134 meq/L 135 - 145 11/01/2017 [facility] CHEM PANEL Creatinine Lvl 1.17 mg/dL 0.50 - 1.40 11/01/2017 [facility] CHEM PANEL Potassium Lvl 4.0 meq/L 3.5 - 5.1 11/01/2017 [facility] CHEM PANEL Chloride Lvl 101 meq/L 95 - 109 11/01/2017 [facility] CHEM PANEL Glucose Lvl 261 mg/dL 70 - 99 11/01/2017 [facility] CHEM PANEL BUN 22 mg/dL 7 - 22 11/01/2017 [facility] CHEM PANEL AGAP 16.0 meq/L 10.0 - 20.0 11/01/2017 [facility] CHEM PANEL Magnesium Lvl 1.5 mg/dL 1.8 - 2.4 11/01/2017 [facility] HEMATOLOGY PT 14.5 s 12.0 - 14.7 11/01/2017 [facility] HEMATOLOGY PTT 31.4 s 22.9 - 35.8 11/01/2017 [facility] HEMATOLOGY INR 1.13 0.85 - 1.17 11/01/2017 [facility] HEMATOLOGY MCV 88.6 fL 80.0 - 98.0 11/01/2017 [facility] HEMATOLOGY WBC 14.1 K/CMM 3.7 - 10.4 11/01/2017 [facility] HEMATOLOGY Hct 35.9 % 36.0 - 48.0 11/01/2017 [facility] HEMATOLOGY Hgb 11.9 g/dL 12.0 - 16.0 11/01/2017 [facility] HEMATOLOGY RBC 4.05 M/CMM 4.20 - 5.40 11/01/2017 [facility] HEMATOLOGY Platelet 215 K/CMM 133 - 450 11/01/2017 [facility] HEMATOLOGY RDW 13.9 % 11.5 - 14.5 11/01/2017 [facility] HEMATOLOGY MPV 9.7 fL 7.4 - 10.4 11/01/2017 [facility] HEMATOLOGY MCHC 33.2 g/dL 32.0 - 36.0 11/01/2017 [facility] HEMATOLOGY MCH 29.4 pg 27.0 - 31.0 11/01/2017 [facility] HEMATOLOGY Lymphocytes 4.1 % 20.0 - 40.0 11/01/2017 [facility] HEMATOLOGY Segs 86.6 % 45.0 - 75.0 11/01/2017 [facility] HEMATOLOGY Segs-Bands # 12.2 K/CMM 1.5 - 8.1 11/01/2017 [facility] HEMATOLOGY Basophils 0.2 % 0.0 - 1.0 11/01/2017 [facility] HEMATOLOGY Monocytes # 1.3 K/CMM 0.0 - 0.8 11/01/2017 [facility] HEMATOLOGY Lymphocytes # 0.6 K/CMM 1.0 - 5.5 11/01/2017 [facility] HEMATOLOGY Monocytes 9.1 % 2.0 - 12.0 11/01/2017 [facility] PARATHYROID PROFILE Ca Norm WB 1.04 mMol/L 1.05 - 1.25 11/01/2017 [facility] PARATHYROID PROFILE Ca Ion WB 1.04 mMol/L 1.05 - 1.25 11/01/2017 [facility] BLOOD BANK RESULTS Antibody Scrn Negative (10/31/17 7:40 AM) 10/31/2017 [facility] BLOOD BANK RESULTS ABO/Rh O POS 10/31/2017 [facility] Vital Signs Vital Sign Value Date Comments Source Heart Rate 58 12/26/2017 [facility] Temperature Oral (F) 97.8 F 12/26/2017 [facility] Systolic (mm Hg) 177 12/26/2017 [facility] Diastolic (mm Hg) 64 12/26/2017 [facility] Respitory Rate 18 12/26/2017 [facility] Respitory Rate 18 12/26/2017 [facility] Systolic (mm Hg) 132 12/26/2017 [facility] Diastolic (mm Hg) 74 12/26/2017 [facility] Temperature Oral (F) 97.9 F 12/26/2017 [facility] Heart Rate 57 12/26/2017 [facility] Systolic (mm Hg) 148 12/26/2017 [facility] Diastolic (mm Hg) 66 12/26/2017 [facility] Respitory Rate 18 12/26/2017 [facility] Heart Rate 66 12/26/2017 [facility] Temperature Oral (F) 99.1 F 12/26/2017 [facility] BMI Calculated 28.12 12/16/2017 [facility] Weight 72.017 12/16/2017 [facility] Height 160.02 cm 12/16/2017 [facility] BMI Calculated 28.06 12/16/2017 [facility] Weight 71.847 12/16/2017 [facility] Height 160.02 cm 12/16/2017 [facility] BMI Calculated 28.4 11/18/2017 [facility] Height 160.02 cm 11/18/2017 [facility] Weight 72.727 11/18/2017 [facility] Systolic (mm Hg) 166 11/18/2017 [facility] Diastolic (mm Hg) 72 11/18/2017 [facility] Heart Rate 68 11/18/2017 [facility] Temperature Oral (F) 99.5 F 11/03/2017 [facility] Heart Rate 74 11/03/2017 [facility] Systolic (mm Hg) 168 11/03/2017 [facility] Diastolic (mm Hg) 72 11/03/2017 [facility] Respitory Rate 18 11/03/2017 [facility] Systolic (mm Hg) 143 11/03/2017 [facility] Diastolic (mm Hg) 73 11/03/2017 [facility] Temperature Oral (F) 98.5 F 11/03/2017 [facility] Respitory Rate 20 11/03/2017 [facility] Heart Rate 63 11/03/2017 [facility] Temperature Oral (F) 100.0 F 11/03/2017 [facility] Respitory Rate 20 11/03/2017 [facility] Heart Rate 67 11/03/2017 [facility] Systolic (mm Hg) 156 11/03/2017 [facility] Diastolic (mm Hg) 63 11/03/2017 [facility] Height 160.02 cm 11/01/2017 [facility] Weight 71.818 11/01/2017 [facility] BMI Calculated 28.05 11/01/2017 [facility] Weight 71.818 10/31/2017 [facility] BMI Calculated 28.05 10/31/2017 [facility] Height 160.02 cm 10/31/2017 [facility] Weight 71.818 10/28/2017 [facility] BMI Calculated 28.05 10/28/2017 [facility] Height 160.02 cm 10/28/2017 [facility] Height 160.02 cm 09/23/2017 [facility] Weight 75.455 09/23/2017 [facility] BMI Calculated 29.47 09/23/2017 [facility] Heart Rate 62 09/23/2017 [facility] Systolic (mm Hg) 192 09/23/2017 [facility] Diastolic (mm Hg) 73 09/23/2017 [facility] Encounters Location Location Details Encounter Type Encounter Number Reason For Visit Attending Provider ADM Date DC Date Status Source Outpatient [id number] CORBY CHOWIEH 09[facility]23/2017 [facility] [id number] Corby Maciash 09/23/2017 09/24/2017 [facility] Phone Message [id number] 09/24/2017 09/26/2017 [facility] Phone Message [id number] 09/30/2017 10/02/2017 [facility] Phone Message [id number] 10/03/2017 10/05/2017 [facility] Phone Message [id number] 10/08/2017 10/10/2017 [facility] Phone Message [id number] 10/09/2017 10/11/2017 [facility] Outpatient [id number] CORBY MACIASH 10/21/2017 [facility] [id number] Corby Chowieh 10/21/2017 10/22/2017 [facility] Phone Message [id number] 10/27/2017 10/29/2017 [facility] Outpatient [id number] CORBY MACIASH 10/31/2017 [facility] Inpatient [id number] Corby Chowieh 10/31/2017 11/03/2017 [facility] Phone Message [id number] 11/05/2017 11/07/2017 [facility] Outpatient [id number] CORBY MACIASH 11/18/2017 [facility] [id number] Corby Chowieh 11/18/2017 11/19/2017 [facility] Phone Message [id number] 11/25/2017 2017 [facility] [id number] Corby Maciash 2017 12/27/2017 [facility] [id number] CORBY MACIASH 12/16/2017 [facility] Outpatient [id number] Corby Lenin 12/16/2017 12/17/2017 [facility] Inpatient [id number] Bhaskar Barraza 12/23/2017 12/26/2017 [facility] [id number] Bhaskar Barraza 01/14/2018 02/13/2018 [facility] [id number] CORBY MACIASH 01/27/2018 [facility] Ambulatory Pre-Reg [id number] Corby Maciash 01/27/2018 01/27/2018 [facility] Procedures Procedure Code Date Perfomer Comments Source Knee replacement [id number] [facility] Nephrectomy [id number] [facility] Spinal fusion [id number] [facility] Appendectomy [id number] [facility] Bladder operation [id number] [facility] Carpal tunnel release [id number] [facility] Mastectomy with excision of regional lymph nodes<sup>1</sup> [id number] date unknown [facility] Appendectomy [id number] [facility] Bladder operation [id number] [facility] Carpal tunnel release [id number] [facility] Knee replacement 34245429 [facility] Mastectomy with excision of regional lymph nodes<sup>1</sup> [id number] date unknown [facility] Nephrectomy [id number] [facility] Spinal fusion [id number] [facility] Appendectomy [id number] [facility] Bladder operation [id number] [facility] Carpal tunnel release [id number] [facility] Knee replacement 14854092 [facility] Nephrectomy 143475134 [facility] Spinal fusion 54721567 [facility] Appendectomy 86509276 [facility] Bladder operation [id number] [facility] Carpal tunnel release 15831856 [facility] Knee replacement 58485785 [facility] Mastectomy with excision of regional lymph nodes<sup>1</sup> [id number] date unknown [facility] Nephrectomy [id number] [facility] Spinal fusion [id number] [facility]
--- OUTSIDE RECORDS SUMMARY | 2018-09-04 01:34 | XMS REPORT | Summary of Care ---
Author Author [facility] Neurosurgery [facility] Organization [facility] Address Unknown Phone Unavailable Encounter HQ Rodri(FIN) [id number] Date(s): 01/27/18 - 01/27/18 [facility] Neurosurgery [facility] [address] [address], [address] [place] [phone] Attending Physician: Corby Phelps MD Referring Physician: [...]
[2018-09-04] MEDS ORDERED: PANTOPRAZOLE SO40 MG PO (02:07)
[2018-09-04] MEDS ORDERED: CLONIDINE HCL 0.2 MG TAB PO ONE (02:15)
[2018-09-04] MEDS ORDERED: ONDANSETRON HCL INJ 2MG/ML 2ML 2 MG/ML VIAL ONE (02:45)
[2018-09-04] MEDS ORDERED: ONDANSETRON HCL INJ 2MG/ML 2ML 2 MG/ML VIAL IV STA (02:49)
[2018-09-04] MEDS ORDERED: ASPIRIN 81 MG CHEW TAB PO ONE (03:00)
[2018-09-04 03:31] LABS: BASOPHILS # (AUTO) 0.1 (0.0-0.1); BASOPHILS % 0.5 % (0.0-1.0); EOSINOPHILS # (AUTO) 0.2 (0.0-0.4); EOSINOPHILS % 1.3 % (0.0-6.0); HEMATOCRIT 39.3 % (34.2-44.1); HEMOGLOBIN 12.4 g/dL (12.0-16.0); LYMPHOCYTES # (AUTO) 1.1 (1.0-3.2); LYMPHOCYTES % 8.3 % (18.0-39.1); MEAN CORPUSCULAR HEMOGLOBIN 26.2 pg (28-32); MEAN CORPUSCULAR HGB CONC 31.6 g/dL (31-35); MEAN CORPUSCULAR VOLUME 83.1 fL (81-99); MONOCYTES # (AUTO) 1.3 (0.2-0.8); MONOCYTES % 9.9 % (4.4-11.3); NEUTROPHILS # (AUTO) 10.6 (2.1-6.9); NEUTROPHILS % 79.5 % (38.7-80.0); PLATELET COUNT 373 x10e3/uL (140-360); RED BLOOD COUNT 4.73 x10e6/uL (3.6-5.1); RED CELL DISTRIBUTION WIDTH 14.8 % (11.7-14.4)
[2018-09-04 03:34] LABS: CLARITY,URINE CLOUDY (CLEAR); COLOR,URINE STRAW (YELLOW); LEUKOCYTE ESTERASE ,URINE 1+ (NEGATIVE); NITRITE,URINE NEGATIVE (NEGATIVE)
[2018-09-04 03:35] LABS: BILIRUBIN,URINE NEGATIVE (NEGATIVE); KETONES,URINE NEGATIVE (NEGATIVE); PROTEIN,URINE DIPSTICK 2+ (NEGATIVE); URINE UROBILINOGEN 0.2 mg/dL (0.2 - 1)
[2018-09-04 03:43] LABS: BACTERIA,URINE FEW /HPF; EPITHELIAL CELLS,URINE FEW /LPF; RBC,URINE >50 /HPF (0-5)
[2018-09-04 03:56] LABS: ALBUMIN 3.8 g/dL (3.5-5.0); ANION GAP 15.9 mmol/L (8-16); CREATININE, SERUM 1.36 mg/dL (0.57-1.11); POTASSIUM 3.9 mmol/L (3.5-5.1)
[2018-09-04] MEDS ORDERED: CEFTRIAXONE SOD 1 GM/NS 50 ML 50 ML IV ONE ×2 (04:15→08:09)
--- NOTE | 2018-09-04 04:58 | Diagnostic Imaging Report ---
EXAM: CT Abdomen and Pelvis WITHOUT contrast INDICATION: Left flank pain. Rule out pyelonephritis COMPARISON: Lumbar spine CT 10/09/2017. TECHNIQUE: Abdomen and pelvis were scanned utilizing a multidetector helical scanner from the lung base to the pubic symphysis without administration of IV contrast. Absence of intravenous contrast decreases sensitivity for detection of focal lesions and vascular pathology. Coronal and sagittal reformations were obtained. Routine protocol was performed. IV CONTRAST: None ORAL CONTRAST: Water COMPLICATIONS: None RADIATION DOSE: Total DLP: 579.6 mGy*cm Estimated effective dose: (DLP x 0.015 x size factor) mSv Dose modulation, iterative reconstruction, and/or weight based adjustment of the mA/kV was utilized to reduce the radiation dose to as low as reasonably achievable. FINDINGS: LINES and TUBES: None. LOWER THORAX: Aortic and mitral annular calcifications. HEPATOBILIARY: No focal hepatic lesions. No biliary ductal dilation. GALLBLADDER: No radio-opaque stones or sludge. No wall thickening. SPLEEN: No splenomegaly. Calcified granuloma. PANCREAS: No focal masses or ductal dilatation. ADRENALS: No adrenal nodules KIDNEYS/URETERS: New mild caliectasis and moderate left pelviectasis with left perinephric stranding. No stones within the left kidney, upper collecting system, or proximal and mid ureter. Metallic streak artifacts from left hip prosthesis limit evaluation of the distal ureter. Right nephrectomy. GI TRACT: No abnormal distention, wall thickening, or evidence of bowel obstruction. There are diverticula within the colon without evidence of diverticulitis. PELVIC ORGANS/BLADDER: Hysterectomy. No bladder stones. LYMPH NODES: No lymphadenopathy. VESSELS: There is mild atherosclerotic disease in the aorta and major arterial branches. PERITONEUM / RETROPERITONEUM: No free air or fluid. BONES: Left hip arthroplasty. L4 posterior decompression with L4-S1 fusion. Grade 2 anterolisthesis of L4 on L5. SOFT TISSUES: Unremarkable. IMPRESSION: 1. New [id number] left hydronephrosis with left perinephric stranding. Metallic streak artifacts from left hip prosthesis limits evaluation for stones in the distal ureter. 2. Right nephrectomy. Signed by: DR. Héctor Braun MD on 09/04/2018 4:55 AM
[2018-09-04 05:46] LABS: CREATINE KINASE MB 3.1 ng/mL (0-5.0)
--- NOTE | 2018-09-04 10:50 | NUR ---
called lisa Spann to leave to [facility]; patient inquiring of insulin and want Layout Designer consult;
--- NOTE | 2018-09-04 11:59 | NUR ---
CALL PLACED TO DR. José Miguel RAPP'S SVC FOR THIS PT. RE HOME MEDS/INSULIN COVERAGE
--- NOTE | 2018-09-04 12:41 | NUR ---
2ND CALL TO DR. José Miguel RAPP FOR THIS PT.
--- NOTE | 2018-09-04 13:26 | NUR ---
3rd call to for this pt. re home
[2018-09-04] MEDS ORDERED: ZOLPIDEM TARTRATE 10 MG TAB PO PRN (13:45)
[2018-09-04] MEDS ORDERED: ZOLPIDEM TARTRATE 10 MG PO PRN (13:45)
[2018-09-04] MEDS ORDERED: DEXTROSE 50% SYRINGE 50 ML IV PRN (14:00)
[2018-09-04] MEDS ORDERED: CLOPIDOGREL75 MG (16:22)
[2018-09-04] MEDS ORDERED: NON-FORMULARY MEDICATION (Insulin Lispro (Humalog) 20 UNIT) SQ SCH (17:00)
[2018-09-04] MEDS: INSULIN LISPRO 100 UNIT/1 ML 3ML VIAL SQ SCH (17:00)
[2018-09-04] MEDS ORDERED: NON-FORMULARY MEDICATION (Insulin Detemir (Levemir) 30 UNITS) SQ SCH (21:00)
[2018-09-04] MEDS: INSULIN REGULAR, HUMAN 100 UNIT/1 ML 3ML VIAL SQ SCH ×2 (21:00→22:23)
[2018-09-04] MEDS: INSULIN GLARGINE 100 UNITS/ML VIAL SQ SCH (22:45)
[2018-09-04] MEDS ORDERED: CLONIDINE HCL 0.2 MG TAB ONE (23:04)
[2018-09-04 23:42] VITALS: BP 160/67
[2018-09-05] VITALS (9 sets, daily range): BP systolic 140–174; BP diastolic 67–72
[2018-09-05] MEDS: SODIUM CHLORIDE 0.9% 1000ML 1,000 ML IV SCH ×2 (00:15→09:11)
[2018-09-05] MEDS: TRAMADOL HCL 50 MG TAB PO PRN (04:50)
[2018-09-05] MEDS: LEVOTHYROXINE SODIUM 100 MCG TAB PO SCH (05:34)
[2018-09-05 06:35] LABS: BASOPHILS # (AUTO) 0.1 (0.0-0.1); BASOPHILS % 0.7 % (0.0-1.0); EOSINOPHILS # (AUTO) 0.2 (0.0-0.4); EOSINOPHILS % 3.5 % (0.0-6.0); HEMATOCRIT 35.2 % (34.2-44.1); HEMOGLOBIN 10.6 g/dL (12.0-16.0); LYMPHOCYTES # (AUTO) 1.3 (1.0-3.2); LYMPHOCYTES % 19.3 % (18.0-39.1); MEAN CORPUSCULAR HEMOGLOBIN 25.9 pg (28-32); MEAN CORPUSCULAR HGB CONC 30.1 g/dL (31-35); MEAN CORPUSCULAR VOLUME 86.1 fL (81-99); MONOCYTES # (AUTO) 1.1 (0.2-0.8); MONOCYTES % 15.9 % (4.4-11.3); NEUTROPHILS # (AUTO) 4.1 (2.1-6.9); PLATELET COUNT 268 x10e3/uL (140-360); RED BLOOD COUNT 4.09 x10e6/uL (3.6-5.1); RED CELL DISTRIBUTION WIDTH 15.1 % (11.7-14.4)
[2018-09-05 07:00] LABS: ALBUMIN 3.2 g/dL (3.5-5.0); ANION GAP 12.3 mmol/L (8-16); CREATININE, SERUM 1.04 mg/dL (0.57-1.11); POTASSIUM 4.3 mmol/L (3.5-5.1)
[2018-09-05] MEDS: INSULIN REGULAR, HUMAN 100 UNIT/1 ML 3ML VIAL SQ SCH ×5 (07:30→21:00)
--- NOTE | 2018-09-05 07:55 | NUR ---
spoke with md escobedo regarding consult notified pt of no abx on chart or urine cult. new orders received to use urine from er.
[2018-09-05] MEDS ORDERED: LEVOTHYROXINE SODIUM 88 MCG TAB PO SCH (09:00)
[2018-09-05] MEDS ORDERED: HYDROCHLOROTHIAZIDE PO SCH (09:00)
[2018-09-05] MEDS ORDERED: LOSARTAN PO SCH (09:00)
[2018-09-05] MEDS ORDERED: MELOXICAM 7.5 MG TAB PO SCH (09:00)
[2018-09-05] MEDS ORDERED: [UNRECOGNIZED DRUG - OTHER] PO SCH (09:00)
[2018-09-05] MEDS: PANTOPRAZOLE SOD 40 MG TABEC PO SCH (09:12)
[2018-09-05] MEDS: LOSARTAN POTASSIUM 100 MG TAB PO SCH (09:12)
[2018-09-05] MEDS: ATENOLOL 50 MG TAB PO SCH (09:12)
[2018-09-05] MEDS: CLONIDINE HCL 0.2 MG TAB PO SCH ×2 (09:12→16:33)
[2018-09-05] MEDS: HYDROCHLOROTHIAZIDE 25 MG TAB PO SCH (09:12)
[2018-09-05] MEDS: INSULIN LISPRO 100 UNIT/1 ML 3ML VIAL SQ SCH ×3 (09:13→16:34)
[2018-09-05] MEDS ORDERED: CEFEPIME HCL 1 GM VIAL IV SCH (11:15)
[2018-09-05] MEDS: CEFEPIME 1GM/NS 0.9% 50 ML 50 ML IV SCH ×2 (12:10→23:49)
--- NOTE | 2018-09-05 12:10 | NUR ---
MD RAPP ORDERED A STRAIGHT CATH CLEAN CATCH IF PREVIOUS URINE SAMPLE FROM THE ER WAS NOT COLLECTED THAT WAY PT STATES SHE GAVE A CLEAN CATCH IN A CUP IN THE ER STRAIGHT CATH PERFORMED FOR SECOND URINE COLLECTION
--- NOTE | 2018-09-05 13:21 | NUR ---
SOCIAL WORK INITIAL ASSESSMENT Shipping Point Inspector to bedside to discuss plan of care with patient/family. CM/SW role and care transitions discussed. Anticipated discharge plan discussed along with duration of care. CM/SW discussed patients right to make decisions in care. CM/SW work hours given. Patient lives: IN HOUSE WITH GRANDSON Admit/Transfer: VIA ED POA/Emergency contact: DAUGHTERS FABIOLA CRUZ [phone] AND ANGEL DAVALOS [phone] Current/Previous Home Health: NONE PCP/Follow-up Care: [facility] Current/Previous DME: [facility] Other Services: NONE Employment Status: RETIRED Areas of Concerns: NONE Referral Needs: NONE Education Needs: NONE IMM/STONE given and signed (if applicable): UPON ADMISSION Goal for discharge: RETURN HOME CM/SW left business card at the bedside with contact information. Name and number was also written on the patients whiteboard. Patient verbalized understanding of discussion. CM will follow-up with ongoing discharge and transition of care needs.
[2018-09-05] MEDS: INSULIN GLARGINE 100 UNITS/ML VIAL SQ SCH (21:45)
[2018-09-06] VITALS (8 sets, daily range): BP systolic 148–216; BP diastolic 67–86
[2018-09-06] MEDS: SODIUM CHLORIDE 0.9% 1000ML 1,000 ML IV SCH ×2 (03:12→06:57)
[2018-09-06] MEDS: TRAMADOL HCL 50 MG TAB PO PRN ×3 (03:14→20:40)
[2018-09-06] MEDS: CLONIDINE HCL 0.2 MG TAB PO SCH ×3 (03:40→21:30)
[2018-09-06] MEDS: LEVOTHYROXINE SODIUM 100 MCG TAB PO SCH (05:33)
[2018-09-06 06:27] LABS: BASOPHILS # (AUTO) 0.1 (0.0-0.1); BASOPHILS % 0.7 % (0.0-1.0); EOSINOPHILS # (AUTO) 0.2 (0.0-0.4); EOSINOPHILS % 2.9 % (0.0-6.0); HEMATOCRIT 32.2 % (34.2-44.1); LYMPHOCYTES # (AUTO) 1.3 (1.0-3.2); LYMPHOCYTES % 17.4 % (18.0-39.1); MEAN CORPUSCULAR HEMOGLOBIN 25.8 pg (28-32); MEAN CORPUSCULAR HGB CONC 31.1 g/dL (31-35); MEAN CORPUSCULAR VOLUME 83.2 fL (81-99); MONOCYTES # (AUTO) 1.2 (0.2-0.8); NEUTROPHILS # (AUTO) 4.5 (2.1-6.9); NEUTROPHILS % 62.6 % (38.7-80.0); PLATELET COUNT 267 x10e3/uL (140-360); RED BLOOD COUNT 3.87 x10e6/uL (3.6-5.1); RED CELL DISTRIBUTION WIDTH 14.8 % (11.7-14.4)
[2018-09-06 07:02] LABS: ANION GAP 11.6 mmol/L (8-16); BLOOD UREA NITROGEN 21 mg/dL (7-26); BUN/CREATININE RATIO 24 (6-25); CALCIUM 8.7 mg/dL (8.4-10.2); CARBON DIOXIDE 21 mmol/L (22-29); CHLORIDE 108 mmol/L (98-107); CREATININE, SERUM 0.88 mg/dL (0.57-1.11); EST GLOMERULAR FILTRATION RATE > 60 ML/MIN (60-); GLUCOSE 175 mg/dL (74-118); POTASSIUM 4.6 mmol/L (3.5-5.1); SODIUM 136 mmol/L (136-145)
--- NOTE | 2018-09-06 07:25 | NUR ---
PT RESTING IN BED AA0X3. PT IS IN NO S.S OF DISTRESS. DENIES PAIN .PT CONTINUES ON FLUIDS TO THE RIGHT AC 20 WITH NS AT 125. PT VERBALIZES PLAN OF CARE THAT INCLUDES IV FLUIDS AND IV ANTIBIOTICS FOR UTI. WILL CONTINUE TO MONITOR, SIDE RAILSX2, BED WHEELS LOCKED, CALL LIGHT IS WITHIN EASY REACH, INSTRUCTED TO CALL FOR ASSISTANCE IF NEEDED
[2018-09-06] MEDS: INSULIN REGULAR, HUMAN 100 UNIT/1 ML 3ML VIAL SQ SCH ×4 (07:30→21:00)
[2018-09-06] MEDS: INSULIN LISPRO 100 UNIT/1 ML 3ML VIAL SQ SCH ×3 (09:03→17:55)
[2018-09-06] MEDS: LOSARTAN POTASSIUM 100 MG TAB PO SCH (09:03)
[2018-09-06] MEDS: ATENOLOL 50 MG TAB PO SCH (09:03)
[2018-09-06] MEDS: PANTOPRAZOLE SOD 40 MG TABEC PO SCH (09:03)
[2018-09-06] MEDS: HYDROCHLOROTHIAZIDE 25 MG TAB PO SCH (09:03)
--- NOTE | 2018-09-06 09:14 | Consultation ---
DATE OF CONSULTATION: 09/05/2018 Urology Consultation REASON FOR CONSULTATION: Pyelonephritis. HISTORY OF PRESENT ILLNESS: Hilda Celaya is a complicated 77-year-old woman, who at the age 3, underwent two separate open surgeries of each of her kidneys via flank approach. She is unsure why. Number of years ago, she underwent a right nephrectomy due to the fact the right kidney was very big by Dr. Benito Quiles. She has not followed up with Dr. Quiles for many years, mostly because their group have abandoned the [facility]. The patient has had recurrent urinary tract infections ever since her back surgery in December of 2017. She denies incontinence and hematuria. She does report upon presentation with odor in the urine as well as dysuria. She has had two separate bladder suspensions in the past and it seemed to have worked for her incontinence. PAST MEDICAL AND SURGICAL HISTORY: 1. Status post back surgery. 2. Status post total abdominal hysterectomy, bilateral salpingo-oophorectomy. 3. Status post appendectomy. 4. Status post bilateral knee replacements. 5. Status post left hip replacement. 6. Hypertension. 7. Diabetes mellitus. 8. Hypercholesterolemia. 9. Coronary artery disease. CURRENT MEDICATIONS: Please refer to the MAR. ALLERGIES: OXYCODONE AND CODEINE. SOCIAL HISTORY: The patient denies smoking, alcohol, and drug use. 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 FAMILY HISTORY: Noncontributory to the active urological problems. REVIEW OF SYSTEMS: Consistent with above history of present illness and past medical history, is otherwise negative for all systems. PHYSICAL EXAMINATION: GENERAL: Very pleasant elderly woman, lying in bed, in no apparent distress. She is currently afebrile. VITAL SIGNS: Currently stable. ABDOMEN: Soft, nondistended, nontender, without costovertebral angle tenderness. Kidney are not palpable, without hepatosplenomegaly. No obvious evidence of hernia. The patient is obese. She has bilateral flank scars. For the remaining physical examination and systems, please refer to the admission history and physical in the chart. LABORATORY STUDIES: White blood cell count yesterday was elevated at 13,330, today that has normalized to 6.84; hemoglobin today is 10.6. The patient's creatinine is normal at 1.04, yesterday it was elevated at 1.36; sodium is low at 134, but it has improved from yesterday. Urinalysis significant for few epithelial cells with 6-10 wbc's and greater than 50 rbc's. Urine culture is pending, both the catheterized specimen as well as a clean-catch urine specimen. CT scan of the abdomen and pelvis was done with and without contrast. It revealed new mild caliectasis and moderate left pelviectasis with left perinephric stranding, with no stones of the left kidney. ASSESSMENT: 1. Left pyelonephritis. 2. Complicated urinary tract infection. 3. Obesity. 4. Solitary kidney. 5. Leukocytosis, that has improved. 6. Anemia. 7. Acute renal failure, that has improved. 8. Hyponatremia, that is getting better. 9. Microhematuria. PLAN: 1. IV antibiotics. 2. Await cultures. 3. Discharge home on culture specific antibiotics for 10 days with followup as outpatient in 3-4 weeks. Thank you very much for involving us in the care of your patient. We will be happy to follow her along with you as well as on outpatient. Umair MD Sarah OH/MODL /[id number] cc: MIKE RAPP MD Jt Morris, DO
--- NOTE | 2018-09-06 13:00 | NUR ---
MD Molly RAPP ROUNDED ON PT . IS AWARE OF PT HIGH BLOOD PRESSURE READINGS. CHANGED ORDER FOR CATAPRESS TO BE GIVEN TID INSNTEAD OF BID. WILL GIVE DOSE NOW FOR A BP OF 209/82 WILL MONITOR BP CLOSELY
[2018-09-06] MEDS: CEFEPIME 1GM/NS 0.9% 50 ML 50 ML IV SCH ×2 (13:01→20:30)
--- NOTE | 2018-09-06 19:06 | NUR ---
spoke with md cholo ramsay regarding high bp . orders to start new bp med given
[2018-09-06] MEDS: HYDRALAZINE HCL 10 MG TAB PO SCH (19:31)
[2018-09-06] MEDS: INSULIN GLARGINE 100 UNITS/ML VIAL SQ SCH (21:46)
[2018-09-07] MEDS: CEFEPIME 1GM/NS 0.9% 50 ML 50 ML IV SCH ×2 (00:12→11:30)
[2018-09-07 00:18] VITALS: BP 162/69
[2018-09-07 04:32] VITALS: BP 174/74
[2018-09-07] MEDS: LEVOTHYROXINE SODIUM 100 MCG TAB PO SCH (05:38)
[2018-09-07] MEDS: INSULIN REGULAR, HUMAN 100 UNIT/1 ML 3ML VIAL SQ SCH ×2 (07:30→12:36)
[2018-09-07 07:46] VITALS: BP 183/75
[2018-09-07] MEDS: INSULIN LISPRO 100 UNIT/1 ML 3ML VIAL SQ SCH ×2 (08:56→12:36)
[2018-09-07] MEDS: HYDROCHLOROTHIAZIDE 25 MG TAB PO SCH (09:40)
[2018-09-07] MEDS: PANTOPRAZOLE SOD 40 MG TABEC PO SCH (09:40)
[2018-09-07] MEDS: CLONIDINE HCL 0.2 MG TAB PO SCH (09:40)
[2018-09-07] MEDS: HYDRALAZINE HCL 10 MG TAB PO SCH (09:40)
[2018-09-07] MEDS: LOSARTAN POTASSIUM 100 MG TAB PO SCH (09:40)
[2018-09-07] MEDS: ATENOLOL 50 MG TAB PO SCH (09:41)
[2018-09-07 11:12] VITALS: BP 183/75
[2018-09-07 12:19] VITALS: BP 190/78
[2018-09-07] MEDS ORDERED: HYDRALAZINE HCL25 MG PO (12:25)
[2018-09-07] MEDS ORDERED: CLONIDINE HCL0.2 MG PO (12:26)
[2018-09-07] MEDS ORDERED: CEFUROXIME250 MG PO (12:27)
--- NOTE | 2018-09-07 13:07 | NUR ---
Patient seen by Dr. Smith and cleared for discharge. Dr. Juárez aware and orders for discharge, prescriptions in chart provided to patient, IV line removed and cath in place, dressing applied. contacts provided for f/u appt
--- NOTE | 2018-09-07 17:30 | NUR ---
IMM EXPLAINED TO PT , SIGNED BY PT AND PLACED ON CHART COPY TO PT IN CARE TRANSITION FOLDER
== END 2018-09-07 12:58 | disposition home or self-care (01) | DRG 690 ==
LOC: ER 01:29 → ERHOLD 07:25 → MED/SURG 23:40 → OBSVTOIN 09-05 20:41
DX: N10 Acute pyelonephritis (principal); Q60.0 Renal agenesis, unilateral; E11.9 Type 2 diabetes mellitus without complications; E03.9 Hypothyroidism, unspecified; I25.10 Atherosclerotic heart disease of native coronary artery without angina pectoris; E66.9 Obesity, unspecified; Z68.29 Body mass index [BMI] 29.0-29.9, adult; N17.9 Acute kidney failure, unspecified
CPT/HCPCS: 36415; 74176; 80048; 80053; 81001; 82550; 82553; 82948; 83036; 83690; 84484; 85025; 87086; 93005; 99284; G0378; J0692; J0696; J1815; J2405; J7030

== ENCOUNTER → 2018-10-15 | Outpatient (CLI) | payer MEDICARE, OTHER ==
[~2018-10-15] MED LIST changes: +CEFUROXIME250 MG PO; +CLOPIDOGREL75 MG; +FUROSEMIDE INJ 10 MG/ML 4 ML VIAL ONE; +HYDRALAZINE HCL25 MG PO
--- NOTE | 2018-10-16 00:21 | Diagnostic Imaging Report ---
Renal Scan with Lasix Washout Clinical information: 77 F with unspecified hydronephrosis. She is s/p right nephrectomy in 2004. Technique: Following intravenous administration of 10 mCi of Tc-99m MAG3, dynamic images of the kidneys in the posterior projection were obtained through 40 minutes. Lasix 40 mg was administered intravenously at 10 minutes post injection of the tracer. Report: Left kidney: Perfusion of the left kidney is prompt. The kidney has distorted reniform shape with very mild thinning of the renal cortex. Extraction of tracer from the blood pool is decreased. Clearance of tracer from the renal parenchyma begins promptly but is not complete by the end of the study. The pelvicalyceal system is dilated, predominantly the renal pelvis. The renal pelvis is at the lower pole of the kidney. Increased pooling of tracer is seen within the renal pelvis. No net drainage of tracer from the pelvicalyceal system is seen prior to administration of Lasix. Washout of tracer from the pelvicalyceal system following administration of Lasix is prolonged with a T-1/2 of 20 minutes (normal less than 15 minutes). No significant stasis of tracer is seen within the left ureter. Right kidney: Absent Differential renal function: The left kidney contributes 100% of total renal function and the right kidney is absent (normal 43-57%). Impression: The left kidney shows evidence of medical renal disease. Some loss of renal parenchyma is present evidenced by thinning of the renal cortex. Mild hydronephrosis is present. The location of the renal pelvis at the lower pole of the kidney raises question of duplicated ureters although a separate ureter is not seen at the upper pole. The T-1/2 for Lasix washout of the pelvicalyceal system of 20 minutes is in the indeterminate range so physiologically significant obstruction of the pelvicalyceal system at the UPJ cannot be excluded. Visually, the renal pelvis washes out adequately.. Signed by: Dr. Eva Kilpatrick M.D. on 10/16/2018 12:18 AM
== END ==
LOC: NM 13:46
PROVIDERS: ATTEND Urology
DX: N13.30 Unspecified hydronephrosis (principal)
CPT/HCPCS: 78708; A9562; J1940

== ENCOUNTER → 2019-05-06 | Outpatient (CLI) | payer MEDICARE, OTHER ==
--- NOTE | 2019-05-06 19:28 | Diagnostic Imaging Report ---
Renal Scan with Lasix Washout Clinical information: 78 F with chronic kidney disease. S/p right nephrectomy in 2005. Comparison: Renal scan with Lasix 10/15/2018 Technique: Following intravenous administration of 9.6 mCi of Tc-99m MAG3, dynamic images of the kidneys in the posterior projection were obtained through 40 minutes. Lasix 40 mg was administered intravenously at 10 minutes post injection of the tracer. Report: Left kidney: Perfusion of the left kidney is prompt. The kidney has mildly elongated distorted reniform shape with very mild thinning of the renal cortex. Extraction of tracer from the blood pool is decreased. Clearance of tracer from the renal parenchyma begins promptly but is not quite complete by the end of the study. The renal pelvis is prominent. Increased pooling of tracer is seen in the renal pelvis. No net drainage of tracer from the pelvicalyceal system is seen prior to administration of Lasix. Washout of tracer from the pelvicalyceal system following administration of Lasix is rapid with a T-1/2 of 6 minutes (normal less than 15 minutes). No significant stasis of tracer is seen within the left ureter. Right kidney: Absent Differential renal function: The left kidney contributes 100% of total renal function and the right kidney is absent (normal 43-57%). Impression: The left kidney shows evidence of medical renal disease. Some loss of renal parenchyma is present evidenced by thinning of the renal cortex. The renal pelvis is prominent but there is no dilation of the renal calyces. The T-1/2 for Lasix washout of the pelvicalyceal system of 6 minutes on today's study so physiologically significant obstruction of the pelvicalyceal system is no longer suspected. The appearance of the kidney is unchanged compared to the prior study of 10/15/2018. Washout of tracer from the renal pelvis is more rapid on today's study compared to the prior study, likely due to better overall hydration on today's study. Signed by: Dr. Eva Kilpatrick M.D. on 05/06/2019 7:25 PM
== END ==
LOC: NM 14:36
PROVIDERS: ATTEND Urology
DX: N18.9 Chronic kidney disease, unspecified (principal)
CPT/HCPCS: 78708; A9562; J1940

== ENCOUNTER 2019-11-08 00:08 | Inpatient (IN) | payer MEDICARE, OTHER ==
[2019-11-08] VITALS (11 sets, daily range): BP systolic 132–231; BP diastolic 62–103
[~2019-11-08] VITALS: Ht 160 cm; Wt 76.7 kg
[~2019-11-08 00:08] MED LIST changes: +ASPIR 8181 MG PO; -FUROSEMIDE INJ 10 MG/ML 4 ML VIAL ONE
[2019-11-08] MEDS ORDERED: MORPHINE SULFATE INJ 4 MG/ML INJ 1ML IV STA (00:10)
[2019-11-08] MEDS ORDERED: ONDANSETRON HCL INJ 2MG/ML 2ML 2 MG/ML VIAL IV STA (00:10)
--- OUTSIDE RECORDS SUMMARY | 2019-11-08 00:12 | XMS REPORT | Summary of Care ---
Author Author [facility] Address Unknown Phone Unavailable Encounter [facility](FIN) [id number] Date(s): 03/17/18 - 04/15/18 [facility] Encounter Diagnosis Other muscle spasm (Final) - Unilateral primary osteoarthritis, left hip (Final) - 04/21/18 Difficulty in walking, not elsewhere classified (Final) - Muscle weakness (generalized) (Final) - Other muscle spasm (Final) - Discharge Disposition: Home or Self Care Attending Physician: Bhaskar Barraza Vital Signs No data available for this section Problem List Condition Effective Dates Status Health Status Informan t DM (diabetes Active mellitus)(Confirmed) SOB (shortness of [...] Completed Mastectomy with excision of regional lymph Comple rosamaria nodes1 Nephrectomy Completed Spinal fusion Completed 1date unknown Social History Social History Type Response Alcohol Never Smoking Status Never smoker; Exposure to T obacco Smoke None; Cigarette Smoking Last 365 Days No; Reg Smoking Cessation Counseli ng No entered on: 12/23/17 Assessment and Plan No data available for this section
--- OUTSIDE RECORDS SUMMARY | 2019-11-08 00:12 | XMS REPORT | Summary of Care ---
Author Author [facility] Address Unknown Phone Unavailable Encounter [facility](FIN) [id number] Date(s): 02/13/18 - 03/14/18 [facility] Encounter Diagnosis Other muscle spasm (Final) - Unilateral primary osteoarthritis, left hip (Final) - 03/19/18 Other muscle spasm (Final) - Muscle weakness (generalized) (Final) - Presence of left artificial hip joint (Final) - Discharge Disposition: Home or Self [...]
--- OUTSIDE RECORDS SUMMARY | 2019-11-08 00:12 | XMS REPORT | Continuity of Care Document ---
Author Author Efe Cuevas [employer] Address Unknown Phone Unavailable Care Team Providers Care Manager Of Security Name Role Phone [employer] Unavailable Un available Problems Problem Status Onset Date Classification Date Reported Comments Source Unilateral primary osteoarthritis, left hip 04/21/2018 11/02/2018 [facility] [place] LEFT HIP Active 12/23/2017 [facility] [place] UNK Active 0 12/02/2017 [facility] PAIN IN LEFT HIP Active 12/02/2017 [facility] SONDYLOSIS Active 11/20/2017 [facility] [place] LUMBAR SPONYLOSIS, LUMBAR RADICULOPATHY Active 10/23/2017 [facility] Muscle weakness (generalized) 11/02/2018 [facility] [place] Difficulty in walking, not elsewhere classified 11/02/2018 [facility] [place] Other muscle spasm 11/02/2018 [facility] [place] Diabetes mellitus (disorder) A ctive Problem 11/2018 [facility] [place] Dyspnea on exertion (finding) Active Problem 11/2018 [facility] [place] Gastroesophageal reflux disease (disorder) Active Problem 11/02/2018 [facility] [place] Hypertensive disorder, systemic arterial (disorder) Active Problem 11/02/2018 [facility] [place] Hypothyroidism (disorder) Acti ve Problem 11/2018 [facility] [place] Personal history of primary malignant ne oplasm of breast (context-dependent category) Active Problem 11/02/2018 [facility] [place] Unsteadiness on feet 12/29/2017 [facility] [place] Presence of left artificial hip joint 10/01/2018 [facility] [place] 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 [facility] [place] DIFFICULTY IN WALKING, NOT ELSEWHERE CLA Active [facility] [place] OTHER ABNORMALITIES OF GAIT AND MOBILITY Active [facility] [place] UNSTEADINESS ON FEET Active [facility] [place] MUSCLE WEAKNESS (GENERALIZED) Active [facility] [place] 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 [facility] UNILATERAL PRIMARY OSTEOARTHRITIS, LEFT Active [facility] [place] OTHER MUSCLE SPASM Active [facility] [place] Medications Medication Details Route Status Patient Instructions Ordering Provider Order Date Source Amlodipine 10 MG / valsartan 320 MG Oral Tablet 1 tab, PO, Daily, # 30 tab, 0 Refill(s), Pharmacy: [id number] Active 12/26/2017 [facility] Acetaminophen 325 MG / Hydrocodone Lacey trate 7.5 MG Oral Tablet [Ezel 7.5/325] 1-2 tab, PO, Q8H, PRN Pain Score 7-10, X 7 day, # 60 tab, 0 Refill(s), given to patient Active 12/26/2017 [facility] NS 1,000 mL 1,000 mL, Rate: 10 0 ml/hr, Infuse over: 10 hr, Route: IV, Dosing Weight 72.017 kg, Total Volume: 1,000, Start date: 12/26/17 8:38:00 CDT, Duration: 30 day, Stop date: 01/25/18 8:37:00 CDT, 1.81, m2 Inactive 12/26/2017 [facility] insulin glargine Notes: (Same as: Lantus) Do not hold insulin without contacting prescriber WASTE: F/P - Black; E - Municipal Trash Bin "single patient use only" Inactive 12/25/2017 [facility] Insulin Lispro Notes: (Same as : Humalog ) Roll in palms of hands gently; Do not shake `vigorously. "Single Patient Use Only " WASTE: F/P - Black; E - Municipal Trash Bin Stable for 28 days at room temp erature. Expires in days from Date No Longer Active 12/25/2017 [facility] Levemir Notes: Non-Formulary D rug (Same as Levemir) Do not hold insulin without contacting prescriber WASTE: F/P - Black; E - Municipal Trash Bin "single patient use only" Inactive 12/25/2017 [facility] Levemir 20 unit, Route: SUB-Q, Bedtime, Dosing Weight 72.017, kg, Start date: 12/24/17 21:00:00 CDT, Duration: 30 day, Stop date: 01/22/18 21:00:00 CDT No Longe r Active 12/25/2017 [facility] Insulin Lispro Notes: (Same as : Humalog ) Roll in palms of hands gently; Do not shake `vigorously. "Single Patient Use Only " WASTE: F/P - Black; E - Municipal Trash Bin Stable for 28 days at room temp erature. Expires in days from Date No Longer Active 12/24/2017 [facility] Glucagon 1 mg, Route: IM, Drug form: PDR/INJ, PRN, Dosing Weight 72.017, kg, PRN Blood Glucose Results, Start date: 12/24/17 9:16:00 CDT, Duration: 30 day, Stop date: 01/23/18 9:15:00 CDT No Longer Active 12/24/2017 [facility] Dextrose 50% Syringe 25 gm, 50 mL, Route: IVP, Drug Form: INJ, Dosing Weight 72.017, kg, PRN, PRN Blood Glucose Results, Start date: 12/24/17 9:16:00 CDT, Duration: 30 day, Stop date: 01/23/18 9:15:00 CDT No Longer Active 12/24/2017 [facility] Atenolol 50 MG Oral Tablet Not es: (Same As:Tenormin) No Longer Active 12/24/2017 [facility] pantoprazole Notes: Tablet janee uld not be chewed or crushed. (Same as: Protonix) N o Longer Active 12/24/2017 [facility] Cozaar Notes: (Same as: Cozaar) No Longer Active 12/24/2017 [facility] hydrochlorothiazide 25 mg oral tablet Notes: (Same as: Hydrodiuril) With food. No Longer Active 12/24/2017 [facility] Hydrochlorothiazide 25 MG / Losartan Pot assium 100 MG Oral Tablet 1 tab, Route: PO, Drug Form: TAB, Dosing Weight 72.017, kg, Daily, Start date: 12/24/17 9:00:00 CDT, Duration: 30 day, Stop date: 01/22/18 9:00:00 CDT No Longer Active 12/24/2017 [facility] Thyroxine Notes: Take 1 hour b efore or 2 hours after meal; Enteral feeds may interefere with the absorption of this medication. (Same as:Levothroid, Synthroid) No Longer Active 12/24/2017 [facility] Clonidine Hydrochloride 0.1 MG Oral Tablet Notes: (Same As: Catapres) No Longer Active 12/24/2017 [facility] Ancef + sterile water 20 mL No jana: (Same As: Ancef, Kefzol) MEDICATION WASTE Product Size: 1000 mg Product Wasted: ___ mg Inactive 12/24/2017 [facility] cloNIDine 0.1 mg oral tablet N otes: (Same As: Catapres) No Longer Active 12/24/2017 [facility] insulin glargine Notes: (Same as: Lorena) Do not hold insulin without contacting prescriber WASTE: F/P - Black; E - Municipal Trash Bin "single patient use only" No Longer Active 12/24/2017 [facility] Zofran Notes: (Same as: Zofran ) MEDICATION WASTE Product Size: 4 mg Product Wasted: ___ mg No Longer Active 12/24/2017 [facility] Lunesta 3 mg, Route: PO, Bedti me, Dosing Weight 72.017, kg, Start date: 12/23/17 21:00:00 CDT, Duration: 30 day, Stop date: 01/21/18 21:00:00 CDT Inactive 12/24/2017 [facility] zolpidem Notes: (Same As: Ambi en) No Longer Active 12/24/2017 [facility] Enoxaparin Notes: (Same as: Lo venox) No Longer Active 12/24/2017 [facility] Cefazolin 1 gm, Route: IVPB, D rug form: INJ, Q6H, Dosing Weight 72.017, kg, Start date: 12/23/17 12:00:00 CDT, Duration: 3 doses or times, Stop date: 12/24/17 0:00:00 CDT, ABX Indication: Surgical Prophylaxis Inactive 12/23/2017 [facility] Ancef + sterile water 20 mL No jana: (Same As: Ancef, Kefzol) MEDICATION WASTE Product Size: 1000 mg Product Wasted: ___ mg Inactive 12/23/2017 [facility] Ondansetron 4 mg, Route: IVP, ONCE, Dosing Weight 72.017, kg, PRN Nausea & Vomiting, Start date: 12/23/17 9:39:00 CDT Inactive 12/23/2017 [facility] Promethazine 6.25 mg, Route: I VPB, ONCE, Dosing Weight 72.017, kg, PRN Nausea & Vomiting, Start date: 12/23/17 9:39:00 CDT Inactive 12/23/2017 [facility] Meperidine 12.5 mg, Route: IVP , Q30Min, Dosing Weight 72.017, kg, PRN Other -See Comment, For shivering, Start date: 12/23/17 9:39:00 CDT, Duration: 2 doses or times, Stop date: Limited # of times Inactive 12/23/2017 [facility] Naloxone 0.4 mg, Route: IVP, Q 2MIN, Dosing Weight 72.017, kg, PRN Narcotic Reversal, Start date: 12/23/17 9:39:00 CDT, Duration: 8 doses or times, Stop date: Limited # of times Inactive 12/23/2017 [facility] Diphenhydramine 12.5 mg, Route : IVP, Drug form: INJ, Q6H, Dosing Weight 72.017, kg, PRN Itching, Start date: 12/23/17 9:39:00 CDT, Duration: 30 day, Stop date: 01/22/18 9:38:00 CDT Inactive 12/23/2017 [facility] Albuterol 0.83 MG/ML Inhalant Solution 2.49 mg, Route: NEB, Q20Min, Dosing Weight 72.017, kg, PRN Wheezing, Priority: STAT, Start date: 12/23/17 9:39:00 CDT, Duration: 30 day, Stop date: 01/22/18 9:38:00 CDT Inactive 12/23/2017 [facility] Flumazenil 0.2 mg, Route: IVP, PRN, Dosing Weight 72.017, kg, PRN Benzodiazepine Reversal, Initial dose, Start date: 12/23/17 9:39:00 CDT, Duration: 30 day, Stop date: 01/22/18 9:38:00 CDT Inactive 12/23/2017 [facility] Fentanyl 50 microgram, Route: IVP, Q5Min, Dosing Weight 72.017, kg, PRN Pain Score 7-10, Priority: Routine, Start date: 12/23/17 9:39:00 CDT, Duration: 2 doses or times, Stop date: Limited # of times Inactive 12/23/2017 [facility] Labetalol 10 mg, Route: IVP, Q 5Min, Dosing Weight 72.017, kg, PRN Elevated BP, Start date: 12/23/17 9:39:00 CDT, Duration: 5 doses or times, Stop date: Limited # of times Inactive 12/23/2017 [facility] esmolol 10 mg, Route: IVP, Q5M in, Dosing Weight 72.017, kg, PRN Other -See Comment, Start date: 12/23/17 9:39:00 CDT, Duration: 5 doses or times, Stop date: Limited # of times Inactive 12/23/2017 [facility] Hydralazine 10 mg, Route: IVP, Q20Min, Dosing Weight 72.017, kg, PRN Elevated BP, Start date: 12/23/17 9:39:00 CDT, Duration: 2 doses or times, Stop date: Limited # of times Inactive 12/23/2017 [facility] Calcium Chloride 0.0014 MEQ/ML / Potassi um Chloride 0.004 MEQ/ML / Sodium Chloride 0.103 MEQ/ML / Sodium Lactate 0.028 MEQ/ML Injectable Solution 1,000 mL, Rate: 125 ml/hr, Infuse over: 8 hr, Route: IV, Dosing Weight 72.017 kg, Total Volume: 1,000, Start date: 12/23/17 9:39:00 CDT, Duration: 30 day, Stop date: 01/22/18 9:38:00 CDT, 1.81, m2 Inactive 12/23/2017 [facility] glycopyrrolate (ANES) Route: I V, Drug form: INJ, ONCE, Stop date: 12/23/17 9:11:00 CDT Inactive 12/23/2017 [facility] neostigmine (ANES) Route: IV, Drug form: INJ, ONCE, Stop date: 12/23/17 9:11:00 CDT Inactive 12/23/2017 [facility] Enoxaparin 40 mg, Route: SUB-Q , Drug form: INJ, Daily, Dosing Weight 72.017, kg, Start date: 12/23/17 9:00:00 CDT, Duration: 30 day, Stop date: 01/21/18 9:00:00 CDT Inactive 12/23/2017 [facility] Naloxone 0.04 mg, Route: IVP, Q2MIN, Dosing Weight 72.017, kg, PRN Narcotic Reversal, Start date: 12/23/17 8:51:00 CDT, Duration: 30 day, Stop date: 01/22/18 8:50:00 CDT Inactive 12/23/2017 [facility] Hydromorphone 15 mg, 30 mL, Ro wrangell: IV, STAFF COUNSELOR Dose: 0.2 mg, STAFF COUNSELOR Lockout: 8 minutes, Continuous Basal Rate: 0 mg, 4 Hour Limit (In MG): 6, Continuous, Start date: 12/23/17 8:51:00 CDT, Duration: 30 day, Stop date: 8:50:00 CDT Inactive 12/23/2017 [facility] Acetaminophen 325 MG / Hydrocodone Lacey trate 7.5 MG Oral Tablet [Ezel 7.5/325] Notes: Same as Ezel 325-7.5mg Do not exceed 4gm/day of acetaminophen. No Longer Active 12/23/2017 [facility] Tylenol Notes: Do not exceed 4 gm/day. (Same as: Tylenol) No Longer Active 12/23/2017 [facility] Lactated Ringers IV 1000 mL 1, 000 mL, Rate: 75 ml/hr, Infuse over: 13.3 hr, Route: IV, Dosing Weight 72.017 kg, Total Volume: 1,000, Start date: 12/23/17 8:51:00 CDT, Duration: 30 day, Stop date: 01/22/18 8:50:00 CDT, 1.81, m2 Inactive 12/23/2017 [facility] Melatonin Notes: (Same as: Yanna atonin) No Longer Active 12/23/2017 [facility] tranexamic acid (ANES) Route: IV, Drug form: INJ, ONCE, Stop date: 12/23/17 8:11:00 CDT Inactive 12/23/2017 [facility] famotidine (ANES) Route: IV, D rug form: INJ, ONCE, Stop date: 12/23/17 8:11:00 CDT Inactive 12/23/2017 [facility] ondansetron (ANES) Route: IV, Drug form: INJ, ONCE, Stop date: 12/23/17 8:11:00 CDT Inactive 12/23/2017 [facility] acetaminophen (ANES) Route: IV , Drug form: INJ, ONCE, Stop date: 12/23/17 8:11:00 CDT Inactive 12/23/2017 [facility] ceFAZolin (ANES) Route: IV, Dr ug form: INJ, ONCE, Stop date: 12/23/17 8:11:00 CDT Inactive 12/23/2017 [facility] rocuronium (ANES) Route: IV, D rug form: INJ, ONCE, Stop date: 12/23/17 8:11:00 CDT Inactive 12/23/2017 [facility] propofol (ANES) Route: IV, Oscar g form: INJ, ONCE, Stop date: 12/23/17 8:11:00 CDT Inactive 12/23/2017 [facility] fentaNYL (ANES) Route: IV, Oscar g form: INJ, ONCE, Stop date: 12/23/17 8:06:00 CDT Inactive 12/23/2017 [facility] lidocaine (ANES) Route: IV, Dr ug form: INJ, ONCE, Stop date: 12/23/17 8:06:00 CDT Inactive 12/23/2017 [facility] ropivacaine Notes: NOT FOR IV use Ropivacaine 5 mg/mL (49.25 mL) Epinephrine 1 mg/mL (0.5 mL) Clonidine 0.1 mg/mL (0.8 mL) Ketorolac 30 mg/mL (1 mL) Normal Saline 48.45 mL No Longer Active 12/23/2017 [facility] celecoxib Notes: NSAID. Please check indication. Not for seizure. (Same As: CeleBREX) Inactive 12/23/2017 [facility] gabapentin Notes: (Same as: Ne urontin) Inactive 12/23/2017 [facility] Lactated Ringers Injection IV (ANES) 1000 mL Route: IV, Total Volume: 1,000, Start date: 12/23/17 6:56:00 CDT, Stop date: 12/23/17 7:56:00 CDT Inactive 12/23/2017 [facility] vancomycin (ANES) 1000 mg Rout e: IV, Drug form: INJ, Start date: 12/23/17 6:51:00 CDT, Stop date: 12/23/17 7:51:00 CDT Inactive 12/23/2017 [facility] Insulin regular Notes: (Same a s: Humulin R and NovoLIN R) WASTE: F/P - Black; E - Municipal Trash Bin (Do not shake) Inactive 12/23/2017 [facility] Insulin regular 4 unit, Route: IVP, ONCE, Dosing Weight 72.017, kg, Start date: 12/23/17 5:57:00 CDT, Stop date: 12/23/17 5:57:00 CDT Inactive 12/23/2017 [facility] Albuterol 0.833 MG/ML / Ipratropium Brom kip 0.167 MG/ML Inhalant Solution Notes: (Same as: Loi) Inactive 12/23/2017 [facility] Calcium Chloride 0.0014 MEQ/ML / Potassi um Chloride 0.004 MEQ/ML / Sodium Chloride 0.103 MEQ/ML / Sodium Lactate 0.028 MEQ/ML Injectable Solution 1,000 mL, Rate: 25 ml/hr, Infuse over: 4 0 hr, Route: IV, Dosing Weight 72.017 kg, Total Volume: 1,000, Start date: 12/23/17 5:56:00 CDT, Duration: 1 day, Stop date: 12/24/17 5:55:00 CDT, 1.81, m2 Inactive 12/23/2017 [facility] 0.4 ML Enoxaparin sodium 100 MG/ML Prefi lled Syringe [Lovenox] 40 mg, SUB-Q, Daily, # 14 inj, 0 Refill(s) Active 12/22/2017 [facility] Cephalexin 500 MG Oral Capsule [Keflex] 500 mg = 1 cap, PO, QID, X 10 day, # 40 cap, 0 Refill(s) Active 12/22/2017 [facility] tramadol hydrochloride 50 MG Oral Tablet 50 mg = 1 tab, PO, BID, # 30 tab, 0 Refill(s) No Longer Active 12/16/2017 [facility] meloxicam 15 mg oral tablet 15 mg = 1 tab, PO, Daily, # 30 tab, 0 Refill(s) No Longer Active 12/16/2017 [facility] levothyroxine 100 mcg (0.1 mg) oral tablet 100 microgram = 1 tab, PO, Daily, # 30 tab, 0 Refill(s) Active 12/16/2017 [facility] Methocarbamol 500 MG Oral Tablet [Robaxin] 1,000 mg = 2 tab, PO, QID, PRN Muscle Spasms, # 90 tab, 0 Refill(s), Pharmacy: [facility] [id number] Active 11/03/2017 [facility] Docusate Sodium 50 MG Oral Capsule 50 mg = 1 cap, PO, BID, PRN as needed for constipation, Pediatric Dosing, # 90 cap, 0 Refill(s) Active 11/03/2017 [facility] cloNIDine 0.2 mg oral tablet N otes: (Same As: Catapres) No Longer Active 11/02/2017 [facility] Tylenol Notes: Do not exceed 4 gm/day. (Same as: Tylenol) No Longer Active 11/02/2017 [facility] insulin detemir Notes: Non-For mulary Drug (Same as Levemir) Do not hold insulin without contacting prescriber WASTE: F/P - Black; E - Municipal Trash Bin "single patient use only" No Longer Active 11/01/2017 [facility] cloNIDine 0.1 mg oral tablet N otes: (Same As: Catapres) No Longer Active 11/01/2017 [facility] insulin detemir 100 UNT/ML Injectable So lution [Levemir] 30 unit, SUB-Q, Bedtime, 0 Refill(s) Active 11/01/2017 [facility] nter Insulin, Aspart, Human 100 UNT/ML Inject able Solution [NovoLog] 20 unit, SUB-Q, TID-Before Meals, # 10 m L, 0 Refill(s) Active 11/01/2017 [facility] Cozaar Notes: (Same as: Cozaar) No Longer Active 11/01/2017 [facility] pantoprazole 40 mg oral enteric coated tablet 40 mg = 1 tab, PO, Daily, # 30 tab, 0 Refill(s) Active 11/01/2017 [facility] nt Clonidine Hydrochloride 0.1 MG Oral Tablet See Instructions, 2 tabs in the morning 1 tab at noon 1 tab at bedtime [facility] [id number], 0 Refill(s) Active 11/01/2017 [facility] Hydrochlorothiazide 25 MG / Losartan Pot assium 100 MG Oral Tablet 1 tab, PO, Daily, [facility] [id number], # 30 tab, 0 Refill(s) Active 11/01/2017 [facility] Atenolol 50 MG Oral Tablet Not es: (Same As:Tenormin) No Longer Active 11/01/2017 [facility] Famotidine 20 MG Oral Tablet N otes: (Same as: Pepcid) No Longer Active 11/01/2017 [facility] sennosides, JAIL Notes: (Same a s: Senokot) No Longer Active 11/01/2017 [facility] Docusate Notes: (Same as: Cola ce) (Do Not Crush) No Longer Active 11/01/2017 [facility] Lovenox Notes: (Same as: Loven ox) No Longer Active 11/01/2017 [facility] Magnesium Sulfate Notes: WASTE : F/P - Sink; E - Municipal Trash Bin Inactive 11/01/2017 [facility] Calcium Chloride Notes: WASTE: F/P - Sink; E - Municipal Trash Bin Inactive 11/01/2017 [facility] Dextrose 50% Syringe 12.5 gm, 25 mL, Route: IVP, Drug Form: INJ, Dosing Weight 71.818, kg, PRN, PRN Blood Glucose Results, Start date: 10/31/17 23:01:00 CDT, Duration: 30 day, Stop date: 11/30/17 23:00:00 CDT No Longer Active 11/01/2017 [facility] Glucagon 1 mg, Route: IM, Drug form: PDR/INJ, PRN, Dosing Weight 71.818, kg, PRN Blood Glucose Results, Start date: 10/31/17 23:01:00 CDT, Duration: 30 day, Stop date: 11/30/17 23:00:00 CDT No Longer Active 11/01/2017 [facility] Insulin regular 60 units) W ASTE: F/P - Black; E - Municipal Trash Bin Stable for 28 days at room temperature Expires in days from Date N o Longer Active 11/01/2017 [facility] nter Cefazolin Notes: (Same as Ance f) No Longer Active 11/01/2017 [facility] Saline Flush 0.9% Notes: (Same as: BD Posiflush) No Longer Active 11/01/2017 [facility] zolpidem Notes: (Same As: Ambi en) No Longer Active 11/01/2017 [facility] sugammadex Notes: (Same as: Br idion) No Longer Active 10/31/2017 [facility] sugammadex (ANES) Route: IV, D rug form: SOLN, ONCE, Stop date: 10/31/17 17:12:00 CDT Inactive 10/31/2017 [facility] nter ondansetron (ANES) Route: IV, Drug form: INJ, ONCE, Stop date: 10/31/17 17:12:00 CDT Inactive 10/31/2017 [facility] nter hydromorphone (ANES) Route: IV , Drug form: INJ, ONCE, Stop date: 10/31/17 17:11:00 CDT Inactive 10/31/2017 [facility]ter Saline Flush 0.9% Notes: (Same as: BD Posiflush) No Longer Active 10/31/2017 [facility] Melatonin 3 MG Extended Release Tablet Notes: (Same as: Melatonin) No Longer Active 10/31/2017 [facility] Bisacodyl Notes: (Same As: Dul colax, Bisco-Lax) No Longer Active 10/31/2017 [facility] Benadryl Notes: (Same as: Erin dryl) No Longer Active 10/31/2017 [facility] Dilaudid Notes: Same as Dilaud id No Longer Active 10/31/2017 [facility] phenol Notes: Chloraseptic Spr ay (Same as: Chloraseptic, Sore Throat Ewing) WASTE: F/P - Black; E - Municipal Trash Bin No Longer Active 10/31/2017 [facility] Labetalol 10 mg, 2 mL, Route: IVP, Drug form: INJ, Q15Min, Dosing Weight 71.818, kg, PRN Hypertension, Start date: 10/31/17 17:11:00 CDT, Duration: 30 day, Stop date: 11/30/17 17:10:00 CDT No Longer Active 10/31/2017 [facility] Acetaminophen 325 MG / Hydrocodone Lacey trate 10 MG Oral Tablet [Ezel 10/325] Notes: Do not exceed 4gm/day of acetamin ophen. (Same as: Ezel 325/10) No Longer Active 10/31/2017 [facility] Hydralazine Notes: (Same as: A presoline) Push over 5 minutes No Longer Active 10/31/2017 [facility] Ondansetron Notes: (Same as: Alexus beltrán) MEDICATION WASTE Product Size: 4 mg Product Wasted: ___ mg No Longer Active 10/31/2017 [facility] Naloxone Notes: Same as Narcan Inactive 10/31/2017 [facility] Flumazenil Notes: (Same as: Ro mazicon) Inactive 10/31/2017 [facility] Ondansetron Notes: (Same as: Alexus beltrán) MEDICATION WASTE Product Size: 4 mg Product Wasted: ___ mg Inactive 10/31/2017 [facility] Fentanyl Notes: (Same as: Subl imaze) Preservative free. Inactive 10/31/2017 [facility] Hydromorphone Notes: Same as: Dilaudid Inactive 10/31/2017 [facility] Insulin regular (ANES) Route: IV, Drug form: INJ, ONCE, Stop date: 10/31/17 13:51:00 CDT Inactive 10/31/2017 [facility] nter ketAMINE (ANES) Route: IV, Oscar g form: INJ, ONCE, Stop date: 10/31/17 13:16:00 CDT Inactive 10/31/2017 [facility] nter dexmedetomidine (ANES) 200 microgram Route: IV, Drug form: INJ, Start date: 10/31/17 12:54:00 CDT, Stop date: 10/31/17 13:54:00 CDT Inactive 10/31/2017 [facility] ePHEDrine (ANES) Route: IV, Dr ug form: INJ, ONCE, Stop date: 10/31/17 12:26:00 CDT Inactive 10/31/2017 [facility] nter scopolamine (ANES) Route: IV, Drug form: ERFILM, ONCE, Stop date: 10/31/17 11:46:00 CDT Inactive 10/31/2017 [facility] nter ceFAZolin (ANES) Route: IV, Dr ug form: INJ, ONCE, Stop date: 10/31/17 11:41:00 CDT Inactive 10/31/2017 [facility] nter fentaNYL (ANES) Route: IV, Oscra g form: INJ, ONCE, Stop date: 10/31/17 11:41:00 CDT Inactive 10/31/2017 [facility] nter lidocaine (ANES) Route: IV, Dr ug form: INJ, ONCE, Stop date: 10/31/17 11:41:00 CDT Inactive 10/31/2017 [facility] nter rocuronium (ANES) Route: IV, D rug form: INJ, ONCE, Stop date: 10/31/17 11:41:00 CDT Inactive 10/31/2017 [facility] nter propofol (ANES) Route: IV, Oscar g form: INJ, ONCE, Stop date: 10/31/17 11:41:00 CDT Inactive 10/31/2017 [facility] nter PlasmaLyte A PH-7.4 (ANES) 1000 mL Route: IV, Total Volume: 1,000, Start date: 10/31/17 10:22:00 CDT, Stop date: 10/31/17 11:22:00 CDT Inactive 10/31/2017 [facility] Lactated Ringers Injection IV (ANES) 1000 mL Route: IV, Total Volume: 1,000, Start date: 10/31/17 10:04:00 CDT, Stop date: 10/31/17 11:04:00 CDT Inactive 10/31/2017 [facility] ceFAZolin + sterile water 20 mL Notes: (Same As: Rebeca Martinez) MEDICATION WASTE Product Size: 1000 mg Product Wasted: ___ mg No Longer Active 10/31/2017 [facility] NovoLog SUB-Q, TID-Before Meal s, 0 Refill(s) No Longer Active 10/28/2017 [facility] Clonidine 0 Refill(s) No Longer Active 10/28/2017 [facility] tramadol hydrochloride 50 MG Oral Tablet 50 mg = 1 tab, PO, Q4H, 0 Refill(s) No Longer Active 10/28/2017 [facility]ter zolpidem 10 mg oral tablet 10 mg = 1 tab, PO, Bedtime, 0 Refill(s) Active 10/28/2017 [facility] Levemir SUB-Q, 0 Refill(s) No Longer Active 10/28/2017 [facility] Atenolol 50 MG Oral Tablet 50 mg = 1 tab, PO, Daily, 0 Refill(s) Active 10/28/2017 [facility] Allergies, Adverse Reactions, Alerts Substance Category Reaction Severity Reaction type Status Date Reported Comments Source codeine Assertion Drug allergy Active [facility] Tylox Assertion [facility] Immunizations Immunization Date Given Site Status Last Updated Comments Source pneumococcal 13-valent vaccine 11/03/[address] [facility] pneumococcal 23-valent vaccine 05/12/2009 Left Arm completed Bimal [facility] Results Order Name Results Value Reference Range Date Interpretation Comments Source CHEM PANEL Glucose Lvl 204 70 - 99 12/25/2017 [facility] CHEM PANEL Sodium Lvl 127 135 - 145 12/25/2017 [facility] CHEM PANEL BUN 28 7 - 22 12/25/2017 [facility] CHEM PANEL Chloride Lvl 93 95 - 109 12/25/2017 [facility] CHEM PANEL Potassium Lvl 4.1 3.5 - 5.1 12/25/2017 [facility] CHEM PANEL eGFR 40 12/25/2017 Result Comment: The eGFR is calculated [...] should be multiplied by the estimated BMI. [facility] CHEM PANEL Creatinine Lvl 1.29 0.50 - 1.40 12/25/2017 [facility] CHEM PANEL AGAP 18.1 10.0 - 20.0 12/25/2017 [facility] CHEM PANEL CO2 20 24 - 32 12/25/2017 [facility] CHEM PANEL Calcium Lvl 8.2 8.5 - 10.5 12/25/2017 [facility] HEMATOLOGY MCV 85.6 80.0 - 98.0 12/25/[address] [facility] Hgb 8.9 12.0 - 16.0 12/25/[address] [facility] Hct 26.1 36.0 - 48.0 12/25/[address] [facility] RBC 3.05 4.20 - 5.40 12/25/[address] [facility] WBC 10.7 3.7 - 10.4 12/25/[address] [facility] MPV 9.3 7.4 - 10.4 12/25/[address] [facility] Platelet 202 133 - 450 12/25/[address] [facility] MCHC 34.0 32.0 - 36.0 12/25/[address] [facility] RDW 14.1 11.5 - 14.5 12/25/[address] [facility] MCH 29.1 27.0 - 31.0 12/25/[address] [facility] Plt Morph Maria Alejandra l (12/25/17 3:19 AM) 12/25/[address] [facility] Segs 72.3 45.0 - 75.0 12/25/[address] [facility] Monocytes 17.0 2.0 - 12.0 12/25/[address] [facility] Eosinophils 1.8 0.0 - 4.0 12/25/2017 [facility] RBC Morph Maria Alejandra l (12/25/17 3:19 AM) 12/25/[address] [facility] Lymphocytes 8.5 20.0 - 40.0 12/25/[address] [facility] Basophils 0.4 0.0 - 1.0 12/25/[address] [facility] Monocytes # 1.8 0.0 - 0.8 12/25/[address] [facility] Eosinophils # 0.2 0.0 - 0.5 12/25/[address] [facility] Segs-Bands # 7.7 1.5 - 8.1 12/25/[address] [facility] Lymphocytes # 0.9 1.0 - 5.5 12/25/2017 [facility] ELECTROLYTES AGAP 15.3 10.0 - 20.0 12/24/2017 [facility] ELECTROLYTES Potassium Lvl 4.3 3.5 - 5.1 12/24/2017 [facility] ELECTROLYTES BUN 34 7 - 22 12/24/2017 [facility] ELECTROLYTES Glucose Lvl 264 70 - 99 12/24/2017 [facility] ELECTROLYTES Creatinine Lvl 1.6 9 0.50 - 1.40 12/24/2017 [facility] ELECTROLYTES Sodium Lvl 126 135 - 145 12/24/2017 [facility] ELECTROLYTES CO2 23 24 - 32 12/24/2017 [facility] ELECTROLYTES Chloride Lvl 92 95 - 109 12/24/2017 [facility] ELECTROLYTES Calcium Lvl 7.6 8.5 - 10.5 12/24/2017 [facility] ELECTROLYTES eGFR 29 12/24/2017 Result Comment: The eGFR is calculated [...] should be multiplied by the estimated BMI. [facility] HEMATOLOGY PTT 45.8 22.9 - 35.8 12/24/2017 [facility] HEMATOLOGY INR 1.13 0.85 - 1.17 12/24/2017 [facility] HEMATOLOGY PT 14.5 12.0 - 14.7 12/24/2017 [facility] HEMATOLOGY Monocytes 16.0 2.0 - 12.0 12/24/2017 [facility] HEMATOLOGY Lymphocytes # 0.8 1.0 - 5.5 12/24/2017 [facility] HEMATOLOGY Monocytes # 1.8 0.0 - 0.8 12/24/2017 [facility] HEMATOLOGY Eosinophils 0.1 0.0 - 4.0 12/24/2017 [facility] HEMATOLOGY Basophils 0.2 0.0 - 1.0 12/24/2017 [facility] HEMATOLOGY Segs 77.1 45.0 - 75.0 12/24/2017 [facility] HEMATOLOGY Lymphocytes 6.6 20.0 - 40.0 12/24/2017 [facility] Segs-Bands # 8.9 1.5 - 8.1 12/24/[address] [facility] MPV 10.1 7.4 - 10.4 12/24/[address] [facility] WBC 11.6 3.7 - 10.4 12/24/[address] [facility] RBC 3.29 4.20 - 5.40 12/24/[address] [facility] MCH 27.6 27.0 - 31.0 12/24/[address] [facility] Hgb 9.1 12.0 - 16.0 12/24/[address] [facility] Hct 27.7 36.0 - 48.0 12/24/[address] [facility] MCV 84.3 80.0 - 98.0 12/24/[address] [facility] MCHC 32.7 32.0 - 36.0 12/24/[address] [facility] RDW 14.5 11.5 - 14.5 12/24/2017 [facility] Platelet 219 133 - 450 12/24/2017 [facility] SPECIAL CHEMISTRY Hgb A1C 7.2 <=5.6 % 12/24/2017 [facility] BLOOD BANK RESULTS ABO/Rh O POS 12/16/2017 [facility] BLOOD [facility] RESULTS Antibody Scrn Negative (12/16/17 3:00 PM) 12/16/2017 [facility] CHEM PANEL eGFR 34 12/16/2017 Result Comment: The eGFR is calculated [...] should be multiplied by the estimated BMI. [facility] CHEM PANEL Potassium Lvl 4.6 3.5 - 5.1 12/16/2017 [facility] CHEM PANEL Creatinine Lvl 1.47 0.50 - 1.40 12/16/2017 [facility] CHEM PANEL Sodium Lvl 134 135 - 145 12/16/2017 [facility] CHEM PANEL Chloride Lvl 101 95 - 109 12/16/2017 [facility] CHEM PANEL Calcium Lvl 9.0 8.5 - 10.5 12/16/2017 [facility] CHEM PANEL CO2 20 24 - 32 12/16/2017 [facility] CHEM PANEL Glucose Lvl 119 70 - 99 12/16/2017 [facility] CHEM PANEL BUN 29 7 - 22 12/16/2017 [facility] CHEM PANEL AGAP 17.6 10.0 - 20.0 12/16/2017 [facility] HEMATOLOGY INR 1.03 0.85 - 1.17 12/16/2017 [facility] HEMATOLOGY PT 13.5 12.0 - 14.7 12/16/2017 [facility] PTT 35.6 22.9 - 35.8 12/16/[address] [facility] MCHC 33.0 32.0 - 36.0 12/16/[address] [facility] MCV 86.5 80.0 - 98.0 12/16/2017 [facility] MCH 28.5 27.0 - 31.0 12/16/2017 [facility] HEMATOLOGY RDW 14.2 11.5 - 14.5 12/16/2017 [facility] Platelet 285 133 - 450 12/16/[address] [facility] MPV 9.5 7.4 - 10.4 12/16/[address] [facility] Hgb 13.0 12.0 - 16.0 12/16/[address] [facility] Hct 39.6 36.0 - 48.0 12/16/2017 [facility] HEMATOLOGY RBC 4.57 4.20 - 5.40 12/16/[address] [facility] WBC 10.6 3.7 - 10.4 12/16/2017 [facility] HEMATOLOGY Eosinophils 1.5 0.0 - 4.0 12/16/2017 [facility] HEMATOLOGY Segs-Bands # 6.9 1.5 - 8.1 12/16/[address] [facility] Monocytes 13.9 2.0 - 12.0 12/16/2017 [facility] HEMATOLOGY Basophils 0.4 0.0 - 1.0 12/16/2017 [facility] HEMATOLOGY Eosinophils # 0.2 0.0 - 0.5 12/16/2017 [facility] HEMATOLOGY Lymphocytes # 2.0 1.0 - 5.5 12/16/2017 [facility] HEMATOLOGY Monocytes # 1.5 0.0 - 0.8 12/16/2017 [facility] HEMATOLOGY Segs 65.4 45.0 - 75.0 12/16/2017 [facility] HEMATOLOGY Lymphocytes 18.8 20.0 - 40.0 12/16/2017 [facility] SPECIAL CHEMISTRY Hgb A1C 7.3 <=5.6 % 12/16/2017 [facility] BLOOD BANK RESULTS RBC product Product available (12/16/17 2:58 PM) 12/16/2017 [facility] CHEM PANEL eGFR 50 11/02/2017 Result Comment: The eGFR is calculated [...] should be multiplied by the estimated BMI. [facility] CHEM PANEL BUN 15 7 - 22 11/02/2017 [facility] CHEM PANEL Creatinine Lvl 1.08 0.50 - 1.40 11/02/2017 [facility] CHEM PANEL Sodium Lvl 137 135 - 145 11/02/2017 [facility] CHEM PANEL Potassium Lvl 3.7 3.5 - 5.1 11/02/2017 [facility] CHEM PANEL Chloride Lvl 103 95 - 109 11/02/2017 [facility] CHEM PANEL CO2 22 24 - 32 11/02/2017 [facility] CHEM PANEL Calcium Lvl 8.9 8.5 - 10.5 11/02/2017 [facility] CHEM PANEL Glucose Lvl 111 70 - 99 11/02/2017 [facility] CHEM PANEL AGAP 15.7 10.0 - 20.0 11/02/2017 [facility] HEMATOLOGY Segs-Bands # 9.6 1.5 - 8.1 11/02/2017 [facility] HEMATOLOGY Lymphocytes # 1.3 1.0 - 5.5 11/02/2017 [facility] HEMATOLOGY Monocytes 15.1 2.0 - 12.0 11/02/2017 [facility] HEMATOLOGY Lymphocytes 9.7 20.0 - 40.0 11/02/2017 [facility] HEMATOLOGY Segs 74.0 45.0 - 75.0 11/02/2017 [facility] HEMATOLOGY Monocytes # 2.0 0.0 - 0.8 11/02/2017 [facility] HEMATOLOGY Basophils 0.7 0.0 - 1.0 11/02/2017 [facility] HEMATOLOGY Eosinophils 0.5 0.0 - 4.0 11/02/2017 [facility] HEMATOLOGY Eosinophils # 0.1 0.0 - 0.5 11/02/2017 [facility] HEMATOLOGY Basophils # 0.1 0.0 - 0.2 11/02/2017 [facility] HEMATOLOGY Platelet 230 133 - 450 11/02/2017 [facility] HEMATOLOGY MPV 10.3 7.4 - 10.4 11/02/2017 [facility] HEMATOLOGY RDW 13.9 11.5 - 14.5 11/02/2017 [facility] HEMATOLOGY MCHC 33.2 32.0 - 36.0 11/02/2017 [facility] HEMATOLOGY MCH 28.8 27.0 - 31.0 11/02/2017 [facility] HEMATOLOGY MCV 86.7 80.0 - 98.0 11/02/2017 [facility] HEMATOLOGY Hct 34.2 36.0 - 48.0 11/02/2017 [facility] HEMATOLOGY Hgb 11.4 12.0 - 16.0 11/02/2017 [facility] HEMATOLOGY RBC 3.94 4.20 - 5.40 11/02/2017 [facility] HEMATOLOGY WBC 13.0 3.7 - 10.4 11/02/2017 [facility] PARATHYROID PROFILE Ca Ion WB 1.10 1.05 - 1.25 11/02/2017 [facility] PARATHYROID PROFILE Ca Norm WB 1.11 1.05 - 1.25 11/02/2017 [facility] CHEM PANEL Phosphorus 2.6 2.5 - 4.5 11/01/2017 [facility] CHEM PANEL eGFR 45 11/01/2017 Result Comment: The eGFR is calculated [...] should be multiplied by the estimated BMI. [facility] CHEM PANEL CO2 21 24 - 32 11/01/2017 [facility] CHEM PANEL Calcium Lvl 8.2 8.5 - 10.5 11/01/2017 [facility] CHEM PANEL Sodium Lvl 134 135 - 145 11/01/2017 [facility] CHEM PANEL Creatinine Lvl 1.17 0.50 - 1.40 11/01/2017 [facility] CHEM PANEL Potassium Lvl 4.0 3.5 - 5.1 11/01/2017 [facility] CHEM PANEL Chloride Lvl 101 95 - 109 11/01/2017 [facility] CHEM PANEL Glucose Lvl 261 70 - 99 11/01/2017 [facility] CHEM PANEL BUN 22 7 - 22 11/01/2017 [facility] CHEM PANEL AGAP 16.0 10.0 - 20.0 11/01/2017 [facility] CHEM PANEL Magnesium Lvl 1.5 1.8 - 2.4 11/01/2017 [facility] HEMATOLOGY PT 14.5 12.0 - 14.7 11/01/2017 [facility] HEMATOLOGY PTT 31.4 22.9 - 35.8 11/01/2017 [facility] HEMATOLOGY INR 1.13 0.85 - 1.17 11/01/2017 [facility] HEMATOLOGY MCV 88.6 80.0 - 98.0 11/01/2017 [facility] HEMATOLOGY WBC 14.1 3.7 - 10.4 11/01/2017 [facility] HEMATOLOGY Hct 35.9 36.0 - 48.0 11/01/2017 [facility] HEMATOLOGY Hgb 11.9 12.0 - 16.0 11/01/2017 [facility] HEMATOLOGY RBC 4.05 4.20 - 5.40 11/01/2017 [facility] HEMATOLOGY Platelet 215 133 - 450 11/01/2017 [facility] HEMATOLOGY RDW 13.9 11.5 - 14.5 11/01/2017 [facility] HEMATOLOGY MPV 9.7 7.4 - 10.4 11/01/2017 [facility] HEMATOLOGY MCHC 33.2 32.0 - 36.0 11/01/2017 [facility] HEMATOLOGY MCH 29.4 27.0 - 31.0 11/01/2017 [facility] HEMATOLOGY Lymphocytes 4.1 20.0 - 40.0 11/01/2017 [facility] HEMATOLOGY Segs 86.6 45.0 - 75.0 11/01/2017 [facility] HEMATOLOGY Segs-Bands # 12.2 1.5 - 8.1 11/01/2017 [facility] HEMATOLOGY Basophils 0.2 0.0 - 1.0 11/01/2017 [facility] HEMATOLOGY Monocytes # 1.3 0.0 - 0.8 11/01/2017 [facility] HEMATOLOGY Lymphocytes # 0.6 1.0 - 5.5 11/01/2017 [facility] HEMATOLOGY Monocytes 9.1 2.0 - 12.0 11/01/2017 [facility] PARATHYROID PROFILE Ca Norm WB 1.04 1.05 - 1.25 11/01/2017 [facility] PARATHYROID PROFILE Ca Ion WB 1.04 1.05 - 1.25 11/01/2017 [facility] BLOOD BANK RESULTS Antibody Scrn Negative (10/31/17 7:40 AM) 10/31/2017 [facility] BLOOD BANK RESULTS ABO/Rh O POS 10/31/2017 [facility] Pathology Reports No Data Provided for This Section Diagnostic Reports Report Value Date Source Hip 1 view DX Patient Name: WESTLEY BEVERLY : 1940; Age: 77 years y/o Female MR: [id number] LEFT HIP, 1 view, portable, postoperative HISTORY: Postoperative study, following left hip arthroplasty. TECHNIQUE: A single portable postoperative frontal view of the left hip was obtained. IMPRESSION: The left total hip prosthesis is in good position. There is no evidence of unexpected fracture or other complication. There is postoperative soft tissue gas. There are lateral surgical skin rosalia. SL: [id number] 12/23/2017 [facility] Hip 1 view DX Patient Name: WESTLEY BEVERLY : 1940; Age: 77 years y/o Female MR: [id number] * LEFT HIP, intraoperative, History: Left hip [...] seen with the various positional maneuvers. SL: [id number] 12/23/2017 [facility] Chest 2 views DX Clinical Stefany cation: Coughing - pre-op Comparison: 11/08/2008 FINDINGS: The PA and lateral chest radiographs shows normal lung volumes without interstitial or airspace opacities, pleural effusions or pneumothorax. The heart size and pulmonary vasculature are normal. The trachea is midline. There are no clinically significant osseous abnormalities noted. IMPRESSION: No chest radiographic evidence of acute cardiopulmonary disease. SL: [id number] 12/16/2017 [facility] Consultation Notes No Data Provided for This Section Discharge Summaries No Data Provided for This Section History and Physicals No Data Provided for This Section Vital Signs Vital Sign Value Date Comments Source Heart Rate 58 12/26/2017 [facility] Temperature Oral (F) 97.8 F 12/26/2017 [facility] Systolic (mm Hg) 177 12/26/2017 [facility] Diastolic (mm Hg) 64 12/26/2017 [facility] Respitory Rate 18 12/26/2017 [facility] Respitory Rate 18 12/26/2017 [facility] Systolic (mm Hg) 132 12/26/2017 [facility] Diastolic (mm Hg) 74 12/26/2017 [facility] Temperature Oral (F) 97.9 F 12/26/2017 [facility] Heart Rate 57 12/26/2017 [facility] Systolic (mm Hg) 148 12/26/2017 [facility] Diastolic (mm Hg) 66 12/26/2017 [facility] Respitory Rate 18 12/26/2017 [facility] Heart Rate 66 12/26/2017 [facility] Temperature Oral (F) 99.1 F 12/26/2017 [facility] BMI Calculated 28.12 12/16/2017 [facility] Weight 72.017 12/16/2017 [facility] Height 160.02 cm 12/16/2017 [facility] BMI Calculated 28.06 12/16/2017 [facility] Weight 71.847 12/16/2017 [facility] Height 160.02 cm 12/16/2017 [facility] BMI Calculated 28.4 11/18/2017 [facility] Height 160.02 cm 11/18/2017 [facility] Weight 72.727 [facility]/18/2017 [facility] Systolic (mm Hg) 166 11/18/2017 [facility] Diastolic (mm Hg) 72 11/18/2017 [facility] Heart Rate 68 11/18/2017 [facility] Temperature Oral (F) 99.5 F 11/03/2017 [facility] Heart Rate 74 11/03/2017 [facility] Systolic (mm Hg) 168 11/03/2017 [facility] Diastolic (mm Hg) 72 11/03/2017 [facility] Respitory Rate 18 11/03/2017 [facility] Systolic (mm Hg) 143 11/03/2017 [facility] Diastolic (mm Hg) 73 11/03/2017 [facility] Temperature Oral (F) 98.5 F 11/03/2017 [facility] Respitory Rate 20 11/03/2017 [facility] Heart Rate 63 11/03/2017 [facility] Temperature Oral (F) 100.0 F 11/03/2017 [facility] Respitory Rate 20 11/03/2017 [facility] Heart Rate 67 11/03/2017 [facility] Systolic (mm Hg) 156 11/03/2017 [facility] Diastolic (mm Hg) 63 11/03/2017 [facility] Height 160.02 cm 11/01/2017 [facility] Weight 71.818 11/01/2017 [facility] BMI Calculated 28.05 11/01/2017 [facility] Weight 71.818 10/31/2017 [facility] BMI Calculated 28.05 10/31/2017 [facility] Height 160.02 cm 10/31/2017 [facility] Weight 71.818 10/28/2017 [facility] BMI Calculated 28.05 10/28/2017 [facility] Height 160.02 cm 10/28/2017 [facility] Height 160.02 cm 09/23/2017 [facility] Weight 75.455 09/23/2017 [facility] BMI Calculated 29.47 09/23/2017 [facility] Heart Rate 62 09/23/2017 [facility] Systolic (mm Hg) 192 09/23/2017 [facility] Diastolic (mm Hg) 73 09/23/2017 [facility] Encounters Location Location Details Encounter Type Encounter Number Reason For Visit Attending Provider ADM Date DC Date Status Source Outpatient [id number] CORBY WEATHERSIEH 09/23/2017 Active [facility] Outpatient [id number] Corby Hudsonh 09/23/2017 09/24/2017 [facility] Phone Message [id number] 09/24/2017 09/26/2017 [facility] Phone Message [id number] 09/30/2017 10/02/2017 [facility] Phone Message [id number] 10/03/2017 10/05/2017 [facility] Phone Message [id number] 10/08/2017 10/10/2017 [facility] Phone Message [id number] 10/09/2017 10/11/2017 [facility] Outpatient [id number] [facility] 10/21/2017 Active [facility] Outpatient [id number] Cor[facility] 10/21/2017 10/22/2017 [facility] Phone Message [id number] 10/27/2017 10/29/2017 [facility] Outpatient [id number] [facility] 10/31/2017 Active [facility] Inpatient [id number] Corby Ge 10/31/2017 11/03/2017 [facility] Phone Message [id number] 11/05/2017 11/07/2017 [facility] Outpatient [id number] CORBY WEATHERSIEH 11/18/2017 Active [facility] Outpatient [id number] [facility] 11/18/2017 11/19/2017 [facility] Phone Message [id number] 11/25/2017 2017 [facility] [id number] Corby Ge 2017 12/27/2017 [facility] Outpatient [id number] [facility] 12/16/2017 Active [facility] Outpatient [id number] Ocrby Ge 12/16/2017 12/17/2017 [facility] Inpatient [id number] Bhaskar Barraza 12/23/2017 12/26/2017 [facility] [place] [facility] [id number] Bhaskar Evangelistan 01/14/2018 02/13/2018 [facility] [place] Outpatient [id number] [facility] 01/27/2018 Active [facility] Ambulatory Pre-Reg [id number] [facility] 01/27/2018 01/27/2018 [facility] [place] [facility] [id number] Bhaskar Barraza 02/13/2018 03/15/2018 [facility] [id number] Bhaskar Barraza 03/17/2018 04/16/2018 [facility] [place] Procedures Procedure Code Date Perfomer Comments Source Appendectomy [id number] [facility] Bladder operation [id number] [facility] Carpal tunnel release [id number] [facility] Knee replacement [id number] [facility] Mastectomy with excision of regional lym ph nodes<sup>1</sup> [id number] date unknown [facility] Nephrectomy [id number] [facility] uro,[facility] [place] Spinal fusion [id number] [facility] Assessment and Plan Assessment and Plan Date Source Extracted from:Title: Progress Note Author: Blair Marcos MD Date: 12/26/17 Left total hip arthroplasty diabetes mellitus on insulin Hypertension Insomnia Osteoarthritis Hyponatremia acute Acute kidney injury resolved Continue present care. Okay to discharge to facility. Recommend repeatBMP next week. Acute kidney injury has resolved. Supportive care to continue. [facility] 12/26/2017 [facility] Plan of Care No Data Provided for This Section Social History Social History Date Source Social History TypeResponse Alcohol Never Smoking Status Never smoker; Exposure to Tobacco Smoke None; Cigarette Smoking Last 365 Days No; Reg Smoking Cessation Counseling No entered on: 12/23/17 10/28/2017 [facility] Social History TypeResponse Alcohol Never Smoking Status Never smoker; Exposure to Tobacco Smoke None; Cigarette Smoking Last 365 Days No; Reg Smoking Cessation Counseling No entered on: 12/23/17 10/28/2017 [facility] [place] Social History TypeResponse Alcohol Never Smoking Status Never smoker; Exposure to Tobacco Smoke None; Cigarette Smoking Last 365 Days No; Reg Smoking Cessation Counseling No entered on: 10/31/17 10/28/2017 [facility] Social History TypeResponse Alcohol Never Smoking Status Never smoker; Exposure to Tobacco Smoke None; Cigarette Smoking Last 365 Days No; Reg Smoking Cessation Counseling No entered on: 12/23/17 10/28/2017 [facility] Family History No Data Provided for This Section Advance Directives No Data Provided for This Section Functional Status No Data Provided for This Section
[2019-11-08] MEDS ORDERED: HYDRALAZINE HCL 20 MG/ML VIAL IV ONE (00:15)
[2019-11-08] MEDS ORDERED: ASPIRIN 81 MG CHEW TAB PO ONE ×2 (00:15→02:15)
[2019-11-08 01:00] LABS: BASOPHILS # (AUTO) 0.1 (0.0-0.1); BASOPHILS % 0.6 % (0.0-1.0); EOSINOPHILS # (AUTO) 0.2 (0.0-0.4); EOSINOPHILS % 2.5 % (0.0-6.0); HEMATOCRIT 38.9 % (34.2-44.1); HEMOGLOBIN 12.5 g/dL (12.0-16.0); LYMPHOCYTES # (AUTO) 2.2 (1.0-3.2); LYMPHOCYTES % 25.4 % (18.0-39.1); MEAN CORPUSCULAR HEMOGLOBIN 27.5 pg (28-32); MEAN CORPUSCULAR HGB CONC 32.1 g/dL (31-35); MEAN CORPUSCULAR VOLUME 85.5 fL (81-99); MONOCYTES # (AUTO) 1.1 (0.2-0.8); NEUTROPHILS # (AUTO) 4.9 (2.1-6.9); NEUTROPHILS % 57.6 % (38.7-80.0); PLATELET COUNT 310 x10e3/uL (140-360); RED BLOOD COUNT 4.55 x10e6/uL (3.6-5.1); RED CELL DISTRIBUTION WIDTH 14.4 % (11.7-14.4)
[2019-11-08 01:05] LABS: ALBUMIN 3.6 g/dL (3.5-5.0); ALBUMIN/GLOBULIN RATIO 0.9 (0.8-2.0); CALCIUM 9.5 mg/dL (8.4-10.2); CREATININE, SERUM 1.32 mg/dL (0.57-1.11)
[2019-11-08 01:51] LABS: CREATINE KINASE MB 3.4 ng/mL (0-5.0)
--- NOTE | 2019-11-08 01:52 | Diagnostic Imaging Report ---
EXAMINATION: CHEST SINGLE (PORTABLE) INDICATION: Chest pain, left-sided, short of breath COMPARISON: Chest x-ray 05/20/2019 FINDINGS: TUBES and LINES: None. LUNGS: Normal lung volumes. Mild prominence of central and infrahilar interstitial lung markings. Prominent central pulmonary vasculature. PLEURA: No pleural effusion or pneumothorax. HEART AND MEDIASTINUM: Cardiac size is mildly enlarged. Aortic calcifications. BONES AND SOFT TISSUES: No acute osseous lesion. Surgical clips in the left axilla. UPPER ABDOMEN: No free air under the diaphragm. IMPRESSION: Mild cardiomegaly and pulmonary vascular congestion, mild pulmonary interstitial edema is possible.. Signed by: Familia Adams DO on 11/08/2019 1:48 AM
[2019-11-08] MEDS ORDERED: ONDANSETRON HCL INJ 2MG/ML 2ML 2 MG/ML VIAL IV PRN (02:15)
[2019-11-08] MEDS ORDERED: HYDRALAZINE HCL 20 MG/ML VIAL IV PRN (02:30)
[2019-11-08] MEDS ORDERED: MORPHINE SULFATE INJ 4 MG/ML INJ 1ML IV PRN (02:30)
--- OUTSIDE RECORDS SUMMARY | 2019-11-08 02:34 | XMS REPORT | Continuity of Care Document ---
Author Author Efe Cuevas [employer] REESE Giron [employer] Dialog Address Unknown Phone Unavailable Care Team Providers Care Instructional Writer Name Role Phone [employer] Unavailable Un available Problems Problem Status Onset Date Classification Date Reported Comments Source Unilateral primary osteoarthritis, left hip 04/21/2018 11/02/2018 [facility] [place] LEFT HIP Active 12/23/2017 [facility] [place] UNK Active 0 12/02/2017 [facility] PAIN IN LEFT HIP Active 12/02/2017 [facility] SONDYLOSIS Active 11/20/2017 [facility] [place] LUMBAR SPONYLOSIS, LUMBAR RADICULOPATHY Active 10/23/2017 [facility] Muscle weakness (generalized) 11/02/2018 [facility] [place] Difficulty in walking, not elsewhere classified 11/02/2018 [facility] [place] Other muscle spasm 11/02/2018 [facility] [place] Diabetes mellitus (disorder) A ctive Problem 11/2018 [facility] [place] Dyspnea on exertion (finding) Active Problem 11/2018 [facility] [place] Gastroesophageal reflux disease (disorder) Active Problem 11/02/2018 [facility] [place] Hypertensive disorder, systemic arterial (disorder) Active Problem 11/02/2018 [facility] [place] Hypothyroidism (disorder) Acti ve Problem 11/2018 [facility] [place] Personal history of primary malignant ne oplasm of breast (context-dependent category) Active Problem 11/02/2018 [facility] [place]ade na Unsteadiness on feet 12/29/2017 [facility] [place] Presence of left artificial hip joint 10/01/2018 [facility] [place] 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 [facility] [place] DIFFICULTY IN WALKING, NOT ELSEWHERE CLA Active [facility] [place] OTHER ABNORMALITIES OF GAIT AND MOBILITY Active [facility] [place] UNSTEADINESS ON FEET Active [facility] [place] MUSCLE WEAKNESS (GENERALIZED) Active [facility] [place] 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 [facility] UNILATERAL PRIMARY OSTEOARTHRITIS, LEFT Active [facility] [place] OTHER MUSCLE SPASM Active [facility] [place] Medications Medication Details Route Status Patient Instructions Ordering Provider Order Date Source Amlodipine 10 MG / valsartan 320 MG Oral Tablet 1 tab, PO, Daily, # 30 tab, 0 Refill(s), Pharmacy: [id number] Active 12/26/2017 [facility] Acetaminophen 325 MG / Hydrocodone Lacey trate 7.5 MG Oral Tablet [Neversink 7.5/325] 1-2 tab, PO, Q8H, PRN Pain Score 7-10, X 7 day, # 60 tab, 0 Refill(s), given to patient Active 12/26/2017 [facility] NS 1,000 mL 1,000 mL, Rate: 10 0 ml/hr, Infuse over: 10 hr, Route: IV, Dosing Weight 72.017 kg, Total Volume: 1,000, Start date: 12/26/17 8:38:00 CDT, Duration: 30 day, Stop date: 01/25/18 8:37:00 CDT, 1.81, m2 Inactive 12/26/2017 [facility] insulin glargine Notes: (Same as: Lantus) Do not hold insulin without contacting prescriber WASTE: F/P - Black; E - Municipal Trash Bin "single patient use only" Inactive 12/25/2017 [facility] Insulin Lispro Notes: (Same as : Humalog ) Roll in palms of hands gently; Do not shake `vigorously. "Single Patient Use Only " WASTE: F/P - Black; E - Municipal Trash Bin Stable for 28 days at room temp erature. Expires in days from Date No Longer Active 12/25/2017 [facility] Levemir Notes: Non-Formulary D rug (Same as Levemir) Do not hold insulin without contacting prescriber WASTE: F/P - Black; E - Municipal Trash Bin "single patient use only" Inactive 12/25/2017 [facility] Levemir 20 unit, Route: SUB-Q, Bedtime, Dosing Weight 72.017, kg, Start date: 12/24/17 21:00:00 CDT, Duration: 30 day, Stop date: 01/22/18 21:00:00 CDT No Longe r Active 12/25/2017 [facility] Insulin Lispro Notes: (Same as : Humalog ) Roll in palms of hands gently; Do not shake `vigorously. "Single Patient Use Only " WASTE: F/P - Black; E - Municipal Trash Bin Stable for 28 days at room temp erature. Expires in days from Date No Longer Active 12/24/2017 [facility] Glucagon 1 mg, Route: IM, Drug form: PDR/INJ, PRN, Dosing Weight 72.017, kg, PRN Blood Glucose Results, Start date: 12/24/17 9:16:00 CDT, Duration: 30 day, Stop date: 01/23/18 9:15:00 CDT No Longer Active 12/24/2017 [facility] Dextrose 50% Syringe 25 gm, 50 mL, Route: IVP, Drug Form: INJ, Dosing Weight 72.017, kg, PRN, PRN Blood Glucose Results, Start date: 12/24/17 9:16:00 CDT, Duration: 30 day, Stop date: 01/23/18 9:15:00 CDT No Longer Active 12/24/2017 [facility] Atenolol 50 MG Oral Tablet Not es: (Same As:Tenormin) No Longer Active 12/24/2017 [facility] pantoprazole Notes: Tablet janee uld not be chewed or crushed. (Same as: Protonix) N o Longer Active 12/24/2017 [facility] Cozaar Notes: (Same as: Cozaar) No Longer Active 12/24/2017 [facility] hydrochlorothiazide 25 mg oral tablet Notes: (Same as: Hydrodiuril) With food. No Longer Active 12/24/2017 [facility] Hydrochlorothiazide 25 MG / Losartan Pot assium 100 MG Oral Tablet 1 tab, Route: PO, Drug Form: TAB, Dosing Weight 72.017, kg, Daily, Start date: 12/24/17 9:00:00 CDT, Duration: 30 day, Stop date: 01/22/18 9:00:00 CDT No Longer Active 12/24/2017 [facility] Thyroxine Notes: Take 1 hour b efore or 2 hours after meal; Enteral feeds may interefere with the absorption of this medication. (Same as:Levothroid, Synthroid) No Longer Active 12/24/2017 [facility] Clonidine Hydrochloride 0.1 MG Oral Tablet Notes: (Same As: Catapres) No Longer Active 12/24/2017 [facility] Ancef + sterile water 20 mL No jana: (Same As: Ancef, Kefzol) MEDICATION WASTE Product Size: 1000 mg Product Wasted: ___ mg Inactive 12/24/2017 [facility] cloNIDine 0.1 mg oral tablet N otes: (Same As: Catapres) No Longer Active 12/24/2017 [facility] insulin glargine Notes: (Same as: Lorena) Do not hold insulin without contacting prescriber WASTE: F/P - Black; E - Municipal Trash Bin "single patient use only" No Longer Active 12/24/2017 [facility] Zofran Notes: (Same as: Zofran ) MEDICATION WASTE Product Size: 4 mg Product Wasted: ___ mg No Longer Active 12/24/2017 [facility] Lunesta 3 mg, Route: PO, Bedti me, Dosing Weight 72.017, kg, Start date: 12/23/17 21:00:00 CDT, Duration: 30 day, Stop date: 01/21/18 21:00:00 CDT Inactive 12/24/2017 [facility] zolpidem Notes: (Same As: Ambi en) No Longer Active 12/24/2017 [facility] Enoxaparin Notes: (Same as: Lo venox) No Longer Active 12/24/2017 [facility] Cefazolin 1 gm, Route: IVPB, D rug form: INJ, Q6H, Dosing Weight 72.017, kg, Start date: 12/23/17 12:00:00 CDT, Duration: 3 doses or times, Stop date: 12/24/17 0:00:00 CDT, ABX Indication: Surgical Prophylaxis Inactive 12/23/2017 [facility] Ancef + sterile water 20 mL No jana: (Same As: Ancef, Kefzol) MEDICATION WASTE Product Size: 1000 mg Product Wasted: ___ mg Inactive 12/23/2017 [facility] Ondansetron 4 mg, Route: IVP, ONCE, Dosing Weight 72.017, kg, PRN Nausea & Vomiting, Start date: 12/23/17 9:39:00 CDT Inactive 12/23/2017 [facility] Promethazine 6.25 mg, Route: I VPB, ONCE, Dosing Weight 72.017, kg, PRN Nausea & Vomiting, Start date: 12/23/17 9:39:00 CDT Inactive 12/23/2017 [facility] Meperidine 12.5 mg, Route: IVP , Q30Min, Dosing Weight 72.017, kg, PRN Other -See Comment, For shivering, Start date: 12/23/17 9:39:00 CDT, Duration: 2 doses or times, Stop date: Limited # of times Inactive 12/23/2017 [facility] Naloxone 0.4 mg, Route: IVP, Q 2MIN, Dosing Weight 72.017, kg, PRN Narcotic Reversal, Start date: 12/23/17 9:39:00 CDT, Duration: 8 doses or times, Stop date: Limited # of times Inactive 12/23/2017 [facility] Diphenhydramine 12.5 mg, Route : IVP, Drug form: INJ, Q6H, Dosing Weight 72.017, kg, PRN Itching, Start date: 12/23/17 9:39:00 CDT, Duration: 30 day, Stop date: 01/22/18 9:38:00 CDT Inactive 12/23/2017 [facility] Albuterol 0.83 MG/ML Inhalant Solution 2.49 mg, Route: NEB, Q20Min, Dosing Weight 72.017, kg, PRN Wheezing, Priority: STAT, Start date: 12/23/17 9:39:00 CDT, Duration: 30 day, Stop date: 01/22/18 9:38:00 CDT Inactive 12/23/2017 [facility] Flumazenil 0.2 mg, Route: IVP, PRN, Dosing Weight 72.017, kg, PRN Benzodiazepine Reversal, Initial dose, Start date: 12/23/17 9:39:00 CDT, Duration: 30 day, Stop date: 01/22/18 9:38:00 CDT Inactive 12/23/2017 [facility] Fentanyl 50 microgram, Route: IVP, Q5Min, Dosing Weight 72.017, kg, PRN Pain Score 7-10, Priority: Routine, Start date: 12/23/17 9:39:00 CDT, Duration: 2 doses or times, Stop date: Limited # of times Inactive 12/23/2017 [facility] Labetalol 10 mg, Route: IVP, Q 5Min, Dosing Weight 72.017, kg, PRN Elevated BP, Start date: 12/23/17 9:39:00 CDT, Duration: 5 doses or times, Stop date: Limited # of times Inactive 12/23/2017 [facility] esmolol 10 mg, Route: IVP, Q5M in, Dosing Weight 72.017, kg, PRN Other -See Comment, Start date: 12/23/17 9:39:00 CDT, Duration: 5 doses or times, Stop date: Limited # of times Inactive 12/23/2017 [facility] Hydralazine 10 mg, Route: IVP, Q20Min, Dosing Weight 72.017, kg, PRN Elevated BP, Start date: 12/23/17 9:39:00 CDT, Duration: 2 doses or times, Stop date: Limited # of times Inactive 12/23/2017 [facility] Calcium Chloride 0.0014 MEQ/ML / Potassi um Chloride 0.004 MEQ/ML / Sodium Chloride 0.103 MEQ/ML / Sodium Lactate 0.028 MEQ/ML Injectable Solution 1,000 mL, Rate: 125 ml/hr, Infuse over: 8 hr, Route: IV, Dosing Weight 72.017 kg, Total Volume: 1,000, Start date: 12/23/17 9:39:00 CDT, Duration: 30 day, Stop date: 01/22/18 9:38:00 CDT, 1.81, m2 Inactive 12/23/2017 [facility] glycopyrrolate (ANES) Route: I V, Drug form: INJ, ONCE, Stop date: 12/23/17 9:11:00 CDT Inactive 12/23/2017 [facility] neostigmine (ANES) Route: IV, Drug form: INJ, ONCE, Stop date: 12/23/17 9:11:00 CDT Inactive 12/23/2017 [facility] Enoxaparin 40 mg, Route: SUB-Q , Drug form: INJ, Daily, Dosing Weight 72.017, kg, Start date: 12/23/17 9:00:00 CDT, Duration: 30 day, Stop date: 01/21/18 9:00:00 CDT Inactive 12/23/2017 [facility] Naloxone 0.04 mg, Route: IVP, Q2MIN, Dosing Weight 72.017, kg, PRN Narcotic Reversal, Start date: 12/23/17 8:51:00 CDT, Duration: 30 day, Stop date: 01/22/18 8:50:00 CDT Inactive 12/23/2017 [facility] Hydromorphone 15 mg, 30 mL, [place]: IV, [employer] Dose: 0.2 mg, [employer] Lockout: 8 minutes, Continuous Basal Rate: 0 mg, 4 Hour Limit (In MG): 6, Continuous, Start date: 12/23/17 8:51:00 CDT, Duration: 30 day, Stop date: 8:50:00 CDT Inactive 12/23/2017 [facility] Acetaminophen 325 MG / Hydrocodone Lacey trate 7.5 MG Oral Tablet [Neversink 7.5/325] Notes: Same as Neversink 325-7.5mg Do not exceed 4gm/day of acetaminophen. No Longer Active 12/23/2017 [facility] Tylenol Notes: Do not exceed 4 gm/day. (Same as: Tylenol) No Longer Active 12/23/2017 [facility] Lactated Ringers IV 1000 mL 1, 000 mL, Rate: 75 ml/hr, Infuse over: 13.3 hr, Route: IV, Dosing Weight 72.017 kg, Total Volume: 1,000, Start date: 12/23/17 8:51:00 CDT, Duration: 30 day, Stop date: 01/22/18 8:50:00 CDT, 1.81, m2 Inactive 12/23/2017 [facility] Melatonin Notes: (Same as: Yanna atonin) No Longer Active 12/23/2017 [facility] tranexamic acid (ANES) Route: IV, Drug form: INJ, ONCE, Stop date: 12/23/17 8:11:00 CDT Inactive 12/23/2017 [facility] famotidine (ANES) Route: IV, D rug form: INJ, ONCE, Stop date: 12/23/17 8:11:00 CDT Inactive 12/23/2017 [facility] ondansetron (ANES) Route: IV, Drug form: INJ, ONCE, Stop date: 12/23/17 8:11:00 CDT Inactive 12/23/2017 [facility] acetaminophen (ANES) Route: IV , Drug form: INJ, ONCE, Stop date: 12/23/17 8:11:00 CDT Inactive 12/23/2017 [facility] ceFAZolin (ANES) Route: IV, Dr ug form: INJ, ONCE, Stop date: 12/23/17 8:11:00 CDT Inactive 12/23/2017 [facility] rocuronium (ANES) Route: IV, D rug form: INJ, ONCE, Stop date: 12/23/17 8:11:00 CDT Inactive 12/23/2017 [facility] propofol (ANES) Route: IV, Oscar g form: INJ, ONCE, Stop date: 12/23/17 8:11:00 CDT Inactive 12/23/2017 [facility] fentaNYL (ANES) Route: IV, Oscar g form: INJ, ONCE, Stop date: 12/23/17 8:06:00 CDT Inactive 12/23/2017 [facility] lidocaine (ANES) Route: IV, Dr ug form: INJ, ONCE, Stop date: 12/23/17 8:06:00 CDT Inactive 12/23/2017 [facility] ropivacaine Notes: NOT FOR IV use Ropivacaine 5 mg/mL (49.25 mL) Epinephrine 1 mg/mL (0.5 mL) Clonidine 0.1 mg/mL (0.8 mL) Ketorolac 30 mg/mL (1 mL) Normal Saline 48.45 mL No Longer Active 12/23/2017 [facility] celecoxib Notes: NSAID. Please check indication. Not for seizure. (Same As: CeleBREX) Inactive 12/23/2017 [facility] gabapentin Notes: (Same as: Ne urontin) Inactive 12/23/2017 [facility] Lactated Ringers Injection IV (ANES) 1000 mL Route: IV, Total Volume: 1,000, Start date: 12/23/17 6:56:00 CDT, Stop date: 12/23/17 7:56:00 CDT Inactive 12/23/2017 [facility] vancomycin (ANES) 1000 mg Rout e: IV, Drug form: INJ, Start date: 12/23/17 6:51:00 CDT, Stop date: 12/23/17 7:51:00 CDT Inactive 12/23/2017 [facility] Insulin regular Notes: (Same a s: Humulin R and NovoLIN R) WASTE: F/P - Black; E - Municipal Trash Bin (Do not shake) Inactive 12/23/2017 [facility] Insulin regular 4 unit, Route: IVP, ONCE, Dosing Weight 72.017, kg, Start date: 12/23/17 5:57:00 CDT, Stop date: 12/23/17 5:57:00 CDT Inactive 12/23/2017 [facility] Albuterol 0.833 MG/ML / Ipratropium Brom kip 0.167 MG/ML Inhalant Solution Notes: (Same as: Loi) Inactive 12/23/2017 [facility] Calcium Chloride 0.0014 MEQ/ML / Potassi um Chloride 0.004 MEQ/ML / Sodium Chloride 0.103 MEQ/ML / Sodium Lactate 0.028 MEQ/ML Injectable Solution 1,000 mL, Rate: 25 ml/hr, Infuse over: 4 0 hr, Route: IV, Dosing Weight 72.017 kg, Total Volume: 1,000, Start date: 12/23/17 5:56:00 CDT, Duration: 1 day, Stop date: 12/24/17 5:55:00 CDT, 1.81, m2 Inactive 12/23/2017 [facility] 0.4 ML Enoxaparin sodium 100 MG/ML Prefi lled Syringe [Lovenox] 40 mg, SUB-Q, Daily, # 14 inj, 0 Refill(s) Active 12/22/2017 [facility] Cephalexin 500 MG Oral Capsule [Keflex] 500 mg = 1 cap, PO, QID, X 10 day, # 40 cap, 0 Refill(s) Active 12/22/2017 [facility] tramadol hydrochloride 50 MG Oral Tablet 50 mg = 1 tab, PO, BID, # 30 tab, 0 Refill(s) No Longer Active 12/16/2017 [facility] meloxicam 15 mg oral tablet 15 mg = 1 tab, PO, Daily, # 30 tab, 0 Refill(s) No Longer Active 12/16/2017 [facility] levothyroxine 100 mcg (0.1 mg) oral tablet 100 microgram = 1 tab, PO, Daily, # 30 tab, 0 Refill(s) Active 12/16/2017 [facility] Methocarbamol 500 MG Oral Tablet [Robaxin] 1,000 mg = 2 tab, PO, QID, PRN Muscle Spasms, # 90 tab, 0 Refill(s), Pharmacy: [facility] [id number] Active 11/03/2017 [facility] Docusate Sodium 50 MG Oral Capsule 50 mg = 1 cap, PO, BID, PRN as needed for constipation, Pediatric Dosing, # 90 cap, 0 Refill(s) Active 11/03/2017 [facility] cloNIDine 0.2 mg oral tablet N otes: (Same As: Catapres) No Longer Active 11/02/2017 [facility] Tylenol Notes: Do not exceed 4 gm/day. (Same as: Tylenol) No Longer Active 11/02/2017 [facility] insulin detemir Notes: Non-For mulary Drug (Same as Levemir) Do not hold insulin without contacting prescriber WASTE: F/P - Black; E - Municipal Trash Bin "single patient use only" No Longer Active 11/01/2017 [facility] cloNIDine 0.1 mg oral tablet N otes: (Same As: Catapres) No Longer Active 11/01/2017 [facility] insulin detemir 100 UNT/ML Injectable So lution [Levemir] 30 unit, SUB-Q, Bedtime, 0 Refill(s) Active 11/01/2017 [facility] nter Insulin, Aspart, Human 100 UNT/ML Inject able Solution [NovoLog] 20 unit, SUB-Q, TID-Before Meals, # 10 m L, 0 Refill(s) Active 11/01/2017 [facility] Cozaar Notes: (Same as: Cozaar) No Longer Active 11/01/2017 [facility] pantoprazole 40 mg oral enteric coated tablet 40 mg = 1 tab, PO, Daily, # 30 tab, 0 Refill(s) Active 11/01/2017 [facility] nt Clonidine Hydrochloride 0.1 MG Oral Tablet See Instructions, 2 tabs in the morning 1 tab at noon 1 tab at bedtime [facility] [id number], 0 Refill(s) Active 11/01/2017 [facility] Hydrochlorothiazide 25 MG / Losartan Pot assium 100 MG Oral Tablet 1 tab, PO, Daily, [facility] [id number], # 30 tab, 0 Refill(s) Active 11/01/2017 [facility] Atenolol 50 MG Oral Tablet Not es: (Same As:Tenormin) No Longer Active 11/01/2017 [facility] Famotidine 20 MG Oral Tablet N otes: (Same as: Pepcid) No Longer Active 11/01/2017 [facility] sennosides, RESIDENTIAL Notes: (Same a s: Senokot) No Longer Active 11/01/2017 [facility] Docusate Notes: (Same as: Cola ce) (Do Not Crush) No Longer Active 11/01/2017 [facility] Lovenox Notes: (Same as: Loven ox) No Longer Active 11/01/2017 [facility] Magnesium Sulfate Notes: WASTE : F/P - Sink; E - Municipal Trash Bin Inactive 11/01/2017 [facility] Calcium Chloride Notes: WASTE: F/P - Sink; E - Municipal Trash Bin Inactive 11/01/2017 [facility] Dextrose 50% Syringe 12.5 gm, 25 mL, Route: IVP, Drug Form: INJ, Dosing Weight 71.818, kg, PRN, PRN Blood Glucose Results, Start date: 10/31/17 23:01:00 CDT, Duration: 30 day, Stop date: 11/30/17 23:00:00 CDT No Longer Active 11/01/2017 [facility] Glucagon 1 mg, Route: IM, Drug form: PDR/INJ, PRN, Dosing Weight 71.818, kg, PRN Blood Glucose Results, Start date: 10/31/17 23:01:00 CDT, Duration: 30 day, Stop date: 11/30/17 23:00:00 CDT No Longer Active 11/01/2017 [facility] Insulin regular 60 units) W ASTE: F/P - Black; E - Municipal Trash Bin Stable for 28 days at room temperature Expires in days from Date N o Longer Active 11/01/2017 [facility] nter Cefazolin Notes: (Same as Ance f) No Longer Active 11/01/2017 [facility] Saline Flush 0.9% Notes: (Same as: BD Posiflush) No Longer Active 11/01/2017 [facility] zolpidem Notes: (Same As: Ambi en) No Longer Active 11/01/2017 [facility] sugammadex Notes: (Same as: Br idion) No Longer Active 10/31/2017 [facility] sugammadex (ANES) Route: IV, D rug form: SOLN, ONCE, Stop date: 10/31/17 17:12:00 CDT Inactive 10/31/2017 [facility] nter ondansetron (ANES) Route: IV, Drug form: INJ, ONCE, Stop date: 10/31/17 17:12:00 CDT Inactive 10/31/2017 [facility] nter hydromorphone (ANES) Route: IV , Drug form: INJ, ONCE, Stop date: 10/31/17 17:11:00 CDT Inactive 10/31/2017 [facility] nter Saline Flush 0.9% Notes: (Same as: BD Posiflush) No Longer Active 10/31/2017 [facility] Melatonin 3 MG Extended Release Tablet Notes: (Same as: Melatonin) No Longer Active 10/31/2017 [facility] Bisacodyl Notes: (Same As: Dul colax, Bisco-Lax) No Longer Active 10/31/2017 [facility] Benadryl Notes: (Same as: Erin dryl) No Longer Active 10/31/2017 [facility] Dilaudid Notes: Same as Dilaud id No Longer Active 10/31/2017 [facility] phenol Notes: Chloraseptic Spr ay (Same as: Chloraseptic, Sore Throat [place]) WASTE: F/P - Black; E - Municipal Trash Bin No Longer Active 10/31/2017 [facility] Labetalol 10 mg, 2 mL, Route: IVP, Drug form: INJ, Q15Min, Dosing Weight 71.818, kg, PRN Hypertension, Start date: 10/31/17 17:11:00 CDT, Duration: 30 day, Stop date: 11/30/17 17:10:00 CDT No Longer Active 10/31/2017 [facility] Acetaminophen 325 MG / Hydrocodone Lacey trate 10 MG Oral Tablet [Neversink 10/325] Notes: Do not exceed 4gm/day of acetamin ophen. (Same as: Neversink 325/10) No Longer Active 10/31/2017 [facility] Hydralazine Notes: (Same as: A presoline) Push over 5 minutes No Longer Active 10/31/2017 [facility] Ondansetron Notes: (Same as: Alexus beltrán) MEDICATION WASTE Product Size: 4 mg Product Wasted: ___ mg No Longer Active 10/31/2017 [facility] Naloxone Notes: Same as Narcan Inactive 10/31/2017 [facility] Flumazenil Notes: (Same as: Ro mazicon) Inactive 10/31/2017 [facility] Ondansetron Notes: (Same as: Alexus beltrán) MEDICATION WASTE Product Size: 4 mg Product Wasted: ___ mg Inactive 10/31/2017 [facility] Fentanyl Notes: (Same as: Subl imaze) Preservative free. Inactive 10/31/2017 [facility] Hydromorphone Notes: Same as: Dilaudid Inactive 10/31/2017 [facility] Insulin regular (ANES) Route: IV, Drug form: INJ, ONCE, Stop date: 10/31/17 13:51:00 CDT Inactive 10/31/2017 [facility] nter ketAMINE (ANES) Route: IV, Oscar g form: INJ, ONCE, Stop date: 10/31/17 13:16:00 CDT Inactive 10/31/2017 [facility] nter dexmedetomidine (ANES) 200 microgram Route: IV, Drug form: INJ, Start date: 10/31/17 12:54:00 CDT, Stop date: 10/31/17 13:54:00 CDT Inactive 10/31/2017 [facility] ePHEDrine (ANES) Route: IV, Dr ug form: INJ, ONCE, Stop date: 10/31/17 12:26:00 CDT Inactive 10/31/2017 [facility] nter scopolamine (ANES) Route: IV, Drug form: ERFILM, ONCE, Stop date: 10/31/17 11:46:00 CDT Inactive 10/31/2017 [facility] nter ceFAZolin (ANES) Route: IV, Dr ug form: INJ, ONCE, Stop date: 10/31/17 11:41:00 CDT Inactive 10/31/2017 [facility] nter fentaNYL (ANES) Route: IV, Oscar g form: INJ, ONCE, Stop date: 10/31/17 11:41:00 CDT Inactive 10/31/2017 [facility] nter lidocaine (ANES) Route: IV, Dr ug form: INJ, ONCE, Stop date: 10/31/17 11:41:00 CDT Inactive 10/31/2017 [facility] nter rocuronium (ANES) Route: IV, D rug form: INJ, ONCE, Stop date: 10/31/17 11:41:00 CDT Inactive 10/31/2017 [facility] nter propofol (ANES) Route: IV, Oscar g form: INJ, ONCE, Stop date: 10/31/17 11:41:00 CDT Inactive 10/31/2017 [facility] nter PlasmaLyte A PH-7.4 (ANES) 1000 mL Route: IV, Total Volume: 1,000, Start date: 10/31/17 10:22:00 CDT, Stop date: 10/31/17 11:22:00 CDT Inactive 10/31/2017 [facility] Lactated Ringers Injection IV (ANES) 1000 mL Route: IV, Total Volume: 1,000, Start date: 10/31/17 10:04:00 CDT, Stop date: 10/31/17 11:04:00 CDT Inactive 10/31/2017 [facility] ceFAZolin + sterile water 20 mL Notes: (Same As: Rebeca Martinez) MEDICATION WASTE Product Size: 1000 mg Product Wasted: ___ mg No Longer Active 10/31/2017 [facility] NovoLog SUB-Q, TID-Before Meal s, 0 Refill(s) No Longer Active 10/28/2017 [facility] Clonidine 0 Refill(s) No Longer Active 10/28/2017 [facility] tramadol hydrochloride 50 MG Oral Tablet 50 mg = 1 tab, PO, Q4H, 0 Refill(s) No Longer Active 10/28/2017 [facility] nter zolpidem 10 mg oral tablet 10 mg = 1 tab, PO, Bedtime, 0 Refill(s) Active 10/28/2017 [facility] Levemir SUB-Q, 0 Refill(s) No Longer Active 10/28/2017 [facility] Atenolol 50 MG Oral Tablet 50 mg = 1 tab, PO, Daily, 0 Refill(s) Active 10/28/2017 [facility] Allergies, Adverse Reactions, Alerts Substance Category Reaction Severity Reaction type Status Date Reported Comments Source codeine Assertion Drug allergy Active [facility] Tylox [facility]ion [facility] Immunizations Immunization Date Given Site Status Last Updated Comments Source pneumococcal 13-valent vaccine 11/03/2017 Not Given [facility] pneumococcal 23-valent vaccine 05/12/2009 Left Arm completed Bimal [facility] Results Order Name Results Value Reference Range Date Interpretation Comments Source CHEM PANEL Glucose Lvl 204 70 - 99 12/25/2017 [facility] CHEM PANEL Sodium Lvl 127 135 - 145 12/25/2017 [facility] CHEM PANEL BUN 28 7 - 22 12/25/2017 [facility] CHEM PANEL Chloride Lvl 93 95 - 109 12/25/2017 [facility] CHEM PANEL Potassium Lvl 4.1 3.5 - 5.1 12/25/2017 [facility] CHEM PANEL eGFR 40 12/25/2017 Result Comment: [...] should be multiplied by the estimated BMI. [facility] CHEM PANEL Creatinine Lvl 1.29 0.50 - 1.40 12/25/2017 [facility] CHEM PANEL AGAP 18.1 10.0 - 20.0 12/25/2017 [facility] CHEM PANEL CO2 20 24 - 32 12/25/2017 [facility] CHEM PANEL Calcium Lvl 8.2 8.5 - 10.5 12/25/2017 [facility] HEMATOLOGY MCV 85.6 80.0 - 98.0 12/25/2017 [facility] Hgb 8.9 12.0 - 16.0 12/25/2017 [facility] Hct 26.1 36.0 - 48.0 12/25/2017 [facility] RBC 3.05 4.20 - 5.40 12/25/2017 [facility] WBC 10.7 3.7 - 10.4 12/25/2017 [facility] MPV 9.3 7.4 - 10.4 12/25/2017 [facility] Platelet 202 133 - 450 12/25/2017 [facility] MCHC 34.0 32.0 - 36.0 12/25/2017 [facility] RDW 14.1 11.5 - 14.5 12/25/2017 [facility] MCH 29.1 27.0 - 31.0 12/25/2017 [facility] Plt Morph Maria Alejandra l (12/25/17 3:19 AM) 12/25/2017 [facility] Segs 72.3 45.0 - 75.0 12/25/2017 [facility] Monocytes 17.0 2.0 - 12.0 12/25/2017 [facility] Eosinophils 1.8 0.0 - 4.0 12/25/2017 [facility] RBC Morph Maria Alejandra l (12/25/17 3:19 AM) 12/25/2017 [facility] Lymphocytes 8.5 20.0 - 40.0 12/25/2017 [facility] Basophils 0.4 0.0 - 1.0 12/25/2017 [facility] Monocytes # 1.8 0.0 - 0.8 12/25/2017 [facility] Eosinophils # 0.2 0.0 - 0.5 12/25/2017 [facility] Segs-Bands # 7.7 1.5 - 8.1 12/25/2017 [facility] Lymphocytes # 0.9 1.0 - 5.5 12/25/2017 [facility] ELECTROLYTES AGAP 15.3 10.0 - 20.0 12/24/2017 [facility] ELECTROLYTES Potassium Lvl 4.3 3.5 - 5.1 12/24/2017 [facility] ELECTROLYTES BUN 34 7 - 22 12/24/2017 [facility] ELECTROLYTES Glucose Lvl 264 70 - 99 12/24/2017 [facility] ELECTROLYTES Creatinine Lvl 1.6 9 0.50 - 1.40 12/24/2017 [facility] ELECTROLYTES Sodium Lvl 126 135 - 145 12/24/2017 [facility] ELECTROLYTES CO2 23 24 - 32 12/24/2017 [facility] ELECTROLYTES Chloride Lvl 92 95 - 109 12/24/2017 [facility] ELECTROLYTES Calcium Lvl 7.6 8.5 - 10.5 12/24/2017 [facility] ELECTROLYTES eGFR 29 12/24/2017 Result Comment: The [...] should be multiplied by the estimated BMI. [facility] HEMATOLOGY PTT 45.8 22.9 - 35.8 12/24/2017 [facility] HEMATOLOGY INR 1.13 0.85 - 1.17 12/24/2017 [facility] HEMATOLOGY PT 14.5 12.0 - 14.7 12/24/2017 [facility] HEMATOLOGY Monocytes 16.0 2.0 - 12.0 12/24/2017 [facility] HEMATOLOGY Lymphocytes # 0.8 1.0 - 5.5 12/24/2017 [facility] HEMATOLOGY Monocytes # 1.8 0.0 - 0.8 12/24/2017 [facility] HEMATOLOGY Eosinophils 0.1 0.0 - 4.0 12/24/2017 [facility] HEMATOLOGY Basophils 0.2 0.0 - 1.0 12/24/2017 [facility] HEMATOLOGY Segs 77.1 45.0 - 75.0 12/24/2017 [facility] HEMATOLOGY Lymphocytes 6.6 20.0 - 40.0 12/24/2017 [facility] Segs-Bands # 8.9 1.5 - 8.1 12/24/2017 [facility] MPV 10.1 7.4 - 10.4 12/24/2017 [facility] WBC 11.6 3.7 - 10.4 12/24/2017 [facility] RBC 3.29 4.20 - 5.40 12/24/2017 [facility] MCH 27.6 27.0 - 31.0 12/24/2017 [facility] Hgb 9.1 12.0 - 16.0 12/24/2017 [facility] Hct 27.7 36.0 - 48.0 12/24/2017 [facility] MCV 84.3 80.0 - 98.0 12/24/2017 [facility] MCHC 32.7 32.0 - 36.0 12/24/2017 [facility] RDW 14.5 11.5 - 14.5 12/24/2017 [facility] Platelet 219 133 - 450 12/24/2017 [facility] SPECIAL CHEMISTRY Hgb A1C 7.2 <=5.6 % 12/24/2017 [facility] BLOOD BANK RESULTS ABO/Rh O POS 12/16/2017 [facility] BLOOD [facility] RESULTS Antibody Scrn Negative (12/16/17 3:00 PM) 12/16/2017 [facility] CHEM PANEL eGFR 34 12/16/2017 Result Comment: [...] should be multiplied by the estimated BMI. [facility] CHEM PANEL Potassium Lvl 4.6 3.5 - 5.1 12/16/2017 [facility] CHEM PANEL Creatinine Lvl 1.47 0.50 - 1.40 12/16/2017 [facility] CHEM PANEL Sodium Lvl 134 135 - 145 12/16/2017 [facility] CHEM PANEL Chloride Lvl 101 95 - 109 12/16/2017 [facility] CHEM PANEL Calcium Lvl 9.0 8.5 - 10.5 12/16/2017 [facility] CHEM PANEL CO2 20 24 - 32 12/16/2017 [facility] CHEM PANEL Glucose Lvl 119 70 - 99 12/16/2017 [facility] CHEM PANEL BUN 29 7 - 22 12/16/2017 [facility] CHEM PANEL AGAP 17.6 10.0 - 20.0 12/16/2017 [facility] HEMATOLOGY INR 1.03 0.85 - 1.17 12/16/2017 [facility] HEMATOLOGY PT 13.5 12.0 - 14.7 12/16/2017 [facility] PTT 35.6 22.9 - 35.8 12/16/2017 [facility] MCHC 33.0 32.0 - 36.0 12/16/2017 [facility] MCV 86.5 80.0 - 98.0 12/16/2017 [facility] MCH 28.5 27.0 - 31.0 12/16/2017 [facility] HEMATOLOGY RDW 14.2 11.5 - 14.5 12/16/2017 [facility] Platelet 285 133 - 450 12/16/2017 [facility] MPV 9.5 7.4 - 10.4 12/16/2017 [facility] Hgb 13.0 12.0 - 16.0 12/16/2017 [facility] Hct 39.6 36.0 - 48.0 12/16/2017 [facility] HEMATOLOGY RBC 4.57 4.20 - 5.40 12/16/2017 [facility] WBC 10.6 3.7 - 10.4 12/16/2017 [facility] HEMATOLOGY Eosinophils 1.5 0.0 - 4.0 12/16/2017 [facility] HEMATOLOGY Segs-Bands # 6.9 1.5 - 8.1 12/16/2017 [facility] Monocytes 13.9 2.0 - 12.0 12/16/2017 [facility] HEMATOLOGY Basophils 0.4 0.0 - 1.0 12/16/2017 [facility] HEMATOLOGY Eosinophils # 0.2 0.0 - 0.5 12/16/2017 [facility] HEMATOLOGY Lymphocytes # 2.0 1.0 - 5.5 12/16/2017 [facility] HEMATOLOGY Monocytes # 1.5 0.0 - 0.8 12/16/2017 [facility] HEMATOLOGY Segs 65.4 45.0 - 75.0 12/16/2017 [facility] HEMATOLOGY Lymphocytes 18.8 20.0 - 40.0 12/16/2017 [facility] SPECIAL CHEMISTRY Hgb A1C 7.3 <=5.6 % 12/16/2017 [facility] BLOOD BANK RESULTS RBC product Product available (12/16/17 2:58 PM) 12/16/2017 [facility] CHEM PANEL eGFR 50 11/02/2017 Result Comment: [...] should be multiplied by the estimated BMI. [facility] CHEM PANEL BUN 15 7 - 22 11/02/2017 [facility] CHEM PANEL Creatinine Lvl 1.08 0.50 - 1.40 11/02/2017 [facility] CHEM PANEL Sodium Lvl 137 135 - 145 11/02/2017 [facility] CHEM PANEL Potassium Lvl 3.7 3.5 - 5.1 11/02/2017 [facility] CHEM PANEL Chloride Lvl 103 95 - 109 11/02/2017 [facility] CHEM PANEL CO2 22 24 - 32 11/02/2017 [facility] CHEM PANEL Calcium Lvl 8.9 8.5 - 10.5 11/02/2017 [facility] CHEM PANEL Glucose Lvl 111 70 - 99 11/02/2017 [facility] CHEM PANEL AGAP 15.7 10.0 - 20.0 11/02/2017 [facility] HEMATOLOGY Segs-Bands # 9.6 1.5 - 8.1 11/02/2017 [facility] HEMATOLOGY Lymphocytes # 1.3 1.0 - 5.5 11/02/2017 [facility] HEMATOLOGY Monocytes 15.1 2.0 - 12.0 11/02/2017 [facility] HEMATOLOGY Lymphocytes 9.7 20.0 - 40.0 11/02/2017 [facility] HEMATOLOGY Segs 74.0 45.0 - 75.0 11/02/2017 [facility] HEMATOLOGY Monocytes # 2.0 0.0 - 0.8 11/02/2017 [facility] HEMATOLOGY Basophils 0.7 0.0 - 1.0 11/02/2017 [facility] HEMATOLOGY Eosinophils 0.5 0.0 - 4.0 11/02/2017 [facility] HEMATOLOGY Eosinophils # 0.1 0.0 - 0.5 11/02/2017 [facility] HEMATOLOGY Basophils # 0.1 0.0 - 0.2 11/02/2017 [facility] HEMATOLOGY Platelet 230 133 - 450 11/02/2017 [facility] HEMATOLOGY MPV 10.3 7.4 - 10.4 11/02/2017 [facility] HEMATOLOGY RDW 13.9 11.5 - 14.5 11/02/2017 [facility] HEMATOLOGY MCHC 33.2 32.0 - 36.0 11/02/2017 [facility] HEMATOLOGY MCH 28.8 27.0 - 31.0 11/02/2017 [facility] HEMATOLOGY MCV 86.7 80.0 - 98.0 11/02/2017 [facility] HEMATOLOGY Hct 34.2 36.0 - 48.0 11/02/2017 [facility] HEMATOLOGY Hgb 11.4 12.0 - 16.0 11/02/2017 [facility] HEMATOLOGY RBC 3.94 4.20 - 5.40 11/02/2017 [facility] HEMATOLOGY WBC 13.0 3.7 - 10.4 11/02/2017 [facility] PARATHYROID PROFILE Ca Ion WB 1.10 1.05 - 1.25 11/02/2017 [facility] PARATHYROID PROFILE Ca Norm WB 1.11 1.05 - 1.25 11/02/2017 [facility] CHEM PANEL Phosphorus 2.6 2.5 - 4.5 11/01/2017 [facility] CHEM PANEL eGFR 45 11/01/2017 Result Comment: [...] should be multiplied by the estimated BMI. [facility] CHEM PANEL CO2 21 24 - 32 11/01/2017 [facility] CHEM PANEL Calcium Lvl 8.2 8.5 - 10.5 11/01/2017 [facility] CHEM PANEL Sodium Lvl 134 135 - 145 11/01/2017 [facility] CHEM PANEL Creatinine Lvl 1.17 0.50 - 1.40 11/01/2017 [facility] CHEM PANEL Potassium Lvl 4.0 3.5 - 5.1 11/01/2017 [facility] CHEM PANEL Chloride Lvl 101 95 - 109 11/01/2017 [facility] CHEM PANEL Glucose Lvl 261 70 - 99 11/01/2017 [facility] CHEM PANEL BUN 22 7 - 22 11/01/2017 [facility] CHEM PANEL AGAP 16.0 10.0 - 20.0 11/01/2017 [facility] CHEM PANEL Magnesium Lvl 1.5 1.8 - 2.4 11/01/2017 [facility] HEMATOLOGY PT 14.5 12.0 - 14.7 11/01/2017 [facility] HEMATOLOGY PTT 31.4 22.9 - 35.8 11/01/2017 [facility] HEMATOLOGY INR 1.13 0.85 - 1.17 11/01/2017 [facility] HEMATOLOGY MCV 88.6 80.0 - 98.0 11/01/2017 [facility] HEMATOLOGY WBC 14.1 3.7 - 10.4 11/01/2017 [facility] HEMATOLOGY Hct 35.9 36.0 - 48.0 11/01/2017 [facility] HEMATOLOGY Hgb 11.9 12.0 - 16.0 11/01/2017 [facility] HEMATOLOGY RBC 4.05 4.20 - 5.40 11/01/2017 [facility] HEMATOLOGY Platelet 215 133 - 450 11/01/2017 [facility] HEMATOLOGY RDW 13.9 11.5 - 14.5 11/01/2017 [facility] HEMATOLOGY MPV 9.7 7.4 - 10.4 11/01/2017 [facility] HEMATOLOGY MCHC 33.2 32.0 - 36.0 11/01/2017 [facility] HEMATOLOGY MCH 29.4 27.0 - 31.0 11/01/2017 [facility] HEMATOLOGY Lymphocytes 4.1 20.0 - 40.0 11/01/2017 [facility] HEMATOLOGY Segs 86.6 45.0 - 75.0 11/01/2017 [facility] HEMATOLOGY Segs-Bands # 12.2 1.5 - 8.1 11/01/2017 [facility] HEMATOLOGY Basophils 0.2 0.0 - 1.0 11/01/2017 [facility] HEMATOLOGY Monocytes # 1.3 0.0 - 0.8 11/01/2017 [facility] HEMATOLOGY Lymphocytes # 0.6 1.0 - 5.5 11/01/2017 [facility] HEMATOLOGY Monocytes 9.1 2.0 - 12.0 11/01/2017 [facility] PARATHYROID PROFILE Ca Norm WB 1.04 1.05 - 1.25 11/01/2017 [facility] PARATHYROID PROFILE Ca Ion WB 1.04 1.05 - 1.25 11/01/2017 [facility] BLOOD BANK RESULTS Antibody Scrn Negative (10/31/17 7:40 AM) 10/31/2017 [facility] BLOOD BANK RESULTS ABO/Rh O POS 10/31/2017 [facility] Pathology Reports No Data Provided for This Section Diagnostic Reports Report Value Date Source Hip 1 view DX Patient Name: WESTLEY BEVERLY : 1940; Age: 77 years y/o Female MR: [id number] LEFT HIP, 1 view, portable, postoperative HISTORY: Postoperative study, following left hip arthroplasty. TECHNIQUE: A single portable postoperative frontal view of the left hip was obtained. IMPRESSION: The left total hip prosthesis is in good position. There is no evidence of unexpected fracture or other complication. There is postoperative soft tissue gas. There are lateral surgical skin rosalia. SL: [id number] 12/23/2017 [facility] Hip 1 view DX Patient Name: WESTLEY BEEVRLY : 1940; Age: 77 years y/o Female MR: [id number] * LEFT HIP, intraoperative, History: Left hip [...] seen with the various positional maneuvers. SL: [id number] 12/23/2017 [facility] Chest 2 views DX Clinical Stefany cation: [...] of acute cardiopulmonary disease. SL: [id number] 12/16/2017 [facility] Consultation Notes No Data Provided for This Section Discharge Summaries No Data Provided for This Section History and Physicals No Data Provided for This Section Vital Signs Vital Sign Value Date Comments Source Heart Rate 58 12/26/2017 [facility] Temperature Oral (F) 97.8 F 12/26/2017 [facility] Systolic (mm Hg) 177 12/26/2017 [facility] Diastolic (mm Hg) 64 12/26/2017 [facility] Respitory Rate 18 12/26/2017 [facility] Respitory Rate 18 12/26/2017 [facility] Systolic (mm Hg) 132 12/26/2017 [facility] Diastolic (mm Hg) 74 12/26/2017 [facility] Temperature Oral (F) 97.9 F 12/26/2017 [facility] Heart Rate 57 12/26/2017 [facility] Systolic (mm Hg) 148 12/26/2017 [facility] Diastolic (mm Hg) 66 12/26/2017 [facility] Respitory Rate 18 12/26/2017 [facility] Heart Rate 66 12/26/2017 [facility] Temperature Oral (F) 99.1 F 12/26/2017 [facility] BMI Calculated 28.12 12/16/2017 [facility] Weight 72.017 12/16/2017 [facility] Height 160.02 cm 12/16/2017 [facility] BMI Calculated 28.06 12/16/2017 [facility] Weight 71.847 12/16/2017 [facility] Height 160.02 cm 12/16/2017 [facility] BMI Calculated 28.4 11/18/2017 [facility] Height 160.02 cm 11/18/2017 [facility] Weight 72.727 11/18/2017 [facility] Systolic (mm Hg) 166 11/18/2017 [facility] Diastolic (mm Hg) 72 11/18/2017 [facility] Heart Rate 68 11/18/2017 [facility] Temperature Oral (F) 99.5 F 11/03/2017 [facility] Heart Rate 74 11/03/2017 [facility] Systolic (mm Hg) 168 11/03/2017 [facility] Diastolic (mm Hg) 72 11/03/2017 [facility] Respitory Rate 18 11/03/2017 [facility] Systolic (mm Hg) 143 11/03/2017 [facility] Diastolic (mm Hg) 73 11/03/2017 [facility] Temperature Oral (F) 98.5 F 11/03/2017 [facility] Respitory Rate 20 11/03/2017 [facility] Heart Rate 63 11/03/2017 [facility] Temperature Oral (F) 100.0 F 11/03/2017 [facility] Respitory Rate 20 11/03/2017 [facility] Heart Rate 67 11/03/2017 [facility] Systolic (mm Hg) 156 11/03/2017 [facility] Diastolic (mm Hg) 63 11/03/2017 [facility] Height 160.02 cm 11/01/2017 [facility] Weight 71.818 11/01/2017 [facility] BMI Calculated 28.05 11/01/2017 [facility] Weight 71.818 10/31/2017 [facility] BMI Calculated 28.05 10/31/2017 [facility] Height 160.02 cm 10/31/2017 [facility] Weight 71.818 10/28/2017 [facility] BMI Calculated 28.05 10/28/2017 [facility] Height 160.02 cm 10/28/2017 [facility] Height 160.02 cm 09/23/2017 [facility] Weight 75.455 09/23/2017 [facility] BMI Calculated 29.47 09/23/2017 [facility] Heart Rate 62 09/23/2017 [facility] Systolic (mm Hg) 192 09/23/2017 [facility] Diastolic (mm Hg) 73 09/23/2017 [facility] Encounters Location Location Details Encounter Type Encounter Number Reason For Visit Attending Provider ADM Date DC Date Status Source Outpatient [id number] CORBY WEATHERSIEH 09/23/2017 Active [facility] Outpatient [id number] Corby Hudsonh 09/23/2017 09/24/2017 [facility] Phone Message [id number] 09/24/2017 09/26/2017 [facility] Phone Message [id number] 09/30/2017 10/02/2017 [facility] Phone Message [id number] 10/03/2017 10/05/2017 [facility] Phone Message [id number] 10/08/2017 10/10/2017 [facility] Phone Message [id number] 10/09/2017 10/11/2017 [facility] Outpatient [id number] CORBY [facility] 10/21/2017 Active [facility] Outpatient [id number] Corby [facility] 10/21/2017 10/22/2017 [facility] Phone Message [id number] 10/27/2017 10/29/2017 [facility] Outpatient [id number] CORBY [facility] 10/31/2017 Active [facility] Inpatient [id number] Corby Ge 10/31/2017 11/03/2017 [facility] Phone Message [id number] 11/05/2017 11/07/2017 [facility] Outpatient [id number] CORBY WEATHERSIEH 11/18/2017 Active [facility] [facility] [id number] [facility] 11/18/2017 11/19/2017 [facility] Neuro[facility] Phone Message [id number] 11/25/2017 2017 [facility] [place] [facility] Patients [id number] [facility] 2017 12/27/2017 [facility] [place] [facility] [id number] [facility] 12/16/2017 Active [facility] Neurosurgery [facility] Outpatient [id number] Corby Ge 12/16/2017 12/17/2017 [facility] Inpatient [id number] Bhaskar Barraza 12/23/2017 12/26/2017 [facility] [place] [facility] Patients [id number] Bhaskar Evangelistan 01/14/2018 02/13/2018 [facility] [place] [facility] [id number] [facility] 01/27/2018 Active [facility] Ambulatory Pre-Reg [id number] [facility] 01/27/2018 01/27/2018 [facility] [place] [facility] [id number] Bhaskar Barraza 02/13/2018 03/15/2018 [facility] [place] [facility] [place] [facility] [id number] Bhaskar Barraza 03/17/2018 04/16/2018 [facility] [place] Procedures Procedure Code Date Perfomer Comments Source Appendectomy [id number] [facility] [place] Bladder operation [id number] [facility] [place] Carpal tunnel release [id number] [facility] [place] Knee replacement [id number] [facility] [place] Mastectomy with excision of regional lym ph nodes<sup>1</sup> [id number] date unknown [facility] [place] Nephrectomy [id number] [facility] uro,[facility] [place] Spinal fusion [id number] [facility] [place] Assessment and Plan Assessment and Plan Date Source Extracted from:Title: Progress Note Author: Blair Marcos MD Date: 12/26/17 Left total hip arthroplasty diabetes mellitus on insulin Hypertension Insomnia Osteoarthritis Hyponatremia acute Acute kidney injury resolved Continue present care. Okay to discharge to facility. Recommend repeatBMP next week. Acute kidney injury has resolved. Supportive care to continue. [facility]26[facility]2017 [facility] Plan of Care No Data Provided for This Section Social History Social History Date Source Social History TypeResponse Alcohol Never Smoking Status Never smoker; Exposure to Tobacco Smoke None; Cigarette Smoking Last 365 Days No; Reg Smoking Cessation Counseling No entered on: 12/23/17 10/28/2017 [facility] Social History TypeResponse Alcohol Never Smoking Status Never smoker; Exposure to Tobacco Smoke None; Cigarette Smoking Last 365 Days No; Reg Smoking Cessation Counseling No entered on: 12/23/17 10/28/2017 [facility] [place] Social History TypeResponse Alcohol Never Smoking Status Never smoker; Exposure to Tobacco Smoke None; Cigarette Smoking Last 365 Days No; Reg Smoking Cessation Counseling No entered on: 10/31/17 10/28/2017 [facility] Social History TypeResponse Alcohol Never Smoking Status Never smoker; Exposure to Tobacco Smoke None; Cigarette Smoking Last 365 Days No; Reg Smoking Cessation Counseling No entered on: 12/23/17 10/28/2017 [facility] Family History No Data Provided for This Section Advance Directives No Data Provided for This Section Functional Status No Data Provided for This Section
--- NOTE | 2019-11-08 02:55 | NUR ---
PATIENT WAS BROUGHT FROM ER IN [facility] WITH C/O CHEST PAIN,AAOX3.AMBULATES WITH CANE.ADMISSION ASSESSMENT DONE.NO RESP.DISTRESS NO PAIN VOICED.ORIENTED TO THE UNIT.BED LOCKED AND IN LOWEST POSITION.PHONE AND CALL LIGHT WITHIN REACH.INSTRUCTED TO CALL FOR ASSISTANCE NEEDED.
--- NOTE | 2019-11-08 04:12 | NUR ---
BP NOTED 186/80 MMOF HG.PATIENT REFUSED HYDRALAZINE 10 MG Q4H.KEEP MONITOR THE PATIENT.
[2019-11-08 06:22] LABS: CREATINE KINASE MB 3.8 ng/mL (0-5.0)
--- NOTE | 2019-11-08 06:27 | NUR ---
CALLED ANA'S OFFICE AND LEFT MESSAGE REGARDING CONSULTATION.
--- NOTE | 2019-11-08 07:00 | NUR ---
RECEIVED PATIENT RESTING IN BED NO S/S OF DISTRESS. BED LOW, WHEELS LOCKED, SIDE RAILS X2. CALL LIGHT IN REACH WILL CONTINUE TO MONITOR PATIENT.
--- NOTE | 2019-11-08 07:00 | NUR ---
BED SIDE SHIFT REPORT GIVEN TO ONCOMING RN.STABLE CONDITION.
--- NOTE | 2019-11-08 07:21 | NUR ---
CONSULT CALLED FOR DR. RUFF.
[2019-11-08] MEDS ORDERED: FUROSEMIDE INJ 10 MG/ML 4 ML VIAL IV ONE (07:25)
--- NOTE | 2019-11-08 09:06 | NUR ---
PAGED DR. RAPP FOR ORDERS.
[2019-11-08] MEDS ORDERED: TRAMADOL HCL 50 MG TAB PO PRN (09:45)
[2019-11-08] MEDS ORDERED: ATENOLOL 50 MG TAB PO SCH (11:25)
[2019-11-08] MEDS: HYDRALAZINE HCL 25 MG TAB PO SCH ×3 (11:35→21:52)
[2019-11-08] MEDS: CLONIDINE HCL 0.2 MG TAB PO SCH ×3 (11:35→21:52)
[2019-11-08] MEDS: HYDROCHLOROTHIAZIDE 25 MG TAB PO SCH (11:35)
[2019-11-08] MEDS: LOSARTAN POTASSIUM 100 MG TAB PO SCH (11:35)
[2019-11-08] MEDS: INSULIN LISPRO 100 UNIT/1 ML 3ML VIAL SQ SCH ×2 (11:56→16:20)
--- NOTE | 2019-11-08 14:00 | NUR ---
INFORMED PATIENT OF DR. ZAVLAA WANTING TO PERFORM STRESS TEST TOMORROW 11/08. PATIENT REFUSING AND STATES "I WILL NOT DO IT."
[2019-11-08 14:56] LABS: CREATINE KINASE MB 4.1 ng/mL (0-5.0)
--- NOTE | 2019-11-08 16:03 | Diagnostic Imaging Report ---
Perfusion Lung Scan NOTE: Lung ventilation studies with xenon are not being performed per the recommendation of the Society of Nuclear Medicine and Molecular Imaging. It is not possible to be certain that the ventilation system is adequately disinfected. Ventilation studies with Tc-99m DTPA particles is contraindicated because the delivery by nebulization generates too many water droplets from the patient's airway. Clinical Information: Chest pain; SOB. Comparison: Chest radiograph 05/20/2019 Discussion: Ventilation images were not obtained. See note above. Perfusion images of the lungs were obtained in multiple projections following intravenous administration of approximately 6 mCi of Tc-99m MAA. Distribution of tracer is irregular throughout the lungs. There are no segmental perfusion defects of any size. The cardiomediastinal silhouette is unremarkable. Impression: 1. Scan findings represent a VERY LOW probability for acute pulmonary embolic disease based on the perfusion-only PIOPED criteria. 2. Scan findings are compatible with diffuse parenchymal and/or obstructive lung disease. Findings are also consistent with pleural effusions and atelectasis in the lung bases. Signed by: Dr. Eva Kilpatrick M.D. on 11/08/2019 4:00 PM
[2019-11-08] MEDS: FUROSEMIDE INJ 10 MG/ML 2 ML VIAL IV SCH (19:00)
--- NOTE | 2019-11-08 20:06 | Consultation ---
DATE OF CONSULTATION: Initial Nephrology Consultation Report REASON FOR CONSULTATION: I have been kindly asked by Dr. Juárez to see this patient in regard to chronic kidney disease, elevated serum creatinine. HISTORY OF PRESENT ILLNESS: Ms. Celaya is a 78-year-old female who presents to the hospital with some chest pain. She has multiple medical problems including diabetes, hypertension, and some coronary disease. She has also undergone a right nephrectomy in the past serum creatinine of 1.3. In the computer, it does not show any previous serum creatinine values so, I do not know really what her baseline is. PAST MEDICAL HISTORY: 1. She had a right nephrectomy in the past. She says the reason was because her kidney was too big. She cannot be any more specific than that. 2. Diabetes. 3. Hypertension. 4. Coronary artery disease. 5. Gastroesophageal reflux disease. 6. Hypothyroidism. PAST SURGICAL HISTORY: Right nephrectomy, bilateral knee surgery, ORIF. MEDICATIONS: In the hospital, the patient is getting aspirin, levothyroxine, insulin, clonidine, atenolol, pantoprazole, insulin, Plavix, losartan, zolpidem, hydralazine, hydrochlorothiazide, and tramadol. REVIEW OF SYSTEMS: As per HPI. PHYSICAL EXAMINATION: VITAL SIGNS: Blood pressure 155/68, pulse 80, respirations 16. GENERAL: The patient is no acute distress. HEENT: No increased JVD. CARDIOVASCULAR: Regular rate and rhythm. LUNGS: Clear to auscultation bilaterally. ABDOMEN: Positive bowel sounds. EXTREMITIES: No edema, cyanosis, or clubbing. LABORATORY RESULTS: BUN and creatinine 37 and 1.3 respectively. Sodium 131, potassium 5, chloride 103, and bicarbonate 18. Calcium is 9.5. Anion gap is 15. Hemoglobin and hematocrit 12 and 38 respectively. IMPRESSION: 1. Chronic kidney disease stage 3 in a patient with one kidney, who is status post right nephrectomy. 2. Diabetes. 3. Hypertension. 4. Mild metabolic acidosis, high anion gap. PLAN: The patient's potassium is upper limit of normal. This could be because of the losartan that she is on. The patient also only has one kidney. I do not know what her baseline renal function is. I do not have any old labs on her, but NSAIDs, STYLES-2 inhibitors, and IV contrast should be avoided. Metformin should be avoided also. She is on multiple medicines for blood pressure. These will be continued. Her chest x-ray does show that she has some mild pulmonary edema, so I am not going to give her any IV fluids. I will follow the patient with you. Thank you, Dr. Juárez, for this consultation. Ather MD MILO Oviedo/KEYA /[id number]
[2019-11-08] MEDS ORDERED: INSULIN GLARGINE 100 UNITS/ML VIAL SQ SCH (21:00)
[2019-11-08] MEDS ORDERED: LEVOTHYROXINE SODIUM 100 MCG TAB PO SCH (21:00)
[2019-11-08] MEDS ORDERED: ZOLPIDEM TARTRATE 10 MG TAB PO PRN (21:00)
--- NOTE | 2019-11-08 21:32 | Consultation ---
DATE OF CONSULTATION: 11/08/2019 Cardiology consultation REQUESTING PHYSICIAN: Dr. Juárez. REASON FOR CONSULTATION: Chest pain. 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 The patient reports she developed chest pressure yesterday around 11 p.m. radiating to her left shoulder and back. The pain was 6/10 in severity and lasted for hours. The pain is improved, but continued at time of interview. She denies any aggravating or relieving factors. The pain was associated with shortness of breath, but no nausea. She denies any edema, orthopnea, or PND. Due to her symptoms, she presented to the ER for further evaluation. REVIEW OF SYSTEMS: Negative except as per HPI. PAST MEDICAL HISTORY: As above. PAST SURGICAL HISTORY: 1. Right nephrectomy. 2. Appendectomy. 3. Hysterectomy. 4. Knee surgery. 5. Back surgery x2. 6. Hip surgery. 7. Bladder suspension x2. ALLERGIES: PLEASE SEE EMR. MEDICATIONS: Please see medication list. SOCIAL HISTORY: Denies tobacco or illicit drugs. Does drink alcohol occasionally. FAMILY HISTORY: Noncontributory to current illness. PHYSICAL EXAMINATION: VITAL SIGNS: Temperature 98.2 degrees, pulse 79, respiratory rate 20, blood pressure 180/80, oxygen saturation 97% on room air. GENERAL: Elderly woman, no acute distress. Well developed, well nourished. HEENT: Normocephalic, atraumatic. Pupils are equal. No scleral icterus. NECK: Supple. No thyroid or cervical lymphadenopathy. No carotid bruits. LUNGS: Clear to auscultation bilaterally. No wheezes or crackles. HEART: Normal rate, regular rhythm. No murmur. Normal S1, S2. ABDOMEN: Soft and nontender. EXTREMITIES: No edema. NEUROLOGIC: Nonfocal exam. LABORATORY DATA: WBC 8.56, hemoglobin 12.5, hematocrit 38.9, platelets 310. Sodium 131, potassium 5, chloride 103, CO2 of 18, BUN 27, and creatinine 1.32. Troponin 0.021. BNP 170.9. EKG; sinus rhythm, PACs, left anterior fascicular block, LVH with repolarization abnormality, cannot rule out septal infarct, age undetermined. IMPRESSION: 1. Chest pain. 2. Coronary artery disease with prior right coronary artery percutaneous coronary intervention and known 78% stenosis of the mid left anterior descending and circumflex chronic total occlusion. 3. Hypertension. 4. Diabetes mellitus. RECOMMENDATIONS: The patient ruled out for myocardial infarction with serial cardiac biomarkers. Echocardiogram was reviewed with normal LVEF, but pseudonormal LV filling. Given patient's known CAD and risk factors, ischemic evaluation was recommended with a nuclear stress test. The patient refused nuclear stress test, stating she had previously had unpleasant experience with stress. She understands that without ischemic evaluation, she is at risk for myocardial infarction, heart failure, arrhythmia, and . She understood these risks and continues to refuse stress test. We will discontinue atenolol and start carvedilol in attempt to achieve better blood pressure control and antianginal therapy instead. Also start gentle IV diuretics while admitted given elevated BNP and known pseudonormal LV filling on echocardiogram. Continue home cardiac medications otherwise. Thank you for this consult. We will continue. Makenzie Moore MD ABS/MODL /[id number]
--- NOTE | 2019-11-08 22:00 | NUR ---
received bedside shift report from night rn. pt is alert and oriented x3. Tele on - SB,Respirations are even and unlabored. No chest pain.call light within reach. Pt lying in bed- no distress. call light within reach. 22 g sl in rt fa.
--- NOTE | 2019-11-08 22:00 | NUR ---
RECEIVED BEDSIDE SHIFT REPORT FROM NIGHT RN. PT IS ALERT AND ORIENTED X3. HX BREAST CANCER- LEFT LIMB ALERT. 22G RT FA SL- INTACT. TELE ON SB-SR. AMBULATE TO BR WITH ONE ASSIST. RESPIRATIONS ARE EVEN AND UNLABORED.DENIES PAIN. PT TURNED ON HER SIDE SLEEPING. ASSISTED UP TO BR X1. VOIDING WITHOUT DIFFICULTY. CALL LIGHT WITHIN REACH. BED LOCKED AND BED IN LOW POSITION. NO C/O OF CHEST PAIN.
[2019-11-09] VITALS: BP 124/63
[2019-11-09 04:00] VITALS: BP 126/68
[2019-11-09] MEDS: FUROSEMIDE INJ 10 MG/ML 2 ML VIAL IV SCH (06:00)
[2019-11-09 06:48] LABS: BASOPHILS # (AUTO) 0.1 (0.0-0.1); BASOPHILS % 0.5 % (0.0-1.0); EOSINOPHILS # (AUTO) 0.2 (0.0-0.4); HEMATOCRIT 43.2 % (34.2-44.1); HEMOGLOBIN 13.9 g/dL (12.0-16.0); LYMPHOCYTES # (AUTO) 1.8 (1.0-3.2); LYMPHOCYTES % 17.6 % (18.0-39.1); MEAN CORPUSCULAR HEMOGLOBIN 27.5 pg (28-32); MEAN CORPUSCULAR HGB CONC 32.2 g/dL (31-35); MEAN CORPUSCULAR VOLUME 85.5 fL (81-99); MONOCYTES # (AUTO) 1.4 (0.2-0.8); MONOCYTES % 13.9 % (4.4-11.3); NEUTROPHILS # (AUTO) 6.5 (2.1-6.9); NEUTROPHILS % 65.1 % (38.7-80.0); PLATELET COUNT 315 x10e3/uL (140-360); RED BLOOD COUNT 5.05 x10e6/uL (3.6-5.1); RED CELL DISTRIBUTION WIDTH 14.4 % (11.7-14.4)
--- NOTE | 2019-11-09 07:00 | NUR ---
RECEIVED PATIENT RESTING IN BED NO S/S OF DISTRESS. BED LOW, WHEELS LOCKED, SIDE RAILS X2. CALL LIGHT IN REACH WILL CONTINUE TO MONITOR PATIENT.
[2019-11-09 07:12] LABS: ALBUMIN 3.8 g/dL (3.5-5.0); ANION GAP 17.2 mmol/L (8-16); CALCIUM 9.9 mg/dL (8.4-10.2); CREATININE, SERUM 1.53 mg/dL (0.57-1.11); POTASSIUM 4.2 mmol/L (3.5-5.1)
--- NOTE | 2019-11-09 07:29 | NUR ---
PT REFUSED LASIX. DOORPERSON TOLD HER NOT TO TAKE.
[2019-11-09] MEDS: INSULIN LISPRO 100 UNIT/1 ML 3ML VIAL SQ SCH ×2 (08:00→12:00)
[2019-11-09] MEDS: CLONIDINE HCL 0.2 MG TAB PO SCH (08:06)
[2019-11-09] MEDS: HYDRALAZINE HCL 25 MG TAB PO SCH (08:06)
[2019-11-09] MEDS: LOSARTAN POTASSIUM 100 MG TAB PO SCH (08:06)
[2019-11-09] MEDS: HYDROCHLOROTHIAZIDE 25 MG TAB PO SCH (08:07)
[2019-11-09 08:08] VITALS: BP 124/70
[2019-11-09 08:29] VITALS: BP 124/70
[2019-11-09 08:54] LABS: CREATINE KINASE MB 3.7 ng/mL (0-5.0)
[2019-11-09] MEDS ORDERED: ASPIRIN 81 MG CHEW TAB PO SCH (09:00)
[2019-11-09] MEDS ORDERED: CARVEDILOL 12.5 MG TAB PO SCH (09:00)
[2019-11-09] MEDS ORDERED: PANTOPRAZOLE SOD 40 MG TABEC PO SCH (09:00)
[2019-11-09] MEDS ORDERED: CLOPIDOGREL BISULFATE 75 MG TAB PO SCH (09:00)
[2019-11-09 11:58] VITALS: BP 128/66
--- NOTE | 2019-11-09 12:20 | NUR ---
REMOVED PATIENTS IV. CATHETER TIP INTACT AND PRESSURE DRESSING APPLIED.
--- NOTE | 2019-11-09 12:55 | NUR ---
PATIENT DISCHARGED FROM FACILITY. PATIENT GATHERED ALL PERSONAL BELONGINGS, DISCHARGE INSTRUCTIONS AND F/U INFORMATION. LEFT UNIT IN WHEELCHAIR AND WENT HOME VIA PRIVATE AUTO.
--- NOTE | 2019-11-09 13:18 | Progress Note ---
DATE: 11/09/2019 Cardiology Progress Note SUBJECTIVE: The patient denies chest pain or shortness of breath. OBJECTIVE: VITAL SIGNS: Temperature 96.7 degrees, pulse 55, respiratory rate 18, blood pressure 128/66, and oxygen saturation 97% on room air. GENERAL: Elderly woman, no acute distress. Awake and alert. LUNGS: Clear to auscultation bilaterally. No wheezes or crackles. CARDIOVASCULAR: Normal rate. Regular rhythm. No murmur. Normal S1 and S2. ABDOMEN: Soft and nontender. EXTREMITIES: No edema. CARDIAC MEDICATIONS: Hydrochlorothiazide 25 mg p.o. daily, Plavix 75 mg p.o. daily, losartan 100 mg p.o. daily, hydralazine 25 mg p.o. t.i.d., aspirin 81 mg p.o. daily, and levothyroxine 100 mcg p.o. at bedtime. LABORATORY DATA: WBC 10.05, hemoglobin 13.9, hematocrit 43.2, and platelets 315. Sodium 131, potassium 4.2, chloride 98, CO2 20, BUN 37, and creatinine 1.53. Troponin 0.029. Telemetry was personally reviewed and interpreted revealing sinus bradycardia. IMPRESSION: 1. Chest pain. 2. 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 3. Hypertension. 4. Diabetes mellitus. RECOMMENDATIONS: The patient ruled out for myocardial infarction with serial cardiac biomarkers. Echocardiogram revealed normal LVEF with pseudonormal LV filling. Given the patient's known CAD and risk factors, ischemic evaluation was recommended with a nuclear stress test. The patient refused to proceed stating she had previously had an unpleasant experience with nuclear stress test. Cardiac catheterization was therefore offered instead, but the patient likewise refused stating that she did not wish to proceed at this time. She understands that without further ischemic evaluation, she is at risk for myocardial infarction, heart failure, or even if she has revascularized coronary artery disease. Continue current cardiac medications. Thank you for this consult. We will continue to follow. Makenzie Moore MD ABS/MODL /[id number]
[2019-11-09] MEDS ORDERED: ONDANSETRON HCL 4 MG ORAL DISINTEGRATING TAB PO PRN (13:45)
--- NOTE | 2019-12-14 05:48 | Discharge Summary ---
CONTINUATION: We will continue with the Nephrology consult over the phone, cut out, lost signal. Stated that the potassium was at limits of normal, could be related to losartan that the patient was on. The patient only has one kidney. Recommend avoiding NSAIDs, STYLES-2 inhibitors, IV contrast, metformin should also be avoided. Chest x-rays were showing some mild pulmonary edema. She also underwent Cardiology evaluation with Dr. Moore regarding complaints of chest pain and with her review impression was made of chest pain. Coronary artery disease with prior right coronary artery stent, known 78% stenosis of the mid left anterior descending, chronic total occlusion. Hypertension. Diabetes mellitus. He states that the patient was ruled out for ID with serial cardiac biomarkers. The patient refused nuclear stress testing, and she had previously an unpleasant experience with a stress test. She has noted risk for ID, heart failure air, arrhythmias, and and she understands the risks and continues repeat stress testing. The atenolol will be discontinued. Carvedilol will be started in attempt to achieve better blood pressure control and antianginal therapy. A 78-year-old female who has a known history of coronary artery disease, hypertension, and hyperthyroid as mentioned. From the ER, the patient was placed on the Med-Surg floor, was continued on a cardiac diet. Began medication protocol. Continued vital signs and laboratory study, consultants were started. Nephrology versus Cardiology. The patient's condition stabilized. There were no further complaints. Pressure was resting comfortable. There is no chest pains, the pain resolved. She was cleared for discharge by physicians, i.e. consultants and the patient was able to be discharged home in stable condition. IMAGING: Nuclear medicine lung scan reveals findings representing a very low probability for acute pulmonary embolic disease based on the perfusion-only study. Scan findings were compatible with diffuse parenchymal and/or obstructive lung disease. Findings were also consistent with pleural effusions and atelectasis in the lung base. Routine chest x-ray shows mild cardiomegaly and pulmonary vascular congestion. Mild pulmonary interstitial edema is possible. LABORATORY STUDIES: Shows a CBC to be unremarkable. Chemistries shows an electrolyte panel with a sodium low at 131. Kidney functions BUN 27, creatinine 1.32, and glucose 201. BNP was 170.9. Three sets of cardiac enzymes were noted to be stable. Followup blood sugars were as high as 266, final sodium of 131, potassium remained normal, final BUN 37, creatinine 1.53, and final glucose 163. The patient did well, was discharged from the facility, was able to be discharged home in stable condition. With discharge, the patient will continue on current diet. No equipments or supplies were necessary. No drains or [place]al[place] was needed. Activity level as directed. She will be following up with her PCP within 7 to 10 days. MEDICATIONS: She will be continued on aspirin 81 mg daily, atenolol 50 mg p.o. daily, clonidine 2 mg p.o. t.i.d., clopidogrel 75 mg daily, hydralazine 25 mg p.o. t.i.d., Levemir 30 units subcu at bedtime, lispro insulin 20 units subcu t.i.d. with meals, levothyroxine sodium 100 mcg p.o. at bedtime, losartan hydrochlorothiazide 100 mg tablet p.o. daily, Protonix 40 mg p.o. daily, tramadol 50 mg p.o. q.6, and Ambien 10 mg p.o. at bed time. Any concerns she might have further if she develops additional chest pain, she will be contacting her PCP. Dictated by COCO Smith MD YO Truong/KEYA /[id number]
--- NOTE | 2019-12-14 06:17 | Discharge Summary ---
CHIEF COMPLAINT: Mid chest pain. FINAL DIAGNOSES: 1. Chest pain, resolved. 2. Chronic kidney disease, stage II. 3. Diabetes type 2. DISPOSITION: Home. HOSPITAL COURSE: A 78-year-old female, known history of coronary artery disease, hypertension, hypothyroidism, diabetes type 2, brought to the ER with a 2-week history of intermittent chest pain described as pressure, mid chest, radiating to both shoulder associated with shortness of breath and mild diaphoresis with some dyspnea on exertion. No other complaints. She does have history of regarding review of chest pain atypical, diabetes type 2, coronary artery disease, hypertension, GERD, hypothyroidism. We will be addressing the . Home medications will be continued. Regarding the patient's chronic kidney disease, laboratory study showing elevated creatinine. She was being seen by power screwdriver operator and following evaluation. , the patient with one kidney, who is status post right nephrectomy. Diabetes, hypertension, mild metabolic acidosis high anion gap. potassium is upper limits of normal. Dictated by COCO Smith Kam Juárez MD CC/MODL /[id number]
== END 2019-11-09 14:22 | disposition home or self-care (01) | DRG 305 ==
LOC: ER 00:08 → ERHOLD 02:30 → MED/SURG 03:00 → OBSVTOIN 06:41
DX: I16.0 Hypertensive urgency (principal); E87.2 Acidosis; R07.89 Other chest pain; I25.10 Atherosclerotic heart disease of native coronary artery without angina pectoris; E03.9 Hypothyroidism, unspecified; K21.9 Gastro-esophageal reflux disease without esophagitis; Z90.5 Acquired absence of kidney; I13.10 Hypertensive heart and chronic kidney disease without heart failure, with stage 1 through stage 4 chronic kidney disease, or unspecified chronic kidney disease; E11.22 Type 2 diabetes mellitus with diabetic chronic kidney disease; N18.3 Chronic kidney disease, stage 3 (moderate); Z95.5 Presence of coronary angioplasty implant and graft; Z88.5 Allergy status to narcotic agent; Z79.82 Long term (current) use of aspirin; Z79.4 Long term (current) use of insulin; Z11.59 Encounter for screening for other viral diseases
CPT/HCPCS: 36415; 71045; 78597; 80053; 82550; 82553; 82948; 83880; 84484; 85025; 85379; 87635; 93005; 93306; 99284; A9540; J0360; J1940

== ENCOUNTER 2021-07-12 15:48 | Inpatient (IN) | payer MEDICARE, OTHER ==
[~2021-07-12] VITALS: Ht 160 cm; Wt 74.5 kg
[2021-07-12 16:12] LABS: BASOPHILS % 0.3 % (0.0-1.0); EOSINOPHILS # (AUTO) 0.1 (0.0-0.4); EOSINOPHILS % 0.6 % (0.0-6.0); HEMATOCRIT 40.2 % (34.2-44.1); HEMOGLOBIN 12.7 g/dL (12.0-16.0); LYMPHOCYTES # (AUTO) 1.1 (1.0-3.2); LYMPHOCYTES % 13.6 % (18.0-39.1); MEAN CORPUSCULAR HEMOGLOBIN 27.9 pg (28-32); MEAN CORPUSCULAR HGB CONC 31.6 g/dL (31-35); MEAN CORPUSCULAR VOLUME 88.2 fL (81-99); MONOCYTES # (AUTO) 1.1 (0.2-0.8); MONOCYTES % 14.1 % (4.4-11.3); NEUTROPHILS # (AUTO) 5.6 (2.1-6.9); NEUTROPHILS % 70.6 % (38.7-80.0); PLATELET COUNT 399 x10e3/uL (140-360); RED BLOOD COUNT 4.56 x10e6/uL (3.6-5.1); RED CELL DISTRIBUTION WIDTH 13.4 % (11.7-14.4)
[2021-07-12] MEDS ORDERED: NITROGLYCERIN 2% OINT 1 GM PKT TOP ONE (16:15)
[2021-07-12 16:20] LABS: INR 0.86; PROTHROMBIN TIME 12.5 seconds (11.9-14.5)
[2021-07-12 16:21] LABS: PARTIAL THROMBOPLASTIN TIME 27.8 seconds (23.8-35.5)
[2021-07-12 16:28] LABS: ALBUMIN 3.3 g/dL (3.5-5.0); ALBUMIN/GLOBULIN RATIO 0.8 (0.8-2.0); ANION GAP 17.3 mmol/L (8-16); CALCIUM 9.2 mg/dL (8.4-10.2); CREATININE, SERUM 1.17 mg/dL (0.57-1.11); POTASSIUM 4.3 mmol/L (3.5-5.1)
[2021-07-12 16:34] LABS: CREATINE KINASE MB 5.5 ng/mL (0-5.0)
[2021-07-12 17:19] LABS: ABG HCO3 19 mmol/L (22-26); ABG PCO2 27 mmHg (35-45); ABG PH 7.46 (7.35-7.45); ABG PO2 101 mmHg (80-105); ABG TCO2 20
[2021-07-12 19:35] VITALS: BP 144/85
[2021-07-12] MEDS ORDERED: ENOXAPARIN INJ 80 MG/0.8 ML SYR SC SCH (21:00)
[2021-07-12] MEDS: ENOXAPARIN 30 MG/0.3 ML SYR SC SCH (21:30)
[2021-07-12 21:51] VITALS: BP 185/86
[2021-07-13] MEDS ORDERED: DEXTROSE 50% SYRINGE 50 ML IV PRN
[2021-07-13] MEDS: HYDRALAZINE HCL 25 MG TAB PO SCH ×4 (00:45→21:36)
[2021-07-13 00:56] VITALS: BP 185/86
[2021-07-13] MEDS ORDERED: CLONIDINE HCL0.2 MG PO (01:23)
[2021-07-13] MEDS: CLONIDINE HCL 0.2 MG TAB PO SCH ×4 (01:30→21:36)
[2021-07-13 01:43] LABS: CREATINE KINASE MB 9.6 ng/mL (0-5.0)
[2021-07-13 05:53] VITALS: BP 161/85
[2021-07-13] MEDS: PANTOPRAZOLE SOD 40 MG TABEC PO SCH (05:53)
[2021-07-13] MEDS ORDERED: HYDRALAZINE HCL 25 MG TAB PO ONE (06:00)
[2021-07-13] MEDS: INSULIN REGULAR, HUMAN 100 UNIT/1 ML SQ SCH ×4 (07:30→21:38)
[2021-07-13] MEDS: HYDROCHLOROTHIAZIDE 25 MG TAB PO SCH (08:11)
[2021-07-13] MEDS: LOSARTAN POTASSIUM 100 MG TAB PO SCH (08:11)
[2021-07-13] MEDS: ASPIRIN 81 MG CHEW TAB PO SCH (08:11)
[2021-07-13] MEDS: ATENOLOL 50 MG TAB PO SCH (08:12)
[2021-07-13] MEDS: ENOXAPARIN 30 MG/0.3 ML SYR SC SCH ×2 (08:13→21:38)
[2021-07-13] MEDS: CLOPIDOGREL BISULFATE 75 MG TAB PO SCH (08:26)
[2021-07-13 08:31] VITALS: BP 189/94
[2021-07-13 09:21] VITALS: BP 189/94
[2021-07-13] MEDS ORDERED: ZOLPIDEM TARTRATE 10 MG TAB PO PRN (09:45)
[2021-07-13] MEDS ORDERED: TRAMADOL HCL 50 MG TAB PO PRN (09:45)
[2021-07-13 10:58] LABS: CREATINE KINASE MB 8.9 ng/mL (0-5.0)
[2021-07-13] MEDS ORDERED: FUROSEMIDE INJ 10 MG/ML 2 ML VIAL IV ONE (11:00)
[2021-07-13] MEDS: DEXAMETHASONE SOD PHOS 10 MG/1 ML VIAL IV SCH (12:40)
[2021-07-13] MEDS: CEFTRIAXONE 1 GM in SODIUM CHLORIDE 0.9% 50ML 50 ML IV SCH (12:42)
[2021-07-13] MEDS ORDERED: HYDRALAZINE HCL 25 MG TAB PO SCH (15:00)
[2021-07-13] MEDS ORDERED: CLONIDINE HCL 0.2 MG TAB PO SCH (15:00)
[2021-07-13] MEDS ORDERED: REMDESIVIR 100MG 200 MG in SODIUM CHLORIDE 0.9% 100 ML IV ONE (17:00)
[2021-07-13 19:30] LABS: CREATINE KINASE MB 5.5 ng/mL (0-5.0)
[2021-07-13 20:00] VITALS: BP 144/65
[2021-07-13 21:23] VITALS: BP 144/65
[2021-07-13] MEDS: LEVOTHYROXINE SODIUM 100 MCG TAB PO SCH (21:36)
[2021-07-14] VITALS (7 sets, daily range): BP systolic 115–163; BP diastolic 53–81
[2021-07-14 05:19] LABS: BASOPHILS % 0.1 % (0.0-1.0); HEMATOCRIT 35.6 % (34.2-44.1); HEMOGLOBIN 11.4 g/dL (12.0-16.0); LYMPHOCYTES # (AUTO) 0.9 (1.0-3.2); MEAN CORPUSCULAR HEMOGLOBIN 27.9 pg (28-32); MEAN CORPUSCULAR VOLUME 87.3 fL (81-99); MONOCYTES # (AUTO) 0.9 (0.2-0.8); NEUTROPHILS # (AUTO) 5.9 (2.1-6.9); NEUTROPHILS % 76.1 % (38.7-80.0); PLATELET COUNT 349 x10e3/uL (140-360); RED BLOOD COUNT 4.08 x10e6/uL (3.6-5.1); RED CELL DISTRIBUTION WIDTH 13.2 % (11.7-14.4)
[2021-07-14] MEDS: PANTOPRAZOLE SOD 40 MG TABEC PO SCH (05:28)
[2021-07-14 06:01] LABS: ANION GAP 12.4 mmol/L (8-16); CALCIUM 8.6 mg/dL (8.4-10.2); CREATININE, SERUM 0.96 mg/dL (0.57-1.11); POTASSIUM 4.4 mmol/L (3.5-5.1)
[2021-07-14] MEDS: INSULIN REGULAR, HUMAN 100 UNIT/1 ML SQ SCH ×4 (08:00→21:00)
[2021-07-14] MEDS ORDERED: FUROSEMIDE INJ 10 MG/ML 4 ML VIAL IV ONE (08:45)
[2021-07-14] MEDS: DEXAMETHASONE SOD PHOS 10 MG/1 ML VIAL IV SCH (08:53)
[2021-07-14] MEDS: CEFTRIAXONE 1 GM in SODIUM CHLORIDE 0.9% 50ML 50 ML IV SCH (08:53)
[2021-07-14] MEDS: CLONIDINE HCL 0.2 MG TAB PO SCH ×3 (08:56→21:00)
[2021-07-14] MEDS: ASPIRIN 81 MG CHEW TAB PO SCH (08:56)
[2021-07-14] MEDS: CLOPIDOGREL BISULFATE 75 MG TAB PO SCH (08:56)
[2021-07-14] MEDS: HYDROCHLOROTHIAZIDE 25 MG TAB PO SCH (08:56)
[2021-07-14] MEDS: HYDRALAZINE HCL 25 MG TAB PO SCH ×3 (08:56→21:00)
[2021-07-14] MEDS: LOSARTAN POTASSIUM 100 MG TAB PO SCH (08:56)
[2021-07-14] MEDS: ENOXAPARIN 30 MG/0.3 ML SYR SC SCH ×2 (08:59→21:00)
[2021-07-14] MEDS ORDERED: ASPIRIN 81 MG CHEW TAB PO SCH (09:00)
[2021-07-14] MEDS ORDERED: CLOPIDOGREL BISULFATE 75 MG TAB PO SCH (09:00)
[2021-07-14] MEDS ORDERED: PANTOPRAZOLE SOD 40 MG TABEC PO SCH (09:00)
[2021-07-14] MEDS ORDERED: ATENOLOL 50 MG TAB PO SCH (09:00)
[2021-07-14] MEDS: ATENOLOL 50 MG TAB PO SCH (09:00)
[2021-07-14] MEDS ORDERED: SODIUM CHLORIDE 0.9% 250ML 250 ML ONE (09:16)
[2021-07-14] MEDS ORDERED: REMDESIVIR 100MG 100 MG IV ONE (15:44)
[2021-07-14] MEDS ORDERED: SODIUM CHLORIDE 0.9% 100 ML ONE (15:46)
[2021-07-14] MEDS ORDERED: REMDESIVIR 100MG 100 MG in SODIUM CHLORIDE 0.9% 100 ML IV SCH (17:00)
[2021-07-14] MEDS: LEVOTHYROXINE SODIUM 100 MCG TAB PO SCH (21:00)
[2021-07-15] VITALS: BP 156/80
[2021-07-15 05:14] VITALS: BP_SYST 151; BP_SYST 193; BP_DIAS 63; BP_DIAS 81
[2021-07-15] MEDS: PANTOPRAZOLE SOD 40 MG TABEC PO SCH (05:30)
[2021-07-15 06:06] LABS: BASOPHILS % 0.2 % (0.0-1.0); EOSINOPHILS % 0.2 % (0.0-6.0); HEMATOCRIT 37.4 % (34.2-44.1); HEMOGLOBIN 12.3 g/dL (12.0-16.0); LYMPHOCYTES # (AUTO) 1.3 (1.0-3.2); LYMPHOCYTES % 11.2 % (18.0-39.1); MEAN CORPUSCULAR HEMOGLOBIN 28.1 pg (28-32); MEAN CORPUSCULAR HGB CONC 32.9 g/dL (31-35); MEAN CORPUSCULAR VOLUME 85.6 fL (81-99); MONOCYTES # (AUTO) 1.4 (0.2-0.8); MONOCYTES % 12.5 % (4.4-11.3); NEUTROPHILS # (AUTO) 8.6 (2.1-6.9); NEUTROPHILS % 74.9 % (38.7-80.0); PLATELET COUNT 384 x10e3/uL (140-360); RED BLOOD COUNT 4.37 x10e6/uL (3.6-5.1)
[2021-07-15 06:24] LABS: ALBUMIN 3.2 g/dL (3.5-5.0); ALBUMIN/GLOBULIN RATIO 0.9 (0.8-2.0); ANION GAP 14.9 mmol/L (8-16); CALCIUM 9.1 mg/dL (8.4-10.2); CREATININE, SERUM 1.12 mg/dL (0.57-1.11); POTASSIUM 3.9 mmol/L (3.5-5.1)
[2021-07-15 06:34] LABS: CHOL/HDL RATIO 4.5 (3.0-3.6)
[2021-07-15] MEDS: CEFTRIAXONE 1 GM in SODIUM CHLORIDE 0.9% 50ML 50 ML IV SCH (08:49)
[2021-07-15] MEDS: DEXAMETHASONE SOD PHOS 10 MG/1 ML VIAL IV SCH (08:49)
[2021-07-15] MEDS: INSULIN REGULAR, HUMAN 100 UNIT/1 ML SQ SCH ×2 (08:49→12:05)
[2021-07-15] MEDS: ASPIRIN 81 MG CHEW TAB PO SCH (08:50)
[2021-07-15] MEDS: CLONIDINE HCL 0.2 MG TAB PO SCH (08:50)
[2021-07-15] MEDS: HYDRALAZINE HCL 25 MG TAB PO SCH (08:50)
[2021-07-15] MEDS: ENOXAPARIN 30 MG/0.3 ML SYR SC SCH (08:51)
[2021-07-15] MEDS: CLOPIDOGREL BISULFATE 75 MG TAB PO SCH (08:51)
[2021-07-15] MEDS: LOSARTAN POTASSIUM 100 MG TAB PO SCH (08:51)
[2021-07-15] MEDS: HYDROCHLOROTHIAZIDE 25 MG TAB PO SCH (08:51)
[2021-07-15 09:00] VITALS: BP 140/74
[2021-07-15] MEDS: ATENOLOL 50 MG TAB PO SCH (09:00)
[2021-07-15] MEDS ORDERED: FUROSEMIDE INJ 10 MG/ML 4 ML VIAL IV ONE (10:15)
[2021-07-15] MEDS ORDERED: INSULIN GLARGINE 100 UNITS/ML VIAL SQ SCH (11:30)
[2021-07-15] MEDS ORDERED: DEXAMETHASONE4 MG PO (12:37)
[2021-07-15] MEDS ORDERED: ZITHROMAX250 MG PO (12:38)
[2021-07-15] MEDS ORDERED: METOPROLOL SUCC25 MG PO (12:39)
[2021-07-15] MEDS ORDERED: LEVEMIR FL100 UNIT/1 SC (12:40)
[2021-07-15] MEDS ORDERED: INSULIN LI100 UNIT/1 SC (12:42)
== END 2021-07-15 14:15 | disposition home or self-care (01) | DRG 177 ==
LOC: ER 16:38 → ERHOLD 17:03 → IMCU 20:50
PROC: 8E0ZXY6 Isolation (ICD-10-PCS; principal; 2021-07-12)
PROC: XW033E5 Introduction of Remdesivir Anti-infective into Peripheral Vein, Percutaneous Approach, New Technology Group 5 (ICD-10-PCS; 2021-07-13)
DX: U07.1 COVID-19 (principal); J12.82 Pneumonia due to coronavirus disease 2019; I50.33 Acute on chronic diastolic (congestive) heart failure; J96.01 Acute respiratory failure with hypoxia; I21.A1 Myocardial infarction type 2; I25.110 Atherosclerotic heart disease of native coronary artery with unstable angina pectoris; I13.0 Hypertensive heart and chronic kidney disease with heart failure and stage 1 through stage 4 chronic kidney disease, or unspecified chronic kidney disease; E78.5 Hyperlipidemia, unspecified; I48.0 Paroxysmal atrial fibrillation; Z79.01 Long term (current) use of anticoagulants; E03.9 Hypothyroidism, unspecified; F03.90 Unspecified dementia, unspecified severity, without behavioral disturbance, psychotic disturbance, mood disturbance, and anxiety; Z85.3 Personal history of malignant neoplasm of breast; Z95.5 Presence of coronary angioplasty implant and graft; Z96.642 Presence of left artificial hip joint; E11.22 Type 2 diabetes mellitus with diabetic chronic kidney disease; N18.30 Chronic kidney disease, stage 3 unspecified
CPT/HCPCS: 36415; 36600; 51700; 71045; 80048; 80053; 80061; 82550; 82553; 82805; 82948; 83036; 83880; 84484; 85025; 85610; 85730; 93005; 93306; 94799; 96372; 99251; 99285; J0248; J0456; J0696; J1100; J1650; J1817; J1940; J7050; U0002

== ENCOUNTER 2021-07-25 03:16 | Inpatient (IN) | payer MEDICARE, OTHER ==
[2021-07-25] VITALS (21 sets, daily range): BP systolic 119–169; BP diastolic 58–92
[~2021-07-25] VITALS: Ht 160 cm; Wt 71.7 kg
[~2021-07-25 03:16] MED LIST changes: +DEXAMETHASONE4 MG PO; +INSULIN LI100 UNIT/1 SC; +LEVEMIR FL100 UNIT/1 SC; +METOPROLOL SUCC25 MG PO; +ZITHROMAX250 MG PO
[2021-07-25] MEDS ORDERED: ASPIRIN 81 MG CHEW TAB PO ONE (03:30)
[2021-07-25 03:32] LABS: BASOPHILS % 0.2 % (0.0-1.0); EOSINOPHILS % 0.2 % (0.0-6.0); HEMATOCRIT 39.8 % (34.2-44.1); HEMOGLOBIN 12.5 g/dL (12.0-16.0); LYMPHOCYTES # (AUTO) 1.4 (1.0-3.2); MEAN CORPUSCULAR HEMOGLOBIN 28.3 pg (28-32); MEAN CORPUSCULAR HGB CONC 31.4 g/dL (31-35); MONOCYTES # (AUTO) 2.4 (0.2-0.8); MONOCYTES % 13.3 % (4.4-11.3); NEUTROPHILS # (AUTO) 13.7 (2.1-6.9); NEUTROPHILS % 77.3 % (38.7-80.0); PLATELET COUNT 295 x10e3/uL (140-360); RED BLOOD COUNT 4.42 x10e6/uL (3.6-5.1); RED CELL DISTRIBUTION WIDTH 14.4 % (11.7-14.4)
[2021-07-25] MEDS ORDERED: PIPERACILLIN/TAZOBACTAM 3.375 GM in SODIUM CHLORIDE 0.9% 50ML 50 ML IV SCH (03:45)
[2021-07-25 03:49] LABS: ALBUMIN 3.3 g/dL (3.5-5.0); ALBUMIN/GLOBULIN RATIO 0.9 (0.8-2.0); ANION GAP 18.4 mmol/L (8-16); CREATININE, SERUM 1.31 mg/dL (0.57-1.11); POTASSIUM 4.4 mmol/L (3.5-5.1)
[2021-07-25 03:58] LABS: LYMPHOCYTES % (MANUAL) 7 % (19-48); MONOCYTES % (MANUAL) 9 % (3.4-9.0); NEUTROPHILS % (MANUAL) 83 % (40-74); PROMYELOCYTES % (MANUAL) 1 % (0-0)
[2021-07-25 03:59] LABS: ANISOCYTOSIS SLIGHT; POLYCHROMASIA FEW
[2021-07-25 04:00] LABS: PLATELET ESTIMATE ADEQUATE; STOMATOCYTES SLIGHT
[2021-07-25 04:01] LABS: PLATELET MORPHOLOGY COMMENT FEW LARGE
[2021-07-25] MEDS ORDERED: ONDANSETRON HCL INJ 2MG/ML 2ML 2 MG/ML VIAL IV PRN (04:15)
[2021-07-25] MEDS ORDERED: IOPAMIDOL 370 MG/ML 200 ML INFUS..BTL INJ ONE ×3 (04:18→06:28)
[2021-07-25] MEDS ORDERED: SODIUM CHLORIDE 0.9% 50ML 50 ML ONE (04:18)
[2021-07-25] MEDS ORDERED: MIDAZOLAM HCL 2 MG/2 ML VIAL ONE (04:50)
[2021-07-25] MEDS ORDERED: LIDOCAINE HCL 2% LOCAL 20 ML VIAL ONE (04:51)
[2021-07-25] MEDS ORDERED: FENTANYL CITRATE/PF 100MCG/2 ML INJ ONE (04:51)
[2021-07-25] MEDS ORDERED: HEPARIN SOD/SOD CHLORIDE 2,000 ML ONE (04:51)
[2021-07-25] MEDS ORDERED: SODIUM CHLORIDE 0.9% 1000ML 1,000 ML ONE ×2 (05:46→20:56)
[2021-07-25] MEDS ORDERED: HEPARIN SOD (PORCINE) 1000 UNIT/ML 30ML ONE (05:57)
[2021-07-25] MEDS ORDERED: CLOPIDOGREL BISULFATE 75 MG TAB ONE (06:17)
[2021-07-25] MEDS ORDERED: NITROGLYCERIN/D5W 200 MCG/ML 250 ML ONE (06:19)
[2021-07-25] MEDS ORDERED: EPTIFIBATIDE 20 ML ONE (06:35)
[2021-07-25] MEDS ORDERED: EPTIFIBATIDE 75mg 100ML 100 ML ONE (06:35)
[2021-07-25] MEDS ORDERED: SODIUM CHLORIDE 0.9% 1000ML 1,000 ML IV SCH (07:30)
[2021-07-25] MEDS ORDERED: DEXTROSE 50% SYRINGE 50 ML IV PRN (08:45)
[2021-07-25] MEDS: ASPIRIN 81 MG CHEW TAB PO SCH (09:00)
[2021-07-25] MEDS ORDERED: HYDRALAZINE HCL 20 MG/ML VIAL IV PRN (09:00)
[2021-07-25] MEDS: CARVEDILOL 3.125 MG TAB PO SCH ×2 (09:10→16:37)
[2021-07-25] MEDS: VALSARTAN/SACUBITRIL 24MG/26MG 1 EA TAB PO SCH ×2 (09:10→20:30)
[2021-07-25] MEDS: PANTOPRAZOLE SOD 40 MG TABEC PO SCH (12:41)
[2021-07-25 13:00] LABS: CREATINE KINASE MB 104.3 ng/mL (0-5.0)
[2021-07-25] MEDS ORDERED: EPTIFIBATIDE 2 MG/1 ML 10ML VIAL IV ONE (13:00)
[2021-07-25] MEDS ORDERED: FENTANYL CITRATE/PF 100MCG/2 ML INJ IV ONE (13:00)
[2021-07-25] MEDS ORDERED: ATROPINE SULFATE 0.1 MG/ML 10ML SYR IV ONE (13:00)
[2021-07-25] MEDS ORDERED: ATROPINE SULFATE 0.1 MG/ML 10ML SYR ONE (13:02)
[2021-07-25] MEDS: PIPERACILLIN/TAZOBACTAM 3.375 GM in SODIUM CHLORIDE 0.9% 50ML 50 ML IV SCH ×2 (13:41→21:48)
[2021-07-25] MEDS: INSULIN REGULAR, HUMAN 100 UNIT/1 ML SQ SCH ×3 (14:03→21:31)
[2021-07-25] MEDS: EPTIFIBATIDE 75mg 100ML 100 ML IV SCH ×2 (14:04→22:28)
[2021-07-25] MEDS: ATORVASTATIN 40 MG TAB PO SCH (20:30)
[2021-07-25] MEDS ORDERED: ZOLPIDEM TARTRATE 10 MG TAB PO PRN (21:00)
[2021-07-25] MEDS: LEVOTHYROXINE SODIUM 100 MCG TAB PO SCH (21:00)
[2021-07-25] MEDS: INSULIN GLARGINE 100 UNITS/ML VIAL SQ SCH (21:32)
[2021-07-25 22:11] LABS: CREATINE KINASE MB 56.3 ng/mL (0-5.0)
[2021-07-26] VITALS (18 sets, daily range): BP systolic 104–163; BP diastolic 64–96
[2021-07-26 05:04] LABS: BASOPHILS % 0.2 % (0.0-1.0); EOSINOPHILS # (AUTO) 0.1 (0.0-0.4); EOSINOPHILS % 0.8 % (0.0-6.0); HEMATOCRIT 35.4 % (34.2-44.1); HEMOGLOBIN 11.7 g/dL (12.0-16.0); LYMPHOCYTES # (AUTO) 1.4 (1.0-3.2); LYMPHOCYTES % 8.6 % (18.0-39.1); MEAN CORPUSCULAR HEMOGLOBIN 28.1 pg (28-32); MEAN CORPUSCULAR HGB CONC 33.1 g/dL (31-35); MEAN CORPUSCULAR VOLUME 84.9 fL (81-99); MONOCYTES # (AUTO) 3.1 (0.2-0.8); MONOCYTES % 18.3 % (4.4-11.3); NEUTROPHILS # (AUTO) 11.9 (2.1-6.9); NEUTROPHILS % 71.3 % (38.7-80.0); PLATELET COUNT 260 x10e3/uL (140-360); RED BLOOD COUNT 4.17 x10e6/uL (3.6-5.1)
[2021-07-26 05:16] LABS: ALBUMIN 2.6 g/dL (3.5-5.0); ALBUMIN/GLOBULIN RATIO 0.7 (0.8-2.0); ANION GAP 14.3 mmol/L (8-16); CALCIUM 8.8 mg/dL (8.4-10.2); CREATININE, SERUM 0.84 mg/dL (0.57-1.11); POTASSIUM 3.3 mmol/L (3.5-5.1)
[2021-07-26] MEDS: PIPERACILLIN/TAZOBACTAM 3.375 GM in SODIUM CHLORIDE 0.9% 50ML 50 ML IV SCH ×3 (05:45→22:47)
[2021-07-26 05:59] LABS: MAGNESIUM 1.3 MG/DL (1.3-2.1)
[2021-07-26 06:19] LABS: THYROID STIMULATING HORMONE 1.382 uIU/mL (0.350-4.940)
[2021-07-26] MEDS: INSULIN REGULAR, HUMAN 100 UNIT/1 ML SQ SCH ×4 (07:30→22:46)
[2021-07-26 08:53] LABS: EOSINOPHILS % (MANUAL) 1 % (0-7); LYMPHOCYTES % (MANUAL) 7 % (19-48); MONOCYTES % (MANUAL) 18 % (3.4-9.0); NEUTROPHILS % (MANUAL) 74 % (40-74)
[2021-07-26 08:54] LABS: PLATELET ESTIMATE ADEQUATE; PLATELET MORPHOLOGY COMMENT NORMAL; RBC MORPHOLOGY COMMENT NORMAL
[2021-07-26] MEDS: VALSARTAN/SACUBITRIL 24MG/26MG 1 EA TAB PO SCH ×2 (08:58→22:43)
[2021-07-26] MEDS: ASPIRIN 81 MG CHEW TAB PO SCH (08:58)
[2021-07-26] MEDS: CARVEDILOL 3.125 MG TAB PO SCH ×2 (08:58→16:07)
[2021-07-26] MEDS: CLOPIDOGREL BISULFATE 75 MG TAB PO SCH (08:58)
[2021-07-26] MEDS: PANTOPRAZOLE SOD 40 MG TABEC PO SCH (08:58)
[2021-07-26] MEDS ORDERED: ONDANSETRON HCL 4 MG ORAL DISINTEGRATING TAB PO PRN (18:30)
[2021-07-26] MEDS: ATORVASTATIN 40 MG TAB PO SCH (22:43)
[2021-07-26] MEDS: LEVOTHYROXINE SODIUM 100 MCG TAB PO SCH (22:43)
[2021-07-26] MEDS: INSULIN GLARGINE 100 UNITS/ML VIAL SQ SCH (22:46)
[2021-07-27] VITALS (9 sets, daily range): BP systolic 113–146; BP diastolic 60–83
[2021-07-27] MEDS: PIPERACILLIN/TAZOBACTAM 3.375 GM in SODIUM CHLORIDE 0.9% 50ML 50 ML IV SCH ×2 (06:20→14:21)
[2021-07-27] MEDS: CARVEDILOL 3.125 MG TAB PO SCH ×2 (08:28→16:43)
[2021-07-27] MEDS: ASPIRIN 81 MG CHEW TAB PO SCH (08:28)
[2021-07-27] MEDS: VALSARTAN/SACUBITRIL 24MG/26MG 1 EA TAB PO SCH (08:29)
[2021-07-27] MEDS: CLOPIDOGREL BISULFATE 75 MG TAB PO SCH (08:29)
[2021-07-27] MEDS: PANTOPRAZOLE SOD 40 MG TABEC PO SCH (08:29)
[2021-07-27] MEDS: INSULIN REGULAR, HUMAN 100 UNIT/1 ML SQ SCH ×3 (08:32→16:43)
[2021-07-27] MEDS ORDERED: POTASSIUM CHLORIDE 10MEQ EA PO ONE (10:25)
== END 2021-07-27 20:50 | disposition home or self-care (01) | DRG 246 ==
LOC: ER 03:23 → ERHOLD 04:14 → UNDOADMIN 04:14 → CATH LAB 05:34 → ICU 07:19 → IMCU 07-26 16:50
PROC: 027036Z Dilation of Coronary Artery, One Artery with Three Drug-eluting Intraluminal Devices, Percutaneous Approach (ICD-10-PCS; principal; 2021-07-25)
PROC: 4A023N7 Measurement of Cardiac Sampling and Pressure, Left Heart, Percutaneous Approach (ICD-10-PCS; 2021-07-25)
PROC: B2111ZZ Fluoroscopy of Multiple Coronary Arteries using Low Osmolar Contrast (ICD-10-PCS; 2021-07-25)
PROC: B2151ZZ Fluoroscopy of Left Heart using Low Osmolar Contrast (ICD-10-PCS; 2021-07-25)
DX: I21.09 ST elevation (STEMI) myocardial infarction involving other coronary artery of anterior wall (principal); U07.1 COVID-19; I50.21 Acute systolic (congestive) heart failure; R57.0 Cardiogenic shock; E87.2 Acidosis; N17.9 Acute kidney failure, unspecified; I13.0 Hypertensive heart and chronic kidney disease with heart failure and stage 1 through stage 4 chronic kidney disease, or unspecified chronic kidney disease; I25.2 Old myocardial infarction; I48.91 Unspecified atrial fibrillation; E03.9 Hypothyroidism, unspecified; I25.10 Atherosclerotic heart disease of native coronary artery without angina pectoris; Z85.3 Personal history of malignant neoplasm of breast; K21.9 Gastro-esophageal reflux disease without esophagitis; Z90.12 Acquired absence of left breast and nipple; Z90.5 Acquired absence of kidney; Z88.5 Allergy status to narcotic agent; I35.0 Nonrheumatic aortic (valve) stenosis; E11.22 Type 2 diabetes mellitus with diabetic chronic kidney disease; N18.2 Chronic kidney disease, stage 2 (mild); Z79.82 Long term (current) use of aspirin; Z79.4 Long term (current) use of insulin
CPT/HCPCS: 36415; 71045; 80053; 80061; 82550; 82553; 82947; 82948; 83036; 83605; 83735; 83880; 84443; 84484; 85025; 85379; 87040; 92928; 93005; 93306; 93458; 94799; 96372; 99152; 99153; 99251; 99284; C1725; C1766; C1769; C1874; C1876; C1887; C9600; J1327; J1644; J1815; J1817; J2001; J2250; J2543; J3010; J7030; Q9967; U0002

== ENCOUNTER → 2021-10-29 | Day surgery (SDC) | payer MEDICARE, OTHER ==
[2021-10-25 13:52] LABS: BASOPHILS # (AUTO) 0.1 (0.0-0.1); BASOPHILS % 0.6 % (0.0-1.0); EOSINOPHILS # (AUTO) 0.1 (0.0-0.4); EOSINOPHILS % 1.2 % (0.0-6.0); HEMATOCRIT 40.6 % (34.2-44.1); HEMOGLOBIN 13.2 g/dL (12.0-16.0); LYMPHOCYTES # (AUTO) 1.4 (1.0-3.2); LYMPHOCYTES % 15.5 % (18.0-39.1); MEAN CORPUSCULAR HEMOGLOBIN 28.2 pg (28-32); MEAN CORPUSCULAR HGB CONC 32.5 g/dL (31-35); MEAN CORPUSCULAR VOLUME 86.8 fL (81-99); MONOCYTES # (AUTO) 1.2 (0.2-0.8); MONOCYTES % 12.7 % (4.4-11.3); NEUTROPHILS # (AUTO) 6.4 (2.1-6.9); NEUTROPHILS % 69.5 % (38.7-80.0); PLATELET COUNT 320 x10e3/uL (140-360); RED BLOOD COUNT 4.68 x10e6/uL (3.6-5.1); RED CELL DISTRIBUTION WIDTH 13.9 % (11.7-14.4)
[2021-10-25 14:08] LABS: INR 0.86; PROTHROMBIN TIME 12.5 seconds (11.9-14.5)
[2021-10-25 14:09] LABS: PARTIAL THROMBOPLASTIN TIME 29.4 seconds (23.8-35.5)
[2021-10-25 14:20] LABS: ALBUMIN 3.8 g/dL (3.5-5.0); ALBUMIN/GLOBULIN RATIO 0.9 (0.8-2.0); ANION GAP 17.8 mmol/L (8-16); CALCIUM 10.3 mg/dL (8.4-10.2); CHOL/HDL RATIO 5.5 (3.0-3.6); CREATININE, SERUM 1.01 mg/dL (0.57-1.11); POTASSIUM 3.8 mmol/L (3.5-5.1)
[~2021-10-29] VITALS: Ht 160 cm; Wt 70.3 kg
[2021-10-29] VITALS (17 sets, daily range): BP systolic 91–168; BP diastolic 68–115
[~2021-10-29] MED LIST changes: +ASPIRIN 325 MG TAB ONE; +CLOPIDOGREL BISULFATE 75 MG TAB ONE; +FENTANYL CITRATE/PF 100MCG/2 ML INJ ONE; +FUROSEMIDE40 MG PO; +HEPARIN SOD (PORCINE) 1000 UNIT/ML 30ML ONE; +HEPARIN SOD/SOD CHLORIDE 2,000 ML ONE; +HYDRALAZINE HCL50 MG PO; +IOPAMIDOL 370 MG/ML 100 ML INFUS..BTL INJ ONE; +LIDOCAINE HCL 2% LOCAL 20 ML VIAL ONE; +LOSARTAN POTAS100 MG PO; +METOPROLOL SUCC50 MG PO; +MIDAZOLAM HCL 2 MG/2 ML VIAL ONE; +NITROGLYCERIN 0.4 MG SUBL ONE; +NITROGLYCERIN/D5W 200 MCG/ML 0 ML ONE; +NOVOLIN N100 UNIT/1; +NOVOLIN R100 UNIT/1; +SODIUM CHLORIDE 0.9% 1000ML 1,000 ML ONE; +VERAPAMIL HCL 2.5 MG/ML 2 ML VIAL ONE
== END | disposition home or self-care (01) ==
LOC: CATH LAB 07:58
PROVIDERS: ATTEND Internal Medicine Cardiovascular Disease
DX: I25.10 Atherosclerotic heart disease of native coronary artery without angina pectoris (principal); I11.0 Hypertensive heart disease with heart failure; I50.22 Chronic systolic (congestive) heart failure; I34.2 Nonrheumatic mitral (valve) stenosis; E78.5 Hyperlipidemia, unspecified; E11.9 Type 2 diabetes mellitus without complications; Z71.3 Dietary counseling and surveillance; R60.0 Localized edema; Z71.89 Other specified counseling; Z88.6 Allergy status to analgesic agent; Z88.8 Allergy status to other drugs, medicaments and biological substances; Z01.812 Encounter for preprocedural laboratory examination; Z20.822 Contact with and (suspected) exposure to COVID-19; Z79.82 Long term (current) use of aspirin; Z79.02 Long term (current) use of antithrombotics/antiplatelets; Z79.4 Long term (current) use of insulin; Z79.899 Other long term (current) drug therapy; Z95.5 Presence of coronary angioplasty implant and graft; Z82.49 Family history of ischemic heart disease and other diseases of the circulatory system; Z83.3 Family history of diabetes mellitus
CPT/HCPCS: 36415; 76937; 80053; 80061; 85025; 85610; 85730; C1725; C1874; C1876 ×2; C9600; J2250; J3010; J7030; Q9967; U0002; 92928; 93454; 99152; 99153; J1644; J2001

== ENCOUNTER 2022-08-02 11:57 | Inpatient (IN) | payer MEDICARE, OTHER ==
[~2022-08-02] VITALS: Ht 190.5 cm; Wt 70.3 kg
[~2022-08-02 11:57] MED LIST changes: -ASPIRIN 325 MG TAB ONE; -CLOPIDOGREL BISULFATE 75 MG TAB ONE; -FENTANYL CITRATE/PF 100MCG/2 ML INJ ONE; -HEPARIN SOD (PORCINE) 1000 UNIT/ML 30ML ONE; -HEPARIN SOD/SOD CHLORIDE 2,000 ML ONE; -IOPAMIDOL 370 MG/ML 100 ML INFUS..BTL INJ ONE; -LIDOCAINE HCL 2% LOCAL 20 ML VIAL ONE; -MIDAZOLAM HCL 2 MG/2 ML VIAL ONE; -NITROGLYCERIN 0.4 MG SUBL ONE; -NITROGLYCERIN/D5W 200 MCG/ML 0 ML ONE; -SODIUM CHLORIDE 0.9% 1000ML 1,000 ML ONE; -VERAPAMIL HCL 2.5 MG/ML 2 ML VIAL ONE
[2022-08-02] MEDS ORDERED: HYDRALAZINE HCL 20 MG/ML VIAL IV STA (12:23)
[2022-08-02] MEDS ORDERED: SODIUM CHLORIDE 0.9% 1000ML 500 ML IV ONE (12:30)
[2022-08-02] MEDS ORDERED: ALBUTEROL/IPRATROPIUM 3 ML NEB NEB ONE (12:30)
[2022-08-02 13:00] LABS: BASOPHILS # (AUTO) 0.1 (0.0-0.1); BASOPHILS % 0.4 % (0.0-1.0); EOSINOPHILS # (AUTO) 0.1 (0.0-0.4); EOSINOPHILS % 0.8 % (0.0-6.0); HEMATOCRIT 45.9 % (34.2-44.1); HEMOGLOBIN 14.4 g/dL (12.0-16.0); LYMPHOCYTES # (AUTO) 1.2 (1.0-3.2); LYMPHOCYTES % 9.2 % (18.0-39.1); MEAN CORPUSCULAR HEMOGLOBIN 27.9 pg (28-32); MEAN CORPUSCULAR HGB CONC 31.4 g/dL (31-35); MONOCYTES # (AUTO) 1.6 (0.2-0.8); NEUTROPHILS # (AUTO) 9.6 (2.1-6.9); NEUTROPHILS % 75.9 % (38.7-80.0); PLATELET COUNT 366 x10e3/uL (140-360); RED BLOOD COUNT 5.16 x10e6/uL (3.6-5.1); RED CELL DISTRIBUTION WIDTH 13.1 % (11.7-14.4)
[2022-08-02 13:12] LABS: CLARITY,URINE CLEAR (CLEAR); COLOR,URINE YELLOW (YELLOW); KETONES,URINE NEGATIVE (NEGATIVE); LEUKOCYTE ESTERASE ,URINE TRACE (NEGATIVE); NITRITE,URINE NEGATIVE (NEGATIVE); PROTEIN,URINE DIPSTICK >=300 (NEGATIVE); URINE UROBILINOGEN 0.2 mg/dL (0.2 - 1)
[2022-08-02 13:26] LABS: BACTERIA,URINE FEW /HPF; EPITHELIAL CELLS,URINE FEW /LPF; RBC,URINE 0-5 /HPF (0-5); WBC,URINE (MAN) 21-50 /HPF (0-5)
[2022-08-02 13:39] LABS: ALBUMIN 3.6 g/dL (3.5-5.0); ALBUMIN/GLOBULIN RATIO 0.8 (0.8-2.0); ANION GAP 18.5 mmol/L (8-16); CALCIUM 9.9 mg/dL (8.4-10.2); CREATININE, SERUM 1.3 mg/dL (0.57-1.11); POTASSIUM 4.5 mmol/L (3.5-5.1)
[2022-08-02] MEDS ORDERED: ASPIRIN 81 MG CHEW TAB PO ONE (14:45)
[2022-08-02] MEDS ORDERED: DEXTROSE 50% SYRINGE 50 ML IV PRN (14:45)
[2022-08-02] MEDS ORDERED: HYDRALAZINE HCL 20 MG/ML VIAL IV PRN (14:45)
[2022-08-02] MEDS ORDERED: SODIUM CHLORIDE FLUSH 10 ML SYR INJ PRN (14:45)
[2022-08-02] MEDS ORDERED: ONDANSETRON HCL INJ 2MG/ML 2ML 2 MG/ML VIAL IV PRN (14:45)
[2022-08-02] MEDS: ALBUTEROL SULF 0.083% NEB SOLN 3 ML NEB NEB SCH ×2 (15:00→20:40)
[2022-08-02 15:24] LABS: CREATINE KINASE MB 3.2 ng/mL (0-5.0)
[2022-08-02] MEDS ORDERED: METHYLPREDNISOLONE SOD SUCC 125 MG/2ML VIAL IV SCH (15:30)
[2022-08-02] MEDS: INSULIN REGULAR, HUMAN 100 UNIT/1 ML SQ SCH ×2 (16:06→22:51)
[2022-08-02 17:27] VITALS: BP 175/96
[2022-08-02 17:46] VITALS: BP 175/96
[2022-08-02 18:12] VITALS: BP 175/96
[2022-08-02] MEDS ORDERED: ACETAMINOPHEN 325 MG TAB PO PRN (19:45)
[2022-08-02 20:00] VITALS: BP 198/68
[2022-08-02] MEDS: METHYLPREDNISOLONE SOD SUCC 125 MG/2ML VIAL IV SCH (20:52)
[2022-08-02] MEDS: SODIUM CHLORIDE 0.9% 1000ML 1,000 ML IV SCH (20:53)
[2022-08-02] MEDS: MELATONIN 5 MG TABLET PO SCH (20:53)
[2022-08-02] MEDS ORDERED: LEVOTHYROXINE SODIUM 100 MCG TAB PO SCH (21:00)
[2022-08-02] MEDS ORDERED: LEVOTHYROXINE SODIUM 88 MCG TAB PO SCH (21:00)
[2022-08-02] MEDS: HEPARIN SOD (PORCINE) 5,000 UNIT/ML VIAL SC SCH (22:51)
[2022-08-03] VITALS (7 sets, daily range): BP systolic 137–164; BP diastolic 56–84
[2022-08-03] MEDS: ALBUTEROL SULF 0.083% NEB SOLN 3 ML NEB NEB SCH ×7 (00:15→23:05)
[2022-08-03] MEDS: LEVOTHYROXINE SODIUM 100 MCG TAB PO SCH (04:55)
[2022-08-03 06:45] LABS: BASOPHILS % 0.1 % (0.0-1.0); HEMOGLOBIN 12.4 g/dL (12.0-16.0); LYMPHOCYTES # (AUTO) 0.6 (1.0-3.2); LYMPHOCYTES % 6.7 % (18.0-39.1); MEAN CORPUSCULAR HEMOGLOBIN 28.1 pg (28-32); MEAN CORPUSCULAR VOLUME 90.5 fL (81-99); MONOCYTES # (AUTO) 0.2 (0.2-0.8); MONOCYTES % 2.5 % (4.4-11.3); NEUTROPHILS # (AUTO) 7.6 (2.1-6.9); NEUTROPHILS % 90.2 % (38.7-80.0); PLATELET COUNT 327 x10e3/uL (140-360); RED BLOOD COUNT 4.42 x10e6/uL (3.6-5.1); RED CELL DISTRIBUTION WIDTH 13.1 % (11.7-14.4)
[2022-08-03 07:14] LABS: ANION GAP 20.1 mmol/L (8-16); CREATININE, SERUM 1.36 mg/dL (0.57-1.11); POTASSIUM 4.1 mmol/L (3.5-5.1)
[2022-08-03 07:22] LABS: CREATINE KINASE MB 3.4 ng/mL (0-5.0)
[2022-08-03] MEDS: INSULIN REGULAR, HUMAN 100 UNIT/1 ML SQ SCH ×4 (07:48→21:15)
[2022-08-03] MEDS: SODIUM CHLORIDE 0.9% 1000ML 1,000 ML IV SCH ×3 (07:55→21:29)
[2022-08-03] MEDS: PANTOPRAZOLE SOD 40 MG TABEC PO SCH (09:16)
[2022-08-03] MEDS: METHYLPREDNISOLONE SOD SUCC 125 MG/2ML VIAL IV SCH ×2 (09:16→21:15)
[2022-08-03] MEDS: POLYETHYLENE GLYCOL 3350 17 GM PACK PO SCH (09:16)
[2022-08-03] MEDS: CLOPIDOGREL BISULFATE 75 MG TAB PO SCH (09:16)
[2022-08-03] MEDS: HEPARIN SOD (PORCINE) 5,000 UNIT/ML VIAL SC SCH ×2 (09:17→21:19)
[2022-08-03] MEDS ORDERED: INSULIN REGULAR, HUMAN 100 UNIT/1 ML SQ ONE ×3 (09:30→16:15)
[2022-08-03] MEDS: NPH, HUMAN INSULIN ISOPHANE 100 UNIT/1 ML 3ML VIAL SQ SCH ×2 (09:45→21:27)
[2022-08-03] MEDS: AMLODIPINE BESYLATE 10 MG TAB PO SCH (13:01)
[2022-08-03] MEDS: METOPROLOL SUCCINATE 25 MG TAB XL PO SCH (13:02)
[2022-08-03 18:01] LABS: ANION GAP 17.9 mmol/L (8-16); CALCIUM 9.1 mg/dL (8.4-10.2); CREATININE, SERUM 1.59 mg/dL (0.57-1.11); POTASSIUM 3.9 mmol/L (3.5-5.1)
[2022-08-03 18:04] LABS: INR 1.03; PROTHROMBIN TIME 13.7 seconds (11.9-14.5)
[2022-08-03] MEDS ORDERED: ZOLPIDEM TARTRATE 10 MG TAB PO PRN (21:00)
[2022-08-03] MEDS: MELATONIN 5 MG TABLET PO SCH (21:00)
[2022-08-03] MEDS: HYDRALAZINE HCL 25 MG TAB PO SCH (21:28)
[2022-08-04] VITALS (7 sets, daily range): BP systolic 128–172; BP diastolic 56–70
[2022-08-04] MEDS: ALBUTEROL SULF 0.083% NEB SOLN 3 ML NEB NEB SCH ×6 (00:14→20:30)
[2022-08-04] MEDS: SODIUM CHLORIDE 0.9% 1000ML 1,000 ML IV SCH ×4 (04:51→21:02)
[2022-08-04] MEDS: LEVOTHYROXINE SODIUM 100 MCG TAB PO SCH (05:38)
[2022-08-04] MEDS: INSULIN REGULAR, HUMAN 100 UNIT/1 ML SQ SCH ×4 (07:30→21:42)
[2022-08-04] MEDS: POLYETHYLENE GLYCOL 3350 17 GM PACK PO SCH (08:16)
[2022-08-04] MEDS: CLOPIDOGREL BISULFATE 75 MG TAB PO SCH (08:17)
[2022-08-04] MEDS: METHYLPREDNISOLONE SOD SUCC 125 MG/2ML VIAL IV SCH ×2 (08:17→21:00)
[2022-08-04] MEDS: HEPARIN SOD (PORCINE) 5,000 UNIT/ML VIAL SC SCH ×2 (08:17→21:40)
[2022-08-04] MEDS: PANTOPRAZOLE SOD 40 MG TABEC PO SCH (08:17)
[2022-08-04] MEDS: FUROSEMIDE 40 MG TAB PO SCH (08:18)
[2022-08-04] MEDS: HYDRALAZINE HCL 25 MG TAB PO SCH ×3 (08:18→21:05)
[2022-08-04] MEDS: AMLODIPINE BESYLATE 10 MG TAB PO SCH (08:18)
[2022-08-04] MEDS: METOPROLOL SUCCINATE 25 MG TAB XL PO SCH (08:19)
[2022-08-04] MEDS ORDERED: ONDANSETRON HCL 4 MG ORAL DISINTEGRATING TAB SL PRN (15:30)
[2022-08-04 17:19] LABS: BASOPHILS % 0.1 % (0.0-1.0); HEMATOCRIT 40.9 % (34.2-44.1); HEMOGLOBIN 12.9 g/dL (12.0-16.0); LYMPHOCYTES # (AUTO) 0.8 (1.0-3.2); LYMPHOCYTES % 4.1 % (18.0-39.1); MEAN CORPUSCULAR HEMOGLOBIN 27.7 pg (28-32); MEAN CORPUSCULAR HGB CONC 31.5 g/dL (31-35); MEAN CORPUSCULAR VOLUME 87.8 fL (81-99); MONOCYTES # (AUTO) 1.5 (0.2-0.8); MONOCYTES % 7.4 % (4.4-11.3); NEUTROPHILS # (AUTO) 17.8 (2.1-6.9); NEUTROPHILS % 87.4 % (38.7-80.0); PLATELET COUNT 456 x10e3/uL (140-360); RED BLOOD COUNT 4.66 x10e6/uL (3.6-5.1); RED CELL DISTRIBUTION WIDTH 13.3 % (11.7-14.4)
[2022-08-04 17:58] LABS: ANION GAP 20.1 mmol/L (8-16); CALCIUM 9.4 mg/dL (8.4-10.2); CREATININE, SERUM 1.27 mg/dL (0.57-1.11); PHOSPHORUS 3.7 MG/DL (2.3-4.7)
[2022-08-04 18:08] LABS: POTASSIUM 5.1 mmol/L (3.5-5.1)
[2022-08-04] MEDS ORDERED: NPH, HUMAN INSULIN ISOPHANE 100 UNIT/1 ML 3ML VIAL SQ SCH (21:00)
[2022-08-04] MEDS: LOSARTAN POTASSIUM 25 MG TAB PO SCH (21:04)
[2022-08-05] VITALS: BP 154/75
[2022-08-05] MEDS: ALBUTEROL SULF 0.083% NEB SOLN 3 ML NEB NEB SCH ×4 (03:45→14:30)
[2022-08-05 04:00] VITALS: BP 155/59
[2022-08-05] MEDS: LEVOTHYROXINE SODIUM 100 MCG TAB PO SCH (04:55)
[2022-08-05] MEDS: HYDRALAZINE HCL 25 MG TAB PO SCH ×2 (04:55→17:18)
[2022-08-05 05:56] LABS: BASOPHILS % 0.2 % (0.0-1.0); EOSINOPHILS % 0.1 % (0.0-6.0); HEMOGLOBIN 11.9 g/dL (12.0-16.0); LYMPHOCYTES # (AUTO) 1.7 (1.0-3.2); LYMPHOCYTES % 10.8 % (18.0-39.1); MEAN CORPUSCULAR HEMOGLOBIN 27.7 pg (28-32); MEAN CORPUSCULAR HGB CONC 33.1 g/dL (31-35); MEAN CORPUSCULAR VOLUME 83.9 fL (81-99); MONOCYTES # (AUTO) 1.8 (0.2-0.8); MONOCYTES % 11.3 % (4.4-11.3); NEUTROPHILS # (AUTO) 12.3 (2.1-6.9); NEUTROPHILS % 76.2 % (38.7-80.0); PLATELET COUNT 404 x10e3/uL (140-360); RED BLOOD COUNT 4.29 x10e6/uL (3.6-5.1); RED CELL DISTRIBUTION WIDTH 13.7 % (11.7-14.4)
[2022-08-05 06:34] LABS: CALCIUM 9.2 mg/dL (8.4-10.2); CREATININE, SERUM 1.4 mg/dL (0.57-1.11)
[2022-08-05] MEDS: SODIUM CHLORIDE 0.9% 1000ML 1,000 ML IV SCH ×2 (07:31→14:11)
[2022-08-05] MEDS: PANTOPRAZOLE SOD 40 MG TABEC PO SCH (08:51)
[2022-08-05] MEDS: CLOPIDOGREL BISULFATE 75 MG TAB PO SCH (08:52)
[2022-08-05] MEDS: LOSARTAN POTASSIUM 25 MG TAB PO SCH (08:52)
[2022-08-05] MEDS: AMLODIPINE BESYLATE 10 MG TAB PO SCH (08:52)
[2022-08-05] MEDS: FUROSEMIDE 40 MG TAB PO SCH (08:53)
[2022-08-05] MEDS: METOPROLOL SUCCINATE 25 MG TAB XL PO SCH (08:53)
[2022-08-05] MEDS: ATORVASTATIN 40 MG TAB PO SCH ×2 (08:53→09:00)
[2022-08-05] MEDS: POLYETHYLENE GLYCOL 3350 17 GM PACK PO SCH (08:53)
[2022-08-05] MEDS: HEPARIN SOD (PORCINE) 5,000 UNIT/ML VIAL SC SCH (08:55)
[2022-08-05] MEDS: INSULIN REGULAR, HUMAN 100 UNIT/1 ML SQ SCH ×3 (08:55→17:15)
[2022-08-05] MEDS: METHYLPREDNISOLONE SOD SUCC 125 MG/2ML VIAL IV SCH (09:00)
[2022-08-05 09:48] VITALS: BP 170/74
[2022-08-05 10:16] VITALS: BP 170/74
[2022-08-05 12:45] VITALS: BP 161/81
[2022-08-05] MEDS ORDERED: DOXYCYCLINE HYCLATE TABLET 100 MG TAB PO SCH (13:30)
[2022-08-05] MEDS ORDERED: FOSFOMYCIN TROMETHAMINE 3 GM PACKET PO ONE (14:00)
[2022-08-05] MEDS ORDERED: AZITHROMYCIN 250 MG TAB PO ONE (14:45)
[2022-08-05] MEDS ORDERED: VENTOLIN HFA18 GM INH (17:11)
[2022-08-05] MEDS ORDERED: COZAAR25 MG PO (17:11)
[2022-08-05] MEDS ORDERED: NORVASC10 MG PO (17:11)
[2022-08-05] MEDS ORDERED: TOPROL XL25 MG PO (17:11)
[2022-08-05] MEDS ORDERED: DOXYCYCLINE HY100 MG PO (17:11)
[2022-08-05] MEDS ORDERED: PREDNISONE20 MG PO (17:11)
[2022-08-05] MEDS ORDERED: HYDRALAZINE HCL25 MG PO (17:11)
[2022-08-05] MEDS ORDERED: Atorvastatin PO (17:11)
[2022-08-05 17:19] VITALS: BP 130/64
[2022-08-05] MEDS ORDERED: LIPITOR20 MG PO (17:23)
[2022-08-06] MEDS ORDERED: PREDNISONE 20 MG TAB PO SCH (09:00)
== END 2022-08-05 18:22 | disposition home or self-care (01) | DRG 202 ==
LOC: ER 12:11 → ERHOLD 14:46 → MED/SURG2 17:05
PROVIDERS: ADMIT Internal Medicine; ATTEND Internal Medicine
DX: J40 Bronchitis, not specified as acute or chronic (principal); E87.20 Acidosis, unspecified; N17.9 Acute kidney failure, unspecified; N39.0 Urinary tract infection, site not specified; I50.22 Chronic systolic (congestive) heart failure; I13.0 Hypertensive heart and chronic kidney disease with heart failure and stage 1 through stage 4 chronic kidney disease, or unspecified chronic kidney disease; E11.65 Type 2 diabetes mellitus with hyperglycemia; I25.10 Atherosclerotic heart disease of native coronary artery without angina pectoris; E78.5 Hyperlipidemia, unspecified; E03.9 Hypothyroidism, unspecified; I48.0 Paroxysmal atrial fibrillation; I89.0 Lymphedema, not elsewhere classified; N18.9 Chronic kidney disease, unspecified; E11.22 Type 2 diabetes mellitus with diabetic chronic kidney disease; I25.2 Old myocardial infarction; G89.29 Other chronic pain; I16.0 Hypertensive urgency; G47.00 Insomnia, unspecified; Z79.02 Long term (current) use of antithrombotics/antiplatelets; Z79.891 Long term (current) use of opiate analgesic; Z79.4 Long term (current) use of insulin; Z85.3 Personal history of malignant neoplasm of breast; Z90.12 Acquired absence of left breast and nipple; Z90.5 Acquired absence of kidney; Z98.890 Other specified postprocedural states; Z96.642 Presence of left artificial hip joint; Z88.5 Allergy status to narcotic agent; Z63.9 Problem related to primary support group, unspecified; Z95.5 Presence of coronary angioplasty implant and graft; Z96.653 Presence of artificial knee joint, bilateral; Z83.3 Family history of diabetes mellitus
CPT/HCPCS: 36415; 71045; 80048; 80053; 81001; 82550; 82553; 82948; 83605; 83880; 84100; 84443; 84484; 85025; 85610; 87086; 93005; 93306; 94799; 96372; 99285; J0360; J0456; J0696; J1644; J1817; J2930; J7030; J7050

== ENCOUNTER 2022-10-07 17:30 | Emergency (ER) | payer MEDICARE, OTHER ==
[~2022-10-07] VITALS: Ht 190.5 cm; Wt 70.3 kg
[~2022-10-07 17:30] MED LIST changes: +Atorvastatin PO; +COZAAR25 MG PO; +DOXYCYCLINE HY100 MG PO; +LIPITOR20 MG PO; +NORVASC10 MG PO; +PREDNISONE20 MG PO; +TOPROL XL25 MG PO; +VENTOLIN HFA18 GM INH
[2022-10-07 17:45] VITALS: O2SAT 100
[2022-10-07 18:27] LABS: BASOPHILS # (AUTO) 0.1 (0.0-0.1); BASOPHILS % 0.4 % (0.0-1.0); EOSINOPHILS # (AUTO) 0.1 (0.0-0.4); EOSINOPHILS % 0.5 % (0.0-6.0); HEMATOCRIT 39.3 % (34.2-44.1); HEMOGLOBIN 13.3 g/dL (12.0-16.0); LYMPHOCYTES # (AUTO) 1.7 (1.0-3.2); LYMPHOCYTES % 13.5 % (18.0-39.1); MEAN CORPUSCULAR HEMOGLOBIN 28.4 pg (28-32); MEAN CORPUSCULAR HGB CONC 33.8 g/dL (31-35); MEAN CORPUSCULAR VOLUME 83.8 fL (81-99); MONOCYTES # (AUTO) 1.5 (0.2-0.8); MONOCYTES % 11.9 % (4.4-11.3); NEUTROPHILS # (AUTO) 9.2 (2.1-6.9); NEUTROPHILS % 73.3 % (38.7-80.0); PLATELET COUNT 306 x10e3/uL (140-360); RED BLOOD COUNT 4.69 x10e6/uL (3.6-5.1); RED CELL DISTRIBUTION WIDTH 15.1 % (11.7-14.4)
[2022-10-07 19:09] LABS: INR 0.89; PROTHROMBIN TIME 12.5 seconds (11.9-14.5)
[2022-10-07 19:15] LABS: ALBUMIN 3.8 g/dL (3.5-5.0); ALBUMIN/GLOBULIN RATIO 1.1 (0.8-2.0); ANION GAP 18.8 mmol/L (8-16); CALCIUM 9.8 mg/dL (8.4-10.2); CREATININE, SERUM 0.92 mg/dL (0.57-1.11); POTASSIUM 3.8 mmol/L (3.5-5.1)
[2022-10-07] MEDS ORDERED: IOPAMIDOL 370 MG/ML 100 ML INFUS..BTL INJ ONE (19:21)
[2022-10-07] MEDS ORDERED: SODIUM CHLORIDE 0.9% 100 ML ONE (19:21)
== END 2022-10-07 22:52 | disposition other institution (70) ==
LOC: ER 17:39
DX: I69.928 Other speech and language deficits following unspecified cerebrovascular disease (principal); R42 Dizziness and giddiness; G89.29 Other chronic pain; Z20.822 Contact with and (suspected) exposure to COVID-19; R94.31 Abnormal electrocardiogram [ECG] [EKG]; Z85.3 Personal history of malignant neoplasm of breast; Z96.642 Presence of left artificial hip joint
CPT/HCPCS: 0223U; 36415; 70450; 70496; 70498; 71045; 80053; 82948; 84484; 85025; 85610; 93005; 99284; J7050; Q9967; U0002